=== PATIENT | male | born 1990 | race Two or more races ===

== ENCOUNTER 2020-07-16 21:05 | Emergency (ER) | payer OTHER, SELFPAY ==
[2020-07-16 21:51] VITALS: BP 129/85; PULSE 101; RESP 16; TEMP 37; O2SAT 98; BMI 37.2
--- NOTE | 2020-07-17 00:07 | PC.NURSE ---
serenity mane at bedside for primary eval
--- NOTE | 2020-07-17 00:08 | CT_ITS ---
EXAMINATION: CT HEAD WITHOUT CONTRAST CLINICAL INFORMATION: Headache. Pain. COMPARISON: 10/23/2012. TECHNIQUE: Contiguous helical images of the brain were obtained without IV contrast. Multiplanar reconstructions were performed. DLP: 680 mGy-cm. FINDINGS: There are no pathologic extra-axial fluid collections. The lateral, third, fourth ventricles are nondilated and concordant with the appearance of the sulci. There is no evidence for acute intraparenchymal hemorrhage or infarct. There is neither mass nor mass effect. There is no shift of midline structures. The paranasal sinuses and mastoid air cells are clear. There are no osseous lesions. CT/CT head/brain wo con IMPRESSION: No evidence for acute intracranial injury. Automated exposure control (Care Dose) Adjustment of the mA and/or kv according to patient size (this includes techniques or standardized protocols for targeted exams where dose is matched to indication / reason for exam; i.e. extremities or head).
--- NOTE | 2020-07-17 00:09 | XR_ITS ---
EXAMINATION: CHEST 2 VIEWS CLINICAL INFORMATION: Shortness of breath. Wheezing. COMPARISON: 03/21/2017. TECHNIQUE: PA and lateral views of the chest were obtained. FINDINGS: The cardiac silhouette is not enlarged. The mediastinal and hilar contours are unremarkable. There are neither pleural effusions nor pneumothoraces. There are no consolidations. The osseous structures are stable.. Surgical clips are identified within the right upper quadrant. XR/XR chest 2V IMPRESSION: No evidence for acute disease.
[2020-07-17 00:52] VITALS: BP 118/79; PULSE 81; RESP 17; TEMP 36.4; O2SAT 98
[2020-07-17] MEDS: 0.9 % Sodium Chloride 1,000 ML 999 ML IVCONT (00:54)
[2020-07-17] MEDS: Metoclopramide HCl 10 MG/2 ML VIAL IVPUSH (00:54)
[2020-07-17] MEDS: Albuterol Sulfate 90 MCG 8 GM INHALER 2 PUFF INHALE (00:54)
[2020-07-17] MEDS: Ketorolac Tromethamine 15 MG/ML VIAL IV (00:54)
[2020-07-17] MEDS: diphenhydrAMINE HCL 50 MG/ML VIAL 25 MG IVPUSH (00:54)
[2020-07-17 00:56] LABS: MANUAL DIFF FLAG NO
--- NOTE | 2020-07-17 01:02 | ED_ITS ---
HPI - Headache General Chief Complaint: Headache Stated Complaint: headache Time Seen by Provider: 07/17/20 00:08 Source: patient Mode of arrival: ambulatory Limitations: no limitations History of Present Illness HPI Narrative: 29yoM c a PMHx of asthma presenting to the ED c c/o of a headache that started gradually while at work [employer] c pain behind the eye and behind left ear. Sharp in sensation worse c light. With associated Nausea. Relieved by nothing. Reports he has had headaches in the past although usually never with nausea. Patient also reports a separate complaint of wheezing with shortness of breath for the past few days. Denies cough. Denies any other symptoms complaints or concerns at this time. Related Data Previous Rx's Medication Instructions Recorded sennosides 8.6 mg capsule 17.2 mg PO BEDTIME 30 Days #60 cap 07/08/20 albuterol sulfate 0.63 mg INHALATION QID PRN #90 ml 07/17/20 diphenhydramine HCl [Benadryl 25 mg PO TID PRN #10 tab 07/17/20 Allergy] ibuprofen 800 mg PO Q8H PRN #14 tab 07/17/20 metoclopramide HCl [Reglan] 10 mg PO Q6H PRN #10 tab 07/17/20 nebulizers [AeroEclipse II #1 ea 07/17/20 Nebulizer] prednisone 40 mg PO DAILY 5 Days #10 tab 07/17/20 Allergies Allergy/AdvReac Type Severity Reaction Status Date / Time acetaminophen [From VICODIN] Allergy Severe SWELLING Unverified 05/27/20 16:26 hydrocodone [From VICODIN] Allergy Severe SWELLING Unverified 05/27/20 16:26 codeine [CODEINE] Allergy Unknown ITCHY RASH Unverified 05/27/20 16:26 vancomycin [VANCOMYCIN] Allergy Unknown REDMANS Unverified 05/27/20 16:26 SYNDROME, Swelling/Redness, redness, swelling, itching Vicodin Allergy Unknown redness, Unverified 04/15/20 00:00 swelling, itching SEAFOOD Allergy Severe SWELLING Uncoded 05/27/20 16:26 Codeine Phosphate Allergy Unknown redness, Uncoded 04/15/20 00:00 swelling , itching Codeine Sulfate Allergy Unknown Uncoded 04/14/20 00:00 Review of Systems Review of Systems: Constitutional : denies med noncompliance, no history of PE or DVT, denies recent travel, No Fever, No Chills ENT/Mouth : No Hearing loss, No Ear Pain, No Nasal Congestion, No Sinus Pain, No Hoarseness, No sore throat, No Rhinorrhea, No Swallowing Difficulty Eyes: + Right Eye Pain, No Swelling, No Redness, No Foreign Body, No Discharge, No Vision Changes Cardiovascular : No Chest Pain, No SOB, No Dyspnea on Exertion, No Orthopnea, No Edema, No Palpitations Respiratory : No Cough, No Sputum, + Wheezing, + Dyspnea, No Smoke Exposure, Gastrointestinal : + Nausea, No Vomiting, No Diarrhea, No Constipation, No abdom inal Pain, No Hematochezia, No Melena Genitourinary : no irregular bleeding, No Dysuria, No Urinary Frequency, No Hematuria, No Urinary Incontinence, No Urgency, No Flank Pain, No Urinary Flow Changes, No Hesitancy Musculoskeletal : No joint pain, No Myalgias, No Joint Swelling Skin : No Skin Lesions, No rash Neuro : + Headache, No Weakness, No Numbness, No Paresthesias, No Loss of Consciousness, No Dizziness Heme/Lymph: No Lymphadenopathy Endocrine : No Temperature Intolerance Yes all other systems are reviewed and are negative PMFSH Past Medical History Attestation statement: The following information was validated with the patient. Medical History (Updated 07/17/20 @ 02:19 by NINI Hare) Asthma exacerbation No known health problems Social History Social History Alcohol intake: never Smoked in Last 30 Days: No Use of substances other than those prescribed or required for medical reasons: No Any prior treatment program specific to substance use: No Advance Directives: No Advance Directives Information Provided: No Physical Exam Vital Signs: Vital Signs: Last Vital Signs Temp 97.6 F 07/17/20 00:52 Pulse 81 07/17/20 00:52 Resp 17 07/17/20 00:52 BP 118/79 07/17/20 00:52 Pulse Ox 98 07/17/20 00:52 Body Mass Index 37.2 Vital signs have been reviewed as normal and appeared to be correct. Blood pressure normal. Heart rate normal. Respiration rate normal. Temperature normal. Oxygen saturation normal. Appearance: Alert. Oriented X3. No acute distress. Head: Normal external exam. Normocephalic. Atraumatic. Able to rotate head bilaterally. Eyes: PERRLA. EOMI. Conjunctiva are normal. Cornea are normal. Funduscopic exam within normal limits. Sclera normal. Eyelids normal. No papilledema noted. Anterior chamber normal. No photophobia noted. Pressure to right eye is . Pressure to left eye is . Visual acuity to right eye 20/. Visual acuity to left eye 20/. ENT: EAC normal. TM's Normal. Hearing normal. Pharynx normal. Uvula midline. tongue midline. Moist mucous membranes. No trismus noted. No drooling noted. No muffled voice noted. Neck: Normal inspection. Neck supple. FROM. No adenopathy. Thyroid Normal. No meningeal signs. No neck mass noted. CVS: Normal heart rate and rhythm. Heart sound normal. No murmurs noted. Pulses normal throughout. Respiratory: No respiratory distress. Painless inspiration. Patient with mild expiratory wheezing throughout. Otherwise no rales/rhonchi noted. Chest nontender. No accessory muscle usage noted or decreased air movement noted. Back: No CVA tenderness. Full range of motion noted. Skin: Skin warm and dry. Normal skin color. Normal skin turgor. No rashes/lesions/lacerations noted. Extremities: No lower extremity edema. Extremities exhibit normal range of motion. Extremities nontender. Able to shrug shoulders bilaterally and keep up against resistance. Neuro: Oriented X 3. No motor deficit. No sensory deficit. Reflexes normal. Moving all extremities. No focal motor deficits. Cranial nerves II-XI intact bilaterally. Facial strength normal. Normal cognition. Speech normal. Gait normal. Strength 5/5 throughout. No pronator drift. No tremor noted. No fasciculations noted. Muscle tone normal throughout. No asterixis noted. Lqsbeg-qj-yzeb test normal. Heel to magallanes test normal. Tandem gait normal. Does not sway with eyes open. Romberg test negative. Rapid alternating movement upper extremity normal. Rapid alternating movement lower extremity normal. Hand drop from overhead-Mrs. face. No rigidity noted. NIHSS score 0. Course Course Course Narrative: 00:10AM - 29yoM c a PMHx of asthma presenting c c/o of a headache c associated nausea, and pain behind left ear that started gradual [employer]. Pt has a separate complaint of sob c wheezing for a few days. - Patient afebrile, resting comfortably in no distress. Non-toxic appearing. Patient denies any recent trauma/injury to head. Neurological exam shows no deficits. BP WNL. Denies any changes in vision. Patient ambulates without difficulty. Given the history, and physical - most likely diagnosis: Migraine MONZON. - Although due to not usual to regular headache therefore will obtain labs and CT scan of brain. Provide symptomatic tx c IV fluids, 10 mg of reglan, 23 mg of benadryl, and 15 mg of toradol then re-evaluate. Reevaluation(s) Reevaluation #1: CBC within normal limits. Patient's labs hemolyzed therefore basic metabolic needs to be redrawn. CT scan of brain within normal limits no acute processes noted. Chest x-ray within normal limits no acute processes noted. - patient reports his headache and his wheezing is improved after the symptomatic treatment and albuterol inhaler. Will DC home with symptomatic treatment instructions return if any new or worsening symptoms. If basic metab olic panel within normal limits patient can be discharged home. Patient understands agrees the plan. Time: 02:20 MDM - Headache MDM Narrative Medical decision making narrative: gradual onset MONZON with photophobia, nausea. Although not typically to usual headaches. SAH: unlikely given gradual onset. Intracranial bleed: unlikely given neg trauma, neg anticoagulation Meningitis: unlikely given pt afebrile, neg stiff neck, no immune compromise. Exam without signs of meningismus Temporal arteritis: Unlikely given Neg jaw claudication, no temporal tenderness or nodularity on exam. Cerebral venous thrombosis: unlikely given no h/o hypercoaguable state, no chronic head/neck infection. Medical Records Attestation: I reviewed the patient's medical records. Lab Data Attestation: I reviewed the patient's lab results. Result diagrams: 07/17/20 00:49 07/17/20 00:49 Labs: Lab Results 07/17/20 07/17/20 07/17/20 Range/Units 00:49 00:49 00:49 WBC 9.1 (4.8-10.8) X10*3/uL RBC 5.11 (4.60-5.80) X10*6/uL Hgb 14.7 (14.0-18.0) g/dl Hct 45.3 (42-52) % MCV 88.6 (80-98) fL MCH 28.8 (27.0-33.0) pg MCHC 32.5 (31.0-36.0) g/dl RDW 12.6 (11.0-16.0) % Plt Count 326 (160-400) X10*3/uL MPV 9.5 (9.4-12.4) fL Immature Gran % (Auto) 0.2 (0.0-0.4) % Neut % (Auto) 59.3 (45-73) % Lymph % (Auto) 29.2 (20-40) % [place] % (Auto) 5.5 (2-11) % Eos % (Auto) 5.0 H (0-4) % Baso % (Auto) 0.8 (0-2) % Lymph # (Auto) 2.7 (1.2-4.9) X10*3/uL [place] # (Auto) 0.5 (0.1-1.2) X10*3/uL Eos # (Auto) 0.5 H (0.0-0.4) X10*3/uL Baso # (Auto) 0.1 (0.0-0.2) X10*3/uL Abs Immat Gran (auto) 0.02 (0.00-0.03) X10*3/uL Absolute Neuts (auto) 5.4 (2.0-8.3) X10*3/uL Absolute Nucleated RBC 0.000 (0.0-0.012) X10*3/uL Nucleated RBC % (auto) 0.0 (0.0-0.2) /100WBC Hold Blue Top SEE NOTE Sodium Cancelled Potassium Cancelled Chloride Cancelled Carbon Dioxide Cancelled Anion Gap Cancelled BUN Cancelled Creatinine Cancelled Estim Creat Clear Calc Cancelled Estimated GFR Cancelled Random Glucose Cancelled Calcium Cancelled Magnesium Cancelled Imaging Data CT scan - head: Attestation: I personally reviewed and interpreted this imaging study as sada urias: Radiologist's impression: FINDINGS: There are no pathologic extra-axial fluid collections. The lateral, third, fourth ventricles are nondilated and concordant with the appearance of the sulci. There is no evidence for acute intraparenchymal hemorrhage or infarct. There is neither mass nor mass effect. There is no shift of midline structures. The paranasal sinuses and mastoid air cells are clear. There are no osseous lesions. CT/CT head/brain wo con IMPRESSION: No evidence for acute intracranial injury. Chest x-ray: Attestation: I personally reviewed and interpreted this imaging study as follows: Radiologist's impression: FINDINGS: The cardiac silhouette is not enlarged. The mediastinal and hilar contours are unremarkable. There are neither pleural effusions nor pneumothoraces. There are no consolidations. The osseous structures are stable.. Surgical clips are identified within the right upper quadrant. XR/XR chest 2V IMPRESSION: No evidence for acute disease. Discharge Plan Discharge Clinical Impression: Acute bronchospasm Headache Qualifiers: Headache type: unspecified Headache chronicity pattern: acute headache Intractability: not intractable Qualified Code(s): R51.9 - Headache, unspecified Asthma Qualifiers: Asthma severity: mild Asthma persistence: intermittent Asthma complication type: uncomplicated Qualified Code(s): J45.20 - Mild intermittent asthma, uncomplicated Patient Disposition: Home, Self-Care Instructions: Acute Headache (ED) Prescriptions: New metoclopramide HCl [Reglan] 10 mg tablet 10 mg PO Q6H PRN (Reason: nausea and vomiting) Qty: 10 RF: 0 diphenhydramine HCl [Benadryl Allergy] 25 mg tablet 25 mg PO TID PRN (Reason: nausea and vomiting) Qty: 10 RF: 0 ibuprofen 800 mg tablet 800 mg PO Q8H PRN (Reason: pain) Qty: 14 RF: 0 prednisone 20 mg tablet 40 mg PO DAILY 5 Days Qty: 10 RF: 0 (DME) AeroEclipse II Nebulizer Misc See Rx Instructions .ROUTE .MEDSUPPLY Qty: 1 RF: 0 albuterol sulfate 0.63 mg/3 mL solution for nebulization 0.63 mg inhalation QID PRN (Reason: shortness of breath or wheezing) Qty: 90 RF: 0 No Action senna 8.6 mg capsule 17.2 mg PO BEDTIME 30 Days Qty: 60 RF: 1 Referrals: Kahlil Garcia, APPLIED RESEARCH DIRECTOR-[employer] [Primary Care Provider] - 2 days Stand Alone Forms: Work/School Release Print Language: Macedonian
[2020-07-17 01:07] LABS: Basophils Absolute Auto 0.1 X10*3/uL (0.0-0.2); Basophils Percent Auto 0.8 % (0-2); Eosinophils Absolute Auto 0.5 X10*3/uL (0.0-0.4); Hematocrit 45.3 % (42-52); Hemoglobin 14.7 g/dl (14.0-18.0); Imm Gran Abs Auto 0.02 X10*3/uL (0.00-0.03); Imm Gran Pct Auto 0.2 % (0.0-0.4); Lymphocytes Absolute Auto 2.7 X10*3/uL (1.2-4.9); Lymphocytes Percent Auto 29.2 % (20-40); Mean Corpuscular HGB Conc 32.5 g/dl (31.0-36.0); Mean Corpuscular Hemoglobin 28.8 pg (27.0-33.0); Mean Corpuscular Volume 88.6 fL (80-98); Mean Platelet Volume 9.5 fL (9.4-12.4); Monocytes Absolute Auto 0.5 X10*3/uL (0.1-1.2); Monocytes Percent Auto 5.5 % (2-11); Neutrophils Absolute Auto 5.4 X10*3/uL (2.0-8.3); Neutrophils Percent Auto 59.3 % (45-73); Platelet Count 326 X10*3/uL (160-400); Red Blood Count 5.11 X10*6/uL (4.60-5.80); Red Cell Distribution Width 12.6 % (11.0-16.0); White Blood Count 9.1 X10*3/uL (4.8-10.8)
--- NOTE | 2020-07-17 01:57 | PC.NURSE ---
pt states he is feeling better pain is 2/10 compared to 6/10 pre med administration
[2020-07-17 02:36] LABS: Glucose Urine UA NEG (NEG); Leukocyte Esterase Urine TRACE (NEG); Nitrite Urine NEG (NEG); PH 5.5 (5.0-8.0); Specific Gravity - Urine >= 1.030 (1.005-1.025); Urine Blood NEG (NEG); Urine Ketones NEG (NEG); Urine Protein NEG (NEG-TRACE)
[2020-07-17 03:13] LABS: Appearance Urine CLEAR; Color Urine YELLOW
[2020-07-17 03:16] LABS: Bacteria Urine TRACE /LPF; RBC Urine 0 /HPF (0); Squamous Epithelial Cell Urine 2+ /LPF
[2020-07-17 03:17] LABS: Anion Gap 11 (12-20); Blood Urea Nitrogen 19 mg/dL (9-16); Calcium 7.9 mg/dL (8.4-10.2); Carbon Dioxide 22 mmol/L (22-29); Chloride 113 mmol/L (96-108); Creatinine Clr Calc Pharmacy 147.2; Estimated Glomerular Filt Rate > 60; Glucose Random 90 mg/dL (60-115); Potassium 3.9 mmol/l (3.3-5.1); Sodium 142 mmol/L (135-145)
== END 2020-07-17 03:43 | disposition home or self-care (01) ==
PROVIDERS: Physician Assistant Medical; Emergency Provider Internal Medicine; PCP Nurse Practitioner Family
DX: J98.01 Acute bronchospasm (principal); R51.9 Headache, unspecified; Z79.899 Other long term (current) drug therapy
CPT/HCPCS: 36415; 70450; 71046; 80048; 81001; 83735; 85025; 87086; 94640; 96361; 96374; 96375; 99284; J1200; J1885; J2765

== ENCOUNTER 2020-10-18 09:21 | Emergency (ER) | payer OTHER, SELFPAY ==
[2020-10-18 10:20] VITALS: BP 146/102; PULSE 80; RESP 20; TEMP 36.8; O2SAT 99; BMI 38.2
--- NOTE | 2020-10-18 10:47 | ED_ITS ---
HPI - General Adult General Chief complaint: Dizziness Stated complaint: covid symptoms Time Seen by Provider: 10/18/20 10:26 Source: patient Mode of arrival: ambulatory Limitations: no limitations History of Present Illness HPI narrative: 29-year-old male previously healthy here with complaints of generalized abdominal cramping, headache, dizziness described as lightheadedness since waking this morning. He tells me he had some symptoms when he woke up but then when driving to work he felt worse and so he drove himself here to the emergency department. He denies any nausea, vomiting, diarrhea, fevers, chills, cough, shortness of breath, chest pain, neck pain. Describes the headache as generalized and mild. No vision changes, photophobia, nausea, vomiting. Lightheaded with position changes only. Onset (ago): hour(s) Related Data Home Medications Medication Instructions Recorded Confirmed budesonide-formoterol HFA 80 INHALATION 07/20/20 mcg-4.5 mcg/actuation aerosol inhaler epinephrine 0.3 mg/0.3 mL IM 07/20/20 injection, auto-injector omalizumab 150 mg/mL subcutaneous mg SUBCUT 07/20/20 syringe prednisone 10 mg tablet mg PO 07/20/20 Previous Rx's Medication Instructions Recorded sennosides 8.6 mg capsule 17.2 mg PO BEDTIME 30 Days #60 cap 07/08/20 albuterol sulfate 0.63 mg INHALATION QID PRN #90 ml 07/17/20 diphenhydramine HCl [Benadryl 25 mg PO TID PRN #10 tab 07/17/20 Allergy] ibuprofen 800 mg PO Q8H PRN #14 tab 07/17/20 metoclopramide HCl [Reglan] 10 mg PO Q6H PRN #10 tab 07/17/20 nebulizers [AeroEclipse II #1 ea 07/17/20 Nebulizer] prednisone 40 mg PO DAILY 5 Days #10 tab 07/17/20 cyclobenzaprine 5 mg tablet 10 mg PO BEDTIME PRN #10 tab 07/20/20 naproxen 500 mg tablet 500 mg PO BID PRN #60 tab 07/20/20 Allergies Allergy/AdvReac Type Severity Reaction Status Date / Time acetaminophen [From VICODIN] Allergy Severe SWELLING Unverified 05/27/20 16:26 hydrocodone [From VICODIN] Allergy Severe SWELLING Unverified 05/27/20 16:26 codeine [CODEINE] Allergy Unknown ITCHY RASH Unverified 05/27/20 16:26 vancomycin [VANCOMYCIN] Allergy Unknown REDMANS Unverified 05/27/20 16:26 SYNDROME, Swelling/Redness, redness, swelling, itching Vicodin Allergy Unknown redness, Unverified 04/15/20 00:00 swelling, itching SEAFOOD Allergy Severe SWELLING Uncoded 05/27/20 16:26 Codeine Phosphate Allergy Unknown redness, Uncoded 04/15/20 00:00 swelling , itching Codeine Sulfate Allergy Unknown Uncoded 04/14/20 00:00 Review of Systems Review of Systems: Yes all other systems are reviewed and are negative Constitutional: Constitutional: Reports no additional constitutional complaints, Denies body ache(s), Denies chills, Denies fever(s), Reports headache(s) and Denies weakness Eyes: Eyes: Reports no additional eye complaints and Denies change in vision ENT: Reports system reviewed and no additional complaints, except as documented, Reports dizziness (lightheadeness ), Reports headache(s), Denies nasal congestion, Denies nasal discharge and Denies neck pain Cardiovascular: Cardiovascular: Reports no additional cardiovascular complaints, Denies chest pain, Denies leg edema and Denies dyspnea Respiratory: Respiratory: Reports no additional respiratory complaints, Denies cough and Denies dyspnea Gastrointestinal: Gastrointestinal: Reports no additional gastrointestinal complaints, Reports abdominal pain, Denies diarrhea, Denies nausea and Denies vomiting Genitourinary: Genitourinary: Denies urinary incontinence Musculoskeletal: Musculoskeletal: Reports no additional musculoskeletal complaints, Denies back pain, Denies arthralgias, Denies joint swelling, Denies neck pain, Denies numbness and Denies tingling Integumentary/Breasts: Skin/Breast: Reports system reviewed and no additional complaints, except as docu and Denies rash Neurologic: Reports system reviewed and no additional complaints, except as documented, Denies Abnormal speech present, Reports dizziness (lightheadeness ), Reports headache(s), Denies numbness, Denies tingling and Denies weakness PMFSH Past Medical History Attestation statement: The following information was validated with the patient. Source: old records reviewed and nursing notes reviewed Medical History Asthma exacerbation FHx: cholecystectomy No known health problems Social History Social History Alcohol intake: never Advance Directives: No Advance Directives Information Provided: No Physical Exam Vital Signs: Vital Signs: Last Vital Signs Temp 98.3 F 10/18/20 10:20 Pulse 76 10/18/20 10:51 Resp 20 10/18/20 10:20 BP 134/100 H 10/18/20 10:51 Pulse Ox 99 10/18/20 10:20 Body Mass Index 38.2 Const: General: cooperative, healthy appearing, comfortable and no acute distress Orientation/consciousness: patient oriented x3 Limitations: no limitations HENMT: Head: Yes normal to inspection Ears: hearing grossly normal bilaterally General nose exam: Normal external nose present Face and sinus: Yes normal facial exam Mouth: Normal oral and palatal mucosa present Throat: Yes posterior oropharynx normal Eyes: General: appearance normal, both eyes and all related structures Pupils: Equal, round and reactive pupils present Neck: Neck: Yes normal visual inspection Chest: Chest palpation & inspection: normal inspection of the chest Resp: Effort & Inspection: normal respiratory effort Auscultation: clear to auscultation bilaterally Cardio: Rate: regular rate Rhythm: regular rhythm Peripheral pulses: Per ipheral pulses 2+ throughout GI: Inspection: Yes normal to inspection Palpation (GI): Soft to palpation and nontender Auscultation: normal bowel sounds Back/Spine/Pelvis: Thoracic/Lumbar Spine: thoracic and lumbar spine normal to inspection Skin: General skin exam: no rashes or lesions noted Neuro: General: patient oriented x3, no focal motor deficits and normal sensation to monofilament Cranial nerves: Yes CN's II-XII intact bilaterally, Yes Equal, round and reactive pupils present, Yes Bilaterally intact EOM present and Yes Nystagmus not present Cognition (Neuro): normal cognition Speech: No Abnormal speech present Gait exam (Neuro): Normal gait present Motor exam (neuro): 5/5 motor strength present throughout Sensory Exam: Normal double simultaneous stimulation for sensation Coordination: [id number] test normal, [id number] test normal and tandem gait normal Extrem: General: Yes normal to inspection Course Course Course Narrative: 29 yo male here with complaints of abdominal cramping, feeling lightheaded with generalized headache since waking this morning. No other complaints. Stable vital signs, normal neurological exam. No focal abdominal pain on exam. Will check labs, UA, orthostatics vital signs, reassess. 1420-labs, UA all unremarkable. Orthostatics negative. COVID test is pending.' 1515-Informed of COVID test. Reviewed worrisome signs/symptoms with the patient when to return to the city [facility] department. Comfortable discharge home. Medical Decision Making MDM Narrative Medical decision making narrative: Orthostatic hypotension, dehydration, electrolyte abnormality, anemia, viral syndrome Lab Data Result diagrams: 10/18/20 10:58 10/18/20 10:58 Labs: Lab Results 10/18/20 10/18/20 10/18/20 Range/Units 10:58 10:58 10:59 WBC 7.5 (4.8-10.8) X10*3/uL RBC 5.33 (4.60-5.80) X10*6/uL Hgb 14.9 (14.0-18.0) g/dl Hct 45.9 (42-52) % MCV 86.1 (80-98) fL MCH 28.0 (27.0-33.0) pg MCHC 32.5 (31.0-36.0) g/dl RDW 12.5 (11.0-16.0) % Plt Count 306 (160-400) X10*3/uL MPV 9.4 (9.4-12.4) fL Immature Gran % (Auto) 0.4 (0.0-0.4) % Neut % (Auto) 61.7 (45-73) % Lymph % (Auto) 26.9 (20-40) % Hamilton % (Auto) 5.3 (2-11) % Eos % (Auto) 4.4 H (0-4) % Baso % (Auto) 1.3 (0-2) % Lymph # (Auto) 2.0 (1.2-4.9) X10*3/uL Hamilton # (Auto) 0.4 (0.1-1.2) X10*3/uL Eos # (Auto) 0.3 (0.0-0.4) X10*3/uL Baso # (Auto) 0.1 (0.0-0.2) X10*3/uL Abs Immat Gran (auto) 0.03 (0.00-0.03) X10*3/uL Absolute Neuts (auto) 4.7 (2.0-8.3) X10*3/uL Absolute Nucleated RBC 0.000 (0.0-0.012) X10*3/uL Nucleated RBC % (auto) 0.0 (0.0-0.2) /100WBC Sodium 139 (135-145) mmol/L Potassium 4.5 (3.3-5.1) mmol/L Chloride 107 (96-108) mmol/L Carbon Dioxide 27 (22-29) mmol/L Anion Gap 10 L (12-20) BUN 13 (9-16) mg/dL Creatinine 0.82 (0.5-1.4) mg/dL Estim Creat Clear Calc 140.3 Estimated GFR > 60 Random Glucose 88 (60-115) mg/dL Calcium 8.9 D (8.4-10.2) mg/dL Magnesium 2.3 (1.6-2.6) mg/dL Urine Color Urine Appearance Urine pH (5.0-8.0) Ur Specific Winger (1.005-1.025) Urine Protein (NEG-TRACE) MG/DL Urine Glucose (UA) (NEG) MG/DL Urine Ketones (NEG) MG/DL Urine Blood (NEG) Urine Nitrite (NEG) Ur Leukocyte Esterase (NEG) Coronavirus (PCR) NEGATIVE (Negative) Influenza Type A (PCR) NEGATIVE (Negative) Influenza Type B (PCR) NEGATIVE (Negative) RSV RNA Qual (PCR) NEGATIVE (Negative) 10/18/20 Range/Units 12:50 WBC (4.8-10.8) X10*3/uL RBC (4.60-5.80) X10*6/uL Hgb (14.0-18.0) g/dl Hct (42-52) % MCV (80-98) fL MCH (27.0-33.0) pg MCHC (31.0-36.0) g/dl RDW (11.0-16.0) % Plt Count (160-400) X10*3/uL MPV (9.4-12.4) fL Immature Gran % (Auto) (0.0-0.4) % Neut % (Auto) (45-73) % Lymph % (Auto) (20-40) % Hamilton % (Auto) (2-11) % Eos % (Auto) (0-4) % Baso % (Auto) (0-2) % Lymph # (Auto) (1.2-4.9) X10*3/uL Hamilton # (Auto) (0.1-1.2) X10*3/uL Eos # (Auto) (0.0-0.4) X10*3/uL Baso # (Auto) (0.0-0.2) X10*3/uL Abs Immat Gran (auto) (0.00-0.03) X10*3/uL Absolute Neuts (auto) (2.0-8.3) X10*3/uL Absolute Nucleated RBC (0.0-0.012) X10*3/uL Nucleated RBC % (auto) (0.0-0.2) /100WBC Sodium (135-145) mmol/L Potassium (3.3-5.1) mmol/L Chloride (96-108) mmol/L Carbon Dioxide (22-29) mmol/L Anion Gap (12-20) BUN (9-16) mg/dL Creatinine (0.5-1.4) mg/dL Estim Creat Clear Calc Estimated GFR Random Glucose (60-115) mg/dL Calcium (8.4-10.2) mg/dL Magnesium (1.6-2.6) mg/dL Urine Color YELLOW Urine Appearance CLEAR Urine pH 6.5 (5.0-8.0) Ur Specific Winger 1.025 (1.005-1.025) Urine Protein NEG (NEG-TRACE) MG/DL Urine Glucose (UA) NEG (NEG) MG/DL Urine Ketones NEG (NEG) MG/DL Urine Blood NEG (NEG) Urine Nitrite NEG (NEG) Ur Leukocyte Esterase NEG (NEG) Coronavirus (PCR) (Negative) Influenza Type A (PCR) (Negative) Influenza Type B (PCR) (Negative) RSV RNA Qual (PCR) (Negative) Discharge Plan Discharge Clinical Impression: Acute viral syndrome Patient Disposition: Home, Self-Care Instructions: Viral Syndrome (ED) Additional Instructions: I will call you in several hours with the results of her COVID test. If you are positive you will need to self quarantine for total of 10 days and her symptoms must be resolved for greater than 24 hours prior to return to work. Prescriptions: No Action senna 8.6 mg capsule 17.2 mg PO BEDTIME 30 Days Qty: 60 RF: 1 metoclopramide HCl [Reglan] 10 mg tablet 10 mg PO Q6H PRN (Reason: nausea and vomiting) Qty: 10 RF: 0 diphenhydramine HCl [Benadryl Allergy] 25 mg tablet 25 mg PO TID PRN (Reason: nausea and vomiting) Qty: 10 RF: 0 ibuprofen 800 mg tablet 800 mg PO Q8H PRN (Reason: pain) Qty: 14 RF: 0 prednisone 20 mg tablet 40 mg PO DAILY 5 Days Qty: 10 RF: 0 (DME) AeroEclipse II Nebulizer Misc See Rx Instructions .ROUTE .MEDSUPPLY Qty: 1 RF: 0 albuterol sulfate 0.63 mg/3 mL solution for nebulization 0.63 mg inhalation QID PRN (Reason: shortness of breath or wheezing) Qty: 90 RF: 0 budesonide-formoterol 80-4.5 mcg/actuation HFA aerosol inhaler inhalation RF: 0 Xolair 150 mg/mL syringe subcut RF: 0 prednisone 10 mg tablet PO RF: 0 epinephrine 0.3 mg/0.3 mL auto-injector IM RF: 0 naproxen 500 mg tablet 500 mg PO BID PRN (Reason: pain) Qty: 60 RF: 0 cyclobenzaprine 5 mg tablet 10 mg PO BEDTIME PRN (Reason: muscle spasm) Qty: 10 RF: 0 Referrals: Damian Miles MD [Primary Care Provider] - 2 days Stand Alone Forms: Work/School Release Interventions: ED Discharge Assessment Last Done: 10/18/20 14:05 Discharge Date/Time: 10/18/20 14:06
[2020-10-18 10:49] VITALS: BP 120/73; PULSE 72
[2020-10-18 10:50] VITALS: BP 131/84; PULSE 74
[2020-10-18 10:51] VITALS: BP 134/100; PULSE 76
[2020-10-18 11:05] LABS: MANUAL DIFF FLAG NO
[2020-10-18 11:07] LABS: Basophils Absolute Auto 0.1 X10*3/uL (0.0-0.2); Basophils Percent Auto 1.3 % (0-2); Eosinophils Absolute Auto 0.3 X10*3/uL (0.0-0.4); Eosinophils Percent Auto 4.4 % (0-4); Hematocrit 45.9 % (42-52); Hemoglobin 14.9 g/dl (14.0-18.0); Imm Gran Abs Auto 0.03 X10*3/uL (0.00-0.03); Imm Gran Pct Auto 0.4 % (0.0-0.4); Lymphocytes Percent Auto 26.9 % (20-40); Mean Corpuscular HGB Conc 32.5 g/dl (31.0-36.0); Mean Corpuscular Volume 86.1 fL (80-98); Mean Platelet Volume 9.4 fL (9.4-12.4); Monocytes Absolute Auto 0.4 X10*3/uL (0.1-1.2); Monocytes Percent Auto 5.3 % (2-11); Neutrophils Absolute Auto 4.7 X10*3/uL (2.0-8.3); Neutrophils Percent Auto 61.7 % (45-73); Platelet Count 306 X10*3/uL (160-400); Red Blood Count 5.33 X10*6/uL (4.60-5.80); Red Cell Distribution Width 12.5 % (11.0-16.0); White Blood Count 7.5 X10*3/uL (4.8-10.8)
[2020-10-18 11:38] LABS: Anion Gap 10 (12-20); Blood Urea Nitrogen 13 mg/dL (9-16); Calcium 8.9 mg/dL (8.4-10.2); Carbon Dioxide 27 mmol/L (22-29); Chloride 107 mmol/L (96-108); Creatinine Clr Calc Pharmacy 140.3; Estimated Glomerular Filt Rate > 60; Glucose Random 88 mg/dL (60-115); Magnesium 2.3 mg/dL (1.6-2.6); Potassium 4.5 mmol/L (3.3-5.1); Sodium 139 mmol/L (135-145)
[2020-10-18 12:27] LABS: Influenza A PCR NEGATIVE (Negative); Influenza B PCR NEGATIVE (Negative); Resp Syncy Virus RNA Qual PCR NEGATIVE (Negative); SARS COV2 PCR INHOUSE NEGATIVE (Negative)
[2020-10-18 13:16] LABS: Glucose Urine UA NEG (NEG); Leukocyte Esterase Urine NEG (NEG); Nitrite Urine NEG (NEG); PH 6.5 (5.0-8.0); Specific Gravity - Urine 1.025 (1.005-1.025); Urine Blood NEG (NEG); Urine Ketones NEG (NEG); Urine Protein NEG (NEG-TRACE)
[2020-10-18 13:23] LABS: Appearance Urine CLEAR; Color Urine YELLOW
== END 2020-10-18 14:06 | disposition home or self-care (01) ==
PROVIDERS: Nurse Practitioner Family; Emergency Provider Emergency Medicine; PCP Internal Medicine
DX: B34.9 Viral infection, unspecified (principal); Z20.822 Contact with and (suspected) exposure to COVID-19; J45.909 Unspecified asthma, uncomplicated
CPT/HCPCS: 0241U; 36415; 80048; 81003; 83735; 85025; 99283

== ENCOUNTER 2020-11-28 12:44 | Emergency (ER) | payer OTHER, SELFPAY ==
--- NOTE | ~2020-11-28 | XR_ITS ---
EXAMINATION: XR CHEST CLINICAL INFORMATION: Cough COMPARISON: 07/17/2020 TECHNIQUE: Frontal view of the chest was obtained. FINDINGS: The lungs are well expanded. There is no focal consolidation, edema, or effusion. No pneumothorax. The cardiomediastinal silhouette is within normal limits. No acute osseous abnormality. XR/XR chest 1V IMPRESSION: Clear lungs.
[2020-11-28 13:06] VITALS: BP 132/96; PULSE 99; RESP 18; TEMP 36.9; O2SAT 97; BMI 38.2
--- NOTE | 2020-11-28 13:30 | ED.GENADULT ---
HPI - General Adult General Chief complaint: General Medical Stated complaint: FEVER SORE THROAT Time Seen by Provider: 11/28/20 13:30 History of Present Illness HPI narrative: Complains of 2 days of cough mild sore throat runny nose body aches possible fever No shortness of breath now, but he has been using his asthma inhaler frequently over past several days, no nausea vomiting or diarrhea Related Data Home Medications Medication Instructions Recorded Confirmed budesonide-formoterol HFA 80 INHALATION 07/20/20 mcg-4.5 mcg/actuation aerosol inhaler epinephrine 0.3 mg/0.3 mL IM 07/20/20 injection, auto-injector omalizumab 150 mg/mL subcutaneous mg SUBCUT 07/20/20 syringe prednisone 10 mg tablet mg PO 07/20/20 Previous Rx's Medication Instructions Recorded sennosides 8.6 mg capsule 17.2 mg PO BEDTIME 30 Days #60 cap 07/08/20 albuterol sulfate 0.63 mg INHALATION QID PRN #90 ml 07/17/20 diphenhydramine HCl [Benadryl 25 mg PO TID PRN #10 tab 07/17/20 Allergy] ibuprofen 800 mg PO Q8H PRN #14 tab 07/17/20 metoclopramide HCl [Reglan] 10 mg PO Q6H PRN #10 tab 07/17/20 nebulizers [AeroEclipse II #1 ea 07/17/20 Nebulizer] prednisone 40 mg PO DAILY 5 Days #10 tab 07/17/20 cyclobenzaprine 5 mg tablet 10 mg PO BEDTIME PRN #10 tab 07/20/20 naproxen 500 mg tablet 500 mg PO BID PRN #60 tab 07/20/20 prednisone 60 mg PO DAILY 5 Days #15 tab 11/28/20 Allergies Allergy/AdvReac Type Severity Reaction Status Date / Time acetaminophen [From VICODIN] Allergy Severe SWELLING Unverified 05/27/20 16:26 hydrocodone [From VICODIN] Allergy Severe SWELLING Unverified 05/27/20 16:26 codeine [CODEINE] Allergy Unknown ITCHY RASH Unverified 05/27/20 16:26 vancomycin [VANCOMYCIN] Allergy Unknown REDMANS Unverified 05/27/20 16:26 SYNDROME, Swelling/Redness, redness, swelling, itching Vicodin Allergy Unknown redness, Unverified 04/15/20 00:00 swelling, itching SEAFOOD Allergy Severe SWELLING Uncoded 05/27/20 16:26 Codeine Phosphate Allergy Unknown redness, Uncoded 04/15/20 00:00 swelling , itching Codeine Sulfate Allergy Unknown Uncoded 04/14/20 00:00 Review of Systems Review of Systems: Cough runny nose body aches and sore throat are the positives Negative are no dizziness no weakness no confusion no chills no neck pain no stiff neck no headache no chest pain no palpitations, no abdominal pain no nausea vomiting or diarrhea, no dysuria, no rash, no numbness or weakness [facility], [facility] Past Medical History [facility], [facility] Narrative: Patient has history of asthma and has been using inhaler frequently and past several days Source: nursing notes reviewed Medical History (Updated 11/28/20 @ 15:09 by NINI Madrigal) Asthma exacerbation FHx: cholecystectomy Social History Social History Alcohol intake: never Advance Directives: No Advance Directives Information Provided: No Physical Exam Vital Signs: Vital Signs: Last Vital Signs Temp 98.4 F 11/28/20 13:06 Pulse 99 11/28/20 13:06 Resp 18 11/28/20 13:06 BP 132/96 H 11/28/20 13:06 Pulse Ox 97 11/28/20 13:06 Body Mass Index 38.2 General appearance is no acute distress comfortable relaxed and cooperative The head is normocephalic atraumatic Eyes are clear with no redness or discharge The pharynx is clear and well hydrated with no redness or exudate or tonsillar swelling, voice is normal The chest is clear to auscultation bilaterally with full symmetrical equal breath sounds The neck is supple Heart rate and rhythm regular no murmur Abdomen soft nontender Extremities no edema, no calf tenderness or swelling Skin no rash Neuro no focal deficits Course Course Course Narrative: Well-appearing patient with no respiratory distress has a positive COVID test and a negative x-ray and is discharged home with a work note Medical Decision Making Lab Data Labs: Lab Results 11/28/20 Range/Units 14:43 COVID-19 (DAVID) Positive A (Negative) COVID-19 Clin Com See Note Discharge Plan Discharge Clinical Impression: COVID-19 Patient Disposition: Home, Self-Care Additional Instructions: Your COVID test was positive This is highly contagious and can be very harmful to some people so you are off work until several days after all symptoms are gone and repeat COVID testing is negative I gave you a prescription for prednisone as you have been using inhaler frequently Return to ER any time for any worsening shortness of breath any worse condition any concerns Be sure to wear a mask when around other people, keep a distance from other people especially the elderly as this is very contagious and can be very harmful Prescriptions: New prednisone 20 mg tablet 60 mg PO DAILY 5 Days Qty: 15 RF: 0 No Action senna 8.6 mg capsule 17.2 mg PO BEDTIME 30 Days Qty: 60 RF: 1 metoclopramide HCl [Reglan] 10 mg tablet 10 mg PO Q6H PRN (Reason: nausea and vomiting) Qty: 10 RF: 0 diphenhydramine HCl [Benadryl Allergy] 25 mg tablet 25 mg PO TID PRN (Reason: nausea and vomiting) Qty: 10 RF: 0 ibuprofen 800 mg tablet 800 mg PO Q8H PRN (Reason: pain) Qty: 14 RF: 0 prednisone 20 mg tablet 40 mg PO DAILY 5 Days Qty: 10 RF: 0 (DME) AeroEclipse II Nebulizer Misc See Rx Instructions .ROUTE .MEDSUPPLY Qty: 1 RF: 0 albuterol sulfate 0.63 mg/3 mL solution for nebulization 0.63 mg inhalation QID PRN (Reason: shortness of breath or wheezing) Qty: 90 RF: 0 budesonide-formoterol 80-4.5 mcg/actuation HFA aerosol inhaler inhalation RF: 0 Xolair 150 mg/mL syringe subcut RF: 0 prednisone 10 mg tablet PO RF: 0 epinephrine 0.3 mg/0.3 mL auto-injector IM RF: 0 naproxen 500 mg tablet 500 mg PO BID PRN (Reason: pain) Qty: 60 RF: 0 cyclobenzaprine 5 mg tablet 10 mg PO BEDTIME PRN (Reason: muscle spasm) Qty: 10 RF: 0 Stand Alone Forms: Work/School Release
[2020-11-28 14:58] LABS: COVID-19 Test Positive (Negative); IDNOW Serial# 9DD0AD1C
== END 2020-11-28 15:41 | disposition home or self-care (01) ==
PROVIDERS: Physician Assistant Medical; Emergency Provider Emergency Medicine
DX: U07.1 COVID-19 (principal); R50.9 Fever, unspecified; J02.9 Acute pharyngitis, unspecified; J45.909 Unspecified asthma, uncomplicated
CPT/HCPCS: 36415; 71045; 87635; 99283

== ENCOUNTER 2021-07-22 08:21 | Outpatient (REF) | payer OTHER, SELFPAY ==
[2021-07-22 08:41] LABS: MANUAL DIFF FLAG NO
[2021-07-22 09:07] LABS: Basophils Absolute Auto 0.1 X10*3/uL (0.0-0.2); Eosinophils Absolute Auto 0.2 X10*3/uL (0.0-0.4); Eosinophils Percent Auto 3.5 % (0-4); Hematocrit 47.2 % (42.0-52.0); Hemoglobin 15.5 g/dl (14.0-18.0); Imm Gran Abs Auto 0.02 X10*3/uL (0.00-0.03); Imm Gran Pct Auto 0.3 % (0.0-0.4); Lymphocytes Absolute Auto 1.7 X10*3/uL (1.2-4.9); Lymphocytes Percent Auto 24.6 % (20-40); Mean Corpuscular HGB Conc 32.8 g/dl (31.0-36.0); Mean Corpuscular Hemoglobin 29.1 pg (27.0-33.0); Mean Corpuscular Volume 88.6 fL (80.0-98.0); Monocytes Absolute Auto 0.5 X10*3/uL (0.1-1.2); Monocytes Percent Auto 6.8 % (2-11); Neutrophils Absolute Auto 4.4 x10*3/uL (2.0-8.3); Neutrophils Percent Auto 63.8 % (45-73); Platelet Count 313 X10*3/uL (160-400); Red Blood Count 5.33 X10*6/uL (4.60-5.80); Red Cell Distribution Width 12.7 % (11.0-16.0); White Blood Count 6.9 X10*3/uL (4.8-10.8)
[2021-07-22 09:41] LABS: Alanine Aminotransferase 45 U/L (0-40); Albumin Level 4.6 g/dL (3.5-5.0); Alkaline Phosphatase 137 U/L (39-117); Anion Gap 10 (12-20); Aspartate Amino Transferase 20 U/L (5-37); Bilirubin Total 0.7 mg/dL (0.0-1.0); Blood Urea Nitrogen 12 mg/dL (9-16); Calcium 9.3 mg/dL (8.4-10.2); Carbon Dioxide 26 mmol/L (22-29); Chloride 108 mmol/L (96-108); Cholesterol 164 mg/dL; Estimated Glomerular Filt Rate > 60; Glucose Fasting 97 mg/dL (60-99); Potassium 4.7 mmol/L (3.3-5.1); Sodium 139 mmol/L (135-145); Total Protein 7.6 g/dL (6.5-8.0)
[2021-07-22 09:49] LABS: Thyroid Stimulating Hormone 0.31 uIU/mL (0.32-4.0)
== END 2021-07-22 08:22 | disposition home or self-care (01) ==
LOC: HO.LAB 08:21
PROVIDERS: PCP Internal Medicine; Visit Provider Internal Medicine
DX: D64.9 Anemia, unspecified (principal); J30.1 Allergic rhinitis due to pollen; R63.5 Abnormal weight gain
CPT/HCPCS: 36415; 80053; 82465; 84439; 84443; 85025

== ENCOUNTER 2021-09-08 14:37 | Outpatient (REF) | payer OTHER, SELFPAY ==
[2021-09-08 16:17] LABS: Binax Internal Control QC Valid; Binax Lot number: 9864; Binax Now Covid-19 Ag Negative (Negative)
== END 2021-09-08 14:38 | disposition home or self-care (01) ==
LOC: HO.LAB 14:37
PROVIDERS: Visit Provider Internal Medicine
DX: Z20.822 Contact with and (suspected) exposure to COVID-19 (principal)
CPT/HCPCS: 36415; C9803

== ENCOUNTER 2022-01-29 07:13 | Emergency (ER) | payer OTHER, SELFPAY ==
[2022-01-29 07:24] VITALS: BP 119/87; PULSE 140; RESP 16; TEMP 39.6; O2SAT 99; BMI 43.9
[2022-01-29] MEDS: Acetaminophen 325 MG TABLET 975 MG PO (07:30)
[2022-01-29 07:58] LABS: Influenza A Positive (Negative); Influenza B2 Negative (Negative)
[2022-01-29 07:59] LABS: COVID-19 Test Negative (Negative); IDNOW Serial# 55D5AD1C
--- NOTE | 2022-01-29 08:11 | ED_ITS ---
HPI - URI/Sore Throat General Chief Complaint: Upper Respiratory Symptoms Stated Complaint: Fever/Body aches Time Seen by Provider: 01/29/22 07:16 Source: patient Mode of arrival: ambulatory Limitations: no limitations History of Present Illness HPI Narrative: Patient is a 31 year old male presenting to the emergency department today with a cough and a fever since last Sunday. Patient states that for the last 2 days he has felt generally unwell with a cough and a fever. Patient denies any dizziness, lightheadedness, abdominal pain, nausea, vomiting, chills, blurry vision, double vision, loss of vision, chest pain, difficulty breathing, shortness of breath, back pain, night sweats, pain with urination, increased urinary frequency, increased urinary urgency, blood in his urine or stool, syncope or a near syncopal episode, recent trauma or falls, bowel incontinence, bladder incontinence, bowel retention, bladder retention, or any other complaints at this time. MD elicited complaint: fever and cough Severity: mild Exacerbating factors: nothing Relieving factors: nothing Associated symptoms: fever and cough Treatments prior to arrival: none Related Data Home Medications Medication Instructions Recorded Confirmed budesonide-formoterol HFA 80 INHALATION 07/20/20 mcg-4.5 mcg/actuation aerosol inhaler epinephrine 0.3 mg/0.3 mL IM 07/20/20 injection, auto-injector omalizumab 150 mg/mL subcutaneous mg SUBCUT 07/20/20 syringe prednisone 10 mg tablet mg PO 07/20/20 Previous Rx's Medication Instructions Recorded sennosides 8.6 mg capsule (senna) 17.2 mg PO BEDTIME 30 Days #60 cap 07/08/20 albuterol sulfate 0.63 mg/3 mL 0.63 mg (3 mL) INHALATION QID PRN 07/17/20 solution for nebulization #90 ml diphenhydramine HCl 25 mg tablet 25 mg PO TID PRN #10 tab 07/17/20 (Benadryl Allergy) ibuprofen 800 mg tablet 800 mg PO Q8H PRN #14 tab 07/17/20 metoclopramide HCl 10 mg tablet 10 mg PO Q6H PRN #10 tab 07/17/20 (Reglan) nebulizers (AeroEclipse II #1 ea 07/17/20 Nebulizer) prednisone 20 mg tablet 40 mg PO DAILY 5 Days #10 tab 07/17/20 cyclobenzaprine 5 mg tablet 10 mg PO BEDTIME PRN #10 tab 07/20/20 naproxen 500 mg tablet 500 mg PO BID PRN #60 tab 07/20/20 prednisone 20 mg tablet 60 mg PO DAILY 5 Days #15 tab 11/28/20 Allergies Allergy/AdvReac Type Severity Reaction Status Date / Time acetaminophen [From VICODIN] Allergy Severe SWELLING Verified 01/29/22 07:25 hydrocodone [From VICODIN] Allergy Severe SWELLING Verified 01/29/22 07:25 codeine [CODEINE] Allergy Unknown ITCHY RASH Verified 01/29/22 07:25 vancomycin [VANCOMYCIN] Allergy Unknown REDMANS Verified 01/29/22 07:25 SYNDROME, Swelling/Redness, redness, swelling, itching Vicodin Allergy Unknown redness, Verified 01/29/22 07:25 swelling, itching SEAFOOD Allergy Severe SWELLING Uncoded 05/27/20 16:26 Review of Systems Constitutional: Constitutional: Reports no additional constitutional complaints, Denies chills, Denies fever(s) and Denies night sweats Eyes: Eyes: Reports no additional eye complaints, Denies blurry vision, Denies change in vision, Denies diplopia, Denies eye discharge, Denies loss of vision and Denies eye pain ENT: Denies dizziness Cardiovascular: Cardiovascular: Reports no additional cardiovascular complaints, Denies chest pain, Denies lightheadedness, Denies Loss of Consciousness and Denies dyspnea Respiratory: Respiratory: Reports no additional respiratory complaints, Reports cough and Denies dyspnea Gastrointestinal: Gastrointestinal: Reports no additional gastrointestinal complaints, Denies abdominal pain, Denies melena, Denies hematochezia, Denies change in bowel habits and Denies change in stool character Genitourinary: Genitourinary: Reports no additional male genitourinary complaints, Denies hematuria, Denies oliguria, Denies difficulty urinating, Denies dysuria, Denies urinary frequency, Denies urinary hesitancy, Denies urinary incontinence and Denies urinary urgency Musculoskeletal: Musculoskeletal: Reports no additional musculoskeletal complaints, Denies numbness and Denies tingling Neurologic: Denies dizziness, Denies loss of vision, Denies numbness and Denies tingling Psychiatric: Psychiatric: Reports no additional psychiatric complaints Endocrine: Endocrine: Reports no additional endocrine complaints Hematologic/Lymphatic: Hematologic/Lymphatic: Reports no additional hematologic/lymphatic complaints Allergic/Immunologic: Allergic/Immunologic: Reports no additional allergic/immunologic complaints REPLACED BY [facility] Past Medical History Attestation statement: The following information was validated with the patient. Source: old records reviewed Medical History Asthma exacerbation FHx: cholecystectomy Social History Social History Alcohol intake: never Advance Directives: No Advance Directives Information Provided: No Physical Exam Vital Signs: Vital Signs: Last Vital Signs Temp 103.2 F H 01/29/22 07:24 Pulse 140 H 01/29/22 07:24 Resp 16 01/29/22 07:24 BP 119/87 01/29/22 07:24 Pulse Ox 99 01/29/22 07:24 BMI result Body Mass Index 43.9 Const: General: cooperative, no acute distress, alert and awake Nutritional Appearance: well nourished Orientation/consciousness: patient oriented x3 Limitations: no limitations HEENT: Head: Yes normal to inspection and Yes atraumatic Ears: hearing grossly normal bilaterally and external ears normal General nose exam: Normal external nose present, no nasal discharge noted and no epistaxis Face and sinus: Yes normal facial exam, No abrasion and No laceration Mouth: Normal oral and palatal mucosa present, no drooling and no muffled voice Eyes: General: appearance normal, both eyes and all related structures Periorbital: periorbital findings normal Eyelids: Yes eyelids normal Conjunctivae: conjunctivae normal Pupils: Equal, round and reactive pupils present EOM: EOMs intact bilaterally Neck: Neck: Yes normal visual inspection, Yes full ROM and Yes no lymphadenopathy Chest: Chest palpation & inspection: normal inspection of the chest Resp: Effort & Inspection: normal respiratory effort and able to speak in complete sentences Auscultation: clear to auscultation bilaterally Cardio: Rate: regular rate Rhythm: regular rhythm GI: Inspection: Yes normal to inspection Neuro: General: patient oriented x3 and moves all extremities Cranial nerves: Yes Equal, round and reactive pupils present Cognition (Neuro): normal cognition Motor exam (neuro): 5/5 motor strength present throughout Sensory Exam: Normal double simultaneous stimulation for sensation Coordination: [id number] test normal Extrem: General: Yes normal to inspection, Yes full ROM and Yes capillary refill normal Psych: Appearance: grossly normal Mental Status: mental status grossly normal Affect: normal affect Attitude: cooperative Thought process: Normal thought process present Thought content: Normal thought content present Insight: Good insight present (Psych) MDM - URI/Sore Throat MDM Narrative Medical decision making narrative: Patient is a 31 year old male presenting to the emergency department today with a cough and a fever. Patient's physical exam was unremarkable. Patient's rapid influenza test was positive. I explained my physical exam findings as well as all test results to the patient. I answered all questions asked by the patient. I stressed the importance of the patient taking his medication as prescribed. I stressed the importance of the patient following up with his primary care provider. I stressed the importance of the patient returning to the emergency department immediately if his symptoms were to worsen or if he were to develop any dizziness, shortness of breath, difficulty breathing, chest pain, blurry vision, loss of vision, nausea, vomiting, abdominal pain, fever, chills, back pain, or any other complaints. Patient verbalized agreement and understanding with this treatment plan and discharge. Differential Diagnosis Differential diagnosis: Likely influenza Medical Records Attestation: I reviewed the patient's medical records. Lab Data Attestation: I reviewed the patient's lab results. Labs: Lab Results 01/29/22 01/29/22 Range/Units 07:35 07:35 COVID-19 (DAVID) Negative (Negative) COVID-19 Clin Com See Note Influenza Type A (LINDA) Positive A (Negative) Influenza Type B (LINDA) Negative (Negative) Influenza A & B Note See Note Discharge Plan Discharge Clinical Impression: Influenza Patient Disposition: Home, Self-Care Instructions: Influenza (DC) Additional Instructions: Follow up with your primary care provider. Return to the emergency department immediately if your symptoms worsen or if you develop any dizziness, shortness of breath, difficulty breathing, chest pain, blurry vision, loss of vision, nausea, vomiting, abdominal pain, fever, chills, back pain, or any other complaints. Prescriptions: No Action senna 8.6 mg capsule 17.2 mg PO BEDTIME 30 Days Qty: 60 1RF metoclopramide HCl [Reglan] 10 mg tablet 10 mg PO Q6H PRN (Reason: nausea and vomiting) Qty: 10 0RF diphenhydramine HCl [Benadryl Allergy] 25 mg tablet 25 mg PO TID PRN (Reason: nausea and vomiting) Qty: 10 0RF ibuprofen 800 mg tablet 800 mg PO Q8H PRN (Reason: pain) Qty: 14 0RF prednisone 20 mg tablet 40 mg PO DAILY 5 Days Qty: 10 0RF (DME) AeroEclipse II Nebulizer Misc See Rx Instructions .ROUTE .MEDSUPPLY Qty: 1 0RF Rx Instructions: As directed albuterol sulfate 0.63 mg/3 mL solution for nebulization 0.63 mg inhalation QID PRN (Reason: shortness of breath or wheezing) Qty: 90 0RF prednisone 20 mg tablet 60 mg PO DAILY 5 Days Qty: 15 0RF budesonide-formoterol 80-4.5 mcg/actuation HFA aerosol inhaler inhalation 0RF Xolair 150 mg/mL syringe subcut 0RF prednisone 10 mg tablet PO 0RF epinephrine 0.3 mg/0.3 mL auto-injector IM 0RF naproxen 500 mg tablet 500 mg PO BID PRN (Reason: pain) Qty: 60 0RF cyclobenzaprine 5 mg tablet 10 mg PO BEDTIME PRN (Reason: muscle spasm) Qty: 10 0RF Referrals: Damian Miles MD [Primary Care Provider] - Stand Alone Forms: Work/School Release Print Language: Amharic
== END 2022-01-29 10:47 | disposition home or self-care (01) ==
PROVIDERS: Emergency Provider Emergency Medicine; PCP Internal Medicine
DX: J11.1 Influenza due to unidentified influenza virus with other respiratory manifestations (principal); Z20.822 Contact with and (suspected) exposure to COVID-19
CPT/HCPCS: 87502; 87635; 99282; 99283

== ENCOUNTER 2022-01-29 12:37 | Emergency (ER) | payer OTHER, SELFPAY ==
[2022-01-29 12:56] VITALS: BP 121/86; PULSE 120; RESP 18; TEMP 36.9; O2SAT 95; BMI 44.2
[2022-01-29] MEDS: Ondansetron ODT 4 MG TAB.RAPDIS TRANSLINGU (13:01)
--- NOTE | 2022-01-29 13:05 | PC.NURSE ---
pt presents fully ambulatory to dept. sts he was seen here this morning, where he was diagnosed with the flu. sts he failed to tell provider about his vomitting. states it was four consecutive time, last night into this AM. pt given zofran 4mg ODT in triage,. awaiting provider no acute distress
[2022-01-29 13:07] LABS: MANUAL DIFF FLAG NO
[2022-01-29 13:08] LABS: Basophils Percent Auto 0.4 % (0-2); Eosinophils Percent Auto 0.1 % (0-4); Hematocrit 45.9 % (42.0-52.0); Imm Gran Abs Auto 0.06 X10*3/uL (0.00-0.03); Imm Gran Pct Auto 0.6 % (0.0-0.4); Lymphocytes Absolute Auto 0.9 X10*3/uL (1.2-4.9); Mean Corpuscular HGB Conc 32.7 g/dl (31.0-36.0); Mean Corpuscular Hemoglobin 28.1 pg (27.0-33.0); Mean Corpuscular Volume 86.1 fL (80.0-98.0); Mean Platelet Volume 9.2 fL (9.4-12.4); Monocytes Absolute Auto 0.7 X10*3/uL (0.1-1.2); Monocytes Percent Auto 7.7 % (2-11); Neutrophils Absolute Auto 7.8 x10*3/uL (2.0-8.3); Neutrophils Percent Auto 82.2 % (45-73); Platelet Count 278 X10*3/uL (160-400); Red Blood Count 5.33 X10*6/uL (4.60-5.80); Red Cell Distribution Width 12.6 % (11.0-16.0); White Blood Count 9.4 X10*3/uL (4.8-10.8)
[2022-01-29 13:25] LABS: Alanine Aminotransferase 31 U/L (0-40); Albumin Level 4.3 g/dL (3.5-5.0); Alkaline Phosphatase 112 U/L (39-117); Anion Gap 12 (12-20); Aspartate Amino Transferase 33 U/L (5-37); Bilirubin Total 0.6 mg/dL (0.0-1.0); Blood Urea Nitrogen 24 mg/dL (9-16); Calcium 9.1 mg/dL (8.4-10.2); Carbon Dioxide 25 mmol/L (22-29); Chloride 107 mmol/L (96-108); Creatinine Clr Calc Pharmacy 97.2; Estimated Glomerular Filt Rate > 60; Glucose Random 109 mg/dL (60-115); Magnesium 2.2 mg/dL (1.6-2.6); Potassium 4.2 mmol/L (3.3-5.1); Sodium 140 mmol/L (135-145)
[2022-01-29 13:54] LABS: OBS Int Ctl Valid YES; OBS1 NEGATIVE (NEGATIVE)
--- NOTE | 2022-01-29 14:03 | ED_ITS ---
HPI - General Adult General Chief complaint: Nausea/Vomiting/Diarrhea Stated complaint: Black vomit Time Seen by Provider: 01/29/22 12:54 Source: patient Mode of arrival: ambulatory Limitations: no limitations History of Present Illness HPI narrative: 31-year-old male tested positive for flu today in the ED comes back to the ED for having black vomit last night and this morning at 11:00. Patient denies any abdominal pain, weakness, dizziness, blood in stool, vomiting blood, drinking alcohol, any recent trauma to the abdomen. Denies history of ulcers. Patient denies taking lots of motrin every day. Related Data Home Medications Medication Instructions Recorded Confirmed budesonide-formoterol HFA 80 INHALATION 07/20/20 mcg-4.5 mcg/actuation aerosol inhaler epinephrine 0.3 mg/0.3 mL IM 07/20/20 injection, auto-injector omalizumab 150 mg/mL subcutaneous mg SUBCUT 07/20/20 syringe prednisone 10 mg tablet mg PO 07/20/20 Previous Rx's Medication Instructions Recorded sennosides 8.6 mg capsule (senna) 17.2 mg PO BEDTIME 30 Days #60 cap 07/08/20 albuterol sulfate 0.63 mg/3 mL 0.63 mg (3 mL) INHALATION QID PRN 07/17/20 solution for nebulization #90 ml diphenhydramine HCl 25 mg tablet 25 mg PO TID PRN #10 tab 07/17/20 (Benadryl Allergy) ibuprofen 800 mg tablet 800 mg PO Q8H PRN #14 tab 07/17/20 metoclopramide HCl 10 mg tablet 10 mg PO Q6H PRN #10 tab 07/17/20 (Reglan) nebulizers (AeroEclipse II #1 ea 07/17/20 Nebulizer) prednisone 20 mg tablet 40 mg PO DAILY 5 Days #10 tab 07/17/20 cyclobenzaprine 5 mg tablet 10 mg PO BEDTIME PRN #10 tab 07/20/20 naproxen 500 mg tablet 500 mg PO BID PRN #60 tab 07/20/20 prednisone 20 mg tablet 60 mg PO DAILY 5 Days #15 tab 11/28/20 Allergies Allergy/AdvReac Type Severity Reaction Status Date / Time acetaminophen [From VICODIN] Allergy Severe SWELLING Verified 01/29/22 12:56 hydrocodone [From VICODIN] Allergy Severe SWELLING Verified 01/29/22 12:56 codeine [CODEINE] Allergy Unknown ITCHY RASH Verified 01/29/22 12:56 vancomycin [VANCOMYCIN] Allergy Unknown REDMANS Verified 01/29/22 12:56 SYNDROME, Swelling/Redness, redness, swelling, itching Vicodin Allergy Unknown redness, Verified 01/29/22 12:56 swelling, itching SEAFOOD Allergy Severe SWELLING Uncoded 01/29/22 12:56 Review of Systems Review of Systems: positive flu. Vomitting black vomit Yes Unobtainable due to mental condition [facility] Past Medical History Medical History Asthma exacerbation FHx: cholecystectomy Social History Social History Alcohol intake: never Advance Directives: No Advance Directives Information Provided: No Physical Exam ED Vital Signs: Vital Signs - 24 hr 01/29/22 12:56 Temperature 98.5 F Pulse Rate 120 H Respiratory Rate 18 Blood Pressure 121/86 Pulse Oximetry 95 BMI result Body Mass Index 44.2 Const General: cooperative, healthy appearing, comfortable, no acute distress, well developed and alert Orientation/consciousness: patient oriented x3 HENMT Other: Oral exam negative for bright red blood, or coffee-ground emesis Head: Yes normal to inspection, Yes No palpable skull fracture present, Yes normocephalic and Yes atraumatic Ears: hearing grossly normal bilaterally, external ears normal, TM's normal bilaterally, TM normal on the right, TM normal on the left and EAC's normal Teeth and gingiva: dentition normal and gingiva normal Throat: Yes posterior oropharynx normal, Yes tonsils normal and Yes uvula midline Eyes General: appearance normal, both eyes and all related structures Neck Neck: Yes normal visual inspection, Yes full ROM, Yes no lymphadenopathy, Yes no meningeal signs, Yes trachea midline, Yes supple, No anterior neck swelling and No tender Chest Chest palpation & inspection: normal inspection of the chest Resp Effort & Inspection: normal respiratory effort and able to speak in complete sentences Auscultation: clear to auscultation bilaterally Cardio Jugular venous distension: no JVD Heart sounds: S1 normal heart sound present and S2 normal heart sound present GI Other: Rectal exam negative for any bright red blood, black stool, or melena. Stool is brown Inspection: Yes normal to inspection and No abdominal wall ecchymosis Palpation (GI): Soft to palpation, not firm, nontender, no guarding and not rigi d General: No CVA tenderness and Yes no CVA tenderness Back/Spine/Pelvis Back: no CVA tenderness, No CVA tenderness, No sacral edema and No back tenderness Skin General skin exam: no rashes or lesions noted and elasticity normal Neuro General: patient oriented x3, gait normal and no meningeal signs Cranial nerves: Yes CN's II-XII intact bilaterally Extrem General: Yes normal to inspection and Yes full ROM Psych Appearance: grossly normal, well kempt and not disheveled Course Course Course Narrative: Patient well-appearing. Does not have any abdominal tenderness. Suspicion for GI BT. Coastal swab ordered. Will do repeat CBC Reevaluation(s) Reevaluation #1: Patient given oral hydration during the ER visit. Patient did not have any episodes of emesis during ED. negative for any coffee-ground emesis, bright red blood emesis, abdominal pain, rectal bleeding, chest pain, or shortness of breath during ED visit.. Repeat CBC came back normal. Rectal exam negative for occult stools. Not suspecting GI bleed. Diagnosis flu Time: 17:16 Medical Decision Making [facility] Narrative Medical decision making narrative: Influenza Lab Data Result diagrams: 01/29/22 17:00 01/29/22 13:04 Labs: Lab Results 01/29/22 01/29/22 01/29/22 Range/Units 13:04 13:04 13:46 WBC 9.4 (4.8-10.8) X10*3/uL RBC 5.33 (4.60-5.80) X10*6/uL Hgb 15.0 (14.0-18.0) g/dl Hct 45.9 (42.0-52.0) % MCV 86.1 (80.0-98.0) fL MCH 28.1 (27.0-33.0) pg MCHC 32.7 (31.0-36.0) g/dl RDW 12.6 (11.0-16.0) % Plt Count 278 (160-400) X10*3/uL MPV 9.2 L (9.4-12.4) fL Immature Gran % (Auto) 0.6 H (0.0-0.4) % Neut % (Auto) 82.2 H (45-73) % Lymph % (Auto) 9.0 L (20-40) % [place] % (Auto) 7.7 (2-11) % Eos % (Auto) 0.1 (0-4) % Baso % (Auto) 0.4 (0-2) % Lymph # (Auto) 0.9 L (1.2-4.9) X10*3/uL [place] # (Auto) 0.7 (0.1-1.2) X10*3/uL Eos # (Auto) 0.0 (0.0-0.4) X10*3/uL Baso # (Auto) 0.0 (0.0-0.2) X10*3/uL Abs Immat Gran (auto) 0.06 H (0.00-0.03) X10*3/uL Absolute Neuts (auto) 7.8 (2.0-8.3) x10*3/uL Absolute Nucleated RBC 0.000 (0.0-0.012) X10*3/uL Nucleated RBC % (auto) 0.0 (0.0-0.2) /100WBC Sodium 140 (135-145) mmol/L Potassium 4.2 (3.3-5.1) mmol/L Chloride 107 (96-108) mmol/L Carbon Dioxide 25 (22-29) mmol/L Anion Gap 12 (12-20) BUN 24 H (9-16) mg/dL Creatinine 1.26 (0.5-1.4) mg/dL Estim Creat Clear Calc 97.2 Estimated GFR > 60 Random Glucose 109 (60-115) mg/dL Calcium 9.1 (8.4-10.2) mg/dL Magnesium 2.2 (1.6-2.6) mg/dL Total Bilirubin 0.6 (0.0-1.0) mg/dL AST 33 D (5-37) U/L ALT 31 (0-40) U/L Alkaline Phosphatase 112 (39-117) U/L Total Protein 8.0 (6.5-8.0) g/dL Albumin 4.3 (3.5-5.0) g/dL Stool Occult Blood NEGATIVE (NEGATIVE) 01/29/22 Range/Units 17:00 WBC 8.1 (4.8-10.8) X10*3/uL RBC 5.16 (4.60-5.80) X10*6/uL Hgb 14.6 (14.0-18.0) g/dl Hct 44.2 (42.0-52.0) % MCV 85.7 (80.0-98.0) fL MCH 28.3 (27.0-33.0) pg MCHC 33.0 (31.0-36.0) g/dl RDW 12.6 (11.0-16.0) % Plt Count 257 (160-400) X10*3/uL MPV 9.4 (9.4-12.4) fL Immature Gran % (Auto) 0.5 H (0.0-0.4) % Neut % (Auto) 83.0 H (45-73) % Lymph % (Auto) 8.9 L (20-40) % [place] % (Auto) 6.9 (2-11) % Eos % (Auto) 0.0 (0-4) % Baso % (Auto) 0.7 (0-2) % Lymph # (Auto) 0.7 L (1.2-4.9) X10*3/uL [place] # (Auto) 0.6 (0.1-1.2) X10*3/uL Eos # (Auto) 0.0 (0.0-0.4) X10*3/uL Baso # (Auto) 0.1 (0.0-0.2) X10*3/uL Abs Immat Gran (auto) 0.04 H (0.00-0.03) X10*3/uL Absolute Neuts (auto) 6.8 (2.0-8.3) x10*3/uL Absolute Nucleated RBC 0.000 (0.0-0.012) X10*3/uL Nucleated RBC % (auto) 0.0 (0.0-0.2) /100WBC Sodium (135-145) mmol/L Potassium (3.3-5.1) mmol/L Chloride (96-108) mmol/L Carbon Dioxide (22-29) mmol/L Anion Gap (12-20) BUN (9-16) mg/dL Creatinine (0.5-1.4) mg/dL Estim Creat Clear Calc Estimated GFR Random Glucose (60-115) mg/dL Calcium (8.4-10.2) mg/dL Magnesium (1.6-2.6) mg/dL Total Bilirubin (0.0-1.0) mg/dL AST (5-37) U/L ALT (0-40) U/L Alkaline Phosphatase (39-117) U/L Total Protein (6.5-8.0) g/dL Albumin (3.5-5.0) g/dL Stool Occult Blood (NEGATIVE) Discharge Plan Discharge Clinical Impression: Influenza, Nausea & vomiting Patient Disposition: Home, Self-Care Instructions: Influenza (ED), Acute Nausea and Vomiting (ED) Additional Instructions: You are safe for discharge. Your blood count came back normal. Not suspecting GI bleed. Please follow-up with primary care provider. Recommend oral hydration, rest, and Tylenol/Motrin for relief from body aches/fever from flu. Return to the ED for chest pain, shortness of breath, rectal bleeding, vomiting blood, black stool, weakness, dizziness, chest pain, shortness of breath, or any other concerning symptoms. Prescriptions: No Action senna 8.6 mg capsule 17.2 mg PO BEDTIME 30 Days Qty: 60 1RF metoclopramide HCl [Reglan] 10 mg tablet 10 mg PO Q6H PRN (Reason: nausea and vomiting) Qty: 10 0RF diphenhydramine HCl [Benadryl Allergy] 25 mg tablet 25 mg PO TID PRN (Reason: nausea and vomiting) Qty: 10 0RF ibuprofen 800 mg tablet 800 mg PO Q8H PRN (Reason: pain) Qty: 14 0RF prednisone 20 mg tablet 40 mg PO DAILY 5 Days Qty: 10 0RF (DME) AeroEclipse II Nebulizer Misc See Rx Instructions .ROUTE .MEDSUPPLY Qty: 1 0RF Rx Instructions: As directed albuterol sulfate 0.63 mg/3 mL solution for nebulization 0.63 mg inhalation QID PRN (Reason: shortness of breath or wheezing) Qty: 90 0RF prednisone 20 mg tablet 60 mg PO DAILY 5 Days Qty: 15 0RF budesonide-formoterol 80-4.5 mcg/actuation HFA aerosol inhaler inhalation 0RF Xolair 150 mg/mL syringe subcut 0RF prednisone 10 mg tablet PO 0RF epinephrine 0.3 mg/0.3 mL auto-injector IM 0RF naproxen 500 mg tablet 500 mg PO BID PRN (Reason: pain) Qty: 60 0RF cyclobenzaprine 5 mg tablet 10 mg PO BEDTIME PRN (Reason: muscle spasm) Qty: 10 0RF Stand Alone Forms: Work/School Release Interventions: ED Discharge Assessment Last Done: 01/29/22 17:27 Discharge Date/Time: 01/29/22 17:28 Print Language: Kittitian
[2022-01-29] MEDS: Ibuprofen 800 MG TABLET PO (16:05)
[2022-01-29 17:06] LABS: Basophils Absolute Auto 0.1 X10*3/uL (0.0-0.2); Basophils Percent Auto 0.7 % (0-2); Hematocrit 44.2 % (42.0-52.0); Hemoglobin 14.6 g/dl (14.0-18.0); Imm Gran Abs Auto 0.04 X10*3/uL (0.00-0.03); Imm Gran Pct Auto 0.5 % (0.0-0.4); Lymphocytes Absolute Auto 0.7 X10*3/uL (1.2-4.9); Lymphocytes Percent Auto 8.9 % (20-40); MANUAL DIFF FLAG NO; Mean Corpuscular Hemoglobin 28.3 pg (27.0-33.0); Mean Corpuscular Volume 85.7 fL (80.0-98.0); Mean Platelet Volume 9.4 fL (9.4-12.4); Monocytes Absolute Auto 0.6 X10*3/uL (0.1-1.2); Monocytes Percent Auto 6.9 % (2-11); Neutrophils Absolute Auto 6.8 x10*3/uL (2.0-8.3); Platelet Count 257 X10*3/uL (160-400); Red Blood Count 5.16 X10*6/uL (4.60-5.80); Red Cell Distribution Width 12.6 % (11.0-16.0); White Blood Count 8.1 X10*3/uL (4.8-10.8)
== END 2022-01-29 17:28 | disposition home or self-care (01) ==
PROVIDERS: Physician Assistant; Physician Assistant Medical; Emergency Provider Emergency Medicine; PCP Internal Medicine
DX: J11.1 Influenza due to unidentified influenza virus with other respiratory manifestations (principal); R11.2 Nausea with vomiting, unspecified
CPT/HCPCS: 36415; 80053; 82272; 83735; 85025; 99283

== ENCOUNTER → 2022-02-01 10:21 | Outpatient (REF) | payer OTHER, SELFPAY | LOC: HO.SL 10:21 | PROVIDERS: PCP Internal Medicine; Visit Provider Internal Medicine | DX: G47.33 Obstructive sleep apnea (adult) (pediatric) (principal) | CPT/HCPCS: 95806 ==

== ENCOUNTER 2022-06-07 10:28 | Outpatient (REF) | payer OTHER, SELFPAY ==
[2022-06-09 13:41] LABS: H Pylori Breath Test Negative (Negative)
== END 2022-06-07 10:29 | disposition home or self-care (01) ==
LOC: CF 10:28
PROVIDERS: Visit Provider Physician Assistant Surgical
DX: E66.01 Morbid (severe) obesity due to excess calories (principal); G47.33 Obstructive sleep apnea (adult) (pediatric); Z68.41 Body mass index [BMI] 40.0-44.9, adult; Z79.899 Other long term (current) drug therapy; Z71.3 Dietary counseling and surveillance; Z11.0 Encounter for screening for intestinal infectious diseases
CPT/HCPCS: 36415; 83013; 99202; 99211; 99212

== ENCOUNTER 2022-06-08 06:49 | Outpatient (REF) | payer OTHER, SELFPAY ==
--- NOTE | ~2022-06-08 | XR_ITS ---
EXAMINATION: XR CHEST CLINICAL INFORMATION: Obesity COMPARISON: Previous chest x-ray November 2020 TECHNIQUE: 2 views of the chest were obtained. FINDINGS: No significant abnormality is noted involving the heart, lungs, mediastinum, bony thorax or soft tissues. XR/XR chest 2V IMPRESSION: Unremarkable examination.
--- NOTE | 2022-06-08 07:00 | ECG_ITS ---
Test Reason : e66.01 Blood Pressure : / mmHG Vent. Rate : 081 BPM Atrial Rate : 081 BPM P-R Int : 132 ms QRS Dur : 090 ms QT Int : 360 ms P-R-T Axes : 006 046 029 degrees QTc Int : 418 ms Normal sinus rhythm with sinus arrhythmia Normal ECG When compared with ECG of 12-JAN-2013 11:11, Heart rate has decreased Referred By: Mohinder Barkley Electronically Signed By:SANIA GARCIA
[2022-06-08 07:15] LABS: MANUAL DIFF FLAG NO
[2022-06-08 07:56] LABS: Basophils Absolute Auto 0.1 X10*3/uL (0.0-0.2); Basophils Percent Auto 0.8 % (0-2); Eosinophils Absolute Auto 0.3 X10*3/uL (0.0-0.4); Eosinophils Percent Auto 3.7 % (0-4); Hematocrit 47.2 % (42.0-52.0); Hemoglobin 15.4 g/dl (14.0-18.0); Imm Gran Abs Auto 0.04 X10*3/uL (0.00-0.03); Imm Gran Pct Auto 0.5 % (0.0-0.4); Lymphocytes Absolute Auto 1.9 X10*3/uL (1.2-4.9); Lymphocytes Percent Auto 25.6 % (20-40); Mean Corpuscular HGB Conc 32.6 g/dl (31.0-36.0); Mean Corpuscular Hemoglobin 28.1 pg (27.0-33.0); Mean Platelet Volume 9.7 fL (9.4-12.4); Monocytes Absolute Auto 0.4 X10*3/uL (0.1-1.2); Monocytes Percent Auto 5.7 % (2-11); Neutrophils Absolute Auto 4.7 x10*3/uL (2.0-8.3); Neutrophils Percent Auto 63.7 % (45-73); Platelet Count 355 X10*3/uL (160-400); Red Blood Count 5.49 X10*6/uL (4.60-5.80); Red Cell Distribution Width 12.7 % (11.0-16.0); White Blood Count 7.3 X10*3/uL (4.8-10.8)
[2022-06-08 08:14] LABS: Estimated Average Glucose 105 mg/dL; Hemoglobin A1c % 5.3 %
[2022-06-08 08:30] LABS: Alanine Aminotransferase 92 U/L (0-40); Albumin Level 4.4 g/dL (3.5-5.0); Alkaline Phosphatase 116 U/L (39-117); Anion Gap 18 (12-20); Aspartate Amino Transferase 36 U/L (5-37); Bilirubin Total 0.5 mg/dL (0.0-1.0); Blood Urea Nitrogen 14 mg/dL (9-16); C Reactive Protein 0.34 mg/dL (< or = 0.50); Calcium 9.2 mg/dL (8.4-10.2); Carbon Dioxide 22 mmol/L (22-29); Chloride 106 mmol/L (96-108); Cholesterol 185 mg/dL; Estimated Glomerular Filt Rate > 60; Glucose Random 99 mg/dL (60-115); HDL Cholesterol 35 mg/dL; Iron 92 mcg/dL (45-160); LDL Cholesterol Calculated 125 mg/dl; Percent Iron Saturation 28 % (15-50); Potassium 4.5 mmol/L (3.3-5.1); Sodium 141 mmol/L (135-145); Total Iron Binding Capacity 329 mcg/dL (228-428); Total Protein 7.6 g/dL (6.5-8.0); Triglycerides 125 mg/dL; Unsaturated Iron Binding 237 ug/dL
[2022-06-08 08:42] LABS: Ferritin 101 ng/mL (20-250); TSH reflex Free T4 0.48 uIU/mL (0.32-4.0); Vitamin D 25-OH Total 15.4 ng/mL (>30)
[2022-06-08 08:50] LABS: Folate 13.1 ng/mL (> or = 4.0); Vitamin B12 525 pg/mL (200-900)
[2022-06-08 09:12] LABS: Insulin 14 uU/mL (2-29)
[2022-06-09 12:47] LABS: Calcium (PTHI) 9.5 mg/dL (8.6-10.3); PTHI 73 pg/mL (16-77)
[2022-06-11 18:56] LABS: Zinc 97 mcg/dL (60-130)
[2022-06-13 10:11] LABS: Vitamin A 45 mcg/dL (38-98)
[2022-06-13 16:07] LABS: Vitamin B1 15 nmol/L (8-30)
== END 2022-06-08 06:50 | disposition home or self-care (01) ==
LOC: HO.XRAY 06:49
PROVIDERS: PCP Internal Medicine; Visit Provider Physician Assistant Surgical
DX: E66.01 Morbid (severe) obesity due to excess calories (principal)
CPT/HCPCS: 36415; 71046; 80053; 80061; 82306; 82607; 82728; 82746; 83036; 83525; 83540; 83970; 84425; 84443; 84590; 84630; 85025; 86140; 93005

== ENCOUNTER → 2022-06-28 10:16 | Outpatient (BNVA) | payer OTHER, SELFPAY | PROVIDERS: PCP Internal Medicine; Referring Provider Internal Medicine; Visit Provider Physician Assistant Surgical | DX: E66.01 Morbid (severe) obesity due to excess calories (principal); Z68.41 Body mass index [BMI] 40.0-44.9, adult; Z90.49 Acquired absence of other specified parts of digestive tract | CPT/HCPCS: 99212 ==

== ENCOUNTER 2022-07-18 12:01 | Outpatient (REF) | payer OTHER, SELFPAY ==
--- NOTE | ~2022-07-18 | XR_ITS ---
EXAMINATION: XR SHOULDER, RIGHT CLINICAL INFORMATION: Right shoulder pain. COMPARISON: None TECHNIQUE: AP external rotation, Grashey, scapular Y, and axillary views of the right shoulder. FINDINGS: The bones and soft tissues are normal. No fracture. Glenohumeral and acromioclavicular alignment is anatomic with normal joint space. No abnormal soft tissue calcifications. XR/XR shoulder RT min 2V IMPRESSION: Unremarkable right shoulder.
== END 2022-07-18 12:02 | disposition home or self-care (01) ==
LOC: HO.XRAY 12:01
PROVIDERS: PCP Internal Medicine; Visit Provider Internal Medicine
DX: M25.511 Pain in right shoulder (principal); E66.01 Morbid (severe) obesity due to excess calories
CPT/HCPCS: 73030; 99212

== ENCOUNTER 2022-07-19 09:21 | Outpatient (REF) | payer OTHER, SELFPAY | END 2022-07-19 09:22 | disposition home or self-care (01) | LOC: HO.US 09:21 | PROVIDERS: Visit Provider Physician Assistant Surgical | DX: Z13.89 Encounter for screening for other disorder (principal) ==

== ENCOUNTER → 2022-07-21 11:35 | Outpatient (BNVA) | payer OTHER, SELFPAY | PROVIDERS: PCP Internal Medicine; Referring Provider Physician Assistant Surgical; Visit Provider Dietitian, Registered | DX: E66.01 Morbid (severe) obesity due to excess calories (principal) | CPT/HCPCS: 97802 ==

== ENCOUNTER 2022-07-26 10:29 | Outpatient (REF) | payer OTHER, SELFPAY ==
[2022-07-26 11:15] LABS: Influenza A PCR NEGATIVE (Negative); Influenza B PCR NEGATIVE (Negative); Resp Syncy Virus RNA Qual PCR POSITIVE (Negative); SARS COV2 PCR INHOUSE NEGATIVE (Negative)
== END 2022-07-26 10:30 | disposition home or self-care (01) ==
LOC: HO.LNP 10:29
PROVIDERS: Visit Provider Internal Medicine
DX: Z20.822 Contact with and (suspected) exposure to COVID-19 (principal); J02.9 Acute pharyngitis, unspecified
CPT/HCPCS: 0241U

== ENCOUNTER → 2022-07-31 11:00 | Outpatient (BNVA) | payer OTHER, SELFPAY | PROVIDERS: PCP Internal Medicine; Referring Provider Physician Assistant Surgical; Visit Provider Counselor Mental Health | DX: F50.81 Binge eating disorder (principal); E66.01 Morbid (severe) obesity due to excess calories | CPT/HCPCS: 90791 ==

== ENCOUNTER 2022-09-01 07:04 | Outpatient (REF) | payer OTHER, SELFPAY ==
--- NOTE | ~2022-09-01 | US_ITS ---
EXAMINATION: US COMPLETE ABDOMEN WITH LIVER ELASTOGRAPHY CLINICAL INFORMATION: Morbid to severe obesity due to excess calories COMPARISON: None. TECHNIQUE: Real-time imaging of the abdominal viscera. Noninvasive ultrasound liver fibrosis assessment is performed using Alexa ElastPQ point quantification shear wave elastography (2D-SWE) with a C5-2 MHz transducer. Multiple elastography samples are obtained. FINDINGS: PANCREAS: The pancreas obscured by overlying gas. ABDOMINAL AORTA: The middle and distal aortic segments are normal in caliber. The proximal abdominal aorta is obscured by gas. INFERIOR VENA CAVA: Visualized portions are normal. LIVER: The liver demonstrates normal size, contour and echogenicity. No focal lesion or intrahepatic biliary duct dilatation. The right lobe measures 13.9 cm in length. The left lobe measures 7.1 cm in length. Portal flow is hepatopedal Shear wave liver elastography median stiffness is 1.34 m/s (reference: normal median stiffness is 1.3 m/s or less). IQR/median stiffness to assess sampling precision is 0.06 (reference: good quality data set is IQR/median stiffness of 0.15 or less). GALLBLADDER: Normal. The gallbladder is physiologically distended without evidence of stones, sludge, polyps, wall thickening or pericholecystic fluid. COMMON BILE DUCT: Common bile duct is not visualized. RIGHT KIDNEY: Normal. No hydronephrosis. No renal calculi or focal parenchymal lesions. The kidney measures 9.9 cm in maximum dimension. LEFT KIDNEY: Normal. No hydronephrosis. No renal calculi or focal parenchymal lesions. The kidney measures 10.4 cm in maximum dimension. SPLEEN: Normal. The spleen measures 9.9 cm in maximum dimension. FREE FLUID: None US/US abdomen comp w elastography IMPRESSION: 1. Normal abdominal ultrasound. 2. Liver elastography: Median liver stiffness measures 1.34 m/s which corresponds to high probability normal. REFERENCE: Society of [employer]iologists in Ultrasound Liver Stiffness Thresholds (2020): LIVER STIFFNESS THRESHOLDS: *Liver Stiffness equal or less than 1.3 m/s: High probability of being normal. *Liver Stiffness less than 1.7 m/s: In the absence of other known clinical signs, rules out compensated advanced chronic liver disease. *Liver Stiffness 1.7-2.1 m/s: Suggestive of compensated advanced chronic liver disease but need further test for confirmation. *Liver Stiffness over 2.1 m/s: Rules in compensated advanced chronic liver disease. *Liver Stiffness over 2.4 m/s: Suggestive of clinically significant portal hypertension. QUALITY OF DATA SET: *IQR/Median value equal or less than 0.15 implies a quality data set. *IQR/Median value over 0.15 implies a poor quality data set. SIGNIFICANT CHANGE FROM PRIOR EXAM: Significant change if liver stiffness measurement is 10% or greater from prior exam. OTHER CONSIDERATIONS: The stage of liver fibrosis may be overestimated in the setting of acute hepatitis, liver inflammation, elevated liver function tests, hepatic vascular congestion, obstructive cholestasis, non-fasting state, and infiltrative diseases such as amyloidosis and lymphoma. In some patients with NAFLD, the liver stiffness thresholds for compensated advanced chronic liver disease may be lower. In causes other than viral hepatitis and NAFLD, liver stiffness thresholds are not well established.
== END 2022-09-01 07:05 | disposition home or self-care (01) ==
LOC: HO.US 07:04
PROVIDERS: Visit Provider Physician Assistant Surgical
DX: Z01.818 Encounter for other preprocedural examination (principal); E66.01 Morbid (severe) obesity due to excess calories
CPT/HCPCS: 74246; 76705; 76981

== ENCOUNTER → 2022-09-27 08:28 | Outpatient (BNVA) | payer OTHER, SELFPAY | PROVIDERS: PCP Internal Medicine; Visit Provider Surgery | DX: Z13.89 Encounter for screening for other disorder (principal) ==

== ENCOUNTER → 2022-09-29 08:08 | Outpatient (BNVA) | payer OTHER, SELFPAY | PROVIDERS: PCP Internal Medicine; Visit Provider Surgery | DX: Z13.89 Encounter for screening for other disorder (principal) ==

== ENCOUNTER → 2022-10-05 09:48 | Outpatient (BNVA) | payer OTHER, SELFPAY | PROVIDERS: PCP Internal Medicine; Visit Provider Physician Assistant | DX: Z13.89 Encounter for screening for other disorder (principal) ==

== ENCOUNTER → 2022-10-16 09:03 | Outpatient (BNVA) | payer OTHER, SELFPAY | PROVIDERS: PCP Internal Medicine; Visit Provider Surgery | DX: Z13.89 Encounter for screening for other disorder (principal) ==

== ENCOUNTER → 2022-10-26 09:28 | Outpatient (BNVA) | payer OTHER, SELFPAY | PROVIDERS: PCP Internal Medicine; Referring Provider Internal Medicine; Visit Provider Surgery | DX: Z13.89 Encounter for screening for other disorder (principal) ==

== ENCOUNTER 2022-10-31 | Outpatient (REF) | payer OTHER, SELFPAY ==
[2022-10-16 10:49] VITALS: BMI 40.7
[2022-10-27 12:17] LABS: MANUAL DIFF FLAG NO
[2022-10-27 12:29] LABS: Basophils Absolute Auto 0.1 X10*3/uL (0.0-0.2); Basophils Percent Auto 1.1 % (0-2); Eosinophils Absolute Auto 0.3 X10*3/uL (0.0-0.4); Eosinophils Percent Auto 3.1 % (0-4); Hematocrit 50.2 % (42.0-52.0); Hemoglobin 16.5 g/dl (14.0-18.0); Imm Gran Abs Auto 0.02 X10*3/uL (0.00-0.03); Imm Gran Pct Auto 0.2 % (0.0-0.4); Lymphocytes Absolute Auto 1.9 X10*3/uL (1.2-4.9); Lymphocytes Percent Auto 22.5 % (20-40); Mean Corpuscular HGB Conc 32.9 g/dl (31.0-36.0); Mean Corpuscular Hemoglobin 27.8 pg (27.0-33.0); Mean Corpuscular Volume 84.7 fL (80.0-98.0); Mean Platelet Volume 9.8 fL (9.4-12.4); Monocytes Absolute Auto 0.4 X10*3/uL (0.1-1.2); Monocytes Percent Auto 4.6 % (2-11); Neutrophils Absolute Auto 5.7 x10*3/uL (2.0-8.3); Neutrophils Percent Auto 68.5 % (45-73); Platelet Count 357 X10*3/uL (160-400); Red Blood Count 5.93 X10*6/uL (4.60-5.80); Red Cell Distribution Width 12.5 % (11.0-16.0); White Blood Count 8.3 X10*3/uL (4.8-10.8)
[2022-10-27 12:38] LABS: Estimated Average Glucose 100 mg/dL; Hemoglobin A1c % 5.1 %
[2022-10-27 12:43] LABS: INTERNATIONAL NORM RATIO 1.2 (0.9-1.1); Prothrombin Time 13.6 SEC (10.0-13.1)
[2022-10-27 12:45] LABS: Partial Thromboplastin Time 33.2 SEC (26.0-36.4)
[2022-10-27 13:18] LABS: Alanine Aminotransferase 40 U/L (0-40); Albumin Level 4.8 g/dL (3.5-5.0); Alkaline Phosphatase 172 U/L (39-117); Anion Gap 21 (12-20); Aspartate Amino Transferase 28 U/L (5-37); Bilirubin Total 0.9 mg/dL (0.0-1.0); Blood Urea Nitrogen 13 mg/dL (9-16); C Reactive Protein 1.36 mg/dL (< or = 0.50); Calcium 9.7 mg/dL (8.4-10.2); Carbon Dioxide 20 mmol/L (22-29); Chloride 105 mmol/L (96-108); Cholesterol 208 mg/dL; Creatinine Clr Calc Pharmacy 113.5; Estimated Glomerular Filt Rate > 60; Glucose Random 61 mg/dL (60-115); HDL Cholesterol 31 mg/dL; Iron 52 mcg/dL (45-160); LDL Cholesterol Calculated 155 mg/dl; Percent Iron Saturation 19 % (15-50); Potassium 4.8 mmol/L (3.3-5.1); Sodium 141 mmol/L (135-145); Total Iron Binding Capacity 275 mcg/dL (228-428); Total Protein 8.4 g/dL (6.5-8.0); Triglycerides 113 mg/dL; Unsaturated Iron Binding 223 ug/dL
[2022-10-27 13:46] LABS: Ferritin 192 ng/mL (20-250); TSH reflex Free T4 0.32 uIU/mL (0.32-4.0); Vitamin B12 747 pg/mL (200-900); Vitamin D 25-OH Total 32.1 ng/mL (>30)
--- NOTE | 2022-10-28 15:35 | MHC.SHP ---
Pre-Procedural Eval Section A Date of Service: 10/28/22 The patient is an INPATIENT: Yes The History & Physical has been completed within 30 days and I have reviewed it.: Yes Section B Chief Complaint: obesity Relevant Family History (Specify if Yes): No Relevant Social History: None Present Medications: None Medical History: No relevant PMH History of Previous Operations: No relevant previous surgery Allergies: Allergies Allergy/AdvReac Type Severity Reaction Status Date / Time hydrocodone [From VICODIN] Allergy Severe Swelling, Verified 10/16/22 11:53 Redness, Itching seafood Allergy Severe Swelling Verified 10/16/22 11:53 codeine [CODEINE] Allergy Intermediate ITCHY RASH Verified 10/16/22 11:53 vancomycin [VANCOMYCIN] Allergy Intermediate red man's Verified 10/16/22 11:53 syndrome (redness/swelling/itching) Review of Systems Sugical H&P ROS: Negative: Constitution, Cardiovascular, Respiratory, Neurological, Psychiatric, Hem-Onc, Allergic/Immunologic, Gastrointestinal, Genitourinary, Musculoskeletal, Integumentary, Endocrine and Eyes/Ears/Nose/Throat Exam Surgical H&P Exam: Normal: HEENT, Normal: Heart, Normal: Lungs, Normal: Extremities, Normal: Abdomen, Normal: Skin and Normal: Neurological Plan Diagnosis/Plan: Unchanged I have reviewed the history and physical and performed a pertinent physical examination on my patient. No changes have occurred unless specified. Time Spent With Patient Time: Total time managing care of this patient today ____ minutes.
[2022-10-30 14:14] LABS: Calcium (PTHI) 9.9 mg/dL (8.6-10.3); PTHI 19 pg/mL (16-77)
[2022-10-31 23:59] LABS: Zinc 95 mcg/dL (60-130)
[2022-11-01 17:34] LABS: Vitamin A 22 mcg/dL (38-98)
[2022-11-02 14:53] LABS: Vitamin B1 <6 nmol/L (8-30)
== END 2022-10-31 00:01 | disposition home or self-care (01) ==
LOC: HO.PAT
PROVIDERS: Physician Assistant; Visit Provider Surgery
DX: Z01.818 Encounter for other preprocedural examination (principal); E66.01 Morbid (severe) obesity due to excess calories
CPT/HCPCS: 36415; 80053; 80061; 82306; 82607; 82728; 83036; 83540; 83970; 84425; 84443; 84590; 84630; 85025; 85610; 85730; 86140; 86850; 86900; 86901

== ENCOUNTER 2022-11-15 12:29 | Emergency (ER) | payer OTHER, SELFPAY ==
--- NOTE | ~2022-11-15 | CT_ITS ---
EXAMINATION: CT ABDOMEN AND PELVIS WITHOUT CONTRAST CLINICAL INFORMATION: Periumbilical pain. Diarrhea. COMPARISON: CT scan abdomen pelvis 11/18/2018 TECHNIQUE: Multidetector volumetric imaging was performed from the superior aspect of the liver through the pubic symphysis. Sagittal and coronal reformatted images were obtained on the technologist's workstation. This CT examination was performed using dose optimization techniques as appropriate, variously including the following: *Automated exposure control *Adjustment of mA and/or kV according to patient size (this includes techniques or standardized protocols for targeted exams where dose is matched to indication/reason for exam; i.e. extremities or head) *Use of iterative reconstruction technique DLP: 787 mGy-cm FINDINGS: LUNG BASES: The visualized lung bases are unremarkable. LIVER, GALLBLADDER, AND BILIARY TREE: The liver is normal in size, shape, and attenuation. No focal hepatic lesion or biliary ductal dilatation is present. Status post cholecystectomy PANCREAS: Unremarkable. SPLEEN: Unremarkable. ADRENAL GLANDS: Unremarkable. KIDNEYS AND URETERS: The kidneys are normal in size, shape, and attenuation. No hydronephrosis, hydroureter, or calculi seen. No perinephric stranding. BLADDER: Unremarkable. GASTROINTESTINAL TRACT: The small and large bowel are unremarkable. The appendix is unremarkable. ABDOMINAL WALL: No significant hernia is appreciated. LYMPH NODES: Normal. VASCULAR: Unremarkable. PELVIC VISCERA: Unremarkable. OSSEOUS STRUCTURES: Unremarkable. CT/CT abdomen pelvis wo IV con IMPRESSION: No significant abnormality. Fleischner guidelines were followed.
[2022-11-15 12:30] VITALS: BP 156/102; PULSE 112; RESP 19; TEMP 36.6; O2SAT 96; BMI 40.7
--- NOTE | 2022-11-15 12:32 | ED.ABDPAIN ---
HPI - Abdominal Pain General Chief Complaint: Abdominal Pain <NINI Parry - Last Filed: 11/15/22 12:36> Stated Complaint: Abd pain/Nausea <NINI Parry Last Filed: 11/15/22 12:36> Time Seen by Provider: 11/15/22 14:39 <NINI Parry Last Filed: 11/15/22 12:36> Source: patient <NINI Art Last Filed: 11/15/22 18:48> Mode of arrival: ambulatory <NINI Art Last Filed: 11/15/22 18:48> Limitations: no limitations <NINI Art Last Filed: 11/15/22 18:48> History of Present Illness HPI narrative: Patient is a 31 year old assigned male at with a history of anxiety and GERD presenting to the emergency department today with nausea, vomiting, and intermittent abdominal cramping. Patient states that since last night he has had intermittent abdominal cramping with nausea and vomiting. Patient denies any dizziness, lightheadedness, fever, chills, blurry vision, double vision, loss of vision, chest pain, difficulty breathing, shortness of breath, back pain, night sweats, pain with urination, increased urinary frequency, increased urinary urgency, blood in his urine or stool, syncope or a near syncopal episode, recent trauma or falls, bowel incontinence, bladder incontinence, bowel retention, bladder retention, or any other complaints at this time. <NINI Art Last Filed: 11/15/22 18:48> MD elicited complaint: abdominal pain <NINI Art Last Filed: 11/15/22 18:48> Onset (ago): hour(s) <NINI Art Last Filed: 11/15/22 18:48> Severity: mild <NINI Art Last Filed: 11/15/22 18:48> Pain scale (0-10): 3 <NINI Art Last Filed: 11/15/22 18:48> Radiation: none <NINI Art Last Filed: 11/15/22 18:48> Exacerbating factors: nothing <NINI Art Last Filed: 11/15/22 18:48> Relieving factors: nothing <NINI Art - Last Filed: 11/15/22 18:48> Associated symptoms: nausea and vomiting <NINI Art - Last Filed: 11/15/22 18:48> Related Data Home Medications: Home Medications Medication Instructions Recorded Confirmed budesonide-formoterol HFA 80 1 inh inhalation BID 07/20/20 10/16/22 mcg-4.5 mcg/actuation aerosol inhaler epinephrine 0.3 mg/0.3 mL 0.3 mg IM ONCE PRN Anaphylaxis 07/20/20 10/16/22 injection, auto-injector omalizumab 150 mg/mL subcutaneous 150 mg subcut QMONTH 07/20/20 10/16/22 syringe omeprazole 20 mg capsule,delayed 20 mg PO DAILY 04/25/22 10/16/22 release hydroxyzine HCl 10 mg tablet 10 mg PO TID PRN insomnia 06/28/22 10/16/22 paroxetine HCl 30 mg tablet 30 mg PO QAM 06/28/22 10/16/22 Previous Rx's Medication Instructions Recorded sennosides 8.6 mg capsule (senna) 17.2 mg PO BEDTIME constipation 30 07/08/20 days #60 caps albuterol sulfate 0.63 mg/3 mL 0.63 mg (3 mL) inhalation QID PRN 07/17/20 solution for nebulization shortness of breath or wheezing #90 mL diphenhydramine HCl 25 mg tablet 25 mg PO TID PRN nausea and 07/17/20 (Benadryl Allergy) vomiting #10 tabs ibuprofen 800 mg tablet 800 mg PO Q8H PRN pain #14 tabs 07/17/20 nebulizers (AeroEclipse II #1 ea 07/17/20 Nebulizer) cholecalciferol (vitamin D3) 125 125 mcg PO DAILY #30 caps 06/08/22 mcg (5,000 unit) capsule docusate sodium 100 mg capsule 100 mg PO DAILY #30 caps 09/23/22 (Colace) ondansetron HCl 4 mg tablet 4 mg PO Q12H nausea and vomiting 10/16/22 #20 tabs pantoprazole 40 mg tablet,delayed 40 mg PO DAILY #30 tabs 02/06/23 release polyethylene glycol 3350 17 gram 17 g PO DAILY #14 ea 10/16/22 oral powder packet (Miralax) sucralfate 100 mg/mL oral 10 ml PO BID #400 mL 10/16/22 suspension ondansetron 4 mg disintegrating 4 mg PO Q8H 3 days #9 tabs 11/15/22 tablet <NINI Parry Last Filed: 11/15/22 12:36> Allergies/Adverse Reactions: Allergies Allergy/AdvReac Type Severity Reaction Status Date / Time hydrocodone [From VICODIN] Allergy Severe Swelling, Verified 10/16/22 11:53 Redness, Itching seafood Allergy Severe Swelling Verified 10/16/22 11:53 codeine [CODEINE] Allergy Intermediate ITCHY RASH Verified 10/16/22 11:53 vancomycin [VANCOMYCIN] Allergy Intermediate red man's Verified 10/16/22 11:53 syndrome (redness/swelling/itching) <NINI Parry Last Filed: 11/15/22 12:36> Review of Systems Constitutional: Reports no additional constitutional complaints, Denies chills, Denies fever(s) and Denies night sweats <NINI Art Last Filed: 11/15/22 18:48> Eyes: Reports no additional eye complaints, Denies blurry vision, Denies change in vision, Denies diplopia, Denies eye discharge, Denies loss of vision and Denies eye pain <NINI Art Last Filed: 11/15/22 18:48> Denies dizziness <NINI Art Last Filed: 11/15/22 18:48> Cardiovascular: Reports no additional cardiovascular complaints, Denies chest pain, Denies lightheadedness, Denies Loss of Consciousness and Denies dyspnea <NINI Art Last Filed: 11/15/22 18:48> Respiratory: Reports no additional respiratory complaints and Denies dyspnea <NINI Art Last Filed: 11/15/22 18:48> Gastrointestinal: Reports no additional gastrointestinal complaints, Reports abdominal pain, Denies melena, Denies hematochezia, Denies change in bowel habits, Denies change in stool character, Reports nausea and Reports vomiting <NINI Art Last Filed: 11/15/22 18:48> Genitourinary: Reports no additional male genitourinary complaints, Denies hematuria, Denies oliguria, Denies difficulty urinating, Denies dysuria, Denies urinary frequency, Denies urinary hesitancy, Denies urinary incontinence and Denies urinary urgency <NINI Art - Last Filed: 11/15/22 18:48> Musculoskeletal: Reports no additional musculoskeletal complaints, Denies numbness and Denies tingling <NINI Art - Last Filed: 11/15/22 18:48> Denies dizziness, Denies loss of vision, Denies numbness and Denies tingling <NINI Art - Last Filed: 11/15/22 18:48> Psychiatric: Reports no additional psychiatric complaints <NINI Art - Last Filed: 11/15/22 18:48> Endocrine: Reports no additional endocrine complaints <NINI Art - Last Filed: 11/15/22 18:48> Hematologic/Lymphatic: Reports no additional hematologic/lymphatic complaints <NINI Art - Last Filed: 11/15/22 18:48> Allergic/Immunologic: Reports no additional allergic/immunologic complaints <NINI Art - Last Filed: 11/15/22 18:48> PMFSH Past Medical History Attestation statement: The following information was validated with the patient. <NINI Art - Last Filed: 11/15/22 18:48> Source: old records reviewed and nursing notes reviewed <NINI Art - Last Filed: 11/15/22 18:48> Medical History: Medical History Anxiety Asthma Asthma exacerbation Depression FHx: cholecystectomy GERD (gastroesophageal reflux disease) History of COVID-19 Hx MRSA infection Insomnia Sleep apnea with use of continuous positive airway pressure (CPAP) <NINI Parry - Last Filed: 11/15/22 12:36> Surgical History: Surgical History Hx of cholecystectomy <NINI Parry - Last Filed: 11/15/22 12:36> Family History Family History: Family History Mother Asthma Thyroid condition Father Asthma Brother Asthma Sister No problems noted. Sister No problems noted. Sister No problems noted. Sister No problems noted. <NINI Parry - Last Filed: 11/15/22 12:36> Social History Social History: Social History Are you a primary continuum of care manager to a significant other at home: No Do you presently have visiting nurse or other home services: No Alcohol intake: current Alcohol intake frequency: does not drink Patient Tobacco Use Status: Never used Tobacco Advance Directives: No Advance Directives Information Provided: No <NNII Parry Last Filed: 11/15/22 12:36> Physical Exam ED Vital Signs: Vital Signs - 24 hr 11/15/22 12:30 11/15/22 14:44 Temperature 97.9 F Pulse Rate 112 H 104 H Respiratory Rate 19 16 Blood Pressure 156/102 H 144/91 H Pulse Oximetry 96 98 Oxygen Delivery Method Room Air Room Air BMI result Body Mass Index 40.7 <NINI Parry - Last Filed: 11/15/22 12:36> Vital Signs - 24 hr 11/15/22 12:30 11/15/22 14:44 Temperature 97.9 F Pulse Rate 112 H 104 H Respiratory Rate 19 16 Blood Pressure 156/102 H 144/91 H Pulse Oximetry 96 98 Oxygen Delivery Method Room Air Room Air BMI result Body Mass Index 40.7 <NINI Art - Last Filed: 11/15/22 18:48> Const General: cooperative, no acute distress, alert and awake <NINI Art - Last Filed: 11/15/22 18:48> Nutritional Appearance: well nourished <NINI Art Last Filed: 11/15/22 18:48> Orientation/consciousness: patient oriented x3 <NINI Art Last Filed: 11/15/22 18:48> Limitations: no limitations <NINI Art Last Filed: 11/15/22 18:48> HENMT Head: Yes normal to inspection and Yes atraumatic <NINI Art Last Filed: 11/15/22 18:48> Ears: hearing grossly normal bilaterally and external ears normal <NINI Art Last Filed: 11/15/22 18:48> General nose exam: Normal external nose present, no nasal discharge noted and no epistaxis <NINI Art Last Filed: 11/15/22 18:48> Face and sinus: Yes normal facial exam, No abrasion and No laceration <Sadie Perera [facility] Last Filed: 11/15/22 18:48> Mouth: Normal oral and palatal mucosa present, no drooling and no muffled voice <Sadie Perera [facility] Last Filed: 11/15/22 18:48> Eyes General: appearance normal, both eyes and all related structures <NINI Art Last Filed: 11/15/22 18:48> Periorbital: periorbital findings normal <Sadie Perera [facility] Last Filed: 11/15/22 18:48> Eyelids: Yes eyelids normal <Sadie Perera [facility] Last Filed: 11/15/22 18:48> Conjunctivae: conjunctivae normal <Sadie Perera [facility] Last Filed: 11/15/22 18:48> Pupils: Equal, round and reactive pupils present <Sadie Perera [facility] Last Filed: 11/15/22 18:48> EOM: EOMs intact bilaterally <Sadie Perera [facility] Last Filed: 11/15/22 18:48> Neck Neck: Yes normal visual inspection, Yes full ROM and Yes no lymphadenopathy <NINI Art Last Filed: 11/15/22 18:48> Chest Chest palpation & inspection: normal inspection of the chest <Sadie Perera [facility] Last Filed: 11/15/22 18:48> Resp Effort & Inspection: normal respiratory effort and able to speak in complete sentences <NINI Art Last Filed: 11/15/22 18:48> Auscultation: clear to auscultation bilaterally <NINI Art Last Filed: 11/15/22 18:48> Cardio Rate: regular rate <NINI Art Last Filed: 11/15/22 18:48> Rhythm: regular rhythm <NINI Art - Last Filed: 11/15/22 18:48> GI Inspection: Yes normal to inspection <Sadierobert HammerNINI hill - Last Filed: 11/15/22 18:48> Palpation (GI): Soft to palpation, not firm, nontender, no guarding and not rigid <Sadie Hammerliz PA - Last Filed: 11/15/22 18:48> Neuro General: patient oriented x3 and moves all extremities <NINI Art - Last Filed: 11/15/22 18:48> Cranial nerves: Yes Equal, round and reactive pupils present <Sadierobert Hammerliz PA - Last Filed: 11/15/22 18:48> Cognition (Neuro): normal cognition <Sadie Perera PA - Last Filed: 11/15/22 18:48> Motor exam (neuro): 5/5 motor strength present throughout <Sadierobert Hammerliz PA - Last Filed: 11/15/22 18:48> Sensory Exam: Normal double simultaneous stimulation for sensation <NINI Art - Last Filed: 11/15/22 18:48> Coordination: [id number] test normal <Sadie Perera [place] - Last Filed: 11/15/22 18:48> Extrem General: Yes normal to inspection, Yes full ROM and Yes capillary refill normal <NINI Art - Last Filed: 11/15/22 18:48> Psych Appearance: grossly normal <NINI Art - Last Filed: 11/15/22 18:48> Mental Status: mental status grossly normal <NINI Art - Last Filed: 11/15/22 18:48> Affect: normal affect <NINI Art - Last Filed: 11/15/22 18:48> Attitude: cooperative <NINI Art - Last Filed: 11/15/22 18:48> Thought process: Normal thought process present <NINI Art - Last Filed: 11/15/22 18:48> Thought content: Normal thought content present <NINI Art - Last Filed: 11/15/22 18:48> Insight: Good insight present (Psych) <NINI Art - Last Filed: 11/15/22 18:48> Course Course Course Narrative: RME - 31 yo male with history of GERD, morbid obesity, DIMITRIS, asthma, depression who presents to the ER for evaluation of intermittent cramping central abd pains along with non-bloody diarrhea since last night about 10-11pm. Pain is in the epigastric area radiating down to the periumbilical area. +nausea and chills. HR 110-120 in triage. Abd soft with periumbilical tenderness, no rebound or guarding. Plan: check basic labs and CT scan abd/pelvis <NINI Parry - Last Filed: 11/15/22 12:36> Medical Decision Making Medical Decision Making MDM Narrative: Patient is a 31 year old assigned male at with a history of anxiety and GERD presenting to the emergency department today with intermittent abdominal pain, nausea, and vomiting. Patient's physical exam was unremarkable. Patient's blood work was unremarkable. Patient's urine showed no acute process. Patient's abdomen/pelvis CT showed no acute process. I explained my physical exam findings as well as all test results to the patient. I answered all questions asked by the patient. Patient received IV fluids and zofran which he stated helped his symptoms significantly. I stressed the importance of the patient taking his medication as prescribed. I stressed the importance of the patient following up with his primary care provider. I stressed the importance of the patient returning to the emergency department immediately if his symptoms were to worsen or if he were to develop any dizziness, shortness of breath, difficulty breathing, chest pain, blurry vision, loss of vision, nausea, vomiting, abdominal pain, fever, chills, back pain, or any other complaints. Patient verbalized agreement and understanding with this treatment plan and discharge. <NINI Art - Last Filed: 11/15/22 18:48> Differential Diagnosis Differential Diagnoses: The differential diagnosis associated with the presentation includes <NINI Art Last Filed: 11/15/22 18:48> abdominal pain, vomiting, nausea, gastroenteritis, enteritis <NINI Art Last Filed: 11/15/22 18:48> Lab Data MDM Lab Attestation statement: I reviewed the patient's lab results. <NINI Art Last Filed: 11/15/22 18:48> Result Diagrams: 11/15/22 13:09 03/08/23 13:15 <NINI Parry - Last Filed: 11/15/22 12:36> Labs: Lab Results 11/15/22 11/15/22 11/15/22 Range/Units 12:50 13:09 13:09 WBC 8.1 (4.8-10.8) X10*3/uL RBC 5.28 (4.60-5.80) X10*6/uL Hgb 14.9 (14.0-18.0) g/dl Hct 45.7 (42.0-52.0) % MCV 86.6 (80.0-98.0) fL MCH 28.2 (27.0-33.0) pg MCHC 32.6 (31.0-36.0) g/dl RDW 13.2 (11.0-16.0) % Plt Count 299 (160-400) X10*3/uL MPV Not Reportable Immature Gran % (Auto) 0.4 (0.0-0.4) % Neut % (Auto) 78.4 H (45-73) % Lymph % (Auto) 11.5 L (20-40) % [place] % (Auto) 7.3 (2-11) % Eos % (Auto) 1.5 (0-4) % Baso % (Auto) 0.9 (0-2) % Lymph # (Auto) 0.9 L (1.2-4.9) X10*3/uL [place] # (Auto) 0.6 (0.1-1.2) X10*3/uL Eos # (Auto) 0.1 (0.0-0.4) X10*3/uL Baso # (Auto) 0.1 (0.0-0.2) X10*3/uL Abs Immat Gran (auto) 0.03 (0.00-0.03) X10*3/uL Absolute Neuts (auto) 6.4 (2.0-8.3) x10*3/uL Absolute Nucleated RBC 0.000 (0.0-0.012) X10*3/uL Nucleated RBC % (auto) 0.0 (0.0-0.2) /100WBC Smear Tech's Comments VERIFIED Sodium (135-145) mmol/L Potassium (3.3-5.1) mmol/L Chloride (96-108) mmol/L Carbon Dioxide (22-29) mmol/L Anion Gap (12-20) BUN (9-16) mg/dL Creatinine (0.5-1.4) mg/dL Estim Creat Clear Calc Estimated GFR Random Glucose (60-115) mg/dL Calcium (8.4-10.2) mg/dL Magnesium (1.6-2.6) mg/dL Total Bilirubin (0.0-1.0) mg/dL Direct Bilirubin (0.0-0.5) mg/dL AST (5-37) U/L ALT (0-40) U/L Alkaline Phosphatase (39-117) U/L Total Protein (6.5-8.0) g/dL Albumin (3.5-5.0) g/dL Lipase (8-78) U/L Urine Color Yellow Urine Appearance Clear Urine pH 5.5 (5.0-9.0) Ur Specific [place] >= 1.030 H (1.005-1.025) Urine Protein Trace (Neg-Trace) mg/dL Urine Glucose (UA) Negative (Negative) mg/dL Urine Ketones Negative (Negative) mg/dL Urine Blood Negative (Negative) Urine Nitrite Negative (Negative) Ur Leukocyte Esterase Negative (Negative) Influenza Type A (PCR) NEGATIVE (Negative) Influenza Type B (PCR) NEGATIVE (Negative) RSV RNA Qual (PCR) NEGATIVE (Negative) SARS-CoV-2 RNA (RT-PCR) NEGATIVE (Negative) 11/15/22 Range/Units 13:15 WBC (4.8-10.8) X10*3/uL RBC (4.60-5.80) X10*6/uL Hgb (14.0-18.0) g/dl Hct (42.0-52.0) % MCV (80.0-98.0) fL MCH (27.0-33.0) pg MCHC (31.0-36.0) g/dl RDW (11.0-16.0) % Plt Count (160-400) X10*3/uL MPV Immature Gran % (Auto) (0.0-0.4) % Neut % (Auto) (45-73) % Lymph % (Auto) (20-40) % [place] % (Auto) (2-11) % Eos % (Auto) (0-4) % Baso % (Auto) (0-2) % Lymph # (Auto) (1.2-4.9) X10*3/uL [place] # (Auto) (0.1-1.2) X10*3/uL Eos # (Auto) (0.0-0.4) X10*3/uL Baso # (Auto) (0.0-0.2) X10*3/uL Abs Immat Gran (auto) (0.00-0.03) X10*3/uL Absolute Neuts (auto) (2.0-8.3) x10*3/uL Absolute Nucleated RBC (0.0-0.012) X10*3/uL Nucleated RBC % (auto) (0.0-0.2) /100WBC Smear Tech's Comments Sodium 142 (135-145) mmol/L Potassium 4.1 (3.3-5.1) mmol/L Chloride 110 H (96-108) mmol/L Carbon Dioxide 23 (22-29) mmol/L Anion Gap 13 (12-20) BUN 17 H (9-16) mg/dL Creatinine 0.91 (0.5-1.4) mg/dL Estim Creat Clear Calc 128.5 Estimated GFR > 60 Random Glucose 99 (60-115) mg/dL Calcium 9.0 D (8.4-10.2) mg/dL Magnesium 2.0 (1.6-2.6) mg/dL Total Bilirubin 0.7 (0.0-1.0) mg/dL Direct Bilirubin 0.2 (0.0-0.5) mg/dL AST 23 (5-37) U/L ALT 33 (0-40) U/L Alkaline Phosphatase 125 H (39-117) U/L Total Protein 7.3 (6.5-8.0) g/dL Albumin 4.3 (3.5-5.0) g/dL Lipase 10 (8-78) U/L Urine Color Urine Appearance Urine pH (5.0-9.0) Ur Specific [place] (1.005-1.025) Urine Protein (Neg-Trace) mg/dL Urine Glucose (UA) (Negative) mg/dL Urine Ketones (Negative) mg/dL Urine Blood (Negative) Urine Nitrite (Negative) Ur Leukocyte Esterase (Negative) Influenza Type A (PCR) (Negative) Influenza Type B (PCR) (Negative) RSV RNA Qual (PCR) (Negative) SARS-CoV-2 RNA (RT-PCR) (Negative) <NINI Parry - Last Filed: 11/15/22 12:36> Lab Results 11/15/22 11/15/22 11/15/22 Range/Units 12:50 13:09 13:09 WBC 8.1 (4.8-10.8) X10*3/uL RBC 5.28 (4.60-5.80) X10*6/uL Hgb 14.9 (14.0-18.0) g/dl Hct 45.7 (42.0-52.0) % MCV 86.6 (80.0-98.0) fL MCH 28.2 (27.0-33.0) pg MCHC 32.6 (31.0-36.0) g/dl RDW 13.2 (11.0-16.0) % Plt Count 299 (160-400) X10*3/uL MPV Not Reportable Immature Gran % (Auto) 0.4 (0.0-0.4) % Neut % (Auto) 78.4 H (45-73) % Lymph % (Auto) 11.5 L (20-40) % [place] % (Auto) 7.3 (2-11) % Eos % (Auto) 1.5 (0-4) % Baso % (Auto) 0.9 (0-2) % Lymph # (Auto) 0.9 L (1.2-4.9) X10*3/uL [place] # (Auto) 0.6 (0.1-1.2) X10*3/uL Eos # (Auto) 0.1 (0.0-0.4) X10*3/uL Baso # (Auto) 0.1 (0.0-0.2) X10*3/uL Abs Immat Gran (auto) 0.03 (0.00-0.03) X10*3/uL Absolute Neuts (auto) 6.4 (2.0-8.3) x10*3/uL Absolute Nucleated RBC 0.000 (0.0-0.012) X10*3/uL Nucleated RBC % (auto) 0.0 (0.0-0.2) /100WBC Smear Tech's Comments VERIFIED Sodium (135-145) mmol/L Potassium (3.3-5.1) mmol/L Chloride (96-108) mmol/L Carbon Dioxide (22-29) mmol/L Anion Gap (12-20) BUN (9-16) mg/dL Creatinine (0.5-1.4) mg/dL Estim Creat Clear Calc Estimated GFR Random Glucose (60-115) mg/dL Calcium (8.4-10.2) mg/dL Magnesium (1.6-2.6) mg/dL Total Bilirubin (0.0-1.0) mg/dL Direct Bilirubin (0.0-0.5) mg/dL AST (5-37) U/L ALT (0-40) U/L Alkaline Phosphatase (39-117) U/L Total Protein (6.5-8.0) g/dL Albumin (3.5-5.0) g/dL Lipase (8-78) U/L Urine Color Yellow Urine Appearance Clear Urine pH 5.5 (5.0-9.0) Ur Specific [place] >= 1.030 H (1.005-1.025) Urine Protein Trace (Neg-Trace) mg/dL Urine Glucose (UA) Negative (Negative) mg/dL Urine Ketones Negative (Negative) mg/dL Urine Blood Negative (Negative) Urine Nitrite Negative (Negative) Ur Leukocyte Esterase Negative (Negative) Influenza Type A (PCR) NEGATIVE (Negative) Influenza Type B (PCR) NEGATIVE (Negative) RSV RNA Qual (PCR) NEGATIVE (Negative) SARS-CoV-2 RNA (RT-PCR) NEGATIVE (Negative) 11/15/22 Range/Units 13:15 WBC (4.8-10.8) X10*3/uL RBC (4.60-5.80) X10*6/uL Hgb (14.0-18.0) g/dl Hct (42.0-52.0) % MCV (80.0-98.0) fL MCH (27.0-33.0) pg MCHC (31.0-36.0) g/dl RDW (11.0-16.0) % Plt Count (160-400) X10*3/uL MPV Immature Gran % (Auto) (0.0-0.4) % Neut % (Auto) (45-73) % Lymph % (Auto) (20-40) % [place] % (Auto) (2-11) % Eos % (Auto) (0-4) % Baso % (Auto) (0-2) % Lymph # (Auto) (1.2-4.9) X10*3/uL [place] # (Auto) (0.1-1.2) X10*3/uL Eos # (Auto) (0.0-0.4) X10*3/uL Baso # (Auto) (0.0-0.2) X10*3/uL Abs Immat Gran (auto) (0.00-0.03) X10*3/uL Absolute Neuts (auto) (2.0-8.3) x10*3/uL Absolute Nucleated RBC (0.0-0.012) X10*3/uL Nucleated RBC % (auto) (0.0-0.2) /100WBC Smear Tech's Comments Sodium 142 (135-145) mmol/L Potassium 4.1 (3.3-5.1) mmol/L Chloride 110 H (96-108) mmol/L Carbon Dioxide 23 (22-29) mmol/L Anion Gap 13 (12-20) BUN 17 H (9-16) mg/dL Creatinine 0.91 (0.5-1.4) mg/dL Estim Creat Clear Calc 128.5 Estimated GFR > 60 Random Glucose 99 (60-115) mg/dL Calcium 9.0 D (8.4-10.2) mg/dL Magnesium 2.0 (1.6-2.6) mg/dL Total Bilirubin 0.7 (0.0-1.0) mg/dL Direct Bilirubin 0.2 (0.0-0.5) mg/dL AST 23 (5-37) U/L ALT 33 (0-40) U/L Alkaline Phosphatase 125 H (39-117) U/L Total Protein 7.3 (6.5-8.0) g/dL Albumin 4.3 (3.5-5.0) g/dL Lipase 10 (8-78) U/L Urine Color Urine Appearance Urine pH (5.0-9.0) Ur Specific [place] (1.005-1.025) Urine Protein (Neg-Trace) mg/dL Urine Glucose (UA) (Negative) mg/dL Urine Ketones (Negative) mg/dL Urine Blood (Negative) Urine Nitrite (Negative) Ur Leukocyte Esterase (Negative) Influenza Type A (PCR) (Negative) Influenza Type B (PCR) (Negative) RSV RNA Qual (PCR) (Negative) SARS-CoV-2 RNA (RT-PCR) (Negative) <NINI Art - Last Filed: 11/15/22 18:48> Independent Interpretation I performed an independent interpretation of an: CT Scan <NINI Art - Last Filed: 11/15/22 18:48> Interpretation: My interpretation is in agreement with the radiologist's impression of this imaging study. EXAMINATION: CT ABDOMEN AND PELVIS WITHOUT CONTRAST? CLINICAL INFORMATION: Periumbilical pain. Diarrhea.? COMPARISON: CT scan abdomen pelvis 11/18/2018? TECHNIQUE: Multidetector volumetric imaging was performed from the superior aspect of the liver through the pubic symphysis. Sagittal and coronal reformatted images were obtained on the technologist's workstation.? This CT examination was performed using dose optimization techniques as appropriate, variously including the following: *Automated exposure control *Adjustment of mA and/or kV according to patient size (this includes techniques or standardized protocols for targeted exams where dose is matched to indication/reason for exam; i.e. extremities or head) *Use of iterative reconstruction technique DLP: 787 mGy-cm FINDINGS: LUNG BASES: The visualized lung bases are unremarkable.? LIVER, GALLBLADDER, AND BILIARY TREE: The liver is normal in size, shape, and attenuation. No focal hepatic lesion or biliary ductal dilatation is present. Status post cholecystectomy? PANCREAS: Unremarkable.? SPLEEN: Unremarkable.? ADRENAL GLANDS: Unremarkable.? KIDNEYS AND URETERS: The kidneys are normal in size, shape, and attenuation. No hydronephrosis, hydroureter, or calculi seen. No perinephric stranding. ? BLADDER: Unremarkable.? GASTROINTESTINAL TRACT: The small and large bowel are unremarkable. The appendix is unremarkable.? ABDOMINAL WALL: No significant hernia is appreciated.? LYMPH NODES: Normal. VASCULAR: Unremarkable. PELVIC VISCERA: Unremarkable.? OSSEOUS STRUCTURES: Unremarkable.? CT/CT abdomen pelvis wo IV con IMPRESSION: No significant abnormality.? ? Fleischner guidelines were followed. Dictated By: Long Mensah MD Signed By: Electronically signed by Long Mensah MD 11/15/22 1628 <NINI Art - Last Filed: 11/15/22 18:48> Medications Administered Discontinued Medications Generic Name Dose Route Start Last Admin Trade Name Freq PRN Reason Stop Dose Admin Sodium Chloride 1,000 mls @ 999 mls/hr 11/15/22 15:00 11/15/22 16:43 Ns IV 11/15/22 16:00 Infused .Q1H1M MARC Infusion Ondansetron HCl 4 mg 11/15/22 15:00 11/15/22 15:35 Ondansetron Hcl 4 Mg/2 Ml Vial IVPUSH 11/15/22 15:01 4 mg ONCE ONE Administration <NINI Parry - Last Filed: 11/15/22 12:36> Medications Administered Discontinued Medications Generic Name Dose Route Start Last Admin Trade Name Freq PRN Reason Stop Dose Admin Sodium Chloride 1,000 mls @ 999 mls/hr 11/15/22 15:00 11/15/22 16:43 Ns IV 11/15/22 16:00 Infused .Q1H1M [facility] Infusion Ondansetron HCl 4 mg 11/15/22 15:00 11/15/22 15:35 Ondansetron Hcl 4 Mg/2 Ml Vial IVPUSH 11/15/22 15:01 4 mg ONCE ONE Administration <NINI Art - Last Filed: 11/15/22 18:48> Discharge Plan Discharge Clinical Impression: Gastroenteritis <NINI Parry - Last Filed: 11/15/22 12:36> Patient Disposition: Home, Self-Care <NINI Parry - Last Filed: 11/15/22 12:36> Instructions: Gastroenteritis (ED) <NINI Parry Last Filed: 11/15/22 12:36> Additional Instructions: Follow up with your primary care provider. Return to the emergency department immediately if your symptoms worsen or if you develop any dizziness, shortness of breath, difficulty breathing, chest pain, blurry vision, loss of vision, nausea, vomiting, abdominal pain, fever, chills, back pain, or any other complaints. <NINI Parry - Last Filed: 11/15/22 12:36> Prescriptions: New ondansetron 4 mg tablet,disintegrating 4 mg PO Q8H 3 Days Qty: 9 0RF No Action senna 8.6 mg capsule 17.2 mg PO BEDTIME 30 Days Qty: 60 1RF docusate sodium [Colace] 100 mg capsule 100 mg PO DAILY Qty: 30 2RF diphenhydramine HCl [Benadryl Allergy] 25 mg tablet 25 mg PO TID PRN (Reason: nausea and vomiting) Qty: 10 0RF ibuprofen 800 mg tablet 800 mg PO Q8H PRN (Reason: pain) Qty: 14 0RF (DME) AeroEclipse II Nebulizer Misc See Rx Instructions .ROUTE .MEDSUPPLY Qty: 1 0RF Rx Instructions: As directed albuterol sulfate 0.63 mg/3 mL solution for nebulization 0.63 mg inhalation QID PRN (Reason: shortness of breath or wheezing) Qty: 90 0RF budesonide-formoterol 80-4.5 mcg/actuation HFA aerosol inhaler 1 inh inhalation BID Xolair 150 mg/mL syringe 150 mg subcut QMONTH epinephrine 0.3 mg/0.3 mL auto-injector 0.3 mg IM ONCE PRN (Reason: Anaphylaxis) cholecalciferol (vitamin D3) 125 mcg (5,000 unit) capsule 125 mcg PO DAILY Qty: 30 3RF omeprazole 20 mg capsule,delayed release(DR/EC) 20 mg PO DAILY hydroxyzine HCl 10 mg tablet 10 mg PO TID PRN (Reason: insomnia) paroxetine HCl 30 mg tablet 30 mg PO QAM pantoprazole 40 mg tablet,delayed release (DR/EC) 40 mg PO DAILY Qty: 30 2RF sucralfate 100 mg/mL suspension 10 ml PO BID Qty: 400 2RF polyethylene glycol 3350 [Miralax] 17 gram powder in packet 17 g PO DAILY Qty: 14 0RF Rx Instructions: Mix each packet with 8oz of water and do 7 packets on 11/05/22 and another 7 packets on 11/06/22 ondansetron HCl 4 mg tablet 4 mg PO Q12H Qty: 20 0RF Rx Instructions: use ONLY if you have nausea as needed <NINI Parry - Last Filed: 11/15/22 12:36> Referrals: Damian Miles MD [Primary Care Provider] - <NINI Parry - Last Filed: 11/15/22 12:36> Stand Alone Forms: Work/School Release <NINI Parry - Last Filed: 11/15/22 12:36> Interventions: ED Discharge Assessment Last Done: 11/15/22 17:12 <NINI Parry - Last Filed: 11/15/22 12:36> Discharge Date/Time: 11/15/22 17:13 <NINI Parry - Last Filed: 11/15/22 12:36> Print Language: Romansh <NINI Parry - Last Filed: 11/15/22 12:36>
[2022-11-15 13:08] LABS: Appearance Urine Clear; Color Urine Yellow; Glucose Urine UA Negative (Negative); Leukocyte Esterase Urine Negative (Negative); Nitrite Urine Negative (Negative); PH 5.5 (5.0-9.0); Specific Gravity - Urine >= 1.030 (1.005-1.025); Urine Blood Negative (Negative); Urine Ketones Negative (Negative); Urine Protein Trace mg/dL (Neg-Trace)
[2022-11-15 13:38] LABS: Basophils Absolute Auto 0.1 X10*3/uL (0.0-0.2); Basophils Percent Auto 0.9 % (0-2); Eosinophils Absolute Auto 0.1 X10*3/uL (0.0-0.4); Eosinophils Percent Auto 1.5 % (0-4); Hematocrit 45.7 % (42.0-52.0); Hemoglobin 14.9 g/dl (14.0-18.0); Imm Gran Abs Auto 0.03 X10*3/uL (0.00-0.03); Imm Gran Pct Auto 0.4 % (0.0-0.4); Lymphocytes Absolute Auto 0.9 X10*3/uL (1.2-4.9); Lymphocytes Percent Auto 11.5 % (20-40); MANUAL DIFF FLAG SCAN; Mean Corpuscular HGB Conc 32.6 g/dl (31.0-36.0); Mean Corpuscular Hemoglobin 28.2 pg (27.0-33.0); Mean Corpuscular Volume 86.6 fL (80.0-98.0); Monocytes Absolute Auto 0.6 X10*3/uL (0.1-1.2); Monocytes Percent Auto 7.3 % (2-11); Neutrophils Absolute Auto 6.4 x10*3/uL (2.0-8.3); Neutrophils Percent Auto 78.4 % (45-73); PLT CLUMP 1; Red Blood Count 5.28 X10*6/uL (4.60-5.80); Red Cell Distribution Width 13.2 % (11.0-16.0); SCAN SMEAR FLAG 1; White Blood Count 8.1 X10*3/uL (4.8-10.8)
[2022-11-15 13:52] LABS: Platelet Count 299 X10*3/uL (160-400); SLIDE REVIEW VERIFIED
[2022-11-15 14:05] LABS: Alanine Aminotransferase 33 U/L (0-40); Albumin Level 4.3 g/dL (3.5-5.0); Alkaline Phosphatase 125 U/L (39-117); Anion Gap 13 (12-20); Aspartate Amino Transferase 23 U/L (5-37); Bilirubin Direct 0.2 mg/dL (0.0-0.5); Bilirubin Total 0.7 mg/dL (0.0-1.0); Blood Urea Nitrogen 17 mg/dL (9-16); Carbon Dioxide 23 mmol/L (22-29); Chloride 110 mmol/L (96-108); Creatinine Clr Calc Pharmacy 128.5; Estimated Glomerular Filt Rate > 60; Glucose Random 99 mg/dL (60-115); Lipase 10 U/L (8-78); Potassium 4.1 mmol/L (3.3-5.1); Sodium 142 mmol/L (135-145); Total Protein 7.3 g/dL (6.5-8.0)
[2022-11-15 14:14] LABS: Influenza A PCR NEGATIVE (Negative); Influenza B PCR NEGATIVE (Negative); Resp Syncy Virus RNA Qual PCR NEGATIVE (Negative); SARS COV2 PCR INHOUSE NEGATIVE (Negative)
[2022-11-15 14:44] VITALS: BP 144/91; PULSE 104; RESP 16; O2SAT 98
--- NOTE | 2022-11-15 15:02 | ED.ABDPAIN ---
HPI - Abdominal Pain General Chief Complaint: Abdominal Pain Stated Complaint: Abd pain/Nausea Time Seen by Provider: 11/15/22 14:39 Source: patient Mode of arrival: ambulatory Limitations: no limitations History of Present Illness HPI narrative: Pt is 31 y/o male with pMHX of cholecystectomy and GERD, cc abd pain that started last night. He said the only time he has experienced similar pain was prior to having the gallbladder removed. He describes intermittent epigastric cramping, 3/10 that lasts about a minute or so. He is able to drink fluids but does not want to eat due to the pain. He is also experiencing nausea, diarrhea, body aches, diffuse lower back pain and occasional headaches. He works as a middle school band teacher and suspects there are probably sick kids he has been in contact with. He denies fevers, chest pain, cough, vomiting, pain with urination, blood in urine or stools. MD elicited complaint: abdominal pain Pain Consistency: intermittent Location: epigastric Severity: mild Pain scale (0-10): 3 Quality: cramping Radiation: none Exacerbating factors: nothing Relieving factors: nothing Context: sick contacts Associated symptoms: nausea and diarrhea Related Data Home Medications Medication Instructions Recorded Confirmed budesonide-formoterol HFA 80 1 inh inhalation BID 07/20/20 10/16/22 mcg-4.5 mcg/actuation aerosol inhaler epinephrine 0.3 mg/0.3 mL 0.3 mg IM ONCE PRN Anaphylaxis 07/20/20 10/16/22 injection, auto-injector omalizumab 150 mg/mL subcutaneous 150 mg subcut QMONTH 07/20/20 10/16/22 syringe omeprazole 20 mg capsule,delayed 20 mg PO DAILY 04/25/22 10/16/22 release hydroxyzine HCl 10 mg tablet 10 mg PO TID PRN insomnia 06/28/22 10/16/22 paroxetine HCl 30 mg tablet 30 mg PO QAM 06/28/22 10/16/22 Previous Rx's Medication Instructions Recorded sennosides 8.6 mg capsule (senna) 17.2 mg PO BEDTIME constipation 30 07/08/20 days #60 caps albuterol sulfate 0.63 mg/3 mL 0.63 mg (3 mL) inhalation QID PRN 07/17/20 solution for nebulization shortness of breath or wheezing #90 mL diphenhydramine HCl 25 mg tablet 25 mg PO TID PRN nausea and 07/17/20 (Benadryl Allergy) vomiting #10 tabs ibuprofen 800 mg tablet 800 mg PO Q8H PRN pain #14 tabs 07/17/20 nebulizers (AeroEclipse II #1 ea 07/17/20 Nebulizer) cholecalciferol (vitamin D3) 125 125 mcg PO DAILY #30 caps 06/08/22 mcg (5,000 unit) capsule docusate sodium 100 mg capsule 100 mg PO DAILY #30 caps 09/23/22 (Colace) ondansetron HCl 4 mg tablet 4 mg PO Q12H nausea and vomiting 10/16/22 #20 tabs pantoprazole 40 mg tablet,delayed 40 mg PO DAILY #30 tabs 10/16/22 release polyethylene glycol 3350 17 gram 17 g PO DAILY #14 ea 10/16/22 oral powder packet (Miralax) sucralfate 100 mg/mL oral 10 ml PO BID #400 mL 10/16/22 suspension Allergies Allergy/AdvReac Type Severity Reaction Status Date / Time hydrocodone [From VICODIN] Allergy Severe Swelling, Verified 10/16/22 11:53 Redness, Itching seafood Allergy Severe Swelling Verified 10/16/22 11:53 codeine [CODEINE] Allergy Intermediate ITCHY RASH Verified 10/16/22 11:53 vancomycin [VANCOMYCIN] Allergy Intermediate red man's Verified 10/16/22 11:53 syndrome (redness/swelling/itching) Review of Systems Constitutional: Reports no additional constitutional complaints, Denies chills, Denies fever(s) and Denies night sweats Eyes: Reports no additional eye complaints, Denies blurry vision, Denies change in vision, Denies diplopia, Denies eye discharge, Denies loss of vision and Denies eye pain Denies dizziness Cardiovascular: Reports no additional cardiovascular complaints, Denies chest pain, Denies lightheadedness, Denies Loss of Consciousness and Denies dyspnea Respiratory: Reports no additional respiratory complaints and Denies dyspnea Gastrointestinal: Reports no additional gastrointestinal complaints, Denies abdominal pain, Denies melena, Denies hematochezia, Denies change in bowel habits and Denies change in stool character Genitourinary: Reports no additional male genitourinary complaints, Denies hematuria, Denies oliguria, Denies difficulty urinating, Denies dysuria, Denies urinary frequency, Denies urinary hesitancy, Denies urinary incontinence and Denies urinary urgency Musculoskeletal: Reports back pain, Reports myalgias, Denies numbness and Denies tingling Denies dizziness, Denies loss of vision, Denies numbness and Denies tingling Psychiatric: Reports no additional psychiatric complaints Endocrine: Reports no additional endocrine complaints Hematologic/Lymphatic: Reports no additional hematologic/lymphatic complaints Allergic/Immunologic: Reports no additional allergic/immunologic complaints PMFSH Past Medical History Attestation statement: The following information was validated with the patient. Source: old records reviewed Medical History (Updated 10/27/22 @ 11:27 by Marissa Rivera PA-C) Anxiety Asthma Asthma exacerbation Depression FHx: cholecystectomy GERD (gastroesophageal reflux disease) History of COVID-19 Hx MRSA infection Insomnia Sleep apnea with use of continuous positive airway pressure (CPAP) Surgical History (Updated 10/16/22 @ 09:57 by Shiela Hernandez RN) Hx of cholecystectomy Family History Family History Mother Asthma Thyroid condition Father Asthma Brother Asthma Sister No problems noted. Sister No problems noted. Sister No problems noted. Sister No problems noted. Social History Social History Are you a primary care connector to a significant other at home: No Do you presently have visiting nurse or other home services: No Alcohol intake: current Alcohol intake frequency: does not drink Patient Tobacco Use Status: Never used Tobacco Advance Directives: No Advance Directives Information Provided: No Physical Exam ED Vital Signs: Vital Signs - 24 hr 11/15/22 12:30 11/15/22 14:44 Temperature 97.9 F Pulse Rate 112 H 104 H Respiratory Rate 19 16 Blood Pressure 156/102 H 144/91 H Pulse Oximetry 96 98 Oxygen Delivery Method Room Air Room Air BMI result Body Mass Index 40.7 Const General: cooperative, no acute distress, alert and awake Nutritional Appearance: well nourished Orientation/consciousness: patient oriented x3 Limitations: no limitations HENMT Head: Yes normal to inspection and Yes atraumatic Ears: hearing grossly normal bilaterally and external ears normal General nose exam: Normal external nose present, no nasal discharge noted and no epistaxis Face and sinus: Yes normal facial exam, No abrasion and No laceration Mouth: Normal oral and palatal mucosa present, no drooling and no muffled voice Eyes General: appearance normal, both eyes and all related structures Periorbital: periorbital findings normal Eyelids: Yes eyelids normal Conjunctivae: conjunctivae normal Pupils: Equal, round and reactive pupils present EOM: EOMs intact bilaterally Neck Neck: Yes normal visual inspection, Yes full ROM and Yes no lymphadenopathy Chest Chest palpation & inspection: normal inspection of the chest Resp Effort & Inspection: normal respiratory effort and able to speak in complete sentences Cardio Rate: regular rate Rhythm: regular rhythm GI Inspection: Yes normal to inspection Palpation (GI): Soft to palpation, not firm, nontender, no guarding, not rigid, No hepatosplenomegaly present, no pulsatile masses, No Ascites present and No Rebound tenderness present Auscultation: normal bowel sounds General: Yes no CVA tenderness Back/Spine/Pelvis Back: no CVA tenderness Neuro General: patient oriented x3 and moves all extremities Cranial nerves: Yes Equal, round and reactive pupils present Cognition (Neuro): normal cognition Motor exam (neuro): 5/5 motor strength present throughout Sensory Exam: Normal double simultaneous stimulation for sensation Coordination: [id number] test normal Extrem General: Yes normal to inspection, Yes full ROM and Yes capillary refill normal Psych Appearance: grossly normal Mental Status: mental status grossly normal Affect: normal affect Attitude: cooperative Thought process: Normal thought process present Thought content: Normal thought content present Insight: Good insight present (Psych) Medical Decision Making Lab Data 11/15/22 13:09 11/15/22 13:15 Labs: Lab Results 11/15/22 11/15/22 11/15/22 Range/Units 12:50 13:09 13:09 WBC 8.1 (4.8-10.8) X10*3/uL RBC 5.28 (4.60-5.80) X10*6/uL Hgb 14.9 (14.0-18.0) g/dl Hct 45.7 (42.0-52.0) % MCV 86.6 (80.0-98.0) fL MCH 28.2 (27.0-33.0) pg MCHC 32.6 (31.0-36.0) g/dl RDW 13.2 (11.0-16.0) % Plt Count 299 (160-400) X10*3/uL MPV Not Reportable Immature Gran % (Auto) 0.4 (0.0-0.4) % Neut % (Auto) 78.4 H (45-73) % Lymph % (Auto) 11.5 L (20-40) % Mcdonough % (Auto) 7.3 (2-11) % Eos % (Auto) 1.5 (0-4) % Baso % (Auto) 0.9 (0-2) % Lymph # (Auto) 0.9 L (1.2-4.9) X10*3/uL Mcdonough # (Auto) 0.6 (0.1-1.2) X10*3/uL Eos # (Auto) 0.1 (0.0-0.4) X10*3/uL Baso # (Auto) 0.1 (0.0-0.2) X10*3/uL Abs Immat Gran (auto) 0.03 (0.00-0.03) X10*3/uL Absolute Neuts (auto) 6.4 (2.0-8.3) x10*3/uL Absolute Nucleated RBC 0.000 (0.0-0.012) X10*3/uL Nucleated RBC % (auto) 0.0 (0.0-0.2) /100WBC Smear Tech's Comments VERIFIED Sodium (135-145) mmol/L Potassium (3.3-5.1) mmol/L Chloride (96-108) mmol/L Carbon Dioxide (22-29) mmol/L Anion Gap (12-20) BUN (9-16) mg/dL Creatinine (0.5-1.4) mg/dL Estim Creat Clear Calc Estimated GFR Random Glucose (60-115) mg/dL Calcium (8.4-10.2) mg/dL Magnesium (1.6-2.6) mg/dL Total Bilirubin (0.0-1.0) mg/dL Direct Bilirubin (0.0-0.5) mg/dL AST (5-37) U/L ALT (0-40) U/L Alkaline Phosphatase (39-117) U/L Total Protein (6.5-8.0) g/dL Albumin (3.5-5.0) g/dL Lipase (8-78) U/L Urine Color Yellow Urine Appearance Clear Urine pH 5.5 (5.0-9.0) Ur Specific [place] >= 1.030 H (1.005-1.025) Urine Protein Trace (Neg-Trace) mg/dL Urine Glucose (UA) Negative (Negative) mg/dL Urine Ketones Negative (Negative) mg/dL Urine Blood Negative (Negative) Urine Nitrite Negative (Negative) Ur Leukocyte Esterase Negative (Negative) Influenza Type A (PCR) NEGATIVE (Negative) Influenza Type B (PCR) NEGATIVE (Negative) RSV RNA Qual (PCR) NEGATIVE (Negative) SARS-CoV-2 RNA (RT-PCR) NEGATIVE (Negative) 11/15/22 Range/Units 13:15 WBC (4.8-10.8) X10*3/uL RBC (4.60-5.80) X10*6/uL Hgb (14.0-18.0) g/dl Hct (42.0-52.0) % MCV (80.0-98.0) fL MCH (27.0-33.0) pg MCHC (31.0-36.0) g/dl RDW (11.0-16.0) % Plt Count (160-400) X10*3/uL MPV Immature Gran % (Auto) (0.0-0.4) % Neut % (Auto) (45-73) % Lymph % (Auto) (20-40) % Mcdonough % (Auto) (2-11) % Eos % (Auto) (0-4) % Baso % (Auto) (0-2) % Lymph # (Auto) (1.2-4.9) X10*3/uL Mcdonough # (Auto) (0.1-1.2) X10*3/uL Eos # (Auto) (0.0-0.4) X10*3/uL Baso # (Auto) (0.0-0.2) X10*3/uL Abs Immat Gran (auto) (0.00-0.03) X10*3/uL Absolute Neuts (auto) (2.0-8.3) x10*3/uL Absolute Nucleated RBC (0.0-0.012) X10*3/uL Nucleated RBC % (auto) (0.0-0.2) /100WBC Smear Tech's Comments Sodium 142 (135-145) mmol/L Potassium 4.1 (3.3-5.1) mmol/L Chloride 110 H (96-108) mmol/L Carbon Dioxide 23 (22-29) mmol/L Anion Gap 13 (12-20) BUN 17 H (9-16) mg/dL Creatinine 0.91 (0.5-1.4) mg/dL Estim Creat Clear Calc 128.5 Estimated GFR > 60 Random Glucose 99 (60-115) mg/dL Calcium 9.0 D (8.4-10.2) mg/dL Magnesium 2.0 (1.6-2.6) mg/dL Total Bilirubin 0.7 (0.0-1.0) mg/dL Direct Bilirubin 0.2 (0.0-0.5) mg/dL AST 23 (5-37) U/L ALT 33 (0-40) U/L Alkaline Phosphatase 125 H (39-117) U/L Total Protein 7.3 (6.5-8.0) g/dL Albumin 4.3 (3.5-5.0) g/dL Lipase 10 (8-78) U/L Urine Color Urine Appearance Urine pH (5.0-9.0) Ur Specific [place] (1.005-1.025) Urine Protein (Neg-Trace) mg/dL Urine Glucose (UA) (Negative) mg/dL Urine Ketones (Negative) mg/dL Urine Blood (Negative) Urine Nitrite (Negative) Ur Leukocyte Esterase (Negative) Influenza Type A (PCR) (Negative) Influenza Type B (PCR) (Negative) RSV RNA Qual (PCR) (Negative) SARS-CoV-2 RNA (RT-PCR) (Negative) Medications Administered Generic Name Dose Route Start Last Admin Trade Name Freq PRN Reason Stop Dose Admin Sodium Chloride 1,000 mls @ 999 mls/hr 11/15/22 15:00 11/15/22 15:36 Ns IV 11/15/22 16:00 999 mls/hr .Q1H1M MARC Administration Discontinued Medications Generic Name Dose Route Start Last Admin Trade Name Freq PRN Reason Stop Dose Admin Ondansetron HCl 4 mg 11/15/22 15:00 11/15/22 15:35 Ondansetron Hcl 4 Mg/2 Ml Vial IVPUSH 11/15/22 15:01 4 mg ONCE ONE Administration Discharge Plan Discharge Prescriptions: No Action senna 8.6 mg capsule 17.2 mg PO BEDTIME 30 Days Qty: 60 1RF docusate sodium [Colace] 100 mg capsule 100 mg PO DAILY Qty: 30 2RF diphenhydramine HCl [Benadryl Allergy] 25 mg tablet 25 mg PO TID PRN (Reason: nausea and vomiting) Qty: 10 0RF ibuprofen 800 mg tablet 800 mg PO Q8H PRN (Reason: pain) Qty: 14 0RF (DME) AeroEclipse II Nebulizer Misc See Rx Instructions .ROUTE .MEDSUPPLY Qty: 1 0RF Rx Instructions: As directed albuterol sulfate 0.63 mg/3 mL solution for nebulization 0.63 mg inhalation QID PRN (Reason: shortness of breath or wheezing) Qty: 90 0RF budesonide-formoterol 80-4.5 mcg/actuation HFA aerosol inhaler 1 inh inhalation BID Xolair 150 mg/mL syringe 150 mg subcut QMONTH epinephrine 0.3 mg/0.3 mL auto-injector 0.3 mg IM ONCE PRN (Reason: Anaphylaxis) cholecalciferol (vitamin D3) 125 mcg (5,000 unit) capsule 125 mcg PO DAILY Qty: 30 3RF omeprazole 20 mg capsule,delayed release(DR/EC) 20 mg PO DAILY hydroxyzine HCl 10 mg tablet 10 mg PO TID PRN (Reason: insomnia) paroxetine HCl 30 mg tablet 30 mg PO QAM pantoprazole 40 mg tablet,delayed release (DR/EC) 40 mg PO DAILY Qty: 30 2RF sucralfate 100 mg/mL suspension 10 ml PO BID Qty: 400 2RF polyethylene glycol 3350 [Miralax] 17 gram powder in packet 17 g PO DAILY Qty: 14 0RF Rx Instructions: Mix each packet with 8oz of water and do 7 packets on 11/05/22 and another 7 packets on 11/06/22 ondansetron HCl 4 mg tablet 4 mg PO Q12H Qty: 20 0RF Rx Instructions: use ONLY if you have nausea as needed
[2022-11-15] MEDS: ondansetron HCL 4 MG/2 ML VIAL IVPUSH (15:35)
[2022-11-15] MEDS: 0.9 % Sodium Chloride 1,000 ML 999 ML IV (15:36)
== END 2022-11-15 17:13 | disposition home or self-care (01) ==
PROVIDERS: Physician Assistant; Emergency Provider Emergency Medicine Emergency Medical Services; PCP Internal Medicine
DX: K52.9 Noninfective gastroenteritis and colitis, unspecified (principal); Z20.822 Contact with and (suspected) exposure to COVID-19; Z20.828 Contact with and (suspected) exposure to other viral communicable diseases; R10.9 Unspecified abdominal pain; E66.01 Morbid (severe) obesity due to excess calories; Z68.41 Body mass index [BMI] 40.0-44.9, adult
CPT/HCPCS: 0241U; 74176; 80048; 80076; 81003; 83690; 83735; 85025; 96361; 96374; 99284; J2405

== ENCOUNTER 2023-01-18 14:53 | Outpatient (REF) | payer OTHER, SELFPAY ==
[2023-01-18 15:09] LABS: MANUAL DIFF FLAG NO
[2023-01-18 15:31] LABS: Basophils Absolute Auto 0.1 X10*3/uL (0.0-0.2); Basophils Percent Auto 1.2 % (0-2); Eosinophils Absolute Auto 0.5 X10*3/uL (0.0-0.4); Eosinophils Percent Auto 5.4 % (0-4); Hematocrit 45.4 % (42.0-52.0); Hemoglobin 14.7 g/dl (14.0-18.0); Imm Gran Abs Auto 0.02 X10*3/uL (0.00-0.03); Imm Gran Pct Auto 0.2 % (0.0-0.4); Lymphocytes Absolute Auto 2.6 X10*3/uL (1.2-4.9); Lymphocytes Percent Auto 30.4 % (20-40); Mean Corpuscular HGB Conc 32.4 g/dl (31.0-36.0); Mean Corpuscular Hemoglobin 28.5 pg (27.0-33.0); Mean Platelet Volume 9.3 fL (9.4-12.4); Monocytes Absolute Auto 0.5 X10*3/uL (0.1-1.2); Monocytes Percent Auto 5.6 % (2-11); Neutrophils Absolute Auto 4.9 x10*3/uL (2.0-8.3); Neutrophils Percent Auto 57.2 % (45-73); Platelet Count 341 X10*3/uL (160-400); Red Blood Count 5.16 X10*6/uL (4.60-5.80); Red Cell Distribution Width 13.2 % (11.0-16.0); White Blood Count 8.5 X10*3/uL (4.8-10.8)
[2023-01-18 16:08] LABS: Anion Gap 10 (12-20); Blood Urea Nitrogen 16 mg/dL (9-16); C Reactive Protein 0.55 mg/dL (< or = 0.50); Calcium 9.5 mg/dL (8.4-10.2); Carbon Dioxide 28 mmol/L (22-29); Chloride 109 mmol/L (96-108); Estimated Glomerular Filt Rate > 60; Glucose Random 80 mg/dL (60-115); Potassium 4.7 mmol/L (3.3-5.1); Sodium 142 mmol/L (135-145)
[2023-01-18 16:34] LABS: Erythrocyte Sedimentation Rate 9 MM/HR (0-15)
== END 2023-01-18 14:54 | disposition home or self-care (01) ==
LOC: HO.LAB 14:53
PROVIDERS: PCP Internal Medicine; Visit Provider Internal Medicine
DX: G47.33 Obstructive sleep apnea (adult) (pediatric) (principal); R42 Dizziness and giddiness
CPT/HCPCS: 36415; 80048; 85025; 85652; 86140

== ENCOUNTER 2023-04-09 10:39 | Outpatient (REF) | payer OTHER, SELFPAY ==
--- NOTE | ~2023-04-09 | XR_ITS ---
EXAMINATION: XR CHEST CLINICAL INFORMATION: Wheezing, cough COMPARISON: 06/08/2022 and 07/17/2020 TECHNIQUE: 2 views of the chest were obtained. FINDINGS: The heart and mediastinum are normal in appearance. On the lateral view, mild linear atelectasis is seen in the retrosternal region. The lungs and pleural spaces are otherwise clear. No pneumothorax. No acute osseous abnormalities. Surgical clips are visible in the right upper quadrant of the abdomen. XR/XR chest 2V IMPRESSION: Mild linear atelectasis retrosternal region. The lungs and pleural spaces are otherwise clear.
[2023-04-09 18:07] LABS: Influenza A PCR NEGATIVE (Negative); Influenza B PCR NEGATIVE (Negative); Resp Syncy Virus RNA Qual PCR NEGATIVE (Negative); SARS COV2 PCR INHOUSE NEGATIVE (Negative)
== END 2023-04-09 10:40 | disposition home or self-care (01) ==
LOC: HO.XRAY 10:39
PROVIDERS: PCP Internal Medicine; Visit Provider Internal Medicine
DX: J45.909 Unspecified asthma, uncomplicated (principal); Z20.822 Contact with and (suspected) exposure to COVID-19
CPT/HCPCS: 0241U; 71046

== ENCOUNTER 2024-01-08 16:22 | Outpatient (REF) | payer OTHER, SELFPAY ==
[2024-01-08 17:20] LABS: IDNOW Serial# 08D9AD1C; Strep A Nucleic Acid Positive (Negative)
[2024-01-08 17:23] LABS: Influenza A PCR NEGATIVE (Negative); Influenza B PCR NEGATIVE (Negative); Resp Syncy Virus RNA Qual PCR NEGATIVE (Negative); SARS COV2 PCR INHOUSE NEGATIVE (Negative)
== END 2024-01-08 16:23 | disposition home or self-care (01) ==
LOC: HO.LNP 16:22
PROVIDERS: Visit Provider Internal Medicine
DX: Z11.52 Encounter for screening for COVID-19 (principal); J02.9 Acute pharyngitis, unspecified; J45.909 Unspecified asthma, uncomplicated
CPT/HCPCS: 0241U; 87070; 87147; 87651

== ENCOUNTER 2024-01-21 11:31 | Outpatient (REF) | payer OTHER, SELFPAY ==
[2024-01-21 12:04] LABS: MANUAL DIFF FLAG NO
[2024-01-21 12:17] LABS: Basophils Absolute Auto 0.1 X10*3/uL (0.0-0.2); Eosinophils Absolute Auto 0.3 X10*3/uL (0.0-0.4); Eosinophils Percent Auto 2.4 % (0-4); Hematocrit 45.3 % (42.0-52.0); Hemoglobin 14.9 g/dl (14.0-18.0); Imm Gran Abs Auto 0.05 X10*3/uL (0.00-0.03); Imm Gran Pct Auto 0.4 % (0.0-0.4); Lymphocytes Absolute Auto 2.6 X10*3/uL (1.2-4.9); Lymphocytes Percent Auto 23.3 % (20-40); Mean Corpuscular HGB Conc 32.9 g/dl (31.0-36.0); Mean Corpuscular Hemoglobin 28.3 pg (27.0-33.0); Mean Corpuscular Volume 86.1 fL (80.0-98.0); Mean Platelet Volume 9.2 fL (9.4-12.4); Monocytes Absolute Auto 0.5 X10*3/uL (0.1-1.2); Monocytes Percent Auto 4.2 % (2-11); Neutrophils Absolute Auto 7.8 x10*3/uL (2.0-8.3); Neutrophils Percent Auto 68.7 % (45-73); Platelet Count 376 X10*3/uL (160-400); Red Blood Count 5.26 X10*6/uL (4.60-5.80); Red Cell Distribution Width 13.1 % (11.0-16.0); White Blood Count 11.3 X10*3/uL (4.8-10.8)
[2024-01-21 12:47] LABS: Alanine Aminotransferase 25 U/L (0-40); Albumin Level 4.2 g/dL (3.5-5.0); Alkaline Phosphatase 105 U/L (39-117); Anion Gap 14 (12-20); Aspartate Amino Transferase 16 U/L (5-37); Bilirubin Total 0.4 mg/dL (0.0-1.0); Blood Urea Nitrogen 14 mg/dL (9-16); Calcium 9.5 mg/dL (8.4-10.2); Carbon Dioxide 23 mmol/L (22-29); Chloride 111 mmol/L (96-108); Estimated Glomerular Filt Rate > 60; Glucose Random 84 mg/dL (60-115); Potassium 4.2 mmol/L (3.3-5.1); Sodium 144 mmol/L (135-145); Total Protein 8.2 g/dL (6.5-8.0)
== END 2024-01-21 11:32 | disposition home or self-care (01) ==
LOC: HO.LAB 11:31
PROVIDERS: PCP Internal Medicine; Visit Provider Internal Medicine
DX: G47.33 Obstructive sleep apnea (adult) (pediatric) (principal); J45.909 Unspecified asthma, uncomplicated; R31.9 Hematuria, unspecified
CPT/HCPCS: 36415; 80053; 85025

== ENCOUNTER 2024-01-22 11:42 | Outpatient (REF) | payer OTHER, SELFPAY ==
[2024-01-22 11:51] LABS: Urine Cytology See Pathology rpt
[2024-01-22 12:11] LABS: Appearance Urine Clear; Color Urine Yellow; Glucose Urine UA Negative (Negative); Leukocyte Esterase Urine Negative (Negative); Nitrite Urine Negative (Negative); Specific Gravity - Urine >= 1.030 (1.005-1.025); Urine Blood Negative (Negative); Urine Ketones Negative (Negative); Urine Protein Negative (Neg-Trace)
== END 2024-01-22 11:43 | disposition home or self-care (01) ==
LOC: HO.LNP 11:42
PROVIDERS: Visit Provider Internal Medicine
DX: R31.9 Hematuria, unspecified (principal); G47.33 Obstructive sleep apnea (adult) (pediatric); J45.909 Unspecified asthma, uncomplicated
CPT/HCPCS: 81003; 87086; 88112

== ENCOUNTER 2024-01-29 09:27 | Outpatient (REF) | payer OTHER, SELFPAY ==
--- NOTE | ~2024-01-29 | US_ITS ---
EXAMINATION: US RETROPERITONEAL COMPLETE (RENAL) CLINICAL INFORMATION: Hematuria. COMPARISON: CT abdomen and pelvis 11/15/2022. Ultrasound abdomen complete 09/01/2022. Ultrasound abdomen limited 09/28/2015. TECHNIQUE: Real-time imaging of the kidneys and bladder. Limited visualization due to bowel gas. FINDINGS: RIGHT KIDNEY: 10.3 x 5.6 x 5.7 cm (SAG x AP x TRV). No hydronephrosis. No renal calculi. Renal cortical thickness is normal. Limited visualization. LEFT KIDNEY: 12.0 x 5.8 x 5.0 cm (SAG x AP x TRV). No hydronephrosis. No renal calculi. Renal cortical thickness is normal. Limited visualization. BLADDER: Well-distended and unremarkable. Bilateral ureteral jets are demonstrated. Prevoid bladder volume is 418.0 mL. Postvoid bladder volume is 17.7 mL. ADDITIONAL FINDINGS: Prostate volume 23.0 mL. US/US retroperitoneal comp IMPRESSION: No hydronephrosis. No renal calculi. Limited visualization. CT scan should be considered for further evaluation given stated clinical history of hematuria. Prostate volume 23.0 mL.
== END 2024-01-29 09:28 | disposition home or self-care (01) ==
LOC: HO.US 09:27
PROVIDERS: PCP Internal Medicine; Visit Provider Internal Medicine
DX: R31.9 Hematuria, unspecified (principal)
CPT/HCPCS: 76770

== ENCOUNTER 2024-07-11 11:24 | Outpatient (REF) | payer OTHER, SELFPAY ==
--- NOTE | ~2024-07-11 | XR_ITS ---
EXAMINATION: XR WRIST, LEFT CLINICAL INFORMATION: Left wrist pain COMPARISON: None available. TECHNIQUE: PA, lateral, oblique, and scaphoid views of the left wrist. FINDINGS: The bones and soft tissues are normal. No fracture. Alignment is anatomic with normal joint spaces. No erosions or abnormal soft tissue calcifications. XR/XR wrist LT min 3V IMPRESSION: Normal left wrist. Electronically signed by: Tyler James MD 07/11/2024 04:44 PM EDT
[2024-07-11 12:01] LABS: MANUAL DIFF FLAG NO
[2024-07-11 12:31] LABS: Basophils Absolute Auto 0.1 X10*3/uL (0.0-0.2); Basophils Percent Auto 0.7 % (0-2); Eosinophils Absolute Auto 0.2 X10*3/uL (0.0-0.4); Eosinophils Percent Auto 2.4 % (0-4); Hematocrit 44.9 % (42.0-52.0); Imm Gran Abs Auto 0.05 X10*3/uL (0.00-0.03); Imm Gran Pct Auto 0.5 % (0.0-0.4); Lymphocytes Absolute Auto 1.9 X10*3/uL (1.2-4.9); Lymphocytes Percent Auto 18.7 % (20-40); Mean Corpuscular HGB Conc 33.4 g/dl (31.0-36.0); Mean Corpuscular Hemoglobin 28.6 pg (27.0-33.0); Mean Corpuscular Volume 85.7 fL (80.0-98.0); Mean Platelet Volume 9.2 fL (9.4-12.4); Monocytes Absolute Auto 0.5 X10*3/uL (0.1-1.2); Monocytes Percent Auto 5.2 % (2-11); Neutrophils Absolute Auto 7.4 x10*3/uL (2.0-8.3); Neutrophils Percent Auto 72.5 % (45-73); Platelet Count 318 X10*3/uL (160-400); Red Blood Count 5.24 X10*6/uL (4.60-5.80); Red Cell Distribution Width 13.1 % (11.0-16.0); White Blood Count 10.1 X10*3/uL (4.8-10.8)
[2024-07-11 12:40] LABS: Estimated Average Glucose 105 mg/dL; Hemoglobin A1C 130.2754 umol/L; Hemoglobin A1c % 5.3 % (<6.0); Total Hemoglobin (HGBA1C) 3746.0837 umol/L
[2024-07-11 13:09] LABS: Alanine Aminotransferase 35 U/L (0-40); Albumin Level 4.1 g/dL (3.5-5.0); Alkaline Phosphatase 107 U/L (39-117); Anion Gap 11 (12-20); Aspartate Amino Transferase 21 U/L (5-37); Bilirubin Total 0.6 mg/dL (0.0-1.0); Blood Urea Nitrogen 14 mg/dL (9-16); Calcium 9.4 mg/dL (8.4-10.2); Carbon Dioxide 26 mmol/L (22-29); Chloride 108 mmol/L (96-108); Estimated Glomerular Filt Rate > 60; Glucose Random 116 mg/dL (60-115); Potassium 4.2 mmol/L (3.3-5.1); Sodium 141 mmol/L (135-145); Total Protein 7.4 g/dL (6.5-8.0)
== END 2024-07-11 11:25 | disposition home or self-care (01) ==
LOC: HO.XRAY 11:24
PROVIDERS: PCP Internal Medicine; Visit Provider Internal Medicine
DX: M25.532 Pain in left wrist (principal); R44.9 Unspecified symptoms and signs involving general sensations and perceptions
CPT/HCPCS: 36415; 73110; 80053; 83036; 85025

== ENCOUNTER 2024-09-04 10:43 | Emergency (ER) | payer OTHER, SELFPAY ==
[2024-09-04 10:55] VITALS: BP 117/87; PULSE 84; RESP 16; TEMP 36.9; O2SAT 97; BMI 42.9
--- NOTE | 2024-09-04 14:35 | ED_ITS ---
HPI - General Adult General Chief complaint: Skin/Abscess/Foreign Body Stated complaint: blisters on lips Time Seen by Provider: 09/04/24 13:44 Source: patient and RN notes reviewed Mode of arrival: ambulatory Limitations: no limitations History of Present Illness ED Provider: Erica Sands PA-C HPI narrative: This is a 33-year-old male, with a history of cold sores, who presents emergency department with complaints of sores on upper lip. Patient states that he was sick with the flu several days ago. He states that he has had blistering to his upper lip and tip of his tongue. He states that he has a history of similar symptoms. He denies any high fevers today, chest pain, congestion, shortness of breath, abdominal pain, nausea, vomiting or diarrhea. He states that he is feeling much better than he did several days ago however these blisters on his lip persist. Denies any pain. No other complaints or concerns at this time. MD complaint: Lip lesions Onset (ago): day(s) Exacerbating factors: none Associated symptoms: denies other symptoms Related Data Home Medications ?Medication ?Instructions ?Recorded ?Confirmed budesonide-formoterol HFA 80 1 inh inhalation BID 07/20/20 10/16/22 mcg-4.5 mcg/actuation aerosol inhaler epinephrine 0.3 mg/0.3 mL 0.3 mg IM ONCE PRN Anaphylaxis 07/20/20 10/16/22 injection, auto-injector omalizumab 150 mg/mL subcutaneous 150 mg subcut QMONTH 07/20/20 10/16/22 syringe omeprazole 20 mg capsule,delayed 20 mg PO DAILY 04/25/22 10/16/22 release hydroxyzine HCl 10 mg tablet 10 mg PO TID PRN insomnia 06/28/22 10/16/22 paroxetine HCl 30 mg tablet 30 mg PO QAM 06/28/22 10/16/22 Previous Rx's ?Medication ?Instructions ?Recorded sennosides 8.6 mg capsule (senna) 17.2 mg (2 x 8.6 mg) PO BEDTIME 07/08/20 constipation 30 days #60 caps albuterol sulfate 0.63 mg/3 mL 0.63 mg (3 mL) inhalation QID PRN 07/17/20 solution for nebulization shortness of breath or wheezing #90 mL diphenhydramine HCl 25 mg tablet 25 mg PO TID PRN nausea and 07/17/20 (Benadryl Allergy) vomiting #10 tabs ibuprofen 800 mg tablet 800 mg PO Q8H PRN pain #14 tabs 07/17/20 nebulizers (AeroEclipse II #1 ea 07/17/20 Nebulizer) docusate sodium 100 mg capsule 100 mg PO DAILY #30 caps 09/23/22 (Colace) ondansetron HCl 4 mg tablet 4 mg PO Q12H nausea and vomiting 10/16/22 #20 tabs pantoprazole 40 mg tablet,delayed 40 mg PO DAILY #30 tabs 10/16/22 release polyethylene glycol 3350 17 gram 17 g PO DAILY #14 ea 10/16/22 oral powder packet (Miralax) sucralfate 100 mg/mL oral 10 ml PO BID #400 mL 10/16/22 suspension ondansetron 4 mg disintegrating 4 mg PO Q8H 3 days #9 tabs 11/15/22 tablet cholecalciferol (vitamin D3) 125 125 mcg PO DAILY #30 caps 11/27/22 mcg (5,000 unit) capsule acyclovir 400 mg tablet 400 mg PO TID 7 days #21 tabs 09/04/24 Allergies Allergy/AdvReac Type Severity Reaction Status Date / Time hydrocodone [From VICODIN] Allergy Severe Swelling, Verified 09/04/24 10:57 Redness, Itching seafood Allergy Severe Swelling Verified 09/04/24 10:57 codeine [CODEINE] Allergy Intermediate ITCHY RASH Verified 09/04/24 10:57 vancomycin [VANCOMYCIN] Allergy Intermediate red man's Verified 09/04/24 10:57 syndrome (redness/swelling/itching) Review of Systems Review of Systems: Yes all other systems are reviewed and are negative PMFSH Past Medical History Medical History Anxiety Asthma Asthma exacerbation Depression FHx: cholecystectomy GERD (gastroesophageal reflux disease) History of COVID-19 Hx MRSA infection Insomnia Sleep apnea with use of continuous positive airway pressure (CPAP) Surgical History Hx of cholecystectomy Family History Family History Mother Asthma Thyroid condition Father Asthma Brother Asthma Sister No problems noted. Sister No problems noted. Sister No problems noted. Sister No problems noted. Social History Social History Are you a primary palliative care nurse practitioner to a significant other at home: No Do you presently have visiting nurse or other home services: No Alcohol intake: current Alcohol intake frequency: does not drink Patient Tobacco Use Status: Never used Tobacco Advance Directives: No Advance Directives Information Provided: No Physical Exam ED Vital Signs: Vital Signs - 24 hr 09/04/24 10:55 09/04/24 14:48 Temperature 98.4 F 98.4 F Pulse Rate 84 84 Respiratory Rate 16 16 Blood Pressure 117/87 117/87 Pulse Oximetry 97 97 Oxygen Delivery Method Room Air Room Air BMI result Body Mass Index 42.9 Const Other: General: Awake, alert, and oriented X3. No acute distress. HEENT: Normal inspection, upper lip, with multiple pustules noted to the lip, with ulceration noted, corner of mouth also with erythema, and crusting noted. Tip of tongue, with ulceration noted, no ulcers, or lesions within the oral cavity. CVS: Normal heart rate and rhythm. Pulses normal. Respiratory: No respiratory distress Skin: Warm, dry, no rashes noted to exposed skin. Normal skin color. Normal skin turgor. Extremities: Normal to inspection Neuro: Oriented X 3. No motor deficit. No sensory deficit. Medical Decision Making Medical Decision Making MDM Narrative: This is a 33-year-old male who presents emergency department with complaints of upper lip blistering. On arrival, vital signs within normal limits. He has multiple pustules, and ulcerations noted to the upper lip, consistent with HSV infection. He has a history of these. Will treat with acyclovir. Given strict return precautions. He understands and agrees with plan. Patient stable for discharge Differential Diagnosis Differential Diagnoses: The differential diagnosis associated with the presentation includes Cellulitis, contact dermatitis, herpes simplex virus Discharge Plan Discharge Clinical Impression: Fever blister Patient Disposition: Home, Self-Care Instructions: Oral Herpes Simplex Virus Infections (ED) Additional Instructions: You were seen in the emergency department due to lesions on your upper lip. This is likely a type of cold sore. Please take prescribed medication as directed. Finish the entire course even if your symptoms improve. Follow-up with your PCP regarding this visit. Drink plenty of fluids get plenty of rest. If your symptoms do not improve, you need to follow-up with your primary care physician. If any new or worsening symptoms occur including but not limited to worsening pain, fevers, chest pain, shortness for breath, please seek emergent care. Prescriptions: New acyclovir 400 mg tablet 400 mg PO TID 7 Days Qty: 21 0RF No Action senna 8.6 mg capsule 17.2 mg PO BEDTIME 30 Days Qty: 60 1RF docusate sodium [Colace] 100 mg capsule 100 mg PO DAILY Qty: 30 2RF cholecalciferol (vitamin D3) 125 mcg (5,000 unit) capsule 125 mcg PO DAILY Qty: 30 3RF diphenhydramine HCl [Benadryl Allergy] 25 mg tablet 25 mg PO TID PRN (Reason: nausea and vomiting) Qty: 10 0RF ibuprofen 800 mg tablet 800 mg PO Q8H PRN (Reason: pain) Qty: 14 0RF (DME) AeroEclipse II Nebulizer Misc See Rx Instructions .ROUTE .MEDSUPPLY Qty: 1 0RF Rx Instructions: As directed albuterol sulfate 0.63 mg/3 mL solution for nebulization 0.63 mg inhalation QID PRN (Reason: shortness of breath or wheezing) Qty: 90 0RF ondansetron 4 mg tablet,disintegrating 4 mg PO Q8H 3 Days Qty: 9 0RF budesonide-formoterol 80-4.5 mcg/actuation HFA aerosol inhaler 1 inh inhalation BID Xolair 150 mg/mL syringe 150 mg subcut QMONTH epinephrine 0.3 mg/0.3 mL auto-injector 0.3 mg IM ONCE PRN (Reason: Anaphylaxis) omeprazole 20 mg capsule,delayed release(DR/EC) 20 mg PO DAILY hydroxyzine HCl 10 mg tablet 10 mg PO TID PRN (Reason: insomnia) paroxetine HCl 30 mg tablet 30 mg PO QAM pantoprazole 40 mg tablet,delayed release (DR/EC) 40 mg PO DAILY Qty: 30 2RF sucralfate 100 mg/mL suspension 10 ml PO BID Qty: 400 2RF polyethylene glycol 3350 [Miralax] 17 gram powder in packet 17 g PO DAILY Qty: 14 0RF Rx Instructions: Mix each packet with 8oz of water and do 7 packets on 11/05/22 and another 7 packets on 11/06/22 ondansetron HCl 4 mg tablet 4 mg PO Q12H Qty: 20 0RF Rx Instructions: use ONLY if you have nausea as needed Interventions: ED Discharge Assessment Last Done: 09/04/24 14:48 Discharge Date/Time: 09/04/24 14:48 Print Language: Czech
[2024-09-04 14:48] VITALS: BP 117/87; PULSE 84; RESP 16; TEMP 36.9; O2SAT 97
== END 2024-09-04 14:48 | disposition home or self-care (01) ==
PROVIDERS: Emergency Provider Emergency Medicine; PCP Internal Medicine
DX: B00.1 Herpesviral vesicular dermatitis (principal); K13.79 Other lesions of oral mucosa
CPT/HCPCS: 99282; 99283

== ENCOUNTER 2025-01-19 15:09 | Outpatient (AMB) | payer OTHER, SELFPAY ==
--- OUTSIDE RECORDS SUMMARY | 2025-01-19 15:12 | XMS_ITS | Encounter Summary ---
Author Organization [facility] Address [address] [place] [address] Phone Care Team Providers Care Janitorial Manager Name Role Phone Alhaji [place] MD Primary Care Provider [phone] Encounter Details Date Type Department Care Team (Late st Contact Info) Description 12/04/2011 Documentation EM Family Medicine [address] [place], [place] [id number] Family Medicine, Physician [address] [place] [address] Social History Tobacco Use Types Packs/Day Years Used Date Smoking Tobacco: Never Assessed Sex and Gender Information Value Date Recorded Sex Assigned at Not on file Legal Sex Male 4:52 PM EDT Gender Identity Not on file Sexual Orientation Not on file documented as of this encounter Plan of Treatment Not on file documented as of this encounter Visit Diagnoses Not on filedocumented in this encounter Care Teams Janitorial Manager Relationship Specialty Start Date End Date Alhaji [place] MD [address] [place] [address] PCP - General 04/20/17 02/14/23 documented as of this encounter
--- OUTSIDE RECORDS SUMMARY | 2025-01-19 15:12 | XMS_ITS | Encounter Summary ---
Author Organization [facility] Address [address] [place] [address] Phone Care Team Providers Care English Adjunct Faculty Name Role Phone Alhaji [place] MD Primary Care Provider [phone] Encounter Details Date Type Department Care Team (Late st Contact Info) Description 12/11/2012 Documentation EM Family Medicine [address] [place], [place] [phone] Family Medicine, Physician [address] [place] [address] Social History Tobacco Use Types Packs/Day Years [...] on filedocumented in this encounter Care Teams English Adjunct Faculty Relationship Specialty Start Date End Date Alhaji [place] MD [address] [place] [address] PCP - General 04/20/17 02/14/23 documented as of this encounter
--- OUTSIDE RECORDS SUMMARY | 2025-01-19 15:12 | XMS_ITS | Encounter Summary ---
Author Organization [facility] Address [address] [place] [address] Phone Care Team Providers Care Fourth Grade Teacher Name Role Phone Alhaji [place] MD Primary Care Provider [phone] Encounter Details Date Type Department Care Team (Late st Contact Info) Description 12/13/2011 Documentation EM Family Medicine [address] [place], [place] [id number] Family Medicine, Physician [address] [place] [address] Social History Tobacco Use Types Packs/Day Years [...] on filedocumented in this encounter Care Teams Fourth Grade Teacher Relationship Specialty Start Date End Date Alhaji [place] MD [address] [place] [address] PCP - General 04/20/17 02/14/23 documented as of this encounter
--- OUTSIDE RECORDS SUMMARY | 2025-01-19 15:12 | XMS_ITS | Encounter Summary ---
Author Organization [facility] Address [address] [place] [address] Phone Care Team Providers Care Public Affairs Officer Name Role Phone Alhaji [place] MD Primary Care Provider [phone] Encounter Details Date Type Department Care Team (Late st Contact Info) Description 01/14/2013 Documentation EM Family Medicine [address] [place], [place] [phone] Family Medicine, Physician [address] [place] [address] Social History Tobacco Use Types Packs/Day Years [...] on filedocumented in this encounter Care Teams Public Affairs Officer Relationship Specialty Start Date End Date Alhaji [place] MD [address] [place] [address] PCP - General 04/20/17 02/14/23 documented as of this encounter
--- OUTSIDE RECORDS SUMMARY | 2025-01-19 15:12 | XMS_ITS | Encounter Summary ---
Author Organization [facility] Address [address] [place] [address] Phone Care Team Providers Care Supervisor Ordnance Truck Installation Name Role Phone Alhaji [place] MD Primary Care Provider [phone] Encounter Details Date Type Department Care Team (Late st Contact Info) Description 10/01/2013 Documentation EM Family Medicine [address] [place], [place] [phone] Family Medicine, Physician [address] [place] [address] Social History Tobacco Use Types Packs/Day Years [...] on filedocumented in this encounter Care Teams Supervisor Ordnance Truck Installation Relationship Specialty Start Date End Date Alhaji [place] MD [address] [place] [address] PCP - General 04/20/17 02/14/23 documented as of this encounter
--- OUTSIDE RECORDS SUMMARY | 2025-01-19 15:12 | XMS_ITS | Encounter Summary ---
Author Organization [facility] Address [address] [place] [address] Phone Care Team Providers Care Director Learning And Development Name Role Phone Alhaji [place] MD Primary Care Provider [phone] Encounter Details Date Type Department Care Team (Late st Contact Info) Description 01/14/2013 Documentation EM Family Medicine [address] [place], [place] [phone] Family Medicine, Physician [address] [place] [address] Social History Tobacco Use Types Packs/Day Years [...] on filedocumented in this encounter Care Teams Director Learning And Development Relationship Specialty Start Date End Date Alhaji [place] MD [address] [place] [address] PCP - General 04/20/17 02/14/23 documented as of this encounter
--- OUTSIDE RECORDS SUMMARY | 2025-01-19 15:12 | XMS_ITS | Encounter Summary ---
Author Organization [facility] Address [address] [place] [address] Phone Care Team Providers Care Threader Name Role Phone Alhaji [place] MD Primary Care Provider [phone] Encounter Details Date Type Department Care Team (Late st Contact Info) Description 2011 Documentation EM Family Medicine [address] [place], [place] [phone] Family Medicine, Physician [address] [place] [address] Social History Tobacco Use Types Packs/Day Years [...] on filedocumented in this encounter Care Teams Threader Relationship Specialty Start Date End Date Alhaji [place] MD [address] [place] [address] PCP - General 04/20/17 02/14/23 documented as of this encounter
--- OUTSIDE RECORDS SUMMARY | 2025-01-19 15:12 | XMS_ITS | Encounter Summary ---
Author Organization [facility] Address [address] [place] [address] Phone Care Team Providers Care Pastoral Worker Name Role Phone Alhaji [place] MD Primary Care Provider [phone] Encounter Details Date Type Department Care Team (Late st Contact Info) Description 06/17/2013 Documentation EM Family Medicine [address] [place], [place] [phone] Family Medicine, Physician [address] [place] [address] Social History Tobacco Use Types Packs/Day Years [...] on filedocumented in this encounter Care Teams Pastoral Worker Relationship Specialty Start Date End Date Alhaji [place] MD [address] [place] [address] PCP - General 04/20/17 02/14/23 documented as of this encounter
--- OUTSIDE RECORDS SUMMARY | 2025-01-19 15:12 | XMS_ITS | Encounter Summary ---
Author Organization [facility] Address [address] [place] [address] Phone Care Team Providers Care Corn Press Operator Name Role Phone Alhaji [place] MD Primary Care Provider [phone] Encounter Details Date Type Department Care Team (Late st Contact Info) Description 04/11/2011 Documentation EM Family Medicine [address] [place], [place] [phone] Family Medicine, Physician [address] [place] [address] Social History Tobacco Use Types Packs/Day Years [...] on filedocumented in this encounter Care Teams Corn Press Operator Relationship Specialty Start Date End Date Alhaji [place] MD [address] [place] [address] PCP - General 04/20/17 02/14/23 documented as of this encounter
--- OUTSIDE RECORDS SUMMARY | 2025-01-19 15:12 | XMS_ITS | Encounter Summary ---
Author Organization [facility] Address [address] [place] [address] Phone Care Team Providers Care Kettle Operator Head Name Role Phone Alhaji [place] MD Primary Care Provider [phone] Encounter Details Date Type Department Care Team (Late st Contact Info) Description 01/14/2013 Documentation EM Family Medicine [address] [place], [place] [phone] Family Medicine, Physician [address] [place] [address] Social History Tobacco Use Types Packs/Day Years [...] on filedocumented in this encounter Care Teams Kettle Operator Head Relationship Specialty Start Date End Date Alhaji [place] MD [address] [place] [address] PCP - General 04/20/17 02/14/23 documented as of this encounter
--- OUTSIDE RECORDS SUMMARY | 2025-01-19 15:12 | XMS_ITS | Encounter Summary ---
Author Organization [facility] Address [address] [place] [address] Phone Care Team Providers Care Access Nurse Name Role Phone Alhaji [place] MD Primary Care Provider [phone] Encounter Details Date Type Department Care Team (Late st Contact Info) Description 02/14/2013 Documentation EM Family Medicine [address] [place], [place] [phone] Family Medicine, Physician [address] [place] [address] Social History Tobacco Use Types Packs/Day Years [...] on filedocumented in this encounter Care Teams Access Nurse Relationship Specialty Start Date End Date Alhaji [place] MD [address] [place] [address] PCP - General 04/20/17 02/14/23 documented as of this encounter
--- OUTSIDE RECORDS SUMMARY | 2025-01-19 15:12 | XMS_ITS | Encounter Summary ---
Author Organization [facility] Address [address] [place] [address] Phone Care Team Providers Care Corporate Law Assistant Name Role Phone Alhaji [place] MD Primary Care Provider [phone] Encounter Details Date Type Department Care Team (Late st Contact Info) Description 02/14/2013 Documentation EM Family Medicine [address] [place], [place] [phone] Family Medicine, Physician [address] [place] [address] Social History Tobacco Use Types Packs/Day Years [...] on filedocumented in this encounter Care Teams Corporate Law Assistant Relationship Specialty Start Date End Date Alhaji [place] MD [address] [place] [address] PCP - General 04/20/17 02/14/23 documented as of this encounter
--- OUTSIDE RECORDS SUMMARY | 2025-01-19 15:12 | XMS_ITS | Encounter Summary ---
Author Organization [facility] Address [address] [place] [address] Phone Care Team Providers Care Mortgage Processing Manager Name Role Phone Alhaji [place] MD Primary Care Provider [phone] Encounter Details Date Type Department Care Team (Late st Contact Info) Description 03/12/2013 Documentation EM Family Medicine [address] [place], [place] 1900693 Family Medicine, Physician [address] [place] [address] Social History Tobacco Use Types Packs/Day Years [...] on filedocumented in this encounter Care Teams Mortgage Processing Manager Relationship Specialty Start Date End Date Alhaji [place] MD [address] [place] [address] PCP - General 04/20/17 02/14/23 documented as of this encounter
--- OUTSIDE RECORDS SUMMARY | 2025-01-19 15:13 | XMS_ITS | Encounter Summary ---
Author Organization [facility] Address [address] [place] [address] Phone Care Team Providers Care Washroom Operator Name Role Phone Alhaji [place] MD Primary Care Provider [phone] Encounter Details Date Type Department Care Team (Late st Contact Info) Description 03/09/2014 Documentation EM Family Medicine [address] [place], [place] [phone] Family Medicine, Physician [address] [place] [address] Social History Tobacco Use Types Packs/Day Years [...] on filedocumented in this encounter Care Teams Washroom Operator Relationship Specialty Start Date End Date Alhaji [place] MD [address] [place] [address] PCP - General 04/20/17 02/14/23 documented as of this encounter
--- OUTSIDE RECORDS SUMMARY | 2025-01-19 15:13 | XMS_ITS | Encounter Summary ---
Author Organization [facility] Address [address] [place] [address] Phone Care Team Providers Care Envelope Maker Name Role Phone Alhaji [place] MD Primary Care Provider [phone] Encounter Details Date Type Department Care Team (Late st Contact Info) Description 04/26/2017 Conversion Encounter [facility] [place] [address] [place] [address] Social History Tobacco Use Types Packs/Day Years Used Date Smoking Tobacco: Never Comments:Never smoker Sex and Gender Information Value Date Recorded Sex Assigned at Not on file Legal Sex Male 4:52 PM EDT Gender Identity Not on file Sexual Orientation Not on file documented as of this encounter Plan of Treatment Not on file documented as of this encounter Visit Diagnoses Not on filedocumented in this encounter Care Teams Envelope Maker Relationship Specialty Start Date End Date Alhaji [place] MD [address] [place] [address] PCP - General 04/20/17 02/14/23 documented as of this encounter
--- OUTSIDE RECORDS SUMMARY | 2025-01-19 15:13 | XMS_ITS | Clinical Summary ---
Author Organization [facility] Address [address] [place] [address] Phone Care Team Providers Care Epitaxial Reactor Operator Name Role Phone Unavailable Primary Care Provider Unavailabl e Immunizations Immunization Administration Dates Next Due DTP 12/18/1997, 5,08/31/1993,05/19,03/01/1993 HPV, Quadrivalent 10/02/2013,02/17/2013,04/11/20 12 Hep A, ped/adol 10/02/2013,04/03/2011 Hep B, ped/adol 08/31/1993,03/01/1993 Hib (PRP-T) 03/31/1994, 3,05/19/1993,03/01 Influenza Split 07/22/2012,06/01/2011,12/19/2010 Influenza, injectable, quadr ivalent, preservative free 10/02/2013 Influenza, injectable, trivalent 05/27/2009,07/12,07/26/2004 MMR 12/18/1997,03/31/1994 Meningococcal Conj (Menactra) MCV4P 02/02/2009 OPV 12/18/1997, 5,05/19/1993,03/01 Tdap 06/12/2006 Varicella 02/02/2009,12/18/1997 Family History Relation Name Status Comments Brother Alive Brother: Asthma Father Alive Father: Hyperli pidemia Mother Mother: thyroid (new dx) Other Family history of Cancer, lung, Family history of *Dental caries, Family history of Obesity, Family history of Migraines, No family history of *Sudden /[place] under 55, No family history of Deafness, No family history of Strabismus, No family history of Seizure disorder, Family history of *CVA/Stroke, No family history of *Thrombophilia, No family history of ADD/ADHD, No family history of Developmental dislocation of hip, No family history of *Heart Disease Sister Alive Sister: Thyroid disease, Alive and well Social History Tobacco Use Types Packs/Day Years Used Date Smoking Tobacco: Never Comments:Never smoker Sex and Gender Information Value Date Recorded Sex Assigned at Not on file Legal Sex Male 4:52 PM EDT Gender Identity Not on file Sexual Orientation Not on file Last Filed Vital Signs Vital Sign Reading Time Taken Comments Blood Pressure 122/86 02/16/2014 12:00 AM EDT Pulse 90 02/16/2014 12:00 AM EDT Temperature 36.1 ??C (96.9 ??F) 10/02/2013 12:[address] Respiratory Rate - - Oxygen Saturation 95% 09/19/2012 12:00 AM EST Inhaled Oxygen Concentration - - Weight 103 kg (227 lb) 02/16/2014 12:00 AM EDT Height 160.3 cm (5' 3.1 ) 02/16/2014 12:00 AM ED T Body Mass Index 40.08 02/16/2014 12:00 AM EDT Plan of Treatment Health Maintenance Due Date Last Done Comments Hepatitis B Vaccines (3 of 3 - 3-dose series) 10/26/1993 08/31/1993, 03/01/1993 Hepatitis A Vaccines (2 of 2 - 2-dose series) 04/01/2014 10/02/2013, 04/03/2011 DTaP,Tdap,and Td Vaccines (7 - Td or Tdap) 06/12/2016 06/12/2006, 12/18/1997, 01/12/1995, Additional history exists Influenza Vaccines (#1) 2024 10/02/19 14, 07/22/2012, 06/01/2011, Additional history exists COVID-19 Vaccine ( season) 2024 HIB Vaccines Completed 03/31/1994, 08/11, 05/19/1993, Additional history exists IPV Vaccines Completed 12/18/1997, 01/1995, 05/19/1993, Additional history exists MMR Vaccines Completed 12/18/1997, 03/31/1994 Meningococcal Vaccine Completed 02/02/2009 Varicella Vaccines Completed 02/02/2009, 12/18/1997 HPV Vaccines Completed 10/02/2013, 02/08, 04/11/2012 Men B Vaccine Aged Out No longer elig ible based on patient's age to complete this topic Pneumococcal Vaccine Aged Out No long er eligible based on patient's age to complete this topic
--- OUTSIDE RECORDS SUMMARY | 2025-01-19 15:13 | XMS_ITS | Encounter Summary ---
Author Organization [facility] Address [address] [place] [address] Phone Care Team Providers Care Consumer Loan Manager Name Role Phone Alhaji Elizabeth MD Primary Care Provider [phone] Encounter Details Date Type Department Care Team (Late st Contact Info) Description 11/17/2010 Documentation EM Family Medicine [address] [place], [place] [phone] Family Medicine, Physician [address] [place] [address] Social History Tobacco Use Types Packs/Day Years [...] on filedocumented in this encounter Care Teams Consumer Loan Manager Relationship Specialty Start Date End Date Alhaji Elizabeth MD [address] [place] [address] PCP - General 04/20/17 02/14/23 documented as of this encounter
--- OUTSIDE RECORDS SUMMARY | 2025-01-19 15:13 | XMS_ITS | Encounter Summary ---
Author Organization [facility] Address [address] [place] [address] 95862 Phone Care Team Providers Care Accountant Systems Name Role Phone Alhaji Elizabeth MD Primary Care Provider [phone] Encounter Details Date Type Department Care Team (Late st Contact Info) Description 01/28/2010 Documentation EM Family Medicine [address] [place], [place] [phone] Family Medicine, Physician [address] [place] [address] Social History Tobacco Use Types Packs/Day Years [...] on filedocumented in this encounter Care Teams Accountant Systems Relationship Specialty Start Date End Date Alhaji Elizabeth MD [address] [place] [address] PCP - General 04/20/17 02/14/23 documented as of this encounter
--- OUTSIDE RECORDS SUMMARY | 2025-01-19 15:13 | XMS_ITS | Encounter Summary ---
Author Organization [facility] Address [address] [place] [address]33 Phone Care Team Providers Care Western Philosophy Professor Name Role Phone Alhaji Elizabeth MD Primary Care Provider [phone] Encounter Details Date Type Department Care Team (Late st Contact Info) Description 08/19/2014 Documentation EM Family Medicine [address] [place] [address] Family Medicine, Physician [address] [place], [place] 064221 Social History Tobacco Use Types Packs/Day Years [...] on filedocumented in this encounter Care Teams Western Philosophy Professor Relationship Specialty Start Date End Date Alhaji Elizabeth MD [address] [place] [address] [place] [address] PCP - General 04/20/17 02/14/23 documented as of this encounter
--- OUTSIDE RECORDS SUMMARY | 2025-01-19 15:13 | XMS_ITS | Encounter Summary ---
Author Organization [facility] Address [address] [place] [address] Phone Care Team Providers Care Utility Helicopter Repairer Name Role Phone Alhaji Elizabeth MD Primary Care Provider [phone] Encounter Details Date Type Department Care Team (Late st Contact Info) Description 02/26/2014 Documentation EM Family Medicine [address] [place], [place] [phone] Family Medicine, Physician [address] [place] [address] Social History Tobacco Use Types Packs/Day Years [...] on filedocumented in this encounter Care Teams Utility Helicopter Repairer Relationship Specialty Start Date End Date Alhaji Elizabeth MD [address] [place] [address] PCP - General 04/20/17 02/14/23 documented as of this encounter
--- NOTE | 2025-01-19 15:16 | A.OFFPC_ITS ---
Vital Signs 01/19/25 15:26 Height 5 ft 3 in Weight 113.398 kg BMI 44.3 BP 140/88 H Pulse 84 Pulse Source Pulse Oximeter Temp 98.3 F Temp Source Temporal Artery Scan Pulse Oximetry (%) 97 Oxygen Delivery Method Room Air Intake Visit Reasons: Routine Information Technology Architect Required: No Accompanied by: Self / Same As Patient Allergies hydrocodone [From VICODIN] Allergy (Severe, Verified 01/19/25 15:16) Swelling, Redness, Itching seafood Allergy (Severe, Verified 01/19/25 15:16) Swelling codeine [CODEINE] Allergy (Intermediate, Verified 01/19/25 15:16) ITCHY RASH vancomycin [VANCOMYCIN] Allergy (Intermediate, Verified 01/19/25 15:16) red man's syndrome (redness/swelling/itching) Medication List - Last Reconciled 01/20/25 by NINI Carranza albuterol sulfate 0.63 mg (3 mL) inhalation QID PRN albuterol sulfate 90 mcg/actuation (Ventolin HFA) inhalation budesonide-formoterol 160-4.5 mcg/actuation inhalation doxycycline hyclate 100 mg PO BID epinephrine 0.3 mg IM ONCE PRN fluticasone propionate 50 mcg/actuation sprays intranasal ibuprofen 800 mg PO Q8H PRN nebulizers (AeroEclipse II Nebulizer) As directed nystatin 1 appl topical TID omalizumab 150 mg subcut QMONTH omeprazole 20 mg PO DAILY triamcinolone acetonide 0.1% 1 appl topical BID PRN Tobacco use date assessed: 01/19/25 Dental Screening Dental Screen Date: 01/19/25 Did you have a dental visit in the last 12 months?: No Did you have a dental problem in the last 6 months where you did not have access to dental care?: No Was dental information given to patient?: Patient has dentist HPI HPI Comments History of Present Illness Details 34-year-old male with history of unspeci fied asthma previously followed by [facility] pulmonology, GERD, and morbid obesity with BMI 44 presents to the office today for routine follow-up as well as to establish care. He is using Xolair to control his asthma in addition to Symbicort and rarely requires use of his albuterol inhaler. He denies any recent exacerbation or prednisone use. He states that his pulmonology provider at [facility] and he is in need of a new referral. He also has concerns regarding skin conditions. He is reporting a rash across the upper chest, under the breasts, and in the groin as well as an abscess of the left groin which has been present for several months. Denies any purulent drainage. No fevers or chills. 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 No history of IV drug abuse. He is actively working on weight loss and had previously been following with weight loss clinic. [facility] Medical History (Updated 01/20/25 @ 17:39 by NINI Carranza) Hx MRSA infection History of COVID-19 Asthma Insomnia Anxiety Depression GERD (gastroesophageal reflux disease) Sleep apnea with use of continuous positive airway pressure (CPAP) FHx: cholecystectomy Asthma exacerbation Surgical History Hx of cholecystectomy Family History Mother Asthma Thyroid condition Father Asthma Brother Asthma Sister No problems noted. Sister No problems noted. Sister No problems noted. Sister No problems noted. Social History Housing: House Are you a primary nurse care manager to a significant other at home: No Do you presently have visiting nurse or other home services: No Alcohol intake: current Alcohol intake frequency: does not drink Patient Tobacco Use Status: Never used Tobacco service: No Current occupational status: employed Cognitive needs: No Hearing needs: No Vision needs: No Questionnaire PHQ-9 Over the last 2 weeks, how often have you been bothered by any of the following problems? 1. Little interest or pleasure in doing things: not at all 2. Feeling down, depressed, or hopeless: not at all 3. Trouble falling or staying asleep, or sleeping too much: not at all 4. Feeling tired or having little energy: not at all 5. Poor appetite or overeating: not at all 6. Feeling bad about yourself - or that you are a failure or have let yourself or your family down: not at all 7. Trouble concentrating on things, such as reading the newspaper or watching television: not at all 8. Moving or speaking so slowly that other people could have noticed. Or the opposite - being so fidgety or restless that you have been moving around a lot more than usual: not at all 9. Thoughts that you would be better off or of hurting yourself in some way: not at all Total score: 0 Source: Developed by Drs. Simon Antonio, Rachel Barton, Baron Dumont and colleagues, with an educational rosy from [employer]. Thrive Questionnaire Date Thrive assessed: 01/19/25 I am a: Patient What is your living situation today?: I have a steady place to live Within the past 12 months, did the food you bought not last and you didn't have the money to get more?: Never true Within the past 12 months, did you worry whether your food would run out before you got money to buy more?: Never true Do you have trouble paying for medicines?: No Do you have trouble getting transportation to medical appointments?: No Do you have trouble paying your heating and electricity bill?: No Do you have trouble taking care of your child, family member or friend?: No Do you have trouble with day-to-day activities such as bathing, preparing meals, shopping, managing finances, etc.?: No Are you currently unemployed and looking for a job?: No Are you interested in more education?: No Please select the resources that you would like help with: None THRIVE Score: 0 AUDIT C Alcohol Use Questionnaire (AUDIT-C) 1. How often do you have a drink containing alcohol?: Never Total Score: 0 JAYLA-7 AMB Questionnaire JAYLA-7 Date JAYLA - 7 assessed: 01/19/25 Feeling nervous, anxious, or on edge: 0 = Not at all Not being able to stop or control worryin = Not at all Worrying too much about different things: 0 = Not at all Trouble relaxin = Not at all Being so restless that it is hard to sit still: 0 = Not at all Becoming easily annoyed or irritable: 0 = Not at all Feeling afraid as if something awful might happen: 0 = Not at all Total JAYLA-7 score (0-4 normal; 5-9 mild; 10-14 moderate; 15-21 severe): 0 Source: Developed by Drs. Simon Antonio, Rachel Barton, Baron Dumont and colleagues, with an educational rosy from [employer]. Review of Systems Const All systems reviewed & are unremarkable except as noted in HPI and below Physical exam (Primary Care) Vital Signs: Last Vital Signs Temp 98.3 F 01/19/25 15:26 Pulse 84 01/19/25 15:26 BP 140/88 H 01/19/25 15:26 Pulse Ox 97 01/19/25 15:26 Oxygen Delivery Method Room Air 01/19/25 15:26 BMI result Body Mass Index 44.3 Tobacco/Smoking Status: Tobacco use Status Tobacco use date assessed 01/19/25 01/19/25 15:19 Patient Tobacco Use Status Never used Tobacco 01/19/25 15:19 PHQ-9: PHQ-9 Score PHQ-9: Total score 0 01/19/25 15:39 Thrive Assessment: Date of Thrive Assessment Date Thrive assessed 01/19/25 01/19/25 15:19 Const Other: Constitutional - Awake and Alert, No apparent distress Eyes - PERRLA, EOMI Cardiovascular - S1S2, RRR, No edema Respiratory - Normal lung expansion, Normal respiratory effort, No respiratory distress, CTA bilaterally Extremities - no calf tenderness bilaterally, no swelling Skin - Warm/Dry. [place] patches up to 4 cm on upper chest with satellite lesions and excoriation. Moist erythematous rash of the intertriginous areas under the R breast and bilateral groin. subcentimeter area of fluctuance with with minimal surrounding ertyema. No active drainage Neurological - Alert & oriented x3 Psychological - Appropriate affect Coding Level of Care Code New Pt Level 4 (29856) Complex EM visit Add On G2211 Diagnoses Class III morbid obesity with body mass index (BMI) of 40.0 to 49.9 E66.813 Asthma J45.909 DIMITRIS (obstructive sleep apnea) G47.33 Abdominal wall abscess L02.211 Intertriginous candidiasis B37.2 Tinea versicolor B36.0 Assessment & Plan Assessment & Plan (1) Class III morbid obesity with body mass index (BMI) of 40.0 to 49.9: Code(s): E66.813 - Obesity, class 3 Category: Medical Plan: Interested in follow up witih the weight management clinic and advised to call to make an appointment. Weight loss efforts with healthy diet and exercise encouraged. Will evaluate TSH and A1c as well. (2) Asthma: Comment: controlled w/Symbicort inhaler Code(s): J45.909 - Unspecified asthma, uncomplicated Category: Medical Plan: Controlled but requires new mine motor engineer. Referral placed. Will continue with xolair as well as symbicort for maintenance and albuterol prn. (3) DIMITRIS (obstructive sleep apnea): Code(s): G47.33 - Obstructive sleep apnea (adult) (pediatric) Category: Medical Plan: Encouraged use of cpap which he has been compliant with (4) Abdominal wall abscess: Code(s): L02.211 - Cutaneous abscess of abdominal wall Category: Medical Plan: Patient with subcentimeter abscess and known history of MRSA. I and D not indicated at this time. Doxycycline 100 mg twice daily times 10 days is prescribed. Counseled on dosing and side effects of medication. Advised to contact the office and no improvement or for any worsening symptoms including fevers. (5) Intertriginous candidiasis: Code(s): B37.2 - Candidiasis of skin and nail Category: Medical Plan: Weight loss efforts recommended. Prescribed nystatin powder to use 3 times daily and then as needed (6) Tinea versicolor: Code(s): B36.0 - Pityriasis versicolor Category: Medical Plan: Recommend ketoconazole 2% shampoo. Advised to use this daily for 3 days. Repeat as needed. Plan Follow-up in 6 months. Labs to be completed today. Follow-up with pulmonology as referred. Returned to weight loss clinic and continue weight loss efforts. Orders: Orders Basic Metabolic Panel 01/19/25 E66.813 - Obesity, class 3, G47.33 - Obstructive sleep apnea (adult) (pediatric), J45.909 - Unspecified asthma, uncomplicated, K21.9 - Gastro-esophageal reflux disease without esophagitis Complete Blood Count Auto Diff 01/19/25 E66.813 - Obesity, class 3, G47.33 - Obstructive sleep apnea (adult) (pediatric), J45.909 - Unspecified asthma, uncomplicated, K21.9 - Gastro-esophageal reflux disease without esophagitis TSH reflex Free T4 01/19/25 E66.813 - Obesity, class 3, G47.33 - Obstructive sleep apnea (adult) (pediatric), J45.909 - Unspecified asthma, uncomplicated, K21.9 - Gastro-esophageal reflux disease without esophagitis Hemoglobin A1c 01/19/25 E66.813 - Obesity, class 3, G47.33 - Obstructive sleep apnea (adult) (pediatric), J45.909 - Unspecified asthma, uncomplicated, K21.9 - Gastro-esophageal reflux disease without esophagitis Lipid Panel 01/19/25 E66.813 - Obesity, class 3, G47.33 - Obstructive sleep apnea (adult) (pediatric), J45.909 - Unspecified asthma, uncomplicated, K21.9 - Gastro-esophageal reflux disease without esophagitis Liver Panel 01/19/25 E66.813 - Obesity, class 3, G47.33 - Obstructive sleep apnea (adult) (pediatric), J45.909 - Unspecified asthma, uncomplicated, K21.9 - Gastro-esophageal reflux disease without esophagitis Referrals Pulmonology Referral J45.909 - Unspecified asthma, uncomplicated Medications: New nystatin 1 appl topical TID 30 grams 5RF triamcinolone acetonide 0.1% 1 appl topical BID PRN 30 grams 2RF rash on chest doxycycline hyclate 100 mg PO BID 20 caps 0RF ketoconazole 2% 1 appl topical DAILY 3 days 120 mL 0RF Discontinued pantoprazole Discontinued Reason: Doctor's Order 40 mg PO DAILY 30 tabs 2RF K21.9 - Gastro-esophageal reflux disease without esophagitis
[2025-01-19 15:26] VITALS: BP 140/88; PULSE 84; TEMP 36.8; O2SAT 97; BMI 44.3
== END 2025-01-19 15:51 | disposition home or self-care (01) ==
LOC: HO.HMCHD 15:10
PROVIDERS: PCP Physician Assistant; Visit Provider Physician Assistant
DX: E66.813 Obesity, class 3 (principal); J45.909 Unspecified asthma, uncomplicated; G47.33 Obstructive sleep apnea (adult) (pediatric); L02.211 Cutaneous abscess of abdominal wall; B37.2 Candidiasis of skin and nail; B36.0 Pityriasis versicolor

== ENCOUNTER → 2025-01-19 15:09 | Outpatient (BNVA) | payer OTHER, SELFPAY | PROVIDERS: PCP Physician Assistant; Visit Provider Physician Assistant | DX: K21.9 Gastro-esophageal reflux disease without esophagitis (principal); E66.813 Obesity, class 3; J45.909 Unspecified asthma, uncomplicated; G47.33 Obstructive sleep apnea (adult) (pediatric); L02.211 Cutaneous abscess of abdominal wall; B37.2 Candidiasis of skin and nail; B36.0 Pityriasis versicolor; Z68.41 Body mass index [BMI] 40.0-44.9, adult | CPT/HCPCS: 99202 ==

== ENCOUNTER 2025-01-24 07:08 | Outpatient (REF) | payer OTHER, SELFPAY ==
--- OUTSIDE RECORDS SUMMARY | 2025-01-24 07:11 | XMS_ITS | Encounter Summary ---
Author Organization [facility] Address [address] [place] [address] Phone Care Team Providers Care Counseling Aide Name Role Phone Alhaji Elizabeth MD Primary Care Provider [phone] Encounter Details Date Type Department Care Team (Late st Contact Info) Description 03/09/2014 Documentation EM Family Medicine [address] [place], [place] [phone] Family Medicine, Physician [address] [place] [address] Social History Tobacco Use Types Packs/Day Years [...] on filedocumented in this encounter Care Teams Counseling Aide Relationship Specialty Start Date End Date Alhaji Elizabeth MD [address] [place] [address] PCP - General 04/20/17 02/14/23 documented as of this encounter
--- OUTSIDE RECORDS SUMMARY | 2025-01-24 07:11 | XMS_ITS | Encounter Summary ---
Author Organization [facility] Address [address] [place] [address] Phone Care Team Providers Care Facilities Engineering Manager Name Role Phone Alhaji Elizabeth MD Primary Care Provider [phone] Encounter Details Date Type Department Care Team (Late st Contact Info) Description 06/17/2013 Documentation EM Family Medicine [address] [place], [place] [phone] Family Medicine, Physician [address] [place] [address] Social History Tobacco Use Types Packs/Day Years [...] on filedocumented in this encounter Care Teams Facilities Engineering Manager Relationship Specialty Start Date End Date Alhaji Elizabeth MD [address] [place] [address] PCP - General 04/20/17 02/14/23 documented as of this encounter
--- OUTSIDE RECORDS SUMMARY | 2025-01-24 07:11 | XMS_ITS | Encounter Summary ---
Author Organization [facility] Address [address] [place] [address] Phone Care Team Providers Care Truck Repair Service Estimator Name Role Phone Alhaji Elizabeth MD Primary Care Provider [phone] Encounter Details Date Type Department Care Team (Late st Contact Info) Description 04/26/2017 Conversion Encounter [facility] [address] [place] [address] Social History Tobacco Use Types Packs/Day Years [...] on filedocumented in this encounter Care Teams Truck Repair Service Estimator Relationship Specialty Start Date End Date Alhaji Elizabeth MD [address] [place] [address] PCP - General 04/20/17 02/14/23 documented as of this encounter
--- OUTSIDE RECORDS SUMMARY | 2025-01-24 07:11 | XMS_ITS | Encounter Summary ---
Author Organization [facility] Address [address] [place] [address] Phone Care Team Providers Care Research Contracts Supervisor Name Role Phone Alhaji Elizabeth MD Primary Care Provider [phone] Encounter Details Date Type Department Care Team (Late st Contact Info) Description 12/13/2011 Documentation EM Family Medicine [address] [place], [place] [phone] Family Medicine, Physician [address] [place] [address] Social History Tobacco Use Types Packs/Day Years [...] on filedocumented in this encounter Care Teams Research Contracts Supervisor Relationship Specialty Start Date End Date Alhaji Elizabeth MD [address] [place] [address] [place] [address] PCP - General 04/20/17 02/14/23 documented as of this encounter
--- OUTSIDE RECORDS SUMMARY | 2025-01-24 07:11 | XMS_ITS | Encounter Summary ---
Author Organization [facility] Address [address] [place] [address] Phone Care Team Providers Care Building Performance Consultant Name Role Phone Alhaji Elizabeth MD Primary Care Provider [phone] Encounter Details Date Type Department Care Team (Late st Contact Info) Description 02/14/2013 Documentation EM Family Medicine [address] [place], [place] [phone] Family Medicine, Physician [address] [place] [address] Social History Tobacco Use Types Packs/Day Years [...] on filedocumented in this encounter Care Teams Building Performance Consultant Relationship Specialty Start Date End Date Alhaji Elizabeth MD [address] [place] [address] [place] [address] PCP - General 04/20/17 02/14/23 documented as of this encounter
--- OUTSIDE RECORDS SUMMARY | 2025-01-24 07:11 | XMS_ITS | Encounter Summary ---
Author Organization [facility] Address [address] [place] [address] Phone Care Team Providers Care Armor Reconnaissance Specialist Name Role Phone Alhaji Elizabeth MD Primary Care Provider [phone] Encounter Details Date Type Department Care Team (Late st Contact Info) Description 12/11/2012 Documentation EM Family Medicine [address] [place], [place] [phone] Family Medicine, Physician [address] [place] [address] Social History Tobacco Use Types Packs/Day Years [...] on filedocumented in this encounter Care Teams Armor Reconnaissance Specialist Relationship Specialty Start Date End Date Alhaji Elizabeth MD [address] [place] [address] [place] [address] PCP - General 04/20/17 02/14/23 documented as of this encounter
--- OUTSIDE RECORDS SUMMARY | 2025-01-24 07:11 | XMS_ITS | Encounter Summary ---
Author Organization [facility] Address [address] [place] [address] Phone Care Team Providers Care Collar Fuser Name Role Phone Alhaji Elizabeth MD Primary Care Provider [phone] Encounter Details Date Type Department Care Team (Late st Contact Info) Description 02/14/2013 Documentation EM Family Medicine [address] [place], [place] [phone] Family Medicine, Physician [address] [place] [address] Social History Tobacco Use Types Packs/Day Years [...] on filedocumented in this encounter Care Teams Collar Fuser Relationship Specialty Start Date End Date Alhaji Elizabeth MD [address] [place] [address] [place] [address] PCP - General 04/20/17 02/14/23 documented as of this encounter
--- OUTSIDE RECORDS SUMMARY | 2025-01-24 07:11 | XMS_ITS | Encounter Summary ---
Author Organization [facility] Address [address] [place] [address] Phone Care Team Providers Care Watershed Engineer Name Role Phone Alhaji Elizabeth MD Primary Care Provider [phone] Encounter Details Date Type Department Care Team (Late st Contact Info) Description 10/01/2013 Documentation EM Family Medicine [address] [place], [place] [phone] Family Medicine, Physician [address] [place] [address] Social History Tobacco Use Types Packs/Day Years [...] on filedocumented in this encounter Care Teams Watershed Engineer Relationship Specialty Start Date End Date Alhaji Elizabeth MD [address] [place] [address] PCP - General 04/20/17 02/14/23 documented as of this encounter
--- OUTSIDE RECORDS SUMMARY | 2025-01-24 07:11 | XMS_ITS | Encounter Summary ---
Author Organization [facility] Address [address] [place] [address] Phone Care Team Providers Care Working Manager Name Role Phone Alhaji Elizabeth MD Primary Care Provider [phone] Encounter Details Date Type Department Care Team (Late st Contact Info) Description 03/12/2013 Documentation EM Family Medicine [address] [place], [place] 1997893 Family Medicine, Physician [address] [place] [address] Social History Tobacco Use Types Packs/Day Years [...] on filedocumented in this encounter Care Teams Working Manager Relationship Specialty Start Date End Date Alhaji Elizabeth MD [address] [place] [address] [place] [address] PCP - General 04/20/17 02/14/23 documented as of this encounter
--- OUTSIDE RECORDS SUMMARY | 2025-01-24 07:11 | XMS_ITS | Encounter Summary ---
Author Organization [facility] Address [address] [place] [address] Phone Care Team Providers Care Infusion Pharmacist Name Role Phone Alhaji Elizabeth MD Primary Care Provider [phone] Encounter Details Date Type Department Care Team (Late st Contact Info) Description 2011 Documentation EM Family Medicine [address] [place], [place] 7110293 Family Medicine, Physician [address] [place] [address] Social History Tobacco Use Types Packs/Day Years [...] on filedocumented in this encounter Care Teams Infusion Pharmacist Relationship Specialty Start Date End Date Alhaji Elizabeth MD [address] [place] [address] PCP - General 04/20/17 02/14/23 documented as of this encounter
--- OUTSIDE RECORDS SUMMARY | 2025-01-24 07:11 | XMS_ITS | Encounter Summary ---
Author Organization [facility] Address [address] [place] [address] Phone Care Team Providers Care Volunteer Services Manager Name Role Phone Alhaji Elizabeth MD Primary Care Provider [phone] Encounter Details Date Type Department Care Team (Late st Contact Info) Description 11/17/2010 Documentation EM Family Medicine [address] [place], [place] 2368693 Family Medicine, Physician [address] [place] [address] Social History Tobacco Use Types Packs/Day Years [...] on filedocumented in this encounter Care Teams Volunteer Services Manager Relationship Specialty Start Date End Date Alhaji Elizabeth MD [address] [place] [address] PCP - General 04/20/17 02/14/23 documented as of this encounter
--- OUTSIDE RECORDS SUMMARY | 2025-01-24 07:11 | XMS_ITS | Clinical Summary ---
Author Organization [facility] Address [address] [place] [address] Phone Care Team Providers Care Capsule Filling Machine Operator Name Role Phone Unavailable Primary Care [...] of Migraines, No family history of *Sudden /AL under 55, No family history of Deafness, [...]
--- OUTSIDE RECORDS SUMMARY | 2025-01-24 07:11 | XMS_ITS | Encounter Summary ---
Author Organization [facility] Address [address] [place] [address] Phone Care Team Providers Care Accounts Receivable Bookkeeper Name Role Phone Alhaji Elizabeth MD Primary Care Provider [phone] Encounter Details Date Type Department Care Team (Late st Contact Info) Description 02/26/2014 Documentation EM Family Medicine [address] [place], [place] [phone] Family Medicine, Physician [address] [place] [address] Social History Tobacco Use Types Packs/Day Years [...] on filedocumented in this encounter Care Teams Accounts Receivable Bookkeeper Relationship Specialty Start Date End Date Alhaji Elizabeth MD [address] [place] [address] PCP - General 04/20/17 02/14/23 documented as of this encounter
--- OUTSIDE RECORDS SUMMARY | 2025-01-24 07:11 | XMS_ITS | Encounter Summary ---
Author Organization [facility] Address [address] [place] [address] Phone Care Team Providers Care City Driver Name Role Phone Alhaji Elizabeth MD Primary Care Provider [phone] Encounter Details Date Type Department Care Team (Late st Contact Info) Description 01/14/2013 Documentation EM Family Medicine [address] [place], [place] [phone] Family Medicine, Physician [address] [place] [address] Social History Tobacco Use Types Packs/Day Years [...] on filedocumented in this encounter Care Teams City Driver Relationship Specialty Start Date End Date Alhaji Elizabeth MD [address] [place] [address] PCP - General 04/20/17 02/14/23 documented as of this encounter
--- OUTSIDE RECORDS SUMMARY | 2025-01-24 07:11 | XMS_ITS | Encounter Summary ---
Author Organization [facility] Address [address] [place] [address] Phone Care Team Providers Care Oil Operator Name Role Phone Alhaji Elizabeth MD Primary Care Provider [phone] Encounter Details Date Type Department Care Team (Late st Contact Info) Description 04/11/2011 Documentation EM Family Medicine [address] [place], [place] [phone] Family Medicine, Physician [address] [place] [address] Social History Tobacco Use Types Packs/Day Years [...] on filedocumented in this encounter Care Teams Oil Operator Relationship Specialty Start Date End Date Alhaji Elizabeth MD [address] [place] [address] [place] [address] PCP - General 04/20/17 02/14/23 documented as of this encounter
--- OUTSIDE RECORDS SUMMARY | 2025-01-24 07:11 | XMS_ITS | Encounter Summary ---
Author Organization [facility] Address [address] [place] [address] Phone Care Team Providers Care Bumper And Painter Name Role Phone Alhaji Elizabeth MD Primary Care Provider [phone] Encounter Details Date Type Department Care Team (Late st Contact Info) Description 12/04/2011 Documentation EM Family Medicine [address] [place], [place] 2147393 Family Medicine, Physician [address] [place] [address] Social History Tobacco Use Types Packs/Day Years [...] on filedocumented in this encounter Care Teams Bumper And Painter Relationship Specialty Start Date End Date Alhaji Elizabeth MD [address] [place] [address] PCP - General 04/20/17 02/14/23 documented as of this encounter
--- OUTSIDE RECORDS SUMMARY | 2025-01-24 07:11 | XMS_ITS | Encounter Summary ---
Author Organization [facility] Address [address] [place] [address] Phone Care Team Providers Care Radiologist Diagnostic Name Role Phone Alhaji Elizabeth MD Primary Care Provider [phone] Encounter Details Date Type Department Care Team (Late st Contact Info) Description 01/28/2010 Documentation EM Family Medicine [address] [place], [place] [phone] Family Medicine, Physician [address] [place] [address] Social History Tobacco Use Types Packs/Day Years [...] on filedocumented in this encounter Care Teams Radiologist Diagnostic Relationship Specialty Start Date End Date Alhaji Elizabeth MD [address] [place] [address] PCP - General 04/20/17 02/14/23 documented as of this encounter
--- OUTSIDE RECORDS SUMMARY | 2025-01-24 07:11 | XMS_ITS | Encounter Summary ---
Author Organization [facility] Address [address] [place] [address] Phone Care Team Providers Care Loan Review Manager Name Role Phone Alhaji Elizabeth MD Primary Care Provider [phone] Encounter Details Date Type Department Care Team (Late st Contact Info) Description 08/19/2014 Documentation EM Family Medicine [address] [place] [address] Family Medicine, Physician [address] [place], [place] 464211 Social History Tobacco Use Types Packs/Day Years [...] on filedocumented in this encounter Care Teams Loan Review Manager Relationship Specialty Start Date End Date Alhaji Elizabeth MD [address] [place] [address] [place] [address] PCP - General 04/20/17 02/14/23 documented as of this encounter
--- OUTSIDE RECORDS SUMMARY | 2025-01-24 07:11 | XMS_ITS | Encounter Summary ---
Author Organization [facility] Address [address] [place] [address] Phone Care Team Providers Care Inspector And Sorter Name Role Phone Alhaji Elizabeth MD Primary Care Provider [phone] Encounter Details Date Type Department Care Team (Late st Contact Info) Description 01/14/2013 Documentation EM Family Medicine [address] [place], [place] [phone] Family Medicine, Physician [address] [place] [address] Social History Tobacco Use Types Packs/Day Years [...] on filedocumented in this encounter Care Teams Inspector And Sorter Relationship Specialty Start Date End Date Alhaji Elizabeth MD [address] [place] [address] PCP - General 04/20/17 02/14/23 documented as of this encounter
--- OUTSIDE RECORDS SUMMARY | 2025-01-24 07:11 | XMS_ITS | Encounter Summary ---
Author Organization [facility] Address [address] [place] [address] Phone Care Team Providers Care Corporate Safety Manager Name Role Phone Alhaji Elizabeth MD Primary Care Provider [phone] Encounter Details Date Type Department Care Team (Late st Contact Info) Description 01/14/2013 Documentation EM Family Medicine [address] [place], [place] [phone] Family Medicine, Physician [address] [place] [address] Social History Tobacco Use Types Packs/Day Years [...] filedocumented in this encounter Care Teams Corporate Safety Manager Relationship Specialty Start Date End Date Alhaji Elizabeth MD [address] [place] [address] PCP - General 04/20/17 02/14/23 documented as of this encounter
[2025-01-24 07:28] LABS: MANUAL DIFF FLAG NO
[2025-01-24 07:33] LABS: Basophils Absolute Auto 0.1 X10*3/uL (0.0-0.2); Basophils Percent Auto 1.2 % (0-2); Eosinophils Absolute Auto 0.4 X10*3/uL (0.0-0.4); Eosinophils Percent Auto 5.8 % (0-4); Hematocrit 44.9 % (42.0-52.0); Imm Gran Abs Auto 0.01 X10*3/uL (0.00-0.03); Imm Gran Pct Auto 0.1 % (0.0-0.4); Lymphocytes Percent Auto 29.2 % (20-40); Mean Corpuscular HGB Conc 33.4 g/dl (31.0-36.0); Mean Corpuscular Hemoglobin 28.3 pg (27.0-33.0); Mean Corpuscular Volume 84.7 fL (80.0-98.0); Monocytes Absolute Auto 0.4 X10*3/uL (0.1-1.2); Neutrophils Absolute Auto 3.9 x10*3/uL (2.0-8.3); Neutrophils Percent Auto 57.7 % (45-73); Platelet Count 313 X10*3/uL (160-400); Red Cell Distribution Width 12.8 % (11.0-16.0); White Blood Count 6.8 X10*3/uL (4.8-10.8)
[2025-01-24 07:48] LABS: Estimated Average Glucose 108 mg/dL; Hemoglobin A1C 136.2418 umol/L; Hemoglobin A1c % 5.4 % (<6.0); Total Hemoglobin (HGBA1C) 3803.1396 umol/L
[2025-01-24 08:05] LABS: Alanine Aminotransferase 18 U/L (0-40); Albumin Level 4.2 g/dL (3.5-5.0); Alkaline Phosphatase 129 U/L (39-117); Anion Gap 10 (12-20); Aspartate Amino Transferase 20 U/L (5-37); Bilirubin Direct 0.2 mg/dL (0.0-0.5); Bilirubin Total 0.6 mg/dL (0.0-1.0); Blood Urea Nitrogen 16 mg/dL (9-16); Carbon Dioxide 26 mmol/L (22-29); Chloride 109 mmol/L (96-108); Cholesterol 171 mg/dL (<200); Estimated Glomerular Filt Rate > 60; Glucose Random 99 mg/dL (60-115); HDL Cholesterol 35 mg/dL (>40); LDL Cholesterol Calculated 114 mg/dL (<100); Potassium 4.2 mmol/L (3.3-5.1); Sodium 141 mmol/L (135-145); Total Protein 7.6 g/dL (6.5-8.0); Triglycerides 113 mg/dL (<150)
[2025-01-24 08:20] LABS: TSH reflex Free T4 0.55 uIU/mL (0.32-4.0)
== END 2025-01-24 07:09 | disposition home or self-care (01) ==
LOC: HO.LAB 07:08
PROVIDERS: PCP Physician Assistant; Visit Provider Physician Assistant
DX: J45.909 Unspecified asthma, uncomplicated (principal); E66.813 Obesity, class 3; G47.33 Obstructive sleep apnea (adult) (pediatric); K21.9 Gastro-esophageal reflux disease without esophagitis
CPT/HCPCS: 36415; 80048; 80061; 80076; 83036; 84443; 85025

== ENCOUNTER 2025-03-30 13:12 | Outpatient (AMB) | payer OTHER, SELFPAY ==
--- NOTE | 2025-03-30 13:14 | MHC.OFFVIS ---
Vital Signs 03/30/25 13:15 Height 5 ft 3 in Weight 248 lb 0.321 oz BMI 43.9 BP 130/90 H Blood Pressure Location Lt brachial Position Sitting Pulse 90 Pulse Source Pulse Oximeter Pulse Oximetry (%) 96 Oxygen Delivery Method Room Air Intake Visit Reasons: Asthma Accompanied by: Self / Same As Patient Allergies hydrocodone (From VICODIN) Allergy (Severe, Verified 03/30/25 13:17) Swelling, Redness, Itching seafood Allergy (Severe, Verified 03/30/25 13:17) Swelling codeine (CODEINE) Allergy (Intermediate, Verified 03/30/25 13:17) ITCHY RASH vancomycin (VANCOMYCIN) Allergy (Intermediate, Verified 03/30/25 13:17) red man's syndrome (redness/swelling/itching) HPI Comments Details: The patient is here for pulmonary evaluation. The patient is a 34-year-old gentleman with known history of severe persistent asthma. He has been treated by pediatric Pulmonary for many years. Now, he is having to establish his care elsewhere. The patient does have had increased asthma symptoms. He has been on Symbicort. He has also been on Xolair that he has take from for many years with good response. He does have a history allergy testing in the past he states that he was allergic to ?everything?. In addition to that the patient does have exacerbations. The last time though that he had to use prednisone was about a year ago. He has had multiple hospitalizations here at [facility]. We did look at imaging. He did have a chest x-ray without any acute disease then this year 2024. He also had a CT scan of the abdomen from 2022 with lung cuts with some atelectasis at the bases. In addition to this the patient has a history of sleep apnea. He does get supplies from [employer]. He does use a fullface mask. Will go ahead and request her supplies and will bring the machine in the next visit. Will also try to get air view access if he has it available. His sleep study was from 2021 demonstrating moderate degree of sleep apnea with significant hypoxia. At this point the patient is going to undergo blood work in order to see which biologic he should continue she should continue Xolair or if he should be switched over to Dupixent. He does have significant atopic dermatitis and eczema behind the ears. And also has severe persistent asthma with evidence of eosinophilia on previous CBC with differential. Therefore Dupixent may be a better option. [facility] Medical History (Updated 03/30/25 @ 23:03 by Leif Romero MD) Chronic allergic rhinitis Eczema Allergies Hx MRSA infection History of COVID-19 Asthma Insomnia Anxiety (~03/30/25) Depression GERD (gastroesophageal reflux disease) Sleep apnea with use of continuous positive airway pressure (CPAP) FHx: cholecystectomy Asthma exacerbation Surgical History Hx of cholecystectomy Family History Mother Asthma Thyroid condition Father Asthma Brother Asthma Sister No problems noted. Sister No problems noted. Sister No problems noted. Sister No problems noted. Social History Housing: House Are you a primary district manager primary care sales to a significant other at home: No Do you presently have visiting nurse or other home services: No Alcohol intake: current Alcohol intake frequency: does not drink Patient Tobacco Use Status: Never used Tobacco service: No Current occupational status: employed Cognitive needs: No Hearing needs: No Vision needs: No Review of Systems Const Denies fever(s) Eyes Reports no additional complaints ENT Reports nasal congestion and Reports nasal discharge Card Denies chest pain Resp Reports cough and Reports wheezing GI Reports no additional complaints Musc Reports no additional complaints Skin/Breast Reports rash Endo Reports no additional complaints Kevin/Lymph Reports no additional complaints Aller/Immun Reports wheezing Physical Exam Vital Signs: Last Vital Signs Pulse 90 03/30/25 13:15 BP 130/90 H 03/30/25 13:15 Pulse Ox 96 03/30/25 13:15 Oxygen Delivery Method Room Air 03/30/25 13:15 BMI result Body Mass Index 43.9 Const General: comfortable HEENT Head: Yes normocephalic Neck Neck: Yes supple Chest Chest palpation & inspection: normal inspection of the chest Resp Effort & Inspection: normal respiratory effort and prolonged expiratory phase Auscultation: diminished lung sounds Cardio Heart sounds: S1 normal heart sound present and S2 normal heart sound present GI Palpation (GI): Soft to palpation Skin Rashes: rashes noted bilateral ear borders, distribution and surface dry and erythematous Assessment & Plan Assessment & Plan (1) Asthma: Comment: controlled w/Symbicort inhaler Code(s): J45.909 - Unspecified asthma, uncomplicated Category: Medical Qualifiers: Asthma severity: severe Asthma persistence: persistent Asthma complication type: uncomplicated Qualified Code(s): J45.50 - Severe persistent asthma, uncomplicated (2) Allergies: Code(s): T78.40XA - Allergy, unspecified, initial encounter Category: Medical Qualifiers: Encounter type: initial encounter Qualified Code(s): T78.40XA - Allergy, unspecified, initial encounter (3) Eczema: Code(s): L30.9 - Dermatitis, unspecified Category: Medical Qualifiers: Eczema type: unspecified Qualified Code(s): L30.9 - Dermatitis, unspecified (4) Chronic allergic rhinitis: Code(s): J30.9 - Allergic rhinitis, unspecified Category: Medical (5) DIMITRIS (obstructive sleep apnea): Code(s): G47.33 - Obstructive sleep apnea (adult) (pediatric) Category: Medical Plan continue Symbicort TYLER as needed Singulair Bloodwork and allergy testing Will assess restarting Xolair versus Dupixent based on bloodwork epipen PFTs continue APAP, will bring it in for the next visit F/U 3months Orders: Orders Resp Allergy Profile Region I Today J45.909 - Unspecified asthma, uncomplicated, R91.1 - Solitary pulmonary nodule, T78.40XA - Allergy, unspecified, initial encounter Hypersensitive Pneumonitis Prf Today J45.909 - Unspecified asthma, uncomplicated, R91.8 - Other nonspecific abnormal finding of lung field, T78.40XA - Allergy, unspecified, initial encounter Immunoglobulins,IgG IgA IgM Today J45.909 - Unspecified asthma, uncomplicated, T78.40XA - Allergy, unspecified, initial encounter PFT pulmonary function test Today J45.50 - Severe persistent asthma, uncomplicated Cell Count w Diff Pleural Fld Today J45.909 - Unspecified asthma, uncomplicated, T78.40XA - Allergy, unspecified, initial encounter Immunoglobulin E Today J45.909 - Unspecified asthma, uncomplicated, T78.40XA - Allergy, unspecified, initial encounter Erythrocyte Sedimentation Rate Today J45.909 - Unspecified asthma, uncomplicated, T78.40XA - Allergy, unspecified, initial encounter Medications: New epinephrine (EpiPen 2-Juan) for 2 doses 0.3 mg (0.3 mL) IM Q10M PRN 2 ea 6RF anaphylaxis 30 days J45.40 - Moderate persistent asthma, uncomplicated Coding Level of Care Code New Pt Level 4 (97880) Diagnoses Severe persistent asthma without complication J45.50 Asthma severity: severe Asthma persistence: persistent Asthma complication type: uncomplicated Allergy, initial encounter T78.40XA Encounter type: initial encounter Eczema, unspecified type L30.9 Eczema type: unspecified Chronic allergic rhinitis J30.9 DIMITRIS (obstructive sleep apnea) G47.33 Time Spent (min) 40
[2025-03-30 13:15] VITALS: BP 130/90; PULSE 90; O2SAT 96; BMI 43.9
--- OUTSIDE RECORDS SUMMARY | 2025-03-30 13:55 | XMS_ITS | Encounter Summary ---
Author Organization [facility] Address [address] [place] [address] Phone Care Team Providers Care Workers' Compensation Mediator Name Role Phone Alhaji Elizabeth MD Primary Care Provider [phone] Encounter Details Date Type Department Care Team (Late st Contact Info) Description 04/11/2011 Documentation EM Family Medicine [address] [place], [place] [id number] Family Medicine, Physician [address] [place] [address] Social History Tobacco Use Types Packs/Day Years [...] on filedocumented in this encounter Care Teams Workers' Compensation Mediator Relationship Specialty Start Date End Date Alhaji Elizabeth MD [address] [place] [address] PCP - General 04/20/17 02/14/23 documented as of this encounter
== END 2025-03-30 13:46 | disposition home or self-care (01) ==
LOC: HO.HPS 13:12
PROVIDERS: PCP Physician Assistant; Referring Provider Physician Assistant; Visit Provider Hospitalist
DX: J45.50 Severe persistent asthma, uncomplicated (principal); T78.40XA Allergy, unspecified, initial encounter; L30.9 Dermatitis, unspecified; J30.9 Allergic rhinitis, unspecified; G47.33 Obstructive sleep apnea (adult) (pediatric)
CPT/HCPCS: 99204

== ENCOUNTER 2025-03-30 13:12 | Outpatient (REF) | payer OTHER, SELFPAY ==
[2025-03-30 16:03] LABS: MANUAL DIFF FLAG NO
[2025-03-30 16:06] LABS: Hematocrit 45.6 % (42.0-52.0); Hemoglobin 15.2 g/dl (14.0-18.0); Imm Gran Abs Auto 0.01 X10*3/uL (0.00-0.03); Imm Gran Pct Auto 0.1 % (0.0-0.4); Lymphocytes Absolute Auto 2.5 X10*3/uL (1.2-4.9); Mean Corpuscular HGB Conc 33.3 g/dl (31.0-36.0); Mean Corpuscular Hemoglobin 28.5 pg (27.0-33.0); Mean Corpuscular Volume 85.6 fL (80.0-98.0); NRBC Abs Auto 0.000 X10*3/uL (0.0-0.012); NRBC Pct Auto 0.0 /100WBC (0.0-0.2); Platelet Count 357 X10*3/uL (160-400); Red Blood Count 5.33 X10*6/uL (4.60-5.80); White Blood Count 8.1 X10*3/uL (4.8-10.8)
[2025-03-31 23:29] LABS: Class Alternaria alternata 0; Class Aspergillus fumigatus 1; Class Bermuda Grass 2; Class Birch 6; Class Cat Dander 3; Class Cladosporium herbarum 0; Class Cockroach 4; Class Common Ragweed 4; Class Cottonwood 2; Class Derm. pterony 4; Class Dermatophagoides farinae 4; Class Dog Dander 3; Class Elm 2; Class Maple Box Elder 3; Class Mountain Cedar 2; Class Mouse Urine Protein 2; Class Mugwort 1; Class Oak 4; Class Penicillium crysogenum 1; Class Rough Pigweed 0/1; Class Sheep Sorrel 2; Class Sycamore 2; Class Timothy Grass 2; Class Walnut Tree 3; Class White Ash 2; Class White Mulberry 0; D002 - IgE D farinae 30.40 kU/L; E001 - IgE Cat Dander 4.22 kU/L; E005 - IgE Dog Dander 7.62 kU/L; G006 - IgE Timothy Grass 2.37 kU/L; I006-IgE Cockroach, German 34.30 kU/L; M002 - IgE Cladosporium herbar <0.10 kU/L; M003 - IgE Aspergillus fumigat 0.57 kU/L; M006 - IgE Alternaria alternat <0.10 kU/L; T001 IgE Maple/Box Elder 6.95 kU/L; T006 - IgE Cedar, Mountain 1.52 kU/L; T007 - IgE Oak, White 46.60 kU/L; T008 IgE Elm, American 3.30 kU/L; T010 - IgE Walnut 5.30 kU/L; T011 - IgE Maple Leaf Sycamore 0.76 kU/L; T014 - IgE Cottonwood 0.74 kU/L; T015 - IgE Ash, White 3.39 kU/L; T070 - IgE White Mulberry <0.10 kU/L; W001 - IgE Ragweed, Short 19.40 kU/L; W006 - IgE Mugwort 0.51 kU/L; W014 IgE Pigweed, Common 0.30 kU/L; W018 IgE Sheep Sorrel 1.39 kU/L
[2025-04-07 09:16] LABS: Asperg fumigatus Precip Abs NEGATIVE; Micropoly faeni Abs NEGATIVE
[2025-04-07 09:18] LABS: Thermo candidus Abs NEGATIVE
[2025-04-07 09:19] LABS: Saccharo pora viridis Abs NEGATIVE
== END 2025-03-30 13:13 | disposition home or self-care (01) ==
LOC: HO.LAB 13:12
PROVIDERS: PCP Physician Assistant; Referring Provider Physician Assistant; Visit Provider Hospitalist
DX: R91.1 Solitary pulmonary nodule (principal); T78.40XA Allergy, unspecified, initial encounter; R91.8 Other nonspecific abnormal finding of lung field; J45.50 Severe persistent asthma, uncomplicated
CPT/HCPCS: 36415; 82784; 82785; 85025; 85652; 86003; 86331; 86606; 86609; 99202

== ENCOUNTER 2025-05-14 09:35 | Emergency (ER) | payer OTHER, SELFPAY ==
[2025-05-14 09:37] VITALS: BP 145/90; PULSE 96; RESP 18; TEMP 37.2; O2SAT 96; BMI 40.0
[2025-05-14 12:13] VITALS: BP 116/78; PULSE 94; RESP 16; TEMP 36.7; O2SAT 95
--- OUTSIDE RECORDS SUMMARY | 2025-05-14 12:51 | XMS_ITS | Encounter Summary ---
Author Organization [facility] Address [address] [place] [address] Phone Care Team Providers Care Front End Loader Operator Name Role Phone Alhaji Elizabeth MD Primary Care Provider [phone] Encounter Details Date Type Department Care Team (Late st Contact Info) Description 11/17/2010 Documentation EM Family Medicine [address] [place], [place] [phone] Family Medicine, Physician [address] [place] [address] Social History Tobacco Use Types Packs/Day Years [...] on filedocumented in this encounter Care Teams Front End Loader Operator Relationship Specialty Start Date End Date Alhaji Elizabeth MD [address] [place] [address] PCP - General 04/20/17 02/14/23 documented as of this encounter
--- OUTSIDE RECORDS SUMMARY | 2025-05-14 12:51 | XMS_ITS | Encounter Summary ---
Author Organization [facility] Address [address] [place] [address] Phone Care Team Providers Care Cell Coverer Name Role Phone Alhaji Elizabeth MD Primary Care Provider [phone] Encounter Details Date Type Department Care Team (Late st Contact Info) Description 10/01/2013 Documentation EM Family Medicine [address] [place], [place] [phone] Family Medicine, Physician [address] [place] [address] Social History Tobacco Use Types Packs/Day Years [...] on filedocumented in this encounter Care Teams Cell Coverer Relationship Specialty Start Date End Date Alhaji Elizabeth MD [address] [place] [address] 8[address] PCP - General 04/20/17 02/14/23 documented as of this encounter
--- OUTSIDE RECORDS SUMMARY | 2025-05-14 12:51 | XMS_ITS | Encounter Summary ---
Author Organization [facility] Address [address] [place] [address] Phone Care Team Providers Care Pony Cylinder Press Operator Name Role Phone Alhaji Elizabeth MD Primary Care Provider [phone] Encounter Details Date Type Department Care Team (Late st Contact Info) Description 08/19/2014 Documentation EM Family Medicine [address] [place] [address] Family Medicine, Physician [address] [place], [place] 434051 Social History Tobacco Use Types Packs/Day Years [...] on filedocumented in this encounter Care Teams Pony Cylinder Press Operator Relationship Specialty Start Date End Date Alhaji Elizabeth MD [address] [place] [address] [place] [address] PCP - General 04/20/17 02/14/23 documented as of this encounter
--- OUTSIDE RECORDS SUMMARY | 2025-05-14 12:51 | XMS_ITS | Encounter Summary ---
Author Organization [facility] Address [address] [place] [address] Phone Care Team Providers Care Section Housekeeper Name Role Phone Alhaji Elizabeth MD Primary Care Provider [phone] Encounter Details Date Type Department Care Team (Late st Contact Info) Description 12/13/2011 Documentation EM Family Medicine [address] [place], [place] 6011593 Family Medicine, Physician [address] [place] [address] Social History Tobacco Use Types Packs/Day Years [...] on filedocumented in this encounter Care Teams Section Housekeeper Relationship Specialty Start Date End Date Alhaji Elizabeth MD [address] [place] [address] PCP - General 04/20/17 02/14/23 documented as of this encounter
--- OUTSIDE RECORDS SUMMARY | 2025-05-14 12:51 | XMS_ITS | Encounter Summary ---
Author Organization [facility] Address [address] [place] [address] Phone Care Team Providers Care Turf Manager Name Role Phone Alhaji Elizabeth MD Primary Care Provider [phone] Encounter Details Date Type Department Care Team (Late st Contact Info) Description 12/04/2011 Documentation EM Family Medicine [address] [place], [place] 5589293 Family Medicine, Physician [address] [place] [address] Social History Tobacco Use Types Packs/Day Years [...] on filedocumented in this encounter Care Teams Turf Manager Relationship Specialty Start Date End Date Alhaji Elizabeth MD [address] [place] [address] 98268 PCP - General 04/20/17 02/14/23 documented as of this encounter
--- OUTSIDE RECORDS SUMMARY | 2025-05-14 12:51 | XMS_ITS | Encounter Summary ---
Author Organization [facility] Address [address] [place] [address] Phone Care Team Providers Care Distribution Field Technician Name Role Phone Alhaji Elizabeth MD Primary Care Provider [phone] Encounter Details Date Type Department Care Team (Late st Contact Info) Description 02/14/2013 Documentation EM Family Medicine [address] [place], [place] [phone] Family Medicine, Physician [address] [place] [address] Social History Tobacco Use Types Packs/Day Years [...] on filedocumented in this encounter Care Teams Distribution Field Technician Relationship Specialty Start Date End Date Alhaji Elizabeth MD [address] [place] [address] 12646 PCP - General 04/20/17 02/14/23 documented as of this encounter
--- OUTSIDE RECORDS SUMMARY | 2025-05-14 12:51 | XMS_ITS | Encounter Summary ---
Author Organization [facility] Address [address] [place] [address] Phone Care Team Providers Care Spectroscopist Name Role Phone Alhaji Elizabeth MD Primary Care Provider [phone] Encounter Details Date Type Department Care Team (Late st Contact Info) Description 03/09/2014 Documentation EM Family Medicine [address] [place], [place] [id number] Family Medicine, Physician [address] [place] [address] Social History Tobacco Use Types Packs/Day Years [...] on filedocumented in this encounter Care Teams Spectroscopist Relationship Specialty Start Date End Date Alhaji Elizabeth MD [address] [place] [address] PCP - General 04/20/17 02/14/23 documented as of this encounter
--- OUTSIDE RECORDS SUMMARY | 2025-05-14 12:51 | XMS_ITS | Encounter Summary ---
Author Organization [facility] Address [address] [place] [address] Phone Care Team Providers Care Watch Case Polisher Name Role Phone Alhaji Elizabeth MD Primary Care Provider [phone] Encounter Details Date Type Department Care Team (Late st Contact Info) Description 01/14/2013 Documentation EM Family Medicine [address] [place], [place] [id number] Family Medicine, Physician [address] [place] [address] Social History Tobacco Use Types Packs/Day Years [...] on filedocumented in this encounter Care Teams Watch Case Polisher Relationship Specialty Start Date End Date Alhaji Elizabeth MD [address] [place] [address] PCP - General 04/20/17 02/14/23 documented as of this encounter
--- OUTSIDE RECORDS SUMMARY | 2025-05-14 12:51 | XMS_ITS | Encounter Summary ---
Author Organization [facility] Address [address] [place] [address] Phone Care Team Providers Care Spiral Runner Name Role Phone Alhaji Elizabeth MD Primary Care Provider [phone] Encounter Details Date Type Department Care Team (Late st Contact Info) Description 01/14/2013 Documentation EM Family Medicine [address] [place], [place] [id number] Family Medicine, Physician [address] [place] [address] Social History Tobacco Use Types Packs/Day Years [...] on filedocumented in this encounter Care Teams Spiral Runner Relationship Specialty Start Date End Date Alhaji Elizabeth MD [address] [place] [address] PCP - General 04/20/17 02/14/23 documented as of this encounter
--- OUTSIDE RECORDS SUMMARY | 2025-05-14 12:51 | XMS_ITS | Encounter Summary ---
Author Organization [facility] Address [address] [place] [address] Phone Care Team Providers Care Lifter/Driver Name Role Phone Alhaji Elizabeth MD Primary Care Provider [phone] Encounter Details Date Type Department Care Team (Late st Contact Info) Description 2011 Documentation EM Family Medicine [address] [place], [place] [id number] Family Medicine, Physician [address] [place] [address] Social History Tobacco Use Types Packs/Day Years [...] on filedocumented in this encounter Care Teams Lifter/Driver Relationship Specialty Start Date End Date Alhaji Elizabeth MD [address] [place] [address] PCP - General 04/20/17 02/14/23 documented as of this encounter
--- OUTSIDE RECORDS SUMMARY | 2025-05-14 12:51 | XMS_ITS | Encounter Summary ---
Author Organization [facility] Address [address] [place] [address] Phone Care Team Providers Care Quality Engineering Manager Name Role Phone Alhaji Elizabeth MD Primary Care Provider [phone] Encounter Details Date Type Department Care Team (Late st Contact Info) Description 04/26/2017 Conversion Encounter [facility] [place] [address] [place] [address] Social History Tobacco Use Types Packs/Day Years [...] on filedocumented in this encounter Care Teams Quality Engineering Manager Relationship Specialty Start Date End Date Alhaji Elizabeth MD [address] [place] [address] PCP - General 04/20/17 02/14/23 documented as of this encounter
--- OUTSIDE RECORDS SUMMARY | 2025-05-14 12:51 | XMS_ITS | Encounter Summary ---
Author Organization [facility] Address [address] [place] [address] Phone Care Team Providers Care Prop Drawer Name Role Phone Alhaji Elizabeth MD Primary Care Provider [phone] Encounter Details Date Type Department Care Team (Late st Contact Info) Description 06/17/2013 Documentation EM Family Medicine [address] [place], [place] [id number] Family Medicine, Physician [address] [place] [address] Social History Tobacco Use Types Packs/Day Years [...] on filedocumented in this encounter Care Teams Prop Drawer Relationship Specialty Start Date End Date Alhaji Elizabeth MD [address] [place] [address] PCP - General 04/20/17 02/14/23 documented as of this encounter
--- OUTSIDE RECORDS SUMMARY | 2025-05-14 12:51 | XMS_ITS | Encounter Summary ---
Author Organization [facility] Address [address] [place] [address] Phone Care Team Providers Care Iron Plastic Bullet Maker Name Role Phone Alhaji Elizabeth MD Primary Care Provider [phone] Encounter Details Date Type Department Care Team (Late st Contact Info) Description 01/28/2010 Documentation EM Family Medicine [address] [place], [place] [phone] Family Medicine, Physician [address] [place] [address] Social History Tobacco Use Types Packs/Day Years [...] on filedocumented in this encounter Care Teams Iron Plastic Bullet Maker Relationship Specialty Start Date End Date Alhaji Elizabeth MD [address] [place] [address] PCP - General 04/20/17 02/14/23 documented as of this encounter
--- OUTSIDE RECORDS SUMMARY | 2025-05-14 12:51 | XMS_ITS | Encounter Summary ---
Author Organization [facility] Address [address] [place] [address] Phone Care Team Providers Care Press Bucker Name Role Phone Alhaji Elizabeth MD Primary Care Provider Encounter Details Date Type Department Care Team (Late st Contact Info) Description 03/12/2013 Documentation EM Family Medicine [address] [place], [place] [phone] Family Medicine, Physician [address] [place] [address] Social History Tobacco Use Types Packs/Day Years [...] on filedocumented in this encounter Care Teams Press Bucker Relationship Specialty Start Date End Date Alhaji Elizabeth MD [address] [place] [address] PCP - General 04/20/17 02/14/23 documented as of this encounter
--- OUTSIDE RECORDS SUMMARY | 2025-05-14 12:51 | XMS_ITS | Clinical Summary ---
Author Organization [facility] Address [address] [place] [address] Phone Care Team Providers Care Chief Arson Division Name Role Phone Unavailable Primary Care Provider [...] of Migraines, No family history of *Sudden /SC under 55, No family history of Deafness, [...] 90 02/16/2014 12:00 AM EDT Temperature 36.1 C (96.9 F) 10/02/2013 12:00 AM EST Respiratory Rate - - Oxygen Saturation 95% [...] 01/12/1995, Additional history exists Influenza Vaccines (#1) 2025 10/02/19 14, 07/22/2012, 06/01/2011, Additional history exists COVID-19 Vaccine ( season) 2025 HIB Vaccines Completed 03/31/1994, 08/11, 05/19/1993, Additional [...]
--- OUTSIDE RECORDS SUMMARY | 2025-05-14 12:51 | XMS_ITS | Encounter Summary ---
Author Organization [facility] Address [address] [place] [address] Phone Care Team Providers Care Garment Cutter Name Role Phone Alhaji Elizabeth MD Primary Care Provider [phone] Encounter Details Date Type Department Care Team (Late st Contact Info) Description 02/26/2014 Documentation EM Family Medicine [address] [place], [place] [id number] Family Medicine, Physician [address] [place] [address] Social History Tobacco Use Types Packs/Day Years [...] on filedocumented in this encounter Care Teams Garment Cutter Relationship Specialty Start Date End Date Alhaji Elizabeth MD [address] [place] [address] PCP - General 04/20/17 02/14/23 documented as of this encounter
--- OUTSIDE RECORDS SUMMARY | 2025-05-14 12:51 | XMS_ITS | Encounter Summary ---
Author Organization [facility] Address [address] [place] [address] Phone Care Team Providers Care Motor Transport Inspector Name Role Phone Alhaji Elizabeth MD Primary Care Provider [phone] Encounter Details Date Type Department Care Team (Late st Contact Info) Description 12/11/2012 Documentation EM Family Medicine [address] [place], [place] [phone] Family Medicine, Physician [address] [place] [address] Social History Tobacco Use Types Packs/Day Years [...] on filedocumented in this encounter Care Teams Motor Transport Inspector Relationship Specialty Start Date End Date Alhaji Elizabeth MD [address] [place] [address] PCP - General 04/20/17 02/14/23 documented as of this encounter
--- OUTSIDE RECORDS SUMMARY | 2025-05-14 12:51 | XMS_ITS | Encounter Summary ---
Author Organization [facility] Address [address] [place] [address] Phone Care Team Providers Care Screw Cutter Name Role Phone Alhaji Elizabeth MD Primary Care Provider [phone] Encounter Details Date Type Department Care Team (Late st Contact Info) Description 04/11/2011 Documentation EM Family Medicine [address] [place], [place] [phone] Family Medicine, Physician [address] [place] [address] Social History Tobacco Use Types Packs/Day Years [...] on filedocumented in this encounter Care Teams Screw Cutter Relationship Specialty Start Date End Date Alhaji Elizabeth MD [address] [place] [address] PCP - General 04/20/17 02/14/23 documented as of this encounter
--- OUTSIDE RECORDS SUMMARY | 2025-05-14 12:51 | XMS_ITS | Encounter Summary ---
Author Organization [facility] Address [address] [place] [address] Phone Care Team Providers Care Shop Manager Name Role Phone Alhaji Elizabeth MD Primary Care Provider [phone] Encounter Details Date Type Department Care Team (Late st Contact Info) Description 02/14/2013 Documentation EM Family Medicine [address] [place], [place] [phone] Family Medicine, Physician [address] [place] [address] Social History Tobacco Use Types Packs/Day Years [...] on filedocumented in this encounter Care Teams Shop Manager Relationship Specialty Start Date End Date Alhaji Elizabeth MD [address] [place] [address] PCP - General 04/20/17 02/14/23 documented as of this encounter
--- OUTSIDE RECORDS SUMMARY | 2025-05-14 12:51 | XMS_ITS | Encounter Summary ---
Author Organization [facility] Address [address] [place] [address] Phone Care Team Providers Care Mapping Analyst Name Role Phone Alhaji Elizabeth MD Primary Care Provider [phone] Encounter Details Date Type Department Care Team (Late st Contact Info) Description 01/14/2013 Documentation EM Family Medicine [address] [place], [place] [phone] Family Medicine, Physician [address] [place] [address] Social History Tobacco Use Types Packs/Day Years [...] on filedocumented in this encounter Care Teams Mapping Analyst Relationship Specialty Start Date End Date Alhaji Elizabeth MD [address] [place] [address] PCP - General 04/20/17 02/14/23 documented as of this encounter
--- NOTE | 2025-05-14 13:31 | ED_ITS ---
HPI - General Adult General Chief complaint: Neck Pain/Injury Stated complaint: stiff neck Time Seen by Provider: 05/14/25 13:31 Source: patient Mode of arrival: ambulatory Limitations: no limitations History of Present Illness ED Provider: Sadie Perera PA-C HPI narrative: Patient is a 34 year old assigned male at with a history of asthma, eczema, DIMITRIS, insomnia, anxiety, depression, and GERD presenting to the emergency department today with neck stiffness and pain. 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 Patient reports the neck stiffness has been progressively worsening since yesterday with worsening pain with range of motion. Patient reports limited range of motion in all directions. Patient reports he was unable to lie down due to the pain and stiffness. Patient reports a similar episode of neck stiffness months ago that resolved spontaneously without treatment. Patient has not tried to take any medications for the pain, but reports improvement with heat. Patient reports no trauma, fall, or recent physical exertion. Patient denies any dizziness, lightheadedness, headache, fevers, chills, night sweats, numbness, tingling, weakness, changes to vision, photophobia, changes to urination or changes to bowel movements. Patient denies recent travel or sick contacts but does work with students. Onset (ago): day(s) (1 day) Location: neck Related Data Home Medications ?Medication ?Instructions ?Recorded ?Confirmed epinephrine 0.3 mg/0.3 mL 0.3 mg IM ONCE PRN Anaphylax is 07/20/20 01/20/25 injection, auto-injector omalizumab 150 mg/mL subcutaneous 150 mg subcut QMONTH 07/20/20 01/20/25 syringe albuterol sulfate 90 mcg/actuation inhalation 01/19/25 01/20/25 aerosol inhaler (Ventolin HFA) budesonide-formoterol HFA 160 inhalation 01/19/25 05/ 3/25 mcg-4.5 mcg/actuation aerosol inhaler fluticasone propionate 50 spray intranasal 01/19/25 mcg/actuation nasal spray,suspension Previous Rx's ?Medication ?Instructions ?Recorded albuterol sulfate 0.63 mg/3 mL 0.63 mg (3 mL) inhalati on QID PRN 07/17/20 solution for nebulization shortness of breath or wheez ing #90 mL ibuprofen 800 mg tablet 800 mg PO Q8H PRN pain #14 t abs 07/17/20 nebulizers (AeroEclipse II #1 ea 07/17/20 Nebulizer) nystatin 100,000 unit/gram topical 1 appl topical TID #30 grams 01/19/25 powder triamcinolone acetonide 0.1 % 1 appl topical BID PRN r latonia on 01/19/25 topical cream chest #30 grams ketoconazole 2 % shampoo 1 appl topical DAILY 3 days #120 mL 01/20/25 epinephrine 0.3 mg/0.3 mL 0.3 mg (0.3 mL) IM Q10M PRN 03/30/25 injection, auto-injector (EpiPen anaphylaxis 30 days # 2 ea 2-Juan) omeprazole 20 mg capsule,delayed 20 mg PO DAILY #90 ca ps 04/16/25 release cyclobenzaprine 5 mg tablet 5 mg PO TID PRN muscle spa sm 7 05/14/25 days #21 tabs prednisone 20 mg tablet 20 mg PO DAILY 7 days #7 tab s 05/14/25 Allergies Allergy/AdvReac Type Severity Reaction Status Date / Time hydrocodone (From VICODIN) Allergy Severe Swelling, Verified 05/14/25 09:38 Redness, Itching seafood Allergy Severe Swelling Verified 05/14/25 09:38 codeine (CODEINE) Allergy Intermediate ITCHY RASH Verified 05/14/25 09:38 vancomycin (VANCOMYCIN) Allergy Intermediate red man's Verified 05/14/25 09:38 syndrome (redness/swelling/itching) Review of Systems Constitutional: Constitutional: Reports as per HPI Eyes: Eyes: Reports as per HPI ENT: Reports as per HPI Cardiovascular: Cardiovascular: Reports as per HPI Respiratory: Respiratory: Reports as per HPI Gastrointestinal: Gastrointestinal: Reports as per HPI Genitourinary: Genitourinary: Reports as per HPI Musculoskeletal: Musculoskeletal: Reports as per HPI Integumentary/Breasts: Skin/Breast: Reports as per HPI Neurologic: Reports as per HPI Psychiatric: Psychiatric: Reports as per HPI Endocrine: Endocrine: Reports as per HPI Hematologic/Lymphatic: Hematologic/Lymphatic: Reports as per HPI Allergic/Immunologic: Allergic/Immunologic: Reports as per HPI [facility] Past Medical History Attestation statement: The following information was validated with the patient. Source: old records reviewed and nursing notes reviewed Medical History Chronic allergic rhinitis Eczema Allergies Hx MRSA infection History of COVID-19 Asthma Insomnia Anxiety (~03/30/25) Depression GERD (gastroesophageal reflux disease) Sleep apnea with use of continuous positive airway pressure (CPAP) FHx: cholecystectomy Asthma exacerbation Surgical History Hx of cholecystectomy Family History Family History Mother Asthma Thyroid condition Father Asthma Brother Asthma Sister No problems noted. Sister No problems noted. Sister No problems noted. Sister No problems noted. Social History Social History Housing: House Are you a primary emergency care tech to a significant other at home: No Do you presently have visiting nurse or other home services: No Alcohol intake: current Alcohol intake frequency: does not drink Patient Tobacco Use Status: Never used Tobacco Smoked in Last 30 Days: No Use of substances other than those prescribed or required for medical reasons: No Advance Directives: No Advance Directives Information Provided: Yes service: No Current occupational status: employed Cognitive needs: No Hearing needs: No Vision needs: No Physical Exam ED Vital Signs: Vital Signs - 24 hr 05/14/25 09:37 05/14/25 12:13 05/14/25 14:13 Temperature 98.9 F 98.1 F Pulse Rate 96 94 90 Respiratory Rate 18 16 16 Blood Pressure 145/90 H 116/78 124/85 Pulse Oximetry 96 95 95 Oxygen Delivery Method Room Air Room Air Room Air 05/14/25 15:10 Temperature 0 F L Pulse Rate 90 Respiratory Rate 16 Blood Pressure 124/85 Pulse Oximetry 95 Oxygen Delivery Method Room Air BMI result Body Mass Index 40.0 Const General: cooperative, no acute distress, alert and awake Nutritional Appearance: well nourished Orientation/consciousness: patient oriented x3 HENMT Head: Yes normal to inspection and Yes atraumatic Ears: hearing grossly normal bilaterally and external ears normal General nose exam: Normal external nose present, no nasal discharge noted and no epistaxis Face and sinus: Yes normal facial exam, No abrasion and No laceration Mouth: Normal oral and palatal mucosa present, no drooling and no muffled voice Eyes General: appearance normal, both eyes and all related structures Periorbital: periorbital findings normal Eyelids: Yes eyelids normal Conjunctivae: conjunctivae normal Pupils: Equal, round and reactive pupils present EOM: EOMs intact bilaterally Neck Other: limited neck extension, flexion, and rotation left worse than right secondary to pain Neck: Yes normal visual inspection Resp Effort & Inspection: normal respiratory effort and able to speak in complete sentences Neuro General: patient oriented x3, moves all extremities and CN's II-XI intact bilaterally Cranial nerves: Yes Equal, round and reactive pupils present Cognition (Neuro): normal cognition Extrem General: Yes normal to inspection, Yes full ROM and Yes capillary refill normal Psych Appearance: grossly normal Mental Status: mental status grossly normal Affect: normal affect Attitude: cooperative Thought process: Normal thought process present Thought content: Normal thought content present Insight: Good insight present (Psych) Medications Administered Discontinued Medications Generic Name Dose Route Start Last Admin Trade Name Freq PRN Reason Stop Dose Admin Cyclobenzaprine HCl 5 mg 05/14/25 14:00 05/14/25 14:10 Cyclobenzaprine Hcl 5 Mg Tablet PO 05/14/25 14:01 5 mg ONCE ONE Administration Methylprednisolone Sodium Succinate 60 mg 05/14/25 14:00 05/14/25 14:10 Methylprednisolone Sod Succ 125 Mg/2 Ml Vial IM 05/14/25 14:01 60 mg ONCE ONE Administration Medical Decision Making Medical Decision Making [facility] Narrative: Patient is a 34 year old assigned male at with a history of asthma, eczema, DIMITRIS, insomnia, anxiety, depression, and GERD presenting to the emergency department today with neck stiffness and pain. Patient's physical exam was as noted in the physical exam portion of this note and most consistent with torticollis and not at all consistent with meningitis. I explained my physical exam findings to the patient. I answered all questions asked by the patient. Patient received flexeril and solu-medrol which, upon re-evaluation, he stated it helped his symptoms some. I stressed the importance of the patient taking his medication as directed (either prescribed or as the over the counter packaging recommends). I stressed the importance of the patient following up with his primary care provider and a therapeutic sales specialist. I stressed the importance of the patient returning to the emergency department immediately if his symptoms were to worsen or if he were to develop any dizziness, shortness of breath, difficulty breathing, chest pain, blurry vision, loss of vision, nausea, vomiting, abdominal pain, fever, chills, back pain, or any other complaints. Patient verbalized agreement and understanding with this treatment plan and discharge. Differential Diagnosis Differential Diagnoses: The differential diagnosis associated with the p resentation includes Torticollis Neck pain Neck spasm Cervical strain Cervical sprain Admission/Observation Consideration of admission/observation: Escalation of care including admission/observation considered Patient would have been admitted to the hospital had his clinical presentation warranted hospital admission. Tests considered The following testing was considered but not selected: I considered obtaining a CT scan of the c-spine however, the patient's current clinical presentation does not warrant this. Prescription Management I considered prescription management with: Pain Medication (patient prescribed pain medication) Discharge Plan Discharge Clinical Impression: Acute torticollis Patient Disposition: Home, Self-Care Instructions: Neck Pain (ED) Additional Instructions: Apply heat to the affected area with a layer between the heat source and your skin. IF you are prescribed home medications and/or you are taking over the counter medications at home - it is very important you continue to do so as prescribed / directed unless told otherwise. Follow up with your primary care provider. Return to the emergency department immediately if your symptoms worsen or if you develop any numbness, tingling, dizziness, shortness of breath, difficulty breathing, chest pain, blurry vision, loss of vision, nausea, vomiting, abdominal pain, fever, chills, back pain, or any other complaints. Please see the information below about our Patient Portal. If you are not yet enrolled in the [facility] Patient Portal, you will receive an enrollment email invitation following your visit to any [facility] setting. You may also self-enroll in the Patient Portal by visiting our website: [email or web address] The following information is required to access the Patient Portal: - Your [facility] Medical Record Number - Your personal home email address (must match what is in your electronic medical record, Registration staff can assist with this) - Name - Date of Capabilities of the Patient Portal: - Message some providers - View upcoming appointments - Access your health summary, medical history, and visit history - View current conditions and allergies - View procedure and lab results - View your medications, including guidelines, side effects, and precautions - Complete pre-appointment questionnaires requested by your provider - Ready summary reports of your office visits and procedures To access the Patient Portal Mobile Caity, follow these directions: - Search XYverify in the Caity Store or Google WealthTouch Store - Download the Caity - Search for [facility] - Enter your login/password Prescriptions: New cyclobenzaprine 5 mg tablet 5 mg PO TID PRN (Reason: muscle spasm) 7 Days Qty: 21 0RF prednisone 20 mg tablet 20 mg PO DAILY 7 Days Qty: 7 0RF No Action omeprazole 20 mg capsule,delayed release(DR/EC) 20 mg PO DAILY Qty: 90 1RF ibuprofen 800 mg tablet 800 mg PO Q8H PRN (Reason: pain) Qty: 14 0RF (DME) AeroEclipse II Nebulizer [facility] See Rx Instructions .ROUTE .MEDSUPPLY Qty: 1 0RF Rx Instructions: As directed albuterol sulfate 0.63 mg/3 mL solution for nebulization 0.63 mg inhalation QID PRN (Reason: shortness of breath or wheezing) Qty: 90 0RF Xolair 150 mg/mL syringe 150 mg subcut QMONTH epinephrine 0.3 mg/0.3 mL auto-injector 0.3 mg IM ONCE PRN (Reason: Anaphylaxis) albuterol sulfate [Ventolin HFA] 90 mcg/actuation HFA aerosol inhaler inhalation fluticasone propionate 50 mcg/actuation spray,suspension intranasal budesonide-formoterol 160-4.5 mcg/actuation HFA aerosol inhaler inhalation nystatin 100,000 unit/gram powder 1 appl topical TID Qty: 30 5RF triamcinolone acetonide 0.1 % cream 1 appl topical BID PRN (Reason: rash on chest) Qty: 30 2RF ketoconazole 2 % shampoo 1 appl topical DAILY 3 Days Qty: 120 0RF epinephrine [EpiPen 2-Juan] 0.3 mg/0.3 mL auto-injector 0.3 mg IM Q10M PRN (Reason: anaphylaxis) 30 Days Qty: 2 6RF Rx Instructions: for 2 doses Referrals: [facility] [Provider Group, Neurosurgery] Referral Note: Call to establish and follow up with a therapeutic sales specialist. Erika Villareal PA [Primary Care Provider, Hospitalist] Stand Alone Forms: Work/School Release Interventions: ED Discharge Assessment Last Done: 05/14/25 15:10 Discharge Date/Time: 05/14/25 15:11 Print Language: Burmese
[2025-05-14 14:13] VITALS: BP 124/85; PULSE 90; RESP 16; O2SAT 95
[2025-05-14 15:10] VITALS: BP 124/85; PULSE 90; RESP 16; TEMP -17.7; TEMP 0; O2SAT 95
== END 2025-05-14 15:11 | disposition home or self-care (01) ==
PROVIDERS: Emergency Provider Emergency Medicine; PCP Physician Assistant
DX: M43.6 Torticollis (principal)
CPT/HCPCS: 96372; 99284; J2919

== ENCOUNTER → 2025-06-08 09:47 | Outpatient (AMB) | payer OTHER, SELFPAY ==
--- NOTE | 2025-06-08 10:15 | A.OFFVIS_ITS ---
Vital Signs 06/08/25 10:16 BP 130/80 Intake Visit Reasons: Dupixent Teaching Intake Note: Patient arrives today for dupixent teach with his . Educated on handwashing, injection preparation, administration and disposal. They were able to correctly demonstrate the process back to me. They have no questions at this time. Medication Dupixent 300mg/2mL prefilled syringes (patient's own meds) Loading dose of 600mg given by patient and his spouse in 2 SQ injections. #1 given by patient in the left abdomen #2 given by patient's spouse in the left posterior arm. Both prefilled syringes Lot # [id number] Exp 05/10/[address] [facility] [id number] 00. Gave patient written schedule for next injection in 15 days and then every 14 days. Nurse visit only. Emergency Management Specialist Required: No Accompanied by: Spouse Allergies hydrocodone (From VICODIN) Allergy (Severe, Verified 05/14/25 09:38) Swelling, Redness, Itching seafood Allergy (Severe, Verified 05/14/25 09:38) Swelling codeine (CODEINE) Allergy (Intermediate, Verified 05/14/25 09:38) ITCHY RASH vancomycin (VANCOMYCIN) Allergy (Intermediate, Verified 05/14/25 09:38) red man's syndrome (redness/swelling/itching) PFSH Medical History Chronic allergic rhinitis Eczema Allergies Hx MRSA infection History of COVID-19 Asthma Insomnia Anxiety (~03/30/25) Depression GERD (gastroesophageal reflux disease) Sleep apnea with use of continuous positive airway pressure (CPAP) FHx: cholecystectomy Asthma exacerbation Surgical History Hx of cholecystectomy Family History Mother Asthma Thyroid condition Father Asthma Brother Asthma Sister No problems noted. Sister No problems noted. Sister No problems noted. Sister No problems noted. Social History Housing: House Are you a primary health care recruiter to a significant other at home: No Do you presently have visiting nurse or other home services: No Alcohol intake: current Alcohol intake frequency: does not drink Patient Tobacco Use Status: Never used Tobacco service: No Current occupational status: employed Cognitive needs: No Hearing needs: No Vision needs: No Physical Exam Vital Signs: Last Vital Signs BP 130/80 06/08/25 10:16 Assessment & Plan Assessment & Plan (1) Asthma: Comment: controlled w/Symbicort inhaler Code(s): J45.909 - Unspecified asthma, uncomplicated Category: Medical Qualifiers: Asthma severity: severe Asthma persistence: persistent Asthma complication type: uncomplicated Qualified Code(s): J45.50 - Severe persistent asthma, uncomplicated Plan Dupixent Coding Level of Care Code Established Pt Est Pt Level 1 (22109) Patient Type Established Diagnoses Severe persistent asthma without complication J45.50 Asthma severity: severe Asthma persistence: persistent Asthma complication type: uncomplicated
[2025-06-08 10:16] VITALS: BP 130/80
--- OUTSIDE RECORDS SUMMARY | 2025-06-08 10:42 | XMS_ITS | Encounter Summary ---
Author Organization [facility] Address [address] [place] [phone] Phone Care Team Providers Care Script Writer Name Role Phone Alhaji Elizabeth MD Primary Care Provider [phone] Encounter Details Date Type Department Care Team (Late st Contact Info) Description 2011 Documentation EM Family Medicine [address] [place], [place] [phone] Family Medicine, Physician [address] [place] [address] Social History Tobacco Use Types Packs/Day Years [...] on filedocumented in this encounter Care Teams Script Writer Relationship Specialty Start Date End Date Alhaji Elizabeth MD [address] [place] [address] PCP - General 04/20/17 02/14/23 documented as of this encounter
--- OUTSIDE RECORDS SUMMARY | 2025-06-08 10:42 | XMS_ITS | Encounter Summary ---
Author Organization [facility] Address [address] [place] [address] Phone Care Team Providers Care Physician Office Assistant Name Role Phone Alhaji Elizabeth MD Primary Care Provider [phone] Encounter Details Date Type Department Care Team (Late st Contact Info) Description 02/14/2013 Documentation EM Family Medicine [address] [place], [place] [phone] Family Medicine, Physician [address] [place] [address] Social History Tobacco Use Types Packs/Day Years [...] on filedocumented in this encounter Care Teams Physician Office Assistant Relationship Specialty Start Date End Date Alhaji Elizabeth MD [address] [place] [address] PCP - General 04/20/17 02/14/23 documented as of this encounter
--- OUTSIDE RECORDS SUMMARY | 2025-06-08 10:42 | XMS_ITS | Encounter Summary ---
Author Organization [facility] Address [address] [place] [phone] Phone Care Team Providers Care Director Of Event Marketing Name Role Phone Alhaji Elizabeth MD Primary Care Provider [phone] Encounter Details Date Type Department Care Team (Late st Contact Info) Description 02/14/2013 Documentation EM Family Medicine [address] [place], [place] [phone] Family Medicine, Physician [address] [place] [address] Social History Tobacco Use Types Packs/Day Years [...] filedocumented in this encounter Care Teams Director Of Event Marketing Relationship Specialty Start Date End Date Alhaji Elizabeth MD [address] [place] [address] PCP - General 04/20/17 02/14/23 documented as of this encounter
--- OUTSIDE RECORDS SUMMARY | 2025-06-08 10:42 | XMS_ITS | Encounter Summary ---
Author Organization [facility] Address [address] [place] [address] Phone Care Team Providers Care Assembler Leather Goods Name Role Phone Alhaji Elizabeth MD Primary Care Provider [phone] Encounter Details Date Type Department Care Team (Late st Contact Info) Description 01/14/2013 Documentation EM Family Medicine [address] [place], [place] [phone] Family Medicine, Physician [address] [place] [address] Social History Tobacco Use Types Packs/Day Years [...] on filedocumented in this encounter Care Teams Assembler Leather Goods Relationship Specialty Start Date End Date Alhaji Elizabeth MD [address] [place] [address] PCP - General 04/20/17 02/14/23 documented as of this encounter
--- OUTSIDE RECORDS SUMMARY | 2025-06-08 10:42 | XMS_ITS | Encounter Summary ---
Author Organization [facility] Address [address] [place] [address] Phone Care Team Providers Care Mechanical Adjuster Name Role Phone Alhaji Elizabeth MD Primary Care Provider [phone] Encounter Details Date Type Department Care Team (Late st Contact Info) Description 01/14/2013 Documentation EM Family Medicine [address] [place], [place] [phone] Family Medicine, Physician [address] [place] [address] Social History Tobacco Use Types Packs/Day Years [...] on filedocumented in this encounter Care Teams Mechanical Adjuster Relationship Specialty Start Date End Date Alhaji Elizabeth MD [address] [place] [address] PCP - General 04/20/17 02/14/23 documented as of this encounter
--- OUTSIDE RECORDS SUMMARY | 2025-06-08 10:42 | XMS_ITS | Encounter Summary ---
Author Organization [facility] Address [address] [place] [address] Phone Care Team Providers Care Sole Blacker Name Role Phone Alhaji Elizabeth MD Primary Care Provider [phone] Encounter Details Date Type Department Care Team (Late st Contact Info) Description 04/11/2011 Documentation EM Family Medicine [address] [place], [place] [phone] Family Medicine, Physician [address] [place] [address] Social History Tobacco Use Types Packs/Day Years [...] on filedocumented in this encounter Care Teams Sole Blacker Relationship Specialty Start Date End Date Alhaji Elizabeth MD [address] [place] [address] PCP - General 04/20/17 02/14/23 documented as of this encounter
--- OUTSIDE RECORDS SUMMARY | 2025-06-08 10:42 | XMS_ITS | Encounter Summary ---
Author Organization [facility] Address [address] [place] [address] Phone Care Team Providers Care Surgery Scheduler Name Role Phone Alhaji Elizabeth MD Primary Care Provider [phone] Encounter Details Date Type Department Care Team (Late st Contact Info) Description 12/04/2011 Documentation EM Family Medicine [address] [place], [place] [phone] Family Medicine, Physician [address] [place] [address] Social History Tobacco Use Types Packs/Day Years [...] on filedocumented in this encounter Care Teams Surgery Scheduler Relationship Specialty Start Date End Date Alhaji Elizabeth MD [address] [place] [address] PCP - General 04/20/17 02/14/23 documented as of this encounter
--- OUTSIDE RECORDS SUMMARY | 2025-06-08 10:42 | XMS_ITS | Encounter Summary ---
Author Organization [facility] Address [address] [place] [address] Phone Care Team Providers Care Calciner Feeder Name Role Phone Alhaji Elizabeth MD Primary Care Provider [phone] Encounter Details Date Type Department Care Team (Late st Contact Info) Description 12/11/2012 Documentation EM Family Medicine [address] [place], [place] [phone] Family Medicine, Physician [address] [place] [address] Social History Tobacco Use Types Packs/Day Years [...] on filedocumented in this encounter Care Teams Calciner Feeder Relationship Specialty Start Date End Date Alhaji Elizabeth MD [address] [place] [address] PCP - General 04/20/17 02/14/23 documented as of this encounter
--- OUTSIDE RECORDS SUMMARY | 2025-06-08 10:42 | XMS_ITS | Encounter Summary ---
Author Organization [facility] Address [address] [place] [address] Phone Care Team Providers Care Fastener Sewing Machine Operator Name Role Phone Alhaji Elizabeth MD Primary Care Provider [phone] Encounter Details Date Type Department Care Team (Late st Contact Info) Description 01/14/2013 Documentation EM Family Medicine [address] [place], [place] [phone] Family Medicine, Physician [address] [place] [address] Social History Tobacco Use Types Packs/Day Years [...] on filedocumented in this encounter Care Teams Fastener Sewing Machine Operator Relationship Specialty Start Date End Date Alhaji Elizabeth MD [address] [place] [address] PCP - General 04/20/17 02/14/23 documented as of this encounter
--- OUTSIDE RECORDS SUMMARY | 2025-06-08 10:42 | XMS_ITS | Encounter Summary ---
Author Organization [facility] Address [address] [place] [address] Phone Care Team Providers Care Manager Cafe Name Role Phone Alhaji Elizabeth MD Primary Care Provider Encounter Details Date Type Department Care Team (Late st Contact Info) Description 12/13/2011 Documentation EM Family Medicine [address] [place], [place] [id number] Family Medicine, Physician [address] [place] [address] Social History Tobacco Use Types Packs/Day Years [...] on filedocumented in this encounter Care Teams Manager Cafe Relationship Specialty Start Date End Date Alhaji Elizabeth MD [address] [place] [address] PCP - General 04/20/17 02/14/23 documented as of this encounter
--- OUTSIDE RECORDS SUMMARY | 2025-06-08 10:43 | XMS_ITS | Clinical Summary ---
Author Organization [facility] Address [address] [place] [address] Phone Care Team Providers Care Finishing Technician Name Role Phone Unavailable Primary Care Provider [...] of Migraines, No family history of *Sudden /MS under 55, No family history of Deafness, [...]
--- OUTSIDE RECORDS SUMMARY | 2025-06-08 10:43 | XMS_ITS | Encounter Summary ---
Author Organization [facility] Address [address] [place] [address] Phone Care Team Providers Care Business Performance Advisor Name Role Phone Alhaji Elizabeth MD Primary Care Provider [phone] Encounter Details Date Type Department Care Team (Late st Contact Info) Description 10/01/2013 Documentation EM Family Medicine [address] [place], [place] [phone] Family Medicine, Physician [address] [place] [address] Social History Tobacco Use Types Packs/Day Years [...] on filedocumented in this encounter Care Teams Business Performance Advisor Relationship Specialty Start Date End Date Alhaji Elizabeth MD [address] [place] [address] PCP - General 04/20/17 02/14/23 documented as of this encounter
--- OUTSIDE RECORDS SUMMARY | 2025-06-08 10:43 | XMS_ITS | Encounter Summary ---
Author Organization [facility] Address [address] [place] [address] Phone Care Team Providers Care Sales Agent Financial Report Service Name Role Phone Alhaji Elizabeth MD Primary Care Provider [phone] Encounter Details Date Type Department Care Team (Late st Contact Info) Description 03/09/2014 Documentation EM Family Medicine [address] [place], [place] 1900993 Family Medicine, Physician [address] [place] [address] Social History Tobacco Use Types Packs/Day Years [...] on filedocumented in this encounter Care Teams Sales Agent Financial Report Service Relationship Specialty Start Date End Date Alhaji Elizabeth MD [address] [place] [address] PCP - General 04/20/17 02/14/23 documented as of this encounter
--- OUTSIDE RECORDS SUMMARY | 2025-06-08 10:43 | XMS_ITS | Encounter Summary ---
Author Organization [facility] Address [address] [place] [address] Phone Care Team Providers Care Concrete Mixer Operator Name Role Phone Alhaji Elizabeth MD Primary Care Provider [phone] Encounter Details Date Type Department Care Team (Late st Contact Info) Description 06/17/2013 Documentation EM Family Medicine [address] [place], [place] [phone] Family Medicine, Physician [address] [place] [address] Social History Tobacco Use Types Packs/Day Years [...] on filedocumented in this encounter Care Teams Concrete Mixer Operator Relationship Specialty Start Date End Date Alhaji Elizabeth MD [address] [place] [address] 365[address] PCP - General 04/20/17 02/14/23 documented as of this encounter
--- OUTSIDE RECORDS SUMMARY | 2025-06-08 10:43 | XMS_ITS | Encounter Summary ---
Author Organization [facility] Address [address] [place] [address] Phone Care Team Providers Care Dredge Pipe Operator Name Role Phone Alhaji Elizabeth MD Primary Care Provider [phone] Encounter Details Date Type Department Care Team (Late st Contact Info) Description 03/12/2013 Documentation EM Family Medicine [address] [place], [place] [phone] Family Medicine, Physician [address] [place] [address] Social History Tobacco Use Types Packs/Day Years [...] on filedocumented in this encounter Care Teams Dredge Pipe Operator Relationship Specialty Start Date End Date Alhaji Elizabeth MD [address] [place] [address] PCP - General 04/20/17 02/14/23 documented as of this encounter
--- OUTSIDE RECORDS SUMMARY | 2025-06-08 10:43 | XMS_ITS | Encounter Summary ---
Author Organization [facility] Address [address] [place] [address]702 Phone Care Team Providers Care Isolation Washer Name Role Phone Alhaji Elizabeth MD Primary Care Provider [phone] Encounter Details Date Type Department Care Team (Late st Contact Info) Description 02/26/2014 Documentation EM Family Medicine [address] [place], [place] 4349293 Family Medicine, Physician [address] [place] [address] Social History Tobacco Use Types Packs/Day Years [...] on filedocumented in this encounter Care Teams Isolation Washer Relationship Specialty Start Date End Date Alhaji Elizabeth MD [address] [place] [address] PCP - General 04/20/17 02/14/23 documented as of this encounter
--- OUTSIDE RECORDS SUMMARY | 2025-06-08 10:43 | XMS_ITS | Encounter Summary ---
Author Organization [facility] Address [address] [place] [address] Phone Care Team Providers Care Polarity Tester Name Role Phone Alhaji Elizabeth MD Primary Care Provider Encounter Details Date Type Department Care Team (Late st Contact Info) Description 04/26/2017 Conversion Encounter [facility] [address] [place] [address] Social History Tobacco Use Types Packs/Day Years [...] on filedocumented in this encounter Care Teams Polarity Tester Relationship Specialty Start Date End Date Alhaji Elizabeth MD [address] [place] [address] PCP - General 04/20/17 02/14/23 documented as of this encounter
--- OUTSIDE RECORDS SUMMARY | 2025-06-08 10:43 | XMS_ITS | Encounter Summary ---
Author Organization [facility] Address [address] [place] [address] Phone Care Team Providers Care French Translator Name Role Phone Alhaji Elizabeth MD Primary Care Provider [phone] Encounter Details Date Type Department Care Team (Late st Contact Info) Description 08/19/2014 Documentation EM Family Medicine [address] [place] [address] Family Medicine, Physician [address] [place], [place] 222911 Social History Tobacco Use Types Packs/Day Years [...] on filedocumented in this encounter Care Teams French Translator Relationship Specialty Start Date End Date Alhaji Elizabeth MD [address] [place] [address] [place] [address] PCP - General 04/20/17 02/14/23 documented as of this encounter
--- OUTSIDE RECORDS SUMMARY | 2025-06-08 10:43 | XMS_ITS | Encounter Summary ---
Author Organization [facility] Address [address] [place] [address] Phone Care Team Providers Care Highway Truck Driver Name Role Phone Alhaji Elizabeth MD Primary Care Provider [phone] Encounter Details Date Type Department Care Team (Late st Contact Info) Description 01/28/2010 Documentation EM Family Medicine [address] [place], [place] [phone] Family Medicine, Physician [address] [place] [address] Social History Tobacco Use Types Packs/Day Years [...] on filedocumented in this encounter Care Teams Highway Truck Driver Relationship Specialty Start Date End Date Alhaji Elizabeth MD [address] [place] [address] PCP - General 04/20/17 02/14/23 documented as of this encounter
--- OUTSIDE RECORDS SUMMARY | 2025-06-08 10:43 | XMS_ITS | Encounter Summary ---
Author Organization [facility] Address [address] [place] [address] Phone Care Team Providers Care Zig Zag Stitcher Name Role Phone Alhaji Elizabeth MD Primary Care Provider [phone] Encounter Details Date Type Department Care Team (Late st Contact Info) Description 11/17/2010 Documentation EM Family Medicine [address] [place], [place] 8774293 Family Medicine, Physician [address] [place] [address] Social History Tobacco Use Types Packs/Day Years [...] on filedocumented in this encounter Care Teams Zig Zag Stitcher Relationship Specialty Start Date End Date Alhaji Elizabeth MD [address] [place] [address] PCP - General 04/20/17 02/14/23 documented as of this encounter
== END ==
LOC: HO.HPS 09:47
PROVIDERS: PCP Physician Assistant; Visit Provider Hospitalist
DX: J45.50 Severe persistent asthma, uncomplicated (principal)

== ENCOUNTER → 2025-06-08 09:47 | Outpatient (BNVA) | payer OTHER, SELFPAY | PROVIDERS: PCP Physician Assistant; Visit Provider Hospitalist | DX: J45.50 Severe persistent asthma, uncomplicated (principal) | CPT/HCPCS: 99211 ==

== ENCOUNTER 2025-06-12 09:25 | Outpatient (REF) | payer OTHER, SELFPAY ==
--- NOTE | 2025-06-12 09:29 | PFT_ITS ---
Indication asthma Spirometry FEV1 to FVC 72%; FEV1 3.07 L; FVC 4.25 L. No significant response to bronchodilators noted. FEF % predicted Lung Volumes Total lung capacity 86% predicted; expiratory reserve volume 12% predicted Diffusion Capacity DLCO 94% predicted Comparisons None Interpretation There is a suspected obstructive ventilatory defect consistent with uncontrolled asthma. The patient does have a concavity to the expiratory limb suggestive of the obstructive physiology in the low FEV1 to FVC ratio. No significant response to bronchodilators noted. The patient also has small airways disease also consistent with a diagnosis of asthma. Lung volumes are low normal and a decrease in the expiratory reserve volume secondary to an elevated BMI. Diffusing capacity is within normal limits. Clinical correlation warranted. MTDD
[2025-06-12 10:07] VITALS: PULSE 83; O2SAT 98
--- OUTSIDE RECORDS SUMMARY | 2025-06-12 10:09 | XMS_ITS | Encounter Summary ---
Author Organization [facility] Address [address] [place] [address] Phone Care Team Providers Care Gas Substation Operator Name Role Phone Alhaji Elizabeth MD Primary Care Provider [phone] Encounter Details Date Type Department Care Team (Late st Contact Info) Description 01/14/2013 Documentation EM Family Medicine [address] [place], [place] [phone] Family Medicine, Physician [address] [place] [address] Social History Tobacco Use Types Packs/Day Years [...] on filedocumented in this encounter Care Teams Gas Substation Operator Relationship Specialty Start Date End Date Alhaji Elizabeth MD [address] [place] [address] PCP - General 04/20/17 02/14/23 documented as of this encounter
--- OUTSIDE RECORDS SUMMARY | 2025-06-12 10:09 | XMS_ITS | Encounter Summary ---
Author Organization [facility] Address [address] [place] [address] Phone Care Team Providers Care Train Attendant Name Role Phone Alhaji Elizabeth MD Primary Care Provider [phone] Encounter Details Date Type Department Care Team (Late st Contact Info) Description 2011 Documentation EM Family Medicine [address] [place], [place] 7921693 Family Medicine, Physician [address] [place] [address] Social History Tobacco Use Types Packs/Day Years [...] on filedocumented in this encounter Care Teams Train Attendant Relationship Specialty Start Date End Date Alhaji Elizabeth MD [address] [place] [address] PCP - General 04/20/17 02/14/23 documented as of this encounter
--- OUTSIDE RECORDS SUMMARY | 2025-06-12 10:09 | XMS_ITS | Encounter Summary ---
Author Organization [facility] Address [address] [place] [address] Phone Care Team Providers Care B2B Appointment Setter Name Role Phone Alhaji Elizabeth MD Primary Care Provider [phone] Encounter Details Date Type Department Care Team (Late st Contact Info) Description 01/14/2013 Documentation EM Family Medicine [address] [place], [place] 6882893 Family Medicine, Physician [address] [place] [address] Social History Tobacco Use Types Packs/Day Years [...] on filedocumented in this encounter Care Teams B2B Appointment Setter Relationship Specialty Start Date End Date Alhaji Elizabeth MD [address] [place] [address] PCP - General 04/20/17 02/14/23 documented as of this encounter
--- OUTSIDE RECORDS SUMMARY | 2025-06-12 10:09 | XMS_ITS | Encounter Summary ---
Author Organization [facility] Address [address] [place] [address] Phone Care Team Providers Care Aws Consultant Name Role Phone Alhaji Elizabeth MD Primary Care Provider [phone] Encounter Details Date Type Department Care Team (Late st Contact Info) Description 03/12/2013 Documentation EM Family Medicine [address] [place], [place] [phone] Family Medicine, Physician [address] [place] [address] Social History Tobacco Use Types Packs/Day Years [...] on filedocumented in this encounter Care Teams Aws Consultant Relationship Specialty Start Date End Date Alhaji Elizabeth MD [address] [place] [address] PCP - General 04/20/17 02/14/23 documented as of this encounter
--- OUTSIDE RECORDS SUMMARY | 2025-06-12 10:09 | XMS_ITS | Encounter Summary ---
Author Organization [facility] Address [address] [place] [address] Phone Care Team Providers Care Chili Powder Mixer Name Role Phone Alhaji Elizabeth MD Primary Care Provider [phone] Encounter Details Date Type Department Care Team (Late st Contact Info) Description 02/14/2013 Documentation EM Family Medicine [address] [place], [place] 3182493 Family Medicine, Physician [address] [place] [address] Social History Tobacco Use Types Packs/Day Years [...] on filedocumented in this encounter Care Teams Chili Powder Mixer Relationship Specialty Start Date End Date Alhaji Elizabeth MD [address] [place] [address] PCP - General 04/20/17 02/14/23 documented as of this encounter
--- OUTSIDE RECORDS SUMMARY | 2025-06-12 10:09 | XMS_ITS | Encounter Summary ---
Author Organization [facility] Address [address] [place] [address] Phone Care Team Providers Care Glass Cylinder Flanger Name Role Phone Alhaji Elizabeth MD Primary Care Provider [phone] Encounter Details Date Type Department Care Team (Late st Contact Info) Description 10/01/2013 Documentation EM Family Medicine [address] [place], [place] [phone] Family Medicine, Physician [address] [place] [address] Social History Tobacco Use Types Packs/Day Years [...] on filedocumented in this encounter Care Teams Glass Cylinder Flanger Relationship Specialty Start Date End Date Alhaji Elizabeth MD [address] [place] [address] PCP - General 04/20/17 02/14/23 documented as of this encounter
--- OUTSIDE RECORDS SUMMARY | 2025-06-12 10:09 | XMS_ITS | Encounter Summary ---
Author Organization [facility] Address [address] [place] [address] Phone Care Team Providers Care Parts Product Analyst Name Role Phone Alhaji Elizabeth MD Primary Care Provider Encounter Details Date Type Department Care Team (Late st Contact Info) Description 01/14/2013 Documentation EM Family Medicine [address] [place], [place] [phone] Family Medicine, Physician [address] [place] [address] Social History Tobacco Use Types Packs/Day Years [...] on filedocumented in this encounter Care Teams Parts Product Analyst Relationship Specialty Start Date End Date Alhaji Elizabeth MD [address] [place] [address] PCP - General 04/20/17 02/14/23 documented as of this encounter
--- OUTSIDE RECORDS SUMMARY | 2025-06-12 10:09 | XMS_ITS | Encounter Summary ---
Author Organization [facility] Address [address] [place] [address] Phone Care Team Providers Care Motor Grader Operator Name Role Phone Alhaji Elizabeth MD Primary Care Provider [phone] Encounter Details Date Type Department Care Team (Late st Contact Info) Description 04/11/2011 Documentation EM Family Medicine [address] [place], [place] 6980593 Family Medicine, Physician [address] [place] [address] Social History Tobacco Use Types Packs/Day Years [...] filedocumented in this encounter Care Teams Motor Grader Operator Relationship Specialty Start Date End Date Alhaji Elizabeth MD [address] [place] [address] PCP - General 04/20/17 02/14/23 documented as of this encounter
--- OUTSIDE RECORDS SUMMARY | 2025-06-12 10:09 | XMS_ITS | Encounter Summary ---
Author Organization [facility] Address [address] [place] [address] Phone Care Team Providers Care Family Physician Name Role Phone Alhaji Elizabeth MD Primary Care Provider [phone] Encounter Details Date Type Department Care Team (Late st Contact Info) Description 03/09/2014 Documentation EM Family Medicine [address] [place], [place] 7199793 Family Medicine, Physician [address] [place] [address] Social History Tobacco Use Types Packs/Day Years [...] on filedocumented in this encounter Care Teams Family Physician Relationship Specialty Start Date End Date Alhaji Elizabeth MD [address] [place] [address] PCP - General 04/20/17 02/14/23 documented as of this encounter
--- OUTSIDE RECORDS SUMMARY | 2025-06-12 10:09 | XMS_ITS | Encounter Summary ---
Author Organization [facility] Address [address] [place] [address] Phone Care Team Providers Care Dredge Pumper Name Role Phone Alhaji Elizabeth MD Primary Care Provider [phone] Encounter Details Date Type Department Care Team (Late st Contact Info) Description 02/26/2014 Documentation EM Family Medicine [address] [place], [place] 2767193 Family Medicine, Physician [address] [place] [address] Social History Tobacco Use Types Packs/Day Years [...] filedocumented in this encounter Care Teams Dredge Pumper Relationship Specialty Start Date End Date Alhaji Elizabeth MD [address] [place] [address] PCP - General 04/20/17 02/14/23 documented as of this encounter
--- OUTSIDE RECORDS SUMMARY | 2025-06-12 10:09 | XMS_ITS | Encounter Summary ---
Author Organization [facility] Address [address] [place] [address]648 Phone Care Team Providers Care Manager Installation Name Role Phone Alhaji Elizabeth MD Primary Care Provider [phone] Encounter Details Date Type Department Care Team (Late st Contact Info) Description 08/19/2014 Documentation EM Family Medicine [address] [place] [address] Family Medicine, Physician [address] [place], [place] 668941 Social History Tobacco Use Types Packs/Day Years [...] filedocumented in this encounter Care Teams Manager Installation Relationship Specialty Start Date End Date Alhaji Elizabeth MD [address] [place] [address] PCP - General 04/20/17 02/14/23 documented as of this encounter
--- OUTSIDE RECORDS SUMMARY | 2025-06-12 10:09 | XMS_ITS | Encounter Summary ---
Author Organization [facility] Address [address] [place] [address] Phone Care Team Providers Care Middleware Systems Architect Name Role Phone Alhaji Elizabeth MD Primary Care Provider [phone] Encounter Details Date Type Department Care Team (Late st Contact Info) Description 12/13/2011 Documentation EM Family Medicine [address] [place], [place] 0402393 Family Medicine, Physician [address] [place] [address] Social History Tobacco Use Types Packs/Day Years [...] on filedocumented in this encounter Care Teams Middleware Systems Architect Relationship Specialty Start Date End Date Alhaji Elizabeth MD [address] [place] [address] PCP - General 04/20/17 02/14/23 documented as of this encounter
--- OUTSIDE RECORDS SUMMARY | 2025-06-12 10:09 | XMS_ITS | Encounter Summary ---
Author Organization [facility] Address [address] [place] [address] Phone Care Team Providers Care Sales Representative Graphic Art Name Role Phone Alhaji Elizabeth MD Primary Care Provider [phone] Encounter Details Date Type Department Care Team (Late st Contact Info) Description 02/14/2013 Documentation EM Family Medicine [address] [place], [place] 5314893 Family Medicine, Physician [address] [place] [address] Social History Tobacco Use Types Packs/Day Years [...] filedocumented in this encounter Care Teams Sales Representative Graphic Art Relationship Specialty Start Date End Date Alhaji Elizabeth MD [address] [place] [address] PCP - General 04/20/17 02/14/23 documented as of this encounter
--- OUTSIDE RECORDS SUMMARY | 2025-06-12 10:09 | XMS_ITS | Encounter Summary ---
Author Organization [facility] Address [address] [place] [address] Phone Care Team Providers Care Overage Shortage And Damage Clerk Name Role Phone Alhaji Elizabeth MD Primary Care Provider [phone] Encounter Details Date Type Department Care Team (Late st Contact Info) Description 06/17/2013 Documentation EM Family Medicine [address] [place], [place] 5097893 Family Medicine, Physician [address] [place] [address] Social History Tobacco Use Types Packs/Day Years [...] on filedocumented in this encounter Care Teams Overage Shortage And Damage Clerk Relationship Specialty Start Date End Date Alhaji Elizabeth MD [address] [place] [address] PCP - General 04/20/17 02/14/23 documented as of this encounter
--- OUTSIDE RECORDS SUMMARY | 2025-06-12 10:09 | XMS_ITS | Encounter Summary ---
Author Organization [facility] Address [address] [place] [address] Phone Care Team Providers Care Home Hospice Aide Name Role Phone Alhaji Elizabeth MD Primary Care Provider [phone] Encounter Details Date Type Department Care Team (Late st Contact Info) Description 12/04/2011 Documentation EM Family Medicine [address] [place], [place] 8309093 Family Medicine, Physician [address] [place] [address] Social History Tobacco Use Types Packs/Day Years [...] on filedocumented in this encounter Care Teams Home Hospice Aide Relationship Specialty Start Date End Date Alhaji Elizabeth MD [address] [place] [address] PCP - General 04/20/17 02/14/23 documented as of this encounter
--- OUTSIDE RECORDS SUMMARY | 2025-06-12 10:09 | XMS_ITS | Encounter Summary ---
Author Organization [facility] Address [address] [place] [address] Phone Care Team Providers Care Chemical Operations And Training Name Role Phone Alhaji Elizabeth MD Primary Care Provider [phone] Encounter Details Date Type Department Care Team (Late st Contact Info) Description 04/26/2017 Conversion Encounter [facility] [address] [place] [address] Social History Tobacco Use Types Packs/Day Years [...] on filedocumented in this encounter Care Teams Chemical Operations And Training Relationship Specialty Start Date End Date Alhaji Elizabeth MD [address] [place] [address] PCP - General 04/20/17 02/14/23 documented as of this encounter
--- OUTSIDE RECORDS SUMMARY | 2025-06-12 10:09 | XMS_ITS | Encounter Summary ---
Author Organization [facility] Address [address] [place] [address] Phone Care Team Providers Care Tank Farm Attendant Name Role Phone Alhaji Elizabeth MD Primary Care Provider [phone] Encounter Details Date Type Department Care Team (Late st Contact Info) Description 12/11/2012 Documentation EM Family Medicine [address] [place], [place] [id number] Family Medicine, Physician [address] [place] [address] Social History Tobacco Use Types Packs/Day Years [...] on filedocumented in this encounter Care Teams Tank Farm Attendant Relationship Specialty Start Date End Date Alhaji Elizabeth MD [address] [place] [address] PCP - General 04/20/17 02/14/23 documented as of this encounter
--- OUTSIDE RECORDS SUMMARY | 2025-06-12 10:10 | XMS_ITS | Encounter Summary ---
Author Organization [facility] Address [address] [place] [address] Phone Care Team Providers Care Certified Veterinary Technician Name Role Phone Alhaji Elizabeth MD Primary Care Provider [phone] Encounter Details Date Type Department Care Team (Late st Contact Info) Description 01/28/2010 Documentation EM Family Medicine [address] [place], [place] [phone] Family Medicine, Physician [address] [place] [address] Social History Tobacco Use Types Packs/Day Years [...] on filedocumented in this encounter Care Teams Certified Veterinary Technician Relationship Specialty Start Date End Date Alhaji Elizabeth MD [address] [place] [address] PCP - General 04/20/17 02/14/23 documented as of this encounter
--- OUTSIDE RECORDS SUMMARY | 2025-06-12 10:10 | XMS_ITS | Clinical Summary ---
Author Organization [facility] Address [address] [place] [address] Phone Care Team Providers Care Trolley Car Operator Name Role Phone Unavailable Primary Care [...] of Migraines, No family history of *Sudden /[place] under 55, No family history of Deafness, [...]
--- OUTSIDE RECORDS SUMMARY | 2025-06-12 10:10 | XMS_ITS | Encounter Summary ---
Author Organization [facility] Address [address] [place] [address] Phone Care Team Providers Care Cherry Picker Operator Name Role Phone Alhaji Elizabeth MD Primary Care Provider [phone] Encounter Details Date Type Department Care Team (Late st Contact Info) Description 11/17/2010 Documentation EM Family Medicine [address] [place], [place] [phone] Family Medicine, Physician [address] [place] [address] Social History Tobacco Use Types Packs/Day Years [...] on filedocumented in this encounter Care Teams Cherry Picker Operator Relationship Specialty Start Date End Date Alhaji Elizabeth MD [address] [place] [address] PCP - General 04/20/17 02/14/23 documented as of this encounter
== END 2025-06-12 09:26 | disposition home or self-care (01) ==
LOC: HO.RESP 09:25
PROVIDERS: PCP Physician Assistant; Visit Provider Hospitalist
DX: J45.50 Severe persistent asthma, uncomplicated (principal)
CPT/HCPCS: 94010; 94640; 94727; 94729

== ENCOUNTER → 2025-06-12 09:29 | Outpatient (BNV) | payer OTHER, SELFPAY | PROVIDERS: PCP Physician Assistant; Visit Provider Hospitalist | DX: J45.50 Severe persistent asthma, uncomplicated (principal) | CPT/HCPCS: 94060; 94727; 94729 ==

== ENCOUNTER 2025-07-03 10:10 | Outpatient (AMB) | payer OTHER, SELFPAY ==
--- NOTE | 2025-07-03 10:15 | A.OFFVIS_ITS ---
Vital Signs 07/03/25 10:17 Height 5 ft 6 in Weight 255 lb 11.779 oz BMI 41.3 BP 128/74 Blood Pressure Location Lt brachial Position Sitting Pulse 85 Pulse Source Pulse Oximeter Pulse Oximetry (%) 97 Oxygen Delivery Method Room Air Intake Visit Reasons: Asthma Concrete Laborer Required: No Accompanied by: Self / Same As Patient Allergies hydrocodone (From VICODIN) Allergy (Severe, Verified 07/03/25 10:18) Swelling, Redness, Itching seafood Allergy (Severe, Verified 07/03/25 10:18) Swelling codeine (CODEINE) Allergy (Intermediate, Verified 07/03/25 10:18) ITCHY RASH vancomycin (VANCOMYCIN) Allergy (Intermediate, Verified 07/03/25 10:18) red man's syndrome (redness/swelling/itching) HPI Comments Details: The patient is a 34-year-old gentleman with known history of severe persistent asthma. He has been treated by pediatric Pulmonary for many years. Now, he is having to establish his care elsewhere. The patient does have had increased asthma symptoms. He has been on Symbicort. He has also been on Xolair that he has take from for many years with good response. He does have a history allergy testing in the past he states that he was allergic to ?everything?. In addition to that the patient does have exacerbations. The last time though that he had to use prednisone was about a year ago. He has had multiple hospitalizations here at [facility]. We did look at imaging. He did have a chest x- ray without any acute disease then this year 2024. He also had a CT scan of the abdomen from 2022 with lung cuts with some atelectasis at the bases. In addition to this the patient has a history of sleep apnea. He does get supplies from [employer]. He does use a fullface mask. Will go ahead and request her supplies and will bring the machine in the next visit. Will also try to get air view access if he has it available. His sleep study was from 2021 demonstrating moderate degree of sleep apnea with significant hypoxia. At this point the patient is going to undergo blood work in order to see which biologic he should continue she should continue Xolair or if he should be switched over to Dupixent. He does have significant atopic dermatitis and eczema behind the ears. And also has severe persistent asthma with evidence of eosinophilia on previous CBC with differential. Therefore Dupixent may be a better option. 07/03/2025 the patient is here for a pulmonary follow-up visit. Overall he is doing okay. He has started the Dupixent. Seems to be tolerating it. Helping the asthma. Although he has noted a rash. He was not sure if his eczema. Although I do believe he has a tinea rash. I will send him antifungal medicine for the rashes if it gets better. The patient also has been using his Symbicort. Seems to be helpful although he still complains of shortness of breath at times. Still having to use his rescue inhaler a couple times a week. Will go ahead and transition him to Breztri for broader bronchodilation effect. In the meantime he continues uses CPAP. CPAP therapy has been affecting beneficial and he does use a fullface mask. A try to get access to his CPAP through [facility] but I do not believe that has a access. Therefore will have to get a download. Will have him bring it into the next visit in 4 months. If he has any issues prior to this she can always call for an earlier assessment. If his rash gets worse he can always call in order to figure out what to do with the Dupixent. [facility] Medical History Chronic allergic rhinitis Eczema Allergies Hx MRSA infection History of COVID-19 Asthma Insomnia Anxiety (~03/30/25) Depression GERD (gastroesophageal reflux disease) Sleep apnea with use of continuous positive airway pressure (CPAP) FHx: cholecystectomy Asthma exacerbation Surgical History Hx of cholecystectomy Family History Mother Asthma Thyroid condition Father Asthma Brother Asthma Sister No problems noted. Sister No problems noted. Sister No problems noted. Sister No problems noted. Social History Housing: House Are you a primary childcare administrator to a significant other at home: No Do you presently have visiting nurse or other home services: No Alcohol intake: current Alcohol intake frequency: does not drink Patient Tobacco Use Status: Never used Tobacco service: No Current occupational status: employed Cognitive needs: No Hearing needs: No Vision needs: No Review of Systems Const Denies fever(s) Eyes Reports no additional complaints ENT Reports nasal congestion and Reports nasal discharge Card Denies chest pain Resp Reports cough and Reports wheezing GI Reports no additional complaints Musc Reports no additional complaints Skin/Breast Reports rash Endo Reports no additional complaints Kevin/Lymph Reports no additional complaints Aller/Immun Reports wheezing Physical Exam Vital Signs: Last Vital Signs Pulse 85 07/03/25 10:17 BP 128/74 07/03/25 10:17 Pulse Ox 97 07/03/25 10:17 Oxygen Delivery Method Room Air 07/03/25 10:17 BMI result Body Mass Index 41.3 Const General: comfortable HEENT Head: Yes normocephalic Neck Neck: Yes supple Chest Chest palpation & inspection: normal inspection of the chest Resp Effort & Inspection: normal respiratory effort and prolonged expiratory phase Auscultation: diminished lung sounds Cardio Heart sounds: S1 normal heart sound present and S2 normal heart sound present GI Palpation (GI): Soft to palpation Skin Rashes: rashes noted bilateral ear borders, distribution and surface dry and erythematous Assessment & Plan Assessment & Plan (1) Asthma: Comment: controlled w/Symbicort inhaler Code(s): J45.909 - Unspecified asthma, uncomplicated Category: Medical Qualifiers: Asthma complication type: uncomplicated Asthma persistence: persistent Asthma severity: severe Qualified Code(s): J45.50 - Severe persistent asthma, uncomplicated (2) Allergies: Code(s): T78.40XA - Allergy, unspecified, initial encounter Category: Medical Qualifiers: Encounter type: initial encounter Qualified Code(s): T78.40XA - Allergy, unspecified, initial encounter (3) Eczema: Code(s): L30.9 - Dermatitis, unspecified Category: Medical Qualifiers: Eczema type: unspecified Qualified Code(s): L30.9 - Dermatitis, unspecified (4) Chronic allergic rhinitis: Code(s): J30.9 - Allergic rhinitis, unspecified Category: Medical (5) DIMITRIS (obstructive sleep apnea): Code(s): G47.33 - Obstructive sleep apnea (adult) (pediatric) Category: Medical Plan continue Symbicort TYLER as needed Singulair Bloodwork and allergy testing Continue Dupixent, monitor rash (likely tinea) epipen continue APAP, will bring it in for the next visit antifungal cream F/U 3-4 months Medications: New naftifine 2% 1 appl topical BEDTIME 45 grams 4RF 30 days kxrcznwgda-hhnotljk-sxhzajmegs 160-9-4.8 mcg/actuation (Breztri Aerosphere) 2 inhalations inhalation BID 10.7 grams 0RF 30 days Coding Level of Care Code Est Pt Level 4 (53180) Diagnoses Severe persistent asthma without complication J45.50 Asthma complication type: uncomplicated Asthma persistence: persistent Asthma severity: severe Allergy, initial encounter T78.40XA Encounter type: initial encounter Eczema, unspecified type L30.9 Eczema type: unspecified Chronic allergic rhinitis J30.9 DIMITRIS (obstructive sleep apnea) G47.33 Time Spent (min) 17
[2025-07-03 10:17] VITALS: BP 128/74; PULSE 85; O2SAT 97; BMI 41.3
--- OUTSIDE RECORDS SUMMARY | 2025-07-03 11:33 | XMS_ITS | Clinical Summary ---
Author Organization [facility] Address [address] [place] [address] Phone Care Team Providers Care Energy Efficiency Finance Manager Name Role Phone Unavailable Primary Care Provider [...] of Migraines, No family history of *Sudden /[place] under 55, No family history of Deafness, [...]
--- OUTSIDE RECORDS SUMMARY | 2025-07-03 11:33 | XMS_ITS | Encounter Summary ---
Author Organization [facility] Address [address] [place] [address] Phone Care Team Providers Care Business Development Manager Name Role Phone Alhaji Elizabeth MD Primary Care Provider [phone] Encounter Details Date Type Department Care Team (Late st Contact Info) Description 10/01/2013 Documentation EM Family Medicine [address] [place], [place] [phone] Family Medicine, Physician [address] [place] [address] Social History Tobacco Use Types Packs/Day Years [...] filedocumented in this encounter Care Teams Business Development Manager Relationship Specialty Start Date End Date Alhaji Elizabeth MD [address] [place] [address] PCP - General 04/20/17 02/14/23 documented as of this encounter
--- OUTSIDE RECORDS SUMMARY | 2025-07-03 11:33 | XMS_ITS | Encounter Summary ---
Author Organization [facility] Address [address] [place] [address] Phone Care Team Providers Care Practice Advisor Name Role Phone Alhaji Elizabeth MD Primary Care Provider [phone] Encounter Details Date Type Department Care Team (Late st Contact Info) Description 01/14/2013 Documentation EM Family Medicine [address] [place], [place] [phone] Family Medicine, Physician [address] [place] [address] Social History Tobacco Use Types Packs/Day Years [...] on filedocumented in this encounter Care Teams Practice Advisor Relationship Specialty Start Date End Date Alhaji Elizabeth MD [address] [place] [address] 269[address] PCP - General 04/20/17 02/14/23 documented as of this encounter
--- OUTSIDE RECORDS SUMMARY | 2025-07-03 11:33 | XMS_ITS | Encounter Summary ---
Author Organization [facility] Address [address] [place] [address] Phone Care Team Providers Care Arts Administrator Or Manager Name Role Phone Alhaji Elizabeth MD Primary Care Provider [phone] Encounter Details Date Type Department Care Team (Late st Contact Info) Description 03/09/2014 Documentation EM Family Medicine [address] [place], [place] [phone] Family Medicine, Physician [address] [place] [address] Social History Tobacco Use Types Packs/Day Years [...] on filedocumented in this encounter Care Teams Arts Administrator Or Manager Relationship Specialty Start Date End Date Alhaji Elizabeth MD [address] [place] [address] PCP - General 04/20/17 02/14/23 documented as of this encounter
--- OUTSIDE RECORDS SUMMARY | 2025-07-03 11:33 | XMS_ITS | Encounter Summary ---
Author Organization [facility] Address [address] [place] [address] 95995 Phone Care Team Providers Care Behaviour Support Teacher Name Role Phone Alhaji Elizabeth MD Primary Care Provider [phone] Encounter Details Date Type Department Care Team (Late st Contact Info) Description 08/19/2014 Documentation EM Family Medicine [address] [place] [address] Family Medicine, Physician [address] [place], [place] 316751 Social History Tobacco Use Types Packs/Day Years [...] on filedocumented in this encounter Care Teams Behaviour Support Teacher Relationship Specialty Start Date End Date Alhaji Elizabeth MD [address] [place] [address] PCP - General 04/20/17 02/14/23 documented as of this encounter
--- OUTSIDE RECORDS SUMMARY | 2025-07-03 11:33 | XMS_ITS | Encounter Summary ---
Author Organization [facility] Address [address] [place] [address] Phone Care Team Providers Care Lawyer Criminal Name Role Phone Alhaji Elizabeth MD Primary Care Provider Encounter Details Date Type Department Care Team (Late st Contact Info) Description 12/13/2011 Documentation EM Family Medicine [address] [place], [place] [phone] Family Medicine, Physician [address] [place] [address] Social History Tobacco Use Types Packs/Day Years [...] on filedocumented in this encounter Care Teams Lawyer Criminal Relationship Specialty Start Date End Date Alhaji Elizabeth MD [address] [place] [address] 9[address] PCP - General 04/20/17 02/14/23 documented as of this encounter
--- OUTSIDE RECORDS SUMMARY | 2025-07-03 11:33 | XMS_ITS | Encounter Summary ---
Author Organization [facility] Address [address] [place] [address] Phone Care Team Providers Care Chiropractor Assistant Name Role Phone Alhaji Elizabeth MD Primary Care Provider [phone] Encounter Details Date Type Department Care Team (Late st Contact Info) Description 01/14/2013 Documentation EM Family Medicine [address] [place], [place] 0535693 Family Medicine, Physician [address] [place] [address] Social History Tobacco Use Types Packs/Day Years [...] on filedocumented in this encounter Care Teams Chiropractor Assistant Relationship Specialty Start Date End Date Alhaji Elizabeth MD [address] [place] [address] PCP - General 04/20/17 02/14/23 documented as of this encounter
--- OUTSIDE RECORDS SUMMARY | 2025-07-03 11:33 | XMS_ITS | Encounter Summary ---
Author Organization [facility] Address [address] [place] [address] Phone Care Team Providers Care Plant Breeder Name Role Phone Alhaji Elizabeth MD Primary Care Provider [phone] Encounter Details Date Type Department Care Team (Late st Contact Info) Description 12/11/2012 Documentation EM Family Medicine [address] [place], [place] 1448193 Family Medicine, Physician [address] [place] [address] Social History Tobacco Use Types Packs/Day Years [...] on filedocumented in this encounter Care Teams Plant Breeder Relationship Specialty Start Date End Date Alhaji Elizabeth MD [address] [place] [address] PCP - General 04/20/17 02/14/23 documented as of this encounter
--- OUTSIDE RECORDS SUMMARY | 2025-07-03 11:33 | XMS_ITS | Encounter Summary ---
Author Organization [facility] Address [address] [place] [address] Phone Care Team Providers Care In Store Banker Name Role Phone Alhaji Elizabeth MD Primary Care Provider Encounter Details Date Type Department Care Team (Late st Contact Info) Description 02/14/2013 Documentation EM Family Medicine [address] [place], [place] [phone] Family Medicine, Physician [address] [place] [address] Social History Tobacco Use Types Packs/Day Years [...] on filedocumented in this encounter Care Teams In Store Banker Relationship Specialty Start Date End Date Alhaji Elizabeth MD [address] [place] [address] PCP - General 04/20/17 02/14/23 documented as of this encounter
--- OUTSIDE RECORDS SUMMARY | 2025-07-03 11:33 | XMS_ITS | Encounter Summary ---
Author Organization [facility] Address [address] [place] [address] Phone Care Team Providers Care Agricultural Agent Name Role Phone Alhaji Elizabeth MD Primary Care Provider [phone] Encounter Details Date Type Department Care Team (Late st Contact Info) Description 03/12/2013 Documentation EM Family Medicine [address] [place], [place] [phone] Family Medicine, Physician [address] [place] [address] Social History Tobacco Use Types Packs/Day Years [...] on filedocumented in this encounter Care Teams Agricultural Agent Relationship Specialty Start Date End Date Alhaji Elizabeth MD [address] [place] [address] PCP - General 04/20/17 02/14/23 documented as of this encounter
--- OUTSIDE RECORDS SUMMARY | 2025-07-03 11:33 | XMS_ITS | Encounter Summary ---
Author Organization [facility] Address [address] [place] [address] Phone Care Team Providers Care Student Services Vice President Name Role Phone Alhaji Elizabeth MD Primary Care Provider [phone] Encounter Details Date Type Department Care Team (Late st Contact Info) Description 02/26/2014 Documentation EM Family Medicine [address] [place], [place] [phone] Family Medicine, Physician [address] [place] [address] Social History Tobacco Use Types Packs/Day Years [...] on filedocumented in this encounter Care Teams Student Services Vice President Relationship Specialty Start Date End Date Alhaji Elizabeth MD [address] [place] [address] PCP - General 04/20/17 02/14/23 documented as of this encounter
--- OUTSIDE RECORDS SUMMARY | 2025-07-03 11:33 | XMS_ITS | Encounter Summary ---
Author Organization [facility] Address [address] [place] [address] Phone Care Team Providers Care Refrigeration Installer Name Role Phone Alhaji Elizabeth MD Primary Care Provider [phone] Encounter Details Date Type Department Care Team (Late st Contact Info) Description 01/14/2013 Documentation EM Family Medicine [address] [place], [place] [phone] Family Medicine, Physician [address] [place] [address] Social History Tobacco Use Types Packs/Day Years [...] on filedocumented in this encounter Care Teams Refrigeration Installer Relationship Specialty Start Date End Date Alhaji Elizabeth MD [address] [place] [address] PCP - General 04/20/17 02/14/23 documented as of this encounter
--- OUTSIDE RECORDS SUMMARY | 2025-07-03 11:33 | XMS_ITS | Encounter Summary ---
Author Organization [facility] Address [address] [place] [address] Phone Care Team Providers Care Configuration Management Manager Name Role Phone Alhaji Elizabeth MD Primary Care Provider [phone] Encounter Details Date Type Department Care Team (Late st Contact Info) Description 04/11/2011 Documentation EM Family Medicine [address] [place], [place] 1503693 Family Medicine, Physician [address] [place] [address] Social History Tobacco Use Types Packs/Day Years [...] on filedocumented in this encounter Care Teams Configuration Management Manager Relationship Specialty Start Date End Date Alhaji Elizabeth MD [address] [place] [address] PCP - General 04/20/17 02/14/23 documented as of this encounter
--- OUTSIDE RECORDS SUMMARY | 2025-07-03 11:33 | XMS_ITS | Encounter Summary ---
Author Organization [facility] Address [address] [place] [address]894 Phone Care Team Providers Care Barker Peeler Name Role Phone Alhaji Elizabeth MD Primary Care Provider [phone] Encounter Details Date Type Department Care Team (Late st Contact Info) Description 2011 Documentation EM Family Medicine [address] [place], [place] [phone] Family Medicine, Physician [address] [place] [address] Social History Tobacco Use Types Packs/Day Years [...] on filedocumented in this encounter Care Teams Barker Peeler Relationship Specialty Start Date End Date Alhaji Elizabeth MD [address] [place] [address] PCP - General 04/20/17 02/14/23 documented as of this encounter
--- OUTSIDE RECORDS SUMMARY | 2025-07-03 11:33 | XMS_ITS | Encounter Summary ---
Author Organization [facility] Address [address] [place] [address] Phone Care Team Providers Care Put In Beat Adjuster Name Role Phone Alhaji Elizabeth MD Primary Care Provider [phone] Encounter Details Date Type Department Care Team (Late st Contact Info) Description 12/04/2011 Documentation EM Family Medicine [address] [place], [place] [phone] Family Medicine, Physician [address] [place] [address] Social History Tobacco Use Types Packs/Day Years [...] on filedocumented in this encounter Care Teams Put In Beat Adjuster Relationship Specialty Start Date End Date Alhaji Elizabeth MD [address] [place] [address] 15451 PCP - General 04/20/17 02/14/23 documented as of this encounter
--- OUTSIDE RECORDS SUMMARY | 2025-07-03 11:33 | XMS_ITS | Encounter Summary ---
Author Organization [facility] Address [address] [place] [address] Phone Care Team Providers Care Nurse Orthopedic Name Role Phone Alhaji Elizabeth MD Primary Care Provider [phone] Encounter Details Date Type Department Care Team (Late st Contact Info) Description 04/26/2017 Conversion Encounter [facility] [address] [place] [address] Social History Tobacco Use Types Packs/Day Years [...] on filedocumented in this encounter Care Teams Nurse Orthopedic Relationship Specialty Start Date End Date Alhaji Elizabeth MD [address] [place] [address] PCP - General 04/20/17 02/14/23 documented as of this encounter
--- OUTSIDE RECORDS SUMMARY | 2025-07-03 11:33 | XMS_ITS | Encounter Summary ---
Author Organization [facility] Address [address] [place] [address] Phone Care Team Providers Care Upper Trimmer Name Role Phone Alhaji Elizabeth MD Primary Care Provider [phone] Encounter Details Date Type Department Care Team (Late st Contact Info) Description 06/17/2013 Documentation EM Family Medicine [address] [place], [place] [phone] Family Medicine, Physician [address] [place] [address] Social History Tobacco Use Types Packs/Day Years [...] on filedocumented in this encounter Care Teams Upper Trimmer Relationship Specialty Start Date End Date Alhaji Elizabeth MD [address] [place] [address] PCP - General 04/20/17 02/14/23 documented as of this encounter
--- OUTSIDE RECORDS SUMMARY | 2025-07-03 11:33 | XMS_ITS | Encounter Summary ---
Author Organization [facility] Address [address] [place] [address] Phone Care Team Providers Care Director Compensation Name Role Phone Alhaji Elizabeth MD Primary Care Provider [phone] Encounter Details Date Type Department Care Team (Late st Contact Info) Description 02/14/2013 Documentation EM Family Medicine [address] [place], [place] [phone] Family Medicine, Physician [address] [place] [address] Social History Tobacco Use Types Packs/Day Years [...] filedocumented in this encounter Care Teams Director Compensation Relationship Specialty Start Date End Date Alhaji Elizabeth MD [address] [place] [address] PCP - General 04/20/17 02/14/23 documented as of this encounter
--- OUTSIDE RECORDS SUMMARY | 2025-07-03 11:34 | XMS_ITS | Encounter Summary ---
Author Organization [facility] Address [address] [place] [address] Phone Care Team Providers Care Car Body Inspector Name Role Phone Alhaji Elizabeth MD Primary Care Provider [phone] Encounter Details Date Type Department Care Team (Late st Contact Info) Description 11/17/2010 Documentation EM Family Medicine [address] [place], [place] [phone] Family Medicine, Physician [address] [place] [address] Social History Tobacco Use Types Packs/Day Years [...] on filedocumented in this encounter Care Teams Car Body Inspector Relationship Specialty Start Date End Date Alhaji Elizabeth MD [address] [place] [address] 15472 PCP - General 04/20/17 02/14/23 documented as of this encounter
--- OUTSIDE RECORDS SUMMARY | 2025-07-03 11:34 | XMS_ITS | Encounter Summary ---
Author Organization [facility] Address [address] [place] [address] Phone Care Team Providers Care Roll Winder Name Role Phone Alhaji Elizabeth MD Primary Care Provider [phone] Encounter Details Date Type Department Care Team (Late st Contact Info) Description 01/28/2010 Documentation EM Family Medicine [address] [place], [place] [phone] Family Medicine, Physician [address] [place] [address] Social History Tobacco Use Types Packs/Day Years [...] on filedocumented in this encounter Care Teams Roll Winder Relationship Specialty Start Date End Date Alhaji Elizabeth MD [address] [place] [address] PCP - General 04/20/17 02/14/23 documented as of this encounter
== END 2025-07-03 10:38 | disposition home or self-care (01) ==
LOC: HO.HPS 10:11
PROVIDERS: PCP Physician Assistant; Visit Provider Hospitalist
DX: J45.50 Severe persistent asthma, uncomplicated (principal); T78.40XA Allergy, unspecified, initial encounter; L30.9 Dermatitis, unspecified; J30.9 Allergic rhinitis, unspecified; G47.33 Obstructive sleep apnea (adult) (pediatric)
CPT/HCPCS: 99214

== ENCOUNTER → 2025-07-03 10:10 | Outpatient (BNVA) | payer OTHER, SELFPAY | PROVIDERS: PCP Physician Assistant; Visit Provider Hospitalist | DX: J45.50 Severe persistent asthma, uncomplicated (principal); T78.40XA Allergy, unspecified, initial encounter; J30.9 Allergic rhinitis, unspecified; L30.9 Dermatitis, unspecified; G47.33 Obstructive sleep apnea (adult) (pediatric) | CPT/HCPCS: 99212 ==

== ENCOUNTER 2025-07-25 06:01 | Emergency (ER) | payer OTHER, SELFPAY ==
--- NOTE | ~2025-07-25 | CT_ITS ---
CLINICAL HISTORY: upper abdominal pain CT abdomen and pelvis with contrast Comparison: CT/SR - CT ABDOMEN PELVIS WITHOUT IV CONTRAST - 11/15/2022 01:26 PM EST Findings: No consolidation or effusion. Solid organs are within normal limits. There are no abnormal findings in the gallbladder fossa. No renal stones. No bowel obstruction, pneumoperitoneum, or pneumatosis. Pelvic contents unremarkable. Normal appendix. The bones are intact. IMPRESSION: No acute findings. This document has been electronically signed by: Alhaji Mckeon MD on 07/25/2025 09:49:12
[2025-07-25 06:07] VITALS: BP 133/97; PULSE 94; RESP 20; TEMP 36.7; O2SAT 95; BMI 44.3
--- NOTE | 2025-07-25 06:22 | ED_ITS ---
HPI - Abdominal Pain General Chief Complaint: Abdominal Pain Stated Complaint: Stomach Pain/acid reflux Time Seen by Provider: 07/25/25 06:17 Source: patient Mode of arrival: ambulatory Limitations: no limitations History of Present Illness HPI narrative: This is a 34 years old male presented to the emergency department complaining of epigastric abdominal pain, he woke up this morning complaining of epigastric abdominal pain no nausea no vomiting or diarrhea. He stated that he changed for the last night. He had prior symptoms in the past like this. MD elicited complaint: abdominal pain Pertinent past history: gastritis Onset (ago): hour(s) (3) Pain Consistency: constant Location: epigastric Severity: moderate Radiation: none Migration to: no migration Exacerbating factors: nothing Relieving factors: nothing Related Data Home Medications ?Medication ?Instructions ?Recorded ?Confirmed budesonide-formoterol HFA 160 inhalation 01/19/25/ 3/ mcg-4.5 mcg/actuation aerosol inhaler fluticasone propionate 50 spray intranasal 01/19/25 mcg/actuation nasal spray,suspension Previous Rx's ?Medication ?Instructions ?Recorded albuterol sulfate 0.63 mg/3 mL 0.63 mg (3 mL) inhalati on QID PRN 07/17/20 solution for nebulization shortness of breath or wheez ing #90 mL ibuprofen 800 mg tablet 800 mg PO Q8H PRN pain #14 t abs 07/17/20 nebulizers (AeroEclipse II #1 ea 07/17/20 Nebulizer) nystatin 100,000 unit/gram topical 1 appl topical TID #30 grams 01/19/25 powder triamcinolone acetonide 0.1 % 1 appl topical BID PRN r latonia on 01/19/25 topical cream chest #30 grams ketoconazole 2 % shampoo 1 appl topical DAILY 3 days #120 mL 01/20/25 epinephrine 0.3 mg/0.3 mL 0.3 mg (0.3 mL) IM Q10M PRN 03/30/25 injection, auto-injector (EpiPen anaphylaxis 30 days # 2 ea 2-Juan) omeprazole 20 mg capsule,delayed 20 mg PO DAILY #90 ca ps 04/16/25 release cyclobenzaprine 5 mg tablet 5 mg PO TID PRN muscle spa sm 7 09/04/25 days #21 tabs prednisone 20 mg tablet 20 mg PO DAILY 7 days #7 tab s 05/14/25 dupilumab 300 mg/2 mL subcutaneous See Rx Instructions subcut Q2W 4 05/22/25 pen injector (Dupixent) weeks #4 mL albuterol sulfate 90 mcg/actuation 2 puff inhalation Q 6H 30 days #8.5 06/23/25 aerosol inhaler (Ventolin HFA) grams budesonide 160 mcg-glycopyr 9 2 inh inhalation BID 30 days #10.7 07/03/25 mcg-formot 4.8 mcg/actuation HFA grams inhaler (Breztri Aerosphere) naftifine 2 % topical cream 1 appl topical BEDTIME 30 days #45 07/05/25 grams Allergies Allergy/AdvReac Type Severity Reaction Status Date / Time hydrocodone (From VICODIN) Allergy Severe Swelling, Verified 07/25/25 06:11 Redness, Itching seafood Allergy Severe Swelling Verified 07/25/25 06:11 codeine (CODEINE) Allergy Intermediate ITCHY RASH Verified 07/25/25 06:11 vancomycin (VANCOMYCIN) Allergy Intermediate red man's Verified 07/25/25 06:11 syndrome (redness/swelling/itching) Review of Systems Constitutional: Reports no additional constitutional complaints Reports system reviewed and no additional complaints, except as documented Gastrointestinal: Reports no additional gastrointestinal complaints PMFSH Past Medical History Attestation statement: The following information was validated with the patient. Medical History Chronic allergic rhinitis Eczema Allergies Hx MRSA infection History of COVID-19 Asthma Insomnia Anxiety (~03/30/25) Depression GERD (gastroesophageal reflux disease) Sleep apnea with use of continuous positive airway pressure (CPAP) FHx: cholecystectomy Asthma exacerbation Surgical History Hx of cholecystectomy Family History Family History Mother Asthma Thyroid condition Father Asthma Brother Asthma Sister No problems noted. Sister No problems noted. Sister No problems noted. Sister No problems noted. Social History Social History Housing: House Are you a primary health care specialist to a significant other at home: No Do you presently have visiting nurse or other home services: No Alcohol intake: current Alcohol intake frequency: does not drink Patient Tobacco Use Status: Never used Tobacco Smoked in Last 30 Days: No Use of substances other than those prescribed or required for medical reasons: No Advance Directives: No Advance Directives Information Provided: No service: No Current occupational status: employed Cognitive needs: No Hearing needs: No Vision needs: No Physical Exam ED Exam Exam: No acute distress comfortable in the stretcher Vital Signs: Vital Signs - 24 hr 07/25/25 06:07 07/25/25 09:21 Temperature 98.0 F 98.3 F Pulse Rate 94 90 Respiratory Rate 20 18 Blood Pressure 133/97 H 115/84 Pulse Oximetry 95 95 Oxygen Delivery Method Room Air Room Air BMI result Body Mass Index 44.3 Const General: cooperative, comfortable and no acute distress Nutritional Appearance: well nourished Orientation/consciousness: patient oriented x3 HENMT Head: Yes normal to inspection General nose exam: Normal external nose present Face and sinus: Yes normal facial exam Mouth: Normal oral and palatal mucosa present Throat: Yes posterior oropharynx normal Neck Neck: Yes normal visual inspection Chest Chest palpation & inspection: normal inspection of the chest Resp Effort & Inspection: normal respiratory effort Auscultation: clear to auscultation bilaterally Cardio Jugular venous distension: no JVD Rate: regular rate Rhythm: regular rhythm GI Other: Epigastric tenderness noted Palpation (GI): Soft to palpation Skin General skin exam: no rashes or lesions noted and elasticity normal Lesions: no lesions Rashes: no rashes Neuro General: patient oriented x3 Cranial nerves: Yes CN's II-XII intact bilaterally Course Reevaluation(s) Reevaluation #1: Doing much better asymptomatic CT scan abdomen and pelvis normal we will discharge home Time: 11:25 Medical Decision Making Medical Decision Making [facility] Narrative: Patient is here with epigastric abdominal pain we will obtain labs and reassess cell treat empirically with PPI Differential Diagnosis Differential Diagnoses: The differential diagnosis associated with the presentation includes Gastritis/cholecystitis/peptic ulcer disease/pancreatitis Admission/Observation Consideration of admission/observation: Escalation of care including admission/observation considered Lab Data [facility] Lab Attestation statement: I reviewed the patient's lab results. 07/25/25 07:15 07/25/25 07:15 Labs: Lab Results 07/25/25 Range/Units 07:15 WBC 9.5 (4.8-10.8) X10*3/uL RBC 5.39 (4.60-5.80) X10*6/uL Hgb 15.3 (14.0-18.0) g/dl Hct 46.9 (42.0-52.0) % MCV 87.0 (80.0-98.0) fL MCH 28.4 (27.0-33.0) pg MCHC 32.6 (31.0-36.0) g/dl RDW 12.9 (11.0-16.0) % Plt Count 330 (160-400) X10*3/uL MPV 9.1 L (9.4-12.4) fL Immature Gran % (Auto) 0.4 (0.0-0.4) % Neut % (Auto) 70.6 (45-73) % Lymph % (Auto) 19.2 L (20-40) % Pershing % (Auto) 5.4 (2-11) % Eos % (Auto) 3.7 (0-4) % Baso % (Auto) 0.7 (0-2) % Lymph # (Auto) 1.8 (1.2-4.9) X10*3/uL Pershing # (Auto) 0.5 (0.1-1.2) X10*3/uL Eos # (Auto) 0.4 (0.0-0.4) X10*3/uL Baso # (Auto) 0.1 (0.0-0.2) X10*3/uL Abs Immat Gran (auto) 0.04 H (0.00-0.03) X10*3/uL Absolute Neuts (auto) 6.7 (2.0-8.3) x10*3/uL Absolute Nucleated RBC 0.000 (0.0-0.012) X10*3/uL Nucleated RBC % (auto) 0.0 (0.0-0.2) /100WBC Sodium 142 (135-145) mmol/L Potassium 4.6 (3.3-5.1) mmol/L Chloride 111 H (96-108) mmol/L Carbon Dioxide 24 (22-29) mmol/L Anion Gap 12 (12-20) BUN 17 H (9-16) mg/dL Creatinine 0.95 (0.5-1.4) mg/dL Estim Creat Clear Calc 125.5 Estimated GFR > 60 Random Glucose 105 (60-115) mg/dL Calcium 9.1 (8.4-10.2) mg/dL Total Bilirubin 0.4 (0.0-1.0) mg/dL AST 19 (5-37) U/L ALT 29 (0-40) U/L Alkaline Phosphatase 140 H (39-117) U/L Total Protein 8.0 (6.5-8.0) g/dL Albumin 4.6 (3.5-5.0) g/dL Lipase 14 (8-78) U/L Independent Interpretation I performed an independent interpretation of an: CT Scan Interpretation: No acute disease Radiology Impression Discussion of test interpretation with radiology: I have reviewed the radiologist's reading. Medications Administered Discontinued Medications Generic Name Dose Route Start Last Admin Trade Name Freq PRN Reason Stop Dose Admin Al Hydroxide/Mg Hydroxide 30 ml 07/25/25 06:21 07/25/25 07:02 Magnesium Hydrox/Alum Hydrox 30 Ml Oral.Susp PO 07/25/25 06:22 30 ml ONCE ONE Administration Iohexol 100 ml 07/25/25 09:01 07/25/25 09:01 Iohexol 350 Mg/Ml 100 Ml Infus..Btl IV 07/25/25 09:02 100 ml ONCE ONE Administration Omeprazole 20 mg 07/25/25 06:21 07/25/25 07:02 Omeprazole 20 Mg Capsule.Dr PO 07/25/25 06:22 20 mg ONCE ONE Administration Discharge Plan Discharge Clinical Impression: Abdominal pain Qualifiers: Abdominal location: generalized Qualified Code(s): R10.84 - Generalized abdominal pain Patient Disposition: Home, Self-Care Instructions: Abdominal Pain (ED) Additional Instructions: Stay on liquid diet for 24 hour return to the emergency room if worse Prescriptions: No Action omeprazole 20 mg capsule,delayed release(DR/EC) 20 mg PO DAILY Qty: 90 1RF Dupixent Pen 300 mg/2 mL pen injector See Rx Instructions subcut Q2W 28 Days Qty: 4 11RF Rx Instructions: loading dose: 600mg SC x 1, then 300mg SC every 2 weeks albuterol sulfate [Ventolin HFA] 90 mcg/actuation HFA aerosol inhaler 2 puff inhalation Q6H 30 Days Qty: 8.5 3RF ibuprofen 800 mg tablet 800 mg PO Q8H PRN (Reason: pain) Qty: 14 0RF (DME) AeroEclipse II Nebulizer Misc See Rx Instructions .ROUTE .MEDSUPPLY Qty: 1 0RF Rx Instructions: As directed albuterol sulfate 0.63 mg/3 mL solution for nebulization 0.63 mg inhalation QID PRN (Reason: shortness of breath or wheezing) Qty: 90 0RF cyclobenzaprine 5 mg tablet 5 mg PO TID PRN (Reason: muscle spasm) 7 Days Qty: 21 0RF prednisone 20 mg tablet 20 mg PO DAILY 7 Days Qty: 7 0RF Breztri Aerosphere 160-9-4.8 mcg/actuation HFA aerosol inhaler 2 inh inhalation BID 30 Days Qty: 10.7 0RF naftifine 2 % cream 1 appl topical BEDTIME 30 Days Qty: 45 4RF fluticasone propionate 50 mcg/actuation spray,suspension intranasal budesonide-formoterol 160-4.5 mcg/actuation HFA aerosol inhaler inhalation nystatin 100,000 unit/gram powder 1 appl topical TID Qty: 30 5RF triamcinolone acetonide 0.1 % cream 1 appl topical BID PRN (Reason: rash on chest) Qty: 30 2RF ketoconazole 2 % shampoo 1 appl topical DAILY 3 Days Qty: 120 0RF epinephrine [EpiPen 2-Juan] 0.3 mg/0.3 mL auto-injector 0.3 mg IM Q10M PRN (Reason: anaphylaxis) 30 Days Qty: 2 6RF Rx Instructions: for 2 doses Print Language: Kyrgyz
--- OUTSIDE RECORDS SUMMARY | 2025-07-25 06:27 | XMS_ITS | Encounter Summary ---
Author Organization [facility] Address [address] [place] [address] Phone Care Team Providers Care Middle School Combination Teacher Name Role Phone Alhaji Elizabeth MD Primary Care Provider [phone] Encounter Details Date Type Department Care Team (Late st Contact Info) Description 04/11/2011 Documentation EM Family Medicine [address] [place], [place] [phone] Family Medicine, Physician [address] [place] [address] Social History Tobacco Use Types Packs/Day Years [...] on filedocumented in this encounter Care Teams Middle School Combination Teacher Relationship Specialty Start Date End Date Alhaji Elizabeth MD [address] [place] [address] PCP - General 04/20/17 02/14/23 documented as of this encounter
--- OUTSIDE RECORDS SUMMARY | 2025-07-25 06:28 | XMS_ITS | Encounter Summary ---
Author Organization [facility] Address [address] [place] [address] Phone Care Team Providers Care Trademark Attorney Name Role Phone Alhaji Elizabeth MD Primary Care Provider [phone] Encounter Details Date Type Department Care Team (Late st Contact Info) Description 12/11/2012 Documentation EM Family Medicine [address] [place], [place] [phone] Family Medicine, Physician [address] [place] [address] Social History Tobacco Use Types Packs/Day Years [...] on filedocumented in this encounter Care Teams Trademark Attorney Relationship Specialty Start Date End Date Alhaji Elizabeth MD [address] [place] [address] PCP - General 04/20/17 02/14/23 documented as of this encounter
--- OUTSIDE RECORDS SUMMARY | 2025-07-25 06:28 | XMS_ITS | Encounter Summary ---
Author Organization [facility] Address [address] [place] [address] Phone Care Team Providers Care Death Claim Examiner Name Role Phone Alhaji Elizabeth MD Primary Care Provider [phone] Encounter Details Date Type Department Care Team (Late st Contact Info) Description 12/13/2011 Documentation EM Family Medicine [address] [place], [place] [phone] Family Medicine, Physician [address] [place] [address] Social History Tobacco Use Types Packs/Day Years [...] on filedocumented in this encounter Care Teams Death Claim Examiner Relationship Specialty Start Date End Date Alhaji Elizabeth MD [address] [place] [address] PCP - General 04/20/17 02/14/23 documented as of this encounter
--- OUTSIDE RECORDS SUMMARY | 2025-07-25 06:29 | XMS_ITS | Encounter Summary ---
Author Organization [facility] Address [address] [place] [address] Phone Care Team Providers Care Golf Shoe Spike Assembler Name Role Phone Alhaji Elizabeth MD Primary Care Provider [phone] Encounter Details Date Type Department Care Team (Late st Contact Info) Description 12/04/2011 Documentation EM Family Medicine [address] [place], [place] [phone] Family Medicine, Physician [address] [place] [address] Social History Tobacco Use Types Packs/Day Years [...] on filedocumented in this encounter Care Teams Golf Shoe Spike Assembler Relationship Specialty Start Date End Date Alhaji Elizabeth MD [address] [place] [address] 79[address] PCP - General 04/20/17 02/14/23 documented as of this encounter
--- OUTSIDE RECORDS SUMMARY | 2025-07-25 06:29 | XMS_ITS | Encounter Summary ---
Author Organization [facility] Address [address] [place] [address] Phone Care Team Providers Care Supervisor Corduroy Cutting Name Role Phone Alhaji Elizabeth MD Primary Care Provider [phone] Encounter Details Date Type Department Care Team (Late st Contact Info) Description 01/14/2013 Documentation EM Family Medicine [address] [place], [place] [phone] Family Medicine, Physician [address] [place] [address] Social History Tobacco Use Types Packs/Day Years [...] filedocumented in this encounter Care Teams Supervisor Corduroy Cutting Relationship Specialty Start Date End Date Alhaji Elizabeth MD [address] [place] [address] PCP - General 04/20/17 02/14/23 documented as of this encounter
--- OUTSIDE RECORDS SUMMARY | 2025-07-25 06:30 | XMS_ITS | Encounter Summary ---
Author Organization [facility] Address [address] [place] [address] Phone Care Team Providers Care Welding Machine Operator/Tender Name Role Phone Alhaji Elizabeth MD Primary Care Provider Encounter Details Date Type Department Care Team (Late st Contact Info) Description 2011 Documentation EM Family Medicine [address] [place], [place] [phone] Family Medicine, Physician [address] [place] [address] Social History Tobacco Use Types Packs/Day Years [...] on filedocumented in this encounter Care Teams Welding Machine Operator/Tender Relationship Specialty Start Date End Date Alhaji Elizabeth MD [address] [place] [address] PCP - General 04/20/17 02/14/23 documented as of this encounter
--- OUTSIDE RECORDS SUMMARY | 2025-07-25 06:30 | XMS_ITS | Encounter Summary ---
Author Organization [facility] Address [address] [place] [address] Phone Care Team Providers Care Coin Teller Name Role Phone Alhaji Elizabeth MD Primary Care Provider [phone] Encounter Details Date Type Department Care Team (Late st Contact Info) Description 01/14/2013 Documentation EM Family Medicine [address] [place], [place] [phone] Family Medicine, Physician [address] [place] [address] Social History Tobacco Use Types Packs/Day Years [...] on filedocumented in this encounter Care Teams Coin Teller Relationship Specialty Start Date End Date Alhaji Elizabeth MD [address] [place] [address] PCP - General 04/20/17 02/14/23 documented as of this encounter
--- OUTSIDE RECORDS SUMMARY | 2025-07-25 06:30 | XMS_ITS | Encounter Summary ---
Author Organization [facility] Address [address] [place] [address] Phone Care Team Providers Care Senior Contracts Administrator Name Role Phone Alhaji Elizabeth MD Primary Care Provider [phone] Encounter Details Date Type Department Care Team (Late st Contact Info) Description 02/14/2013 Documentation EM Family Medicine [address] [place], [place] [phone] Family Medicine, Physician [address] [place] [address] Social History Tobacco Use Types Packs/Day Years [...] on filedocumented in this encounter Care Teams Senior Contracts Administrator Relationship Specialty Start Date End Date Alhaji Elizabeth MD [address] [place] [address] PCP - General 04/20/17 02/14/23 documented as of this encounter
--- OUTSIDE RECORDS SUMMARY | 2025-07-25 06:30 | XMS_ITS | Encounter Summary ---
Author Organization [facility] Address [address] [place] [address] Phone Care Team Providers Care Skull Chopper Name Role Phone Alhaji Elizabeth MD Primary Care Provider [phone] Encounter Details Date Type Department Care Team (Late st Contact Info) Description 01/14/2013 Documentation EM Family Medicine [address] [place], [place] [phone] Family Medicine, Physician [address] [place] [address] Social History Tobacco Use Types Packs/Day Years [...] on filedocumented in this encounter Care Teams Skull Chopper Relationship Specialty Start Date End Date Alhaji Elizabeth MD [address] [place] [address] PCP - General 04/20/17 02/14/23 documented as of this encounter
--- OUTSIDE RECORDS SUMMARY | 2025-07-25 06:31 | XMS_ITS | Encounter Summary ---
Author Organization [facility] Address [address] [place] [address] Phone Care Team Providers Care Nonprofit Director Name Role Phone Alhaji Elizabeth MD Primary Care Provider [phone] Encounter Details Date Type Department Care Team (Late st Contact Info) Description 02/14/2013 Documentation EM Family Medicine [address] [place], [place] [phone] Family Medicine, Physician [address] [place] [address] Social History Tobacco Use Types Packs/Day Years [...] on filedocumented in this encounter Care Teams Nonprofit Director Relationship Specialty Start Date End Date Alhaji Elizabeth MD [address] [place] [address] 260[address] PCP - General 04/20/17 02/14/23 documented as of this encounter
--- OUTSIDE RECORDS SUMMARY | 2025-07-25 06:31 | XMS_ITS | Encounter Summary ---
Author Organization [facility] Address [address] [place] [address] Phone Care Team Providers Care Field Ironworker Name Role Phone Alhaji Elizabeth MD Primary Care Provider Encounter Details Date Type Department Care Team (Late st Contact Info) Description 03/12/2013 Documentation EM Family Medicine [address] [place], [place] [phone] Family Medicine, Physician [address] [place] [address] Social History Tobacco Use Types Packs/Day Years [...] on filedocumented in this encounter Care Teams Field Ironworker Relationship Specialty Start Date End Date Alhaji Elizabeth MD [address] [place] [address] PCP - General 04/20/17 02/14/23 documented as of this encounter
--- OUTSIDE RECORDS SUMMARY | 2025-07-25 06:32 | XMS_ITS | Encounter Summary ---
Author Organization [facility] Address [address] [place] [address] Phone Care Team Providers Care Dot Etcher Name Role Phone Alhaji Elizabeth MD Primary Care Provider [phone] Encounter Details Date Type Department Care Team (Late st Contact Info) Description 06/17/2013 Documentation EM Family Medicine [address] [place], [place] [phone] Family Medicine, Physician [address] [place] [address] Social History Tobacco Use Types Packs/Day Years [...] on filedocumented in this encounter Care Teams Dot Etcher Relationship Specialty Start Date End Date Alhaji Elizabeth MD [address] [place] [address] PCP - General 04/20/17 02/14/23 documented as of this encounter
--- OUTSIDE RECORDS SUMMARY | 2025-07-25 06:32 | XMS_ITS | Encounter Summary ---
Author Organization [facility] Address [address] [place] [address] Phone Care Team Providers Care Broadcast Meteorologist Name Role Phone Alhaji Elizabeth MD Primary Care Provider [phone] Encounter Details Date Type Department Care Team (Late st Contact Info) Description 02/26/2014 Documentation EM Family Medicine [address] [place], [place] [phone] Family Medicine, Physician [address] [place] [address] Social History Tobacco Use Types Packs/Day Years [...] on filedocumented in this encounter Care Teams Broadcast Meteorologist Relationship Specialty Start Date End Date Alhaji Elizabeth MD [address] [place] [address] PCP - General 04/20/17 02/14/23 documented as of this encounter
--- OUTSIDE RECORDS SUMMARY | 2025-07-25 06:32 | XMS_ITS | Encounter Summary ---
Author Organization [facility] Address [address] [place] [address] Phone Care Team Providers Care E Learning Coordinator Name Role Phone Alhaji Elizabeth MD Primary Care Provider [phone] Encounter Details Date Type Department Care Team (Late st Contact Info) Description 10/01/2013 Documentation EM Family Medicine [address] [place], [place] [phone] Family Medicine, Physician [address] [place] [address] Social History Tobacco Use Types Packs/Day Years [...] on filedocumented in this encounter Care Teams E Learning Coordinator Relationship Specialty Start Date End Date Alhaji Elizabeth MD [address] [place] [address] PCP - General 04/20/17 02/14/23 documented as of this encounter
--- OUTSIDE RECORDS SUMMARY | 2025-07-25 06:33 | XMS_ITS | Encounter Summary ---
Author Organization [facility] Address [address] [place] [address] Phone Care Team Providers Care Web Production Designer Name Role Phone Alhaji Elizabeth MD Primary Care Provider [phone] Encounter Details Date Type Department Care Team (Late st Contact Info) Description 04/26/2017 Conversion Encounter [facility] [place] [address] [place] [address] Social History Tobacco Use Types Packs/Day Years [...] on filedocumented in this encounter Care Teams Web Production Designer Relationship Specialty Start Date End Date Alhaji Elizabeth MD [address] [place] [address] PCP - General 04/20/17 02/14/23 documented as of this encounter
--- OUTSIDE RECORDS SUMMARY | 2025-07-25 06:33 | XMS_ITS | Encounter Summary ---
Author Organization [facility] Address [address] [place] [address] Phone Care Team Providers Care Sales Representatives Name Role Phone Alhaji Elizabeth MD Primary Care Provider Encounter Details Date Type Department Care Team (Late st Contact Info) Description 03/09/2014 Documentation EM Family Medicine [address] [place], [place] [phone] Family Medicine, Physician [address] [place] [address] Social History Tobacco Use Types Packs/Day Years [...] filedocumented in this encounter Care Teams Sales Representatives Relationship Specialty Start Date End Date Alhaji Elizabeth MD [address] [place] [address] PCP - General 04/20/17 02/14/23 documented as of this encounter
--- OUTSIDE RECORDS SUMMARY | 2025-07-25 06:33 | XMS_ITS | Encounter Summary ---
Author Organization [facility] Address [address] [place] [address] Phone Care Team Providers Care Carry Out Clerk And Shelf Stocker Name Role Phone Alhaji Elizabeth MD Primary Care Provider [phone] Encounter Details Date Type Department Care Team (Late st Contact Info) Description 08/19/2014 Documentation EM Family Medicine [address] [place] [address] Family Medicine, Physician [address] [place], [place] 089561 Social History Tobacco Use Types Packs/Day Years [...] on filedocumented in this encounter Care Teams Carry Out Clerk And Shelf Stocker Relationship Specialty Start Date End Date Alhaji Elizabeth MD [address] [place] [address] PCP - General 04/20/17 02/14/23 documented as of this encounter
--- OUTSIDE RECORDS SUMMARY | 2025-07-25 06:34 | XMS_ITS | Encounter Summary ---
Author Organization [facility] Address [address] [place] [address] Phone Care Team Providers Care Nipple Machine Operator Name Role Phone Alhaji Elizabeth MD Primary Care Provider [phone] Encounter Details Date Type Department Care Team (Late st Contact Info) Description 11/17/2010 Documentation EM Family Medicine [address] [place], [place] [phone] Family Medicine, Physician [address] [place] [address] Social History Tobacco Use Types Packs/Day Years [...] on filedocumented in this encounter Care Teams Nipple Machine Operator Relationship Specialty Start Date End Date Alhaji Elizabeth MD [address] [place] [address] PCP - General 04/20/17 02/14/23 documented as of this encounter
--- OUTSIDE RECORDS SUMMARY | 2025-07-25 06:34 | XMS_ITS | Encounter Summary ---
Author Organization [facility] Address [address] [place] [address] Phone Care Team Providers Care Master Steam Yacht Name Role Phone Alhaji Elizabeth MD Primary Care Provider [phone] Encounter Details Date Type Department Care Team (Late st Contact Info) Description 01/28/2010 Documentation EM Family Medicine [address] [place], [place] [phone] Family Medicine, Physician [address] [place] [address] Social History Tobacco Use Types Packs/Day Years [...] on filedocumented in this encounter Care Teams Master Steam Yacht Relationship Specialty Start Date End Date Alhaji Elizabeth MD [address] [place] [address] PCP - General 04/20/17 02/14/23 documented as of this encounter
--- OUTSIDE RECORDS SUMMARY | 2025-07-25 06:34 | XMS_ITS | Clinical Summary ---
Author Organization [facility] Address [address] [place] [address] Phone Care Team Providers Care Channel Cementer Outsole Machine Name Role Phone Unavailable Primary Care Provider [...] of Migraines, No family history of *Sudden /NE under 55, No family history of Deafness, [...]
[2025-07-25] MEDS: Magnesium Hydrox/Alum Hydrox 30 ML ORAL.SUSP PO (07:02)
[2025-07-25 07:27] LABS: MANUAL DIFF FLAG NO
[2025-07-25 07:30] LABS: Hematocrit 46.9 % (42.0-52.0); Hemoglobin 15.3 g/dl (14.0-18.0); Imm Gran Abs Auto 0.04 X10*3/uL (0.00-0.03); Imm Gran Pct Auto 0.4 % (0.0-0.4); Lymphocytes Absolute Auto 1.8 X10*3/uL (1.2-4.9); Mean Corpuscular HGB Conc 32.6 g/dl (31.0-36.0); Mean Corpuscular Hemoglobin 28.4 pg (27.0-33.0); Mean Corpuscular Volume 87.0 fL (80.0-98.0); NRBC Abs Auto 0.000 X10*3/uL (0.0-0.012); NRBC Pct Auto 0.0 /100WBC (0.0-0.2); Platelet Count 330 X10*3/uL (160-400); Red Blood Count 5.39 X10*6/uL (4.60-5.80); White Blood Count 9.5 X10*3/uL (4.8-10.8)
[2025-07-25 07:46] LABS: Alanine Aminotransferase 29 U/L (0-40); Albumin Level 4.6 g/dL (3.5-5.0); Alkaline Phosphatase 140 U/L (39-117); Anion Gap 12 (12-20); Aspartate Amino Transferase 19 U/L (5-37); Blood Urea Nitrogen 17 mg/dL (9-16); Calcium 9.1 mg/dL (8.4-10.2); Carbon Dioxide 24 mmol/L (22-29); Chloride 111 mmol/L (96-108); Creatinine Clr Calc Pharmacy 125.5; Estimated Glomerular Filt Rate > 60; Lipase 14 U/L (8-78); Potassium 4.6 mmol/L (3.3-5.1); Sodium 142 mmol/L (135-145); Total Protein 8.0 g/dL (6.5-8.0)
[2025-07-25] MEDS: iohexoL 350 MG/ML 100 ML INFUS..BTL IV (09:01)
[2025-07-25 09:21] VITALS: BP 115/84; PULSE 90; RESP 18; TEMP 36.8; O2SAT 95
[2025-07-25 11:35] VITALS: BP 115/84; PULSE 90; RESP 18; TEMP 36.8; O2SAT 95
== END 2025-07-25 11:41 | disposition home or self-care (01) ==
PROVIDERS: Emergency Provider Emergency Medicine; PCP Physician Assistant
DX: R10.84 Generalized abdominal pain (principal); Z88.1 Allergy status to other antibiotic agents; Z88.5 Allergy status to narcotic agent
CPT/HCPCS: 36415; 74177; 80053; 83690; 85025; 99284; 99285; Q9967

== ENCOUNTER → 2025-07-25 08:01 | Outpatient (BNV) | payer OTHER, SELFPAY | PROVIDERS: Emergency Provider Emergency Medicine; PCP Physician Assistant; Visit Provider Specialist | DX: R10.10 Upper abdominal pain, unspecified (principal) | CPT/HCPCS: 74177 ==

== ENCOUNTER 2025-07-27 09:40 | Outpatient (AMB) | payer OTHER, SELFPAY ==
--- NOTE | 2025-07-27 09:41 | A.OFFPC_ITS ---
Vital Signs 07/27/25 09:46 Height 5 ft 3.23 in Weight 112.945 kg BMI 43.8 BP 120/70 Blood Pressure Location Lt brachial Position Sitting Respiration 18 Pulse 92 Pulse Source Pulse Oximeter Temp 97.7 F Temp Source Temporal Artery Scan Pulse Oximetry (%) 97 Oxygen Delivery Method Room Air Intake Visit Reasons: 6 Month F/U Genetic Counselor Required: No Accompanied by: Self / Same As Patient Allergies hydrocodone (From VICODIN) Allergy (Severe, Verified 07/27/25 09:42) Swelling, Redness, Itching seafood Allergy (Severe, Verified 07/27/25 09:42) Swelling codeine (CODEINE) Allergy (Intermediate, Verified 07/27/25 09:42) ITCHY RASH vancomycin (VANCOMYCIN) Allergy (Intermediate, Verified 07/27/25 09:42) red man's syndrome (redness/swelling/itching) Tobacco use date assessed: 01/19/25 Dental Screening Dental Screen Date: 01/19/25 HPI HPI Comments History of Present Illness Details 34-year-old male with history of unspeci fied asthma previously followed by [facility] pulmonology, GERD, and morbid obesity with BMI 44 presents to the office today for routine follow-up as well as to establish care. He is using Xolair to control his asthma in addition to Symbicort and rarely requires use of his albuterol inhaler. He denies any recent exacerbation or prednisone use. He states that his pulmonology provider at [facility] and he is in need of a new referral. He also has concerns regarding skin conditions. He is reporting a rash across the upper chest, under the breasts, and in the groin as well as an abscess of the left groin which has been present for several months. Denies any purulent drainage. No fevers or chills. 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 No history of IV drug abuse. He is actively working on weight loss and had previously been following with weight loss clinic. Asthma- stable. Following with Dr. Romero. Has resumed medications and is doing much better. Albuterol once weekly. On dupixent GERD- on omeprazole 20mg daily. Has n/v/d ER visit this past weekend. Resolved. No dysphagia or globus sensation Environmental allergies- on dupixant. Does these at home Morbid obesity- BMI 43.8. Has lost about 8 pounds in the past month. Concerns: None ROS: General: No fevers, malaise, unintentional weight loss HEENT: No blurred vision, diplopia. No sore throat, nasal congestion, rhinorrhea, sinus pain, ear pain Cardiovascular: No chest pain, palpitations, or leg edema Respiratory: No shortness of breath, wheezing, cough GI: No abdominal pain, nausea, vomiting, diarrhea, constipation, melena, hematochezia : No dysuria, hematuria, increased urinary frequency, decreased urinary output MSK: No myalgia, back pain Neuro: No headaches, weakness, paresthesias Skin: No rashes or lesions EXAM: Constitutional - Awake and Alert, No apparent distress Eyes - PERRL Cardiovascular - S1S2, RRR, No edema Respiratory - Normal lung expansion, Normal respiratory effort, No respiratory distress, CTA bilaterally Extremities - no calf tenderness bilaterally, no swelling Skin - Warm/Dry Neurological - Alert & oriented x3 Psychological - Appropriate affect PFSH Medical History Chronic allergic rhinitis Eczema Allergies Hx MRSA infection History of COVID-19 Asthma Insomnia Anxiety (~03/30/25) Depression GERD (gastroesophageal reflux disease) Sleep apnea with use of continuous positive airway pressure (CPAP) FHx: cholecystectomy Asthma exacerbation Surgical History Hx of cholecystectomy Family History Mother Asthma Thyroid condition Father Asthma Brother Asthma Sister No problems noted. Sister No problems noted. Sister No problems noted. Sister No problems noted. Social History Housing: House Are you a primary social worker palliative care to a significant other at home: No Do you presently have visiting nurse or other home services: No Alcohol intake: current Alcohol intake frequency: does not drink Patient Tobacco Use Status: Never used Tobacco service: No Current occupational status: employed Cognitive needs: No Hearing needs: No Vision needs: No Questionnaire Thrive Questionnaire Date Thrive assessed: 01/19/25 AUDIT C Alcohol Use Questionnaire (AUDIT-C) 3. How often do you have six or more drinks on one occasion?: Never Total Score: 0 JAYLA-7 AMB Questionnaire JAYLA-7 Date JAYLA - 7 assessed: 01/19/25 Source: Developed by DrsTammy Antonio, Rachel Barton, Baron Dumont and colleagues, with an educational rosy from [employer]. Physical exam (Primary Care) Vital Signs: Last Vital Signs Temp 97.7 F 07/27/25 09:46 Pulse 92 07/27/25 09:46 Resp 18 07/27/25 09:46 BP 120/70 07/27/25 09:46 Pulse Ox 97 07/27/25 09:46 Oxygen Delivery Method Room Air 07/27/25 09:46 BMI result Body Mass Index 43.8 Tobacco/Smoking Status: Tobacco use Status Tobacco use date assessed 01/19/25 07/27/25 09:44 Patient Tobacco Use Status Never used Tobacco 07/27/25 09:44 Thrive Assessment: Date of Thrive Assessment Date Thrive assessed 01/19/25 07/27/25 09:44 Coding Level of Care Code Est Pt Level 4 (43024) Complex EM visit Add On G2211 Diagnoses Class III morbid obesity with body mass index (BMI) of 40.0 to 49.9 E66.813 Severe persistent asthma without complication J45.50 Asthma severity: severe Asthma persistence: persistent Asthma complication type: uncomplicated DIMITRIS (obstructive sleep apnea) G47.33 Depression F32.A Assessment & Plan Assessment & Plan (1) Class III morbid obesity with body mass index (BMI) of 40.0 to 49.9: Code(s): E66.813 - Obesity, class 3 Category: Medical Plan: Commended on weight loss efforts thus far. Continue diet lower in calories with emphasis on increased protein fruits and vegetables, limit sugar and highly processed foods. Initiated exercise. Interested in follow up witih the weight management clinic as referral placed. (2) Asthma: Comment: controlled w/Symbicort inhaler Code(s): J45.909 - Unspecified asthma, uncomplicated Category: Medical Qualifiers: Asthma severity: severe Asthma persistence: persistent Asthma complication type: uncomplicated Qualified Code(s): J45.50 - Severe persistent asthma, uncomplicated Plan: Continue following with pulm. Continue maintenance meds and albuterol prn. Stable (3) DIMITRIS (obstructive sleep apnea): Code(s): G47.33 - Obstructive sleep apnea (adult) (pediatric) Category: Medical Plan: Encouraged use of cpap which he has been compliant with (4) Depression: Code(s): F32.A - Depression, unspecified Category: Medical Plan: Stable Plan Follow-up in 6 months. Labs prior to visit. Orders: Orders Hemoglobin A1c 6 Months E66.01 - Morbid (severe) obesity due to excess calories, F32.A - Depression, unspecified, J45.50 - Severe persistent asthma, uncomplicated, K21.9 - Gastro-esophageal reflux disease without esophagitis, Z13.1 - Encounter for screening for diabetes mellitus Basic Metabolic Panel 6 Months E66.01 - Morbid (severe) obesity due to excess calories, F32.A - Depression, unspecified, J45.50 - Severe persistent asthma, uncomplicated, K21.9 - Gastro-esophageal reflux disease without esophagitis, Z13.1 - Encounter for screening for diabetes mellitus Lipid Panel 6 Months E66.01 - Morbid (severe) obesity due to excess calories, F32.A - Depression, unspecified, J45.50 - Severe persistent asthma, uncomplicated, K21.9 - Gastro-esophageal reflux disease without esophagitis, Z13.1 - Encounter for screening for diabetes mellitus Liver Panel 6 Months E66.01 - Morbid (severe) obesity due to excess calories, F32.A - Depression, unspecified, J45.50 - Severe persistent asthma, uncomplicated, K21.9 - Gastro-esophageal reflux disease without esophagitis, Z13.1 - Encounter for screening for diabetes mellitus TSH reflex Free T4 6 Months E66.813 - Obesity, class 3 Referrals Medical Weight Management Referral E66.813 - Obesity, class 3
[2025-07-27 09:46] VITALS: BP 120/70; PULSE 92; RESP 18; TEMP 36.5; O2SAT 97; BMI 43.8
--- OUTSIDE RECORDS SUMMARY | 2025-07-27 19:58 | XMS_ITS | Encounter Summary ---
Author Organization [facility] Address [address] [place] [address] Phone Care Team Providers Care Line Supervisor Name Role Phone Alhaji Eilzabeth MD Primary Care Provider [phone] Encounter Details Date Type Department Care Team (Late st Contact Info) Description 04/11/2011 Documentation EM Family Medicine [address] [place], [place] [phone] Family Medicine, Physician [address] [place] [address] Social History Tobacco Use Types Packs/Day Years [...] on filedocumented in this encounter Care Teams Line Supervisor Relationship Specialty Start Date End Date Alhaji Elizabeth MD [address] [place] [address] PCP - General 04/20/17 02/14/23 documented as of this encounter
--- OUTSIDE RECORDS SUMMARY | 2025-07-27 19:59 | XMS_ITS | Encounter Summary ---
Author Organization [facility] Address [address] [place] [address] Phone Care Team Providers Care Family Welfare Social Work Professor Name Role Phone Alhaji Elizabeth MD Primary Care Provider [phone] Encounter Details Date Type Department Care Team (Late st Contact Info) Description 12/11/2012 Documentation EM Family Medicine [address] [place], [place] [phone] Family Medicine, Physician [address] [place] [address] Social History Tobacco Use Types Packs/Day Years [...] filedocumented in this encounter Care Teams Family Welfare Social Work Professor Relationship Specialty Start Date End Date Alhaji Elizabeth MD [address] [place] [address] PCP - General 04/20/17 02/14/23 documented as of this encounter
--- OUTSIDE RECORDS SUMMARY | 2025-07-27 19:59 | XMS_ITS | Encounter Summary ---
Author Organization [facility] Address [address] [place] [address] Phone Care Team Providers Care Wastewater Process Engineer Name Role Phone Alhaji Elizabeth MD Primary Care Provider [phone] Encounter Details Date Type Department Care Team (Late st Contact Info) Description 01/14/2013 Documentation EM Family Medicine [address] [place], [place] [phone] Family Medicine, Physician [address] [place] [address] Social History Tobacco Use Types Packs/Day Years [...] on filedocumented in this encounter Care Teams Wastewater Process Engineer Relationship Specialty Start Date End Date Alhaji Elizabeth MD [address] [place] [address] PCP - General 04/20/17 02/14/23 documented as of this encounter
--- OUTSIDE RECORDS SUMMARY | 2025-07-27 19:59 | XMS_ITS | Encounter Summary ---
Author Organization [facility] Address [address] [place] [address] Phone Care Team Providers Care Wood Sawyer Name Role Phone Alhaji Elizabeth MD Primary Care Provider [phone] Encounter Details Date Type Department Care Team (Late st Contact Info) Description 12/04/2011 Documentation EM Family Medicine [address] [place], [place] [phone] Family Medicine, Physician [address] [place] [address] Social History Tobacco Use Types Packs/Day Years [...] on filedocumented in this encounter Care Teams Wood Sawyer Relationship Specialty Start Date End Date Alhaji Elizabeth MD [address] [place] [address] PCP - General 04/20/17 02/14/23 documented as of this encounter
--- OUTSIDE RECORDS SUMMARY | 2025-07-27 19:59 | XMS_ITS | Encounter Summary ---
Author Organization [facility] Address [address] [place] [address] Phone Care Team Providers Care Metrology Technician Name Role Phone Alhaji Elizabeth MD Primary Care Provider [phone] Encounter Details Date Type Department Care Team (Late st Contact Info) Description 2011 Documentation EM Family Medicine [address] [place], [place] 3379693 Family Medicine, Physician [address] [place] [address] Social History Tobacco Use Types Packs/Day Years [...] on filedocumented in this encounter Care Teams Metrology Technician Relationship Specialty Start Date End Date Alhaji Elizabeth MD [address] [place] [address] PCP - General 04/20/17 02/14/23 documented as of this encounter
--- OUTSIDE RECORDS SUMMARY | 2025-07-27 19:59 | XMS_ITS | Encounter Summary ---
Author Organization [facility] Address [address] [place] [address] Phone Care Team Providers Care Rn Registry Name Role Phone Alhaji Elizabeth MD Primary Care Provider [phone] Encounter Details Date Type Department Care Team (Late st Contact Info) Description 12/13/2011 Documentation EM Family Medicine [address] [place], [place] 0667893 Family Medicine, Physician [address] [place] [address] Social History Tobacco Use Types Packs/Day Years [...] on filedocumented in this encounter Care Teams Rn Registry Relationship Specialty Start Date End Date Alhaji Elizabeth MD [address] [place] [address] 25[address] PCP - General 04/20/17 02/14/23 documented as of this encounter
--- OUTSIDE RECORDS SUMMARY | 2025-07-27 20:00 | XMS_ITS | Encounter Summary ---
Author Organization [facility] Address [address] [place] [address] Phone Care Team Providers Care Chalk Machine Operator Name Role Phone Alhaji Elizabeth MD Primary Care Provider [phone] Encounter Details Date Type Department Care Team (Late st Contact Info) Description 01/14/2013 Documentation EM Family Medicine [address] [place], [place] [phone] Family Medicine, Physician [address] [place] [address] Social History Tobacco Use Types Packs/Day Years [...] on filedocumented in this encounter Care Teams Chalk Machine Operator Relationship Specialty Start Date End Date Alhaji Elizabeth MD [address] [place] [address] PCP - General 04/20/17 02/14/23 documented as of this encounter
--- OUTSIDE RECORDS SUMMARY | 2025-07-27 20:00 | XMS_ITS | Encounter Summary ---
Author Organization [facility] Address [address] [place] [address] Phone Care Team Providers Care Health Diagnostics Teacher Name Role Phone Alhaji Elizabeth MD Primary Care Provider [phone] Encounter Details Date Type Department Care Team (Late st Contact Info) Description 01/14/2013 Documentation EM Family Medicine [address] [place], [place] [phone] Family Medicine, Physician [address] [place] [address] Social History Tobacco Use Types Packs/Day Years [...] on filedocumented in this encounter Care Teams Health Diagnostics Teacher Relationship Specialty Start Date End Date Alhaji Elizabeth MD [address] [place] [address] PCP - General 04/20/17 02/14/23 documented as of this encounter
--- OUTSIDE RECORDS SUMMARY | 2025-07-27 20:01 | XMS_ITS | Encounter Summary ---
Author Organization [facility] Address [address] [place] [address] Phone Care Team Providers Care Credit And Collections Representative Name Role Phone Alhaji Elizabeth MD Primary Care Provider [phone] Encounter Details Date Type Department Care Team (Late st Contact Info) Description 03/12/2013 Documentation EM Family Medicine [address] [place], [place] [phone] Family Medicine, Physician [address] [place] [address] Social History Tobacco Use Types Packs/Day Years [...] on filedocumented in this encounter Care Teams Credit And Collections Representative Relationship Specialty Start Date End Date Alhaji Elizabeth MD [address] [place] [address] PCP - General 04/20/17 02/14/23 documented as of this encounter
--- OUTSIDE RECORDS SUMMARY | 2025-07-27 20:01 | XMS_ITS | Encounter Summary ---
Author Organization [facility] Address [address] [place] [address] Phone Care Team Providers Care Textile Chemist Name Role Phone Alhaji Elizabeth MD Primary Care Provider Encounter Details Date Type Department Care Team (Late st Contact Info) Description 02/14/2013 Documentation EM Family Medicine [address] [place], [place] [phone] Family Medicine, Physician [address] [place] [address] Social History Tobacco Use Types Packs/Day Years [...] on filedocumented in this encounter Care Teams Textile Chemist Relationship Specialty Start Date End Date Alhaji Elizabeth MD [address] [place] [address] PCP - General 04/20/17 02/14/23 documented as of this encounter
--- OUTSIDE RECORDS SUMMARY | 2025-07-27 20:01 | XMS_ITS | Encounter Summary ---
Author Organization [facility] Address [address] [place] [address] Phone Care Team Providers Care Temporary Administrative Assistant Name Role Phone Alhaji Elizabeth MD Primary Care Provider Encounter Details Date Type Department Care Team (Late st Contact Info) Description 10/01/2013 Documentation EM Family Medicine [address] [place], [place] [phone] Family Medicine, Physician [address] [place] [address] Social History Tobacco Use Types Packs/Day Years [...] on filedocumented in this encounter Care Teams Temporary Administrative Assistant Relationship Specialty Start Date End Date Alhaji Elizabeth MD [address] [place] [address] PCP - General 04/20/17 02/14/23 documented as of this encounter
--- OUTSIDE RECORDS SUMMARY | 2025-07-27 20:01 | XMS_ITS | Encounter Summary ---
Author Organization [facility] Address [address] [place] [address] Phone Care Team Providers Care Oracle Architect Name Role Phone Alhaji Elizabeth MD Primary Care Provider Encounter Details Date Type Department Care Team (Late st Contact Info) Description 02/14/2013 Documentation EM Family Medicine [address] [place], [place] [phone] Family Medicine, Physician [address] [place] [address] Social History Tobacco Use Types Packs/Day Years [...] on filedocumented in this encounter Care Teams Oracle Architect Relationship Specialty Start Date End Date Alhaji Elizabeth MD [address] [place] [address] PCP - General 04/20/17 02/14/23 documented as of this encounter
--- OUTSIDE RECORDS SUMMARY | 2025-07-27 20:01 | XMS_ITS | Encounter Summary ---
Author Organization [facility] Address [address] [place] [address] Phone Care Team Providers Care Med Dir Name Role Phone Alhaji Elizabeth MD Primary Care Provider [phone] Encounter Details Date Type Department Care Team (Late st Contact Info) Description 06/17/2013 Documentation EM Family Medicine [address] [place], [place] [phone] Family Medicine, Physician [address] [place] [address] Social History Tobacco Use Types Packs/Day Years [...] on filedocumented in this encounter Care Teams Med Dir Relationship Specialty Start Date End Date Alhaji Elizabeth MD [address] [place] [address] PCP - General 04/20/17 02/14/23 documented as of this encounter
--- OUTSIDE RECORDS SUMMARY | 2025-07-27 20:02 | XMS_ITS | Encounter Summary ---
Author Organization [facility] Address [address] [place] [address] Phone Care Team Providers Care Burrer Operator Name Role Phone Alhaji Elizabeth MD Primary Care Provider [phone] Encounter Details Date Type Department Care Team (Late st Contact Info) Description 02/26/2014 Documentation EM Family Medicine [address] [place], [place] [phone] Family Medicine, Physician [address] [place] [address] Social History Tobacco Use Types Packs/Day Years [...] on filedocumented in this encounter Care Teams Burrer Operator Relationship Specialty Start Date End Date Alhaji Elizabeth MD [address] [place] [address] PCP - General 04/20/17 02/14/23 documented as of this encounter
--- OUTSIDE RECORDS SUMMARY | 2025-07-27 20:02 | XMS_ITS | Encounter Summary ---
Author Organization [facility] Address [address] [place] [address] Phone Care Team Providers Care Lawn Sprinkler Installer Name Role Phone Alhaji Elizabeth MD Primary Care Provider [phone] Encounter Details Date Type Department Care Team (Late st Contact Info) Description 08/19/2014 Documentation EM Family Medicine [address] [place] [address] Family Medicine, Physician [address] [place], [place] [phone] Social History Tobacco Use Types Packs/Day Years [...] on filedocumented in this encounter Care Teams Lawn Sprinkler Installer Relationship Specialty Start Date End Date Alhaji Elizabeth MD [address] [place] [address] [place] [address] PCP - General 04/20/17 02/14/23 documented as of this encounter
--- OUTSIDE RECORDS SUMMARY | 2025-07-27 20:02 | XMS_ITS | Encounter Summary ---
Author Organization [facility] Address [address] [place] [address] Phone Care Team Providers Care Watch Manufacturing Supervisor Name Role Phone Alhaji Elizabeth MD Primary Care Provider [phone] Encounter Details Date Type Department Care Team (Late st Contact Info) Description 04/26/2017 Conversion Encounter [facility] [address] [place] [address] Social History Tobacco Use Types Packs/Day Years [...] filedocumented in this encounter Care Teams Watch Manufacturing Supervisor Relationship Specialty Start Date End Date Alhaji Elizabeth MD [address] [place] [address] PCP - General 04/20/17 02/14/23 documented as of this encounter
--- OUTSIDE RECORDS SUMMARY | 2025-07-27 20:02 | XMS_ITS | Clinical Summary ---
Author Organization [facility] Address [address] [place] [address] Phone Care Team Providers Care Racking Technician Name Role Phone Unavailable Primary Care [...] of Migraines, No family history of *Sudden /SD under 55, No family history of Deafness, [...]
--- OUTSIDE RECORDS SUMMARY | 2025-07-27 20:02 | XMS_ITS | Encounter Summary ---
Author Organization [facility] Address [address] [place] [address] Phone Care Team Providers Care Ios Programmer Name Role Phone Alhaji Elizabeth MD Primary Care Provider [phone] Encounter Details Date Type Department Care Team (Late st Contact Info) Description 03/09/2014 Documentation EM Family Medicine [address] [place], [place] [phone] Family Medicine, Physician [address] [place] [address] Social History Tobacco Use Types Packs/Day Years [...] on filedocumented in this encounter Care Teams Ios Programmer Relationship Specialty Start Date End Date Alhaji Elizabeth MD [address] [place] [address] PCP - General 04/20/17 02/14/23 documented as of this encounter
--- OUTSIDE RECORDS SUMMARY | 2025-07-27 20:02 | XMS_ITS | Encounter Summary ---
Author Organization [facility] Address [address] [place] [address] Phone Care Team Providers Care Client Account Manager Name Role Phone Alhaji Elizabeth MD Primary Care Provider [phone] Encounter Details Date Type Department Care Team (Late st Contact Info) Description 01/28/2010 Documentation EM Family Medicine [address] [place], [place] [phone] Family Medicine, Physician [address] [place] [address] Social History Tobacco Use Types Packs/Day Years [...] on filedocumented in this encounter Care Teams Client Account Manager Relationship Specialty Start Date End Date Alhaji Elizabeth MD [address] [place] [address] PCP - General 04/20/17 02/14/23 documented as of this encounter
--- OUTSIDE RECORDS SUMMARY | 2025-07-27 20:03 | XMS_ITS | Encounter Summary ---
Author Organization [facility] Address [address] [place] [address] Phone Care Team Providers Care Hemodialysis Charge Nurse Name Role Phone Alhaji Elizabeth MD Primary Care Provider [phone] Encounter Details Date Type Department Care Team (Late st Contact Info) Description 11/17/2010 Documentation EM Family Medicine [address] [place], [place] [phone] Family Medicine, Physician [address] [place] [address] Social History Tobacco Use Types Packs/Day Years [...] on filedocumented in this encounter Care Teams Hemodialysis Charge Nurse Relationship Specialty Start Date End Date Alhaji Elizabeth MD [address] [place] [address] PCP - General 04/20/17 02/14/23 documented as of this encounter
== END 2025-07-27 10:19 | disposition home or self-care (01) ==
LOC: HO.HMCHD 09:41
PROVIDERS: PCP Physician Assistant; Visit Provider Physician Assistant
DX: E66.813 Obesity, class 3 (principal); J45.50 Severe persistent asthma, uncomplicated; G47.33 Obstructive sleep apnea (adult) (pediatric); F32.A Depression, unspecified

== ENCOUNTER → 2025-07-27 09:40 | Outpatient (BNVA) | payer OTHER, SELFPAY | PROVIDERS: PCP Physician Assistant; Visit Provider Physician Assistant | DX: E66.813 Obesity, class 3 (principal); Z68.41 Body mass index [BMI] 40.0-44.9, adult; J45.50 Severe persistent asthma, uncomplicated; G47.33 Obstructive sleep apnea (adult) (pediatric); F32.A Depression, unspecified; K21.9 Gastro-esophageal reflux disease without esophagitis; Z79.899 Other long term (current) drug therapy | CPT/HCPCS: 99212 ==

== ENCOUNTER 2025-08-31 09:59 | Inpatient (IN) | payer OTHER, SELFPAY ==
[2025-08-31] VITALS (8 sets, daily range): BP systolic 127–140; BP diastolic 74–78; PULSE 87–130; RESP 14–113; TEMP 36–36.8; O2SAT 90–96; BMI 45.4; BMI 45.1
--- NOTE | ~2025-08-31 | XR_ITS ---
EXAMINATION: XR CHEST CLINICAL INFORMATION: cough and SOB COMPARISON: April 09, 2023 TECHNIQUE: Frontal view of the chest was obtained. FINDINGS: Vague opacity partially obscuring the right heart margin. Lungs are clear otherwise. There is no pneumothorax or pleural effusion. Heart size is within normal limits. Bony thorax is unremarkable. XR/XR chest 1V IMPRESSION: Suspected right middle lobe opacity that could represent atelectasis or pneumonia. Electronically signed by: Fly Olson MD 08/31/2025 10:45 AM ESME
--- NOTE | 2025-08-31 10:08 | ED_ITS ---
HPI - General Adult General Chief complaint: Upper Respiratory Symptoms Stated complaint: Trouble Breathing, Coughing, Loss of Sleep Time Seen by Provider: 08/31/25 11:27 Source: patient Mode of arrival: EMS Limitations: no limitations History of Present Illness ED Provider: Dr. Rah Mace HPI narrative: 34-year-old male with a history of asthma, sleep apnea, occurred, depression, chronic allergic rhinitis who presents emergency department for evaluation of feeling sick x5 days. Patient states he has a cough which is persistent and occasionally productive of white thick mucus. He states he did see specks of blood in his cough today. He complains of shortness of breath and significant dyspnea on exertion at 10 ft. Patient states that 4 days ago he did have a fever but he has had persistent chills. The patient is having sharp pleuritic chest pain worse with coughing and breathing. Patient has been using his albuterol nebulizer every 4 hours, he states that he feels better for about an hour and then his shortness of breath and dyspnea on exertion returns. The patient states that he messaged his bar manager, Dr. Romero 4 days prior and was started on doxycycline and tapering course of prednisone starting at 60 mg decreasing by 10 mg every 3 days. Despite taking his medicines he is not feeling better. He believes that the doxycycline in his making him nauseous and causing him to vomit. Patient states that walking from the waiting room to the ED bed made him extremely short of breath. Related Data Home Medications ?Medication ?Instructions ?Recorded ?Confirmed fluticasone propionate 50 1 spray intranasal DAILY PRN 01/19/25 08/31/25 mcg/actuation nasal Allergy Symptoms spray,suspension cetirizine 10 mg tablet 10 mg PO DAILY 07/27/2508/11 albuterol sulfate 90 mcg/actuation 2 puff inhalation Q 6H PRN 08/31/25 08/31/25 aerosol inhaler (Ventolin HFA) Shortness Of Breath Or Wheezing omeprazole 20 mg capsule,delayed 20 mg PO DAILY@0630 1 11/01/24 08/31/25 release prednisone 10 mg tablet See Rx Instructions PO DAILY 08/31/25 08/31/25 Previous Rx's ?Medication ?Instructions ?Recorded ibuprofen 800 mg tablet 800 mg PO Q8H PRN pain #14 t abs 07/17/20 nebulizers (AeroEclipse II #1 ea 07/17/20 Nebulizer) epinephrine 0.3 mg/0.3 mL 0.3 mg (0.3 mL) IM Q10M PRN 03/30/25 injection, auto-injector (EpiPen anaphylaxis 30 days # 2 ea 2-Juan) dupilumab 300 mg/2 mL subcutaneous See Rx Instructions subcut Q2W 4 05/22/25 pen injector (Dupixent) weeks #4 mL budesonide 160 mcg-glycopyr 9 2 inh inhalation BID 30 days #10.7 07/03/25 mcg-formot 4.8 mcg/actuation HFA grams inhaler (Breztri Aerosphere) albuterol sulfate 2.5 mg/3 mL 2.5 mg (3 mL) inhalation Q4H PRN 08/28/25 (0.083 %) solution for nebulization shortness of breat h or wheezing 30 days #180 mL azithromycin 500 mg tablet 500 mg PO Q24H 7 days #7 ta bs 09/01/25 benzonatate 100 mg capsule 100 mg PO TID PRN Cough 7 d ays #21 09/01/25 caps cephalexin 750 mg capsule 750 mg PO BID #14 caps 09/01 dextromethorphan-guaifenesin 30 1 tab PO BID 7 days #1 4 tabs 09/01/25 mg-600 mg tablet extended [id number] hr (Mucus DM) prednisone 20 mg tablet 40 mg (2 x 20 mg) PO DAILY # 20 tabs 09/01/25 Allergies Allergy/AdvReac Type Severity Reaction Status Date / Time hydrocodone (From VICODIN) Allergy Severe Swelling, Verified 08/31/25 10:09 Redness, Itching seafood Allergy Severe Swelling Verified 08/31/25 10:09 codeine (CODEINE) Allergy Intermediate ITCHY RASH Verified 08/31/25 10:09 vancomycin (VANCOMYCIN) Allergy Intermediate red man's Verified 08/31/25 10:09 syndrome (redness/swelling/itching) doxycycline AdvReac Intermediate Nausea and Verified 08/31/25 21:36 Vomiting Review of Systems 2 Review of Systems: Yes all other systems are reviewed and are negative [facility] Past Medical History [facility] Narrative: Social history: He denies tobacco, alcohol and drug use Medical History Chronic allergic rhinitis Eczema Allergies Hx MRSA infection History of COVID-19 Asthma Insomnia Anxiety (~03/30/25) Depression GERD (gastroesophageal reflux disease) Sleep apnea with use of continuous positive airway pressure (CPAP) FHx: cholecystectomy Asthma exacerbation Surgical History Hx of cholecystectomy Family History Family History Mother Asthma Thyroid condition Father Asthma Brother Asthma Sister No problems noted. Sister No problems noted. Sister No problems noted. Sister No problems noted. Social History Social History Household Members: Spouse and Children Housing: House Are you a primary caregiver assisted living to a significant other at home: No Do you presently have visiting nurse or other home services: No Alcohol intake: never Patient Tobacco Use Status: Never used Tobacco service: No Current occupational status: employed Cognitive needs: No Hearing needs: No Vision needs: No Physical Exam ED Vital Signs: Vital Signs - 24 hr 08/31/25 10:07 08/31/25 10:40 08/31/25 11:34 Temperature 96.8 F 98.2 F Pulse Rate 87 108 H 130 H Respiratory Rate 16 26 H 19 Blood Pressure 140/76 H 128/75 Pulse Oximetry 96 91 L Oxygen Delivery Method Room Air Room Air BMI result Body Mass Index 45.4 Vital signs revealed an elevated blood pressure of 140/76 otherwise unremarkable Exam: General: Awake, alert in no distress Head: Normocephalic, atraumatic EENT: PERRL, sclera and conjunctiva are normal, mouth with no erythema or exudates Neck: Supple, no adenopathy Lung: Diminished breath sounds bilaterally, diffuse wheezing and rhonchi, prolonged expiratory flow Chest: symmetric movement, nontender Heart: regular rate and rhythm, normal S1, S2 no murmurs or rubs Abdomen: soft, non-tender, nondistended, normal bowel sounds Back: no vertebral tenderness, no CVAT Extremities: no deformities, moves all extremities symmetrically, no edema Neuro: Awake, alert, oriented, normal speech, cranial nerves 2-12 intact, moves all extremities symmetrically Psych: Pleasant, cooperative Course Course Course Narrative: RME: 34 yold male with pmh of asthma presents to the ED for URI symptoms such as wheezing, sore throat, coughing and fever of 101. Xray swabs ordered. positive for wheezing on exam. ED bronchodilator ordered. Medications Administered Discontinued Medications Generic Name Dose Route Start Last Admin Trade Name Darrionq PRN Reason Stop Dose Admin Azithromycin 500 mg 09/01/25 12:00 09/01/25 11:05 Azithromycin 500 Mg Tablet PO 500 mg Q24H MARC Administration Albuterol Sulfate 5 mg/ 0 mg 08/31/25 10:36 08/31/25 10:39 Albuterol/Ipratropium 3 ml INHALE 08/31/25 10:37 1 each ONCE ONE Administration Levalbuterol HCl 3.75 mg/ 0 mg 08/31/25 14:24 08/31/25 14:26 Ipratropium Hulett 0.5 mg INHALE 08/31/25 14:25 1 dose ONCE ONE Administration Guaifenesin/Dextromethorphan 1 tab 08/31/25 21:00 09/01/25 08:17 Guaifenesin Dm 600/30 1 Tab Tab.Er.12h PO 1 tab BID MARC Administration Sodium Chloride 1,000 mls @ 999 mls/hr 08/31/25 11:50 08/31/25 13:25 Ns IV 08/31/25 12:50 Infused .Q1H1M STA Infusion Ceftriaxone Sodium 1 gm/ 50 mls @ 100 mls/hr 08/31/25 11:50 08/31/25 12:47 Sodium Chloride IV 08/31/25 12:19 Infused ONCE ONE Infusion Azithromycin 500 mg/ Sodium 250 mls @ 125 mls/hr 08/31/25 11:50 08/31/25 17:52 Chloride IV 08/31/25 13:49 Infused ONCE ONE Infusion Lactated Ringer's 1,000 mls @ 100 mls/hr 08/31/25 15:30 09/01/25 11:07 Lr IVCONT Infused .Q10H MARC Infusion Levalbuterol HCl 2.5 mg 08/31/25 16:00 09/01/25 00:58 Levalbuterol Hcl 1.25 Mg/3 Ml Vial.Neb INHALE Not Given RQ4H MARC Loratadine 10 mg 08/31/25 16:00 09/01/25 08:17 Loratadine 10 Mg Tablet PO 10 mg DAILY MARC Administration Methylprednisolone Sodium Succinate 125 mg 08/31/25 11:50 08/31/25 12:15 Methylprednisolone Sod Succ 125 Mg/2 Ml Vial IVPUSH 08/31/25 11:51 125 mg ONCE ONE Administration Methylprednisolone Sodium Succinate 60 mg 08/31/25 23:00 09/01/25 10:50 Methylprednisolone Sod Succ 125 Mg/2 Ml Vial IVPUSH 60 mg Q12H MARC Administration Omeprazole 20 mg 08/31/25 16:00 09/01/25 05:40 Omeprazole 20 Mg Capsule.Dr PO 20 mg DAILY@0630 MARC Administration Sodium Chloride 3 ml 08/31/25 16:00 09/01/25 08:16 0.9 % Sodium Chloride Flush 3 Ml Syringe IVFLUSH Not Given QSHIFT [facility] Medical Decision Making Medical Decision Making [facility] Narrative: 34-year-old male with a history of asthma, sleep apnea, occurred, depression, chronic allergic rhinitis who presents emergency department for evaluation of feeling sick x5 days. Symptoms include persistent cough which is occasionally productive of thick white sputum with flecks of blood, subjective fever and chills with a documented fever at home 4 days prior, pleuritic chest pain, shortness of breath at rest and significant dyspnea on exertion, nausea and vomiting. Patient was started on doxycycline and tapering course of prednisone 4 days prior with no improvement. Patient has been using his albuterol nebulizer every 4 hours with only a proximally 1 hour of relief. Patient had significant dyspnea on exertion walking from the waiting room to the ED stretcher. Vital signs were unremarkable. Exam did reveal diminished breath sounds, diffuse wheezing and rhonchi and prolonged expiratory flow. 12:04 Differential diagnosis: ?Includes but is not limited to viral syndrome, COVID- 19, RSV, viral pneumonia, bacterial pneumonia, asthma exacerbation, anemia, electrolyte abnormalities Course: 12:04 COVID-19, RSV and influenza tests were negative. Chest x-ray is concerning for right middle lobe infiltrate/pneumonia. Given this finding I ordered laboratory CBC, CMP, lactic acid blood cultures x2, VBG, l magnesium, troponin, lipase, EKG, troponin. Patient was given albuterol 7.5 mg and ipratropium 0.5 mg as a nebulizer per bronchodilator protocol. I also ordered normal saline IV x1 L and Solu-Medrol 125 mg IV. Patient's community-acquired pneumonia was treated with ceftriaxone 1 g IV and azithromycin 500 mg IV. 14:27 My interpretation patient's laboratory evaluation is as follows: CBC was normal. Bicarb low 16. BUN elevated 22. AST and ALT elevated 57 and 67.. Venous pH revealed an elevated pH of 7.46, low CO2 of 28 low bicarb of 20. I did re-evaluate the patient, and continues to have wheezing with diffuse rhonchi. Patient was given a 2nd nebulizer of albuterol 7.5 mg. At this time, I am concerned that the patient has a significant asthma exacerbation triggered by his right middle lobe pneumonia. He has been using his nebulizer treatment every 4 hours at home with only minimal relief. I will discuss admission with the covering hospitalist for further treatment of his asthma exacerbation and pneumonia. Differential Diagnosis Differential Diagnoses: The differential diagnosis associated with the presentation includes (See above) Admission/Observation Consideration of admission/observation: Escalation of care including admission/observation considered (Yes) Lab Data 09/01/25 05:39 09/01/25 05:39 Labs: Lab Results 08/31/25 08/31/25 08/31/25 Range/Units 10:26 12:11 12:17 WBC 7.0 (4.8-10.8) X10*3/uL RBC 5.27 (4.60-5.80) X10*6/uL Hgb 14.8 (14.0-18.0) g/dl Hct 45.8 (42.0-52.0) % MCV 86.9 (80.0-98.0) fL MCH 28.1 (27.0-33.0) pg MCHC 32.3 (31.0-36.0) g/dl RDW 13.0 (11.0-16.0) % Plt Count 298 (160-400) X10*3/uL MPV 9.3 L (9.4-12.4) fL Immature Gran % (Auto) 0.7 H (0.0-0.4) % Neut % (Auto) 59.2 (45-73) % Lymph % (Auto) 29.4 (20-40) % Throckmorton % (Auto) 4.6 (2-11) % Eos % (Auto) 5.2 H (0-4) % Baso % (Auto) 0.9 (0-2) % Lymph # (Auto) 2.0 (1.2-4.9) X10*3/uL Throckmorton # (Auto) 0.3 (0.1-1.2) X10*3/uL Eos # (Auto) 0.4 (0.0-0.4) X10*3/uL Baso # (Auto) 0.1 (0.0-0.2) X10*3/uL Abs Immat Gran (auto) 0.05 H (0.00-0.03) X10*3/uL Absolute Neuts (auto) 4.1 (2.0-8.3) x10*3/uL Absolute Nucleated RBC 0.000 (0.0-0.012) X10*3/uL Nucleated RBC % (auto) 0.0 (0.0-0.2) /100WBC VBG pH 7.46 H (7.32-7.43) VBG pCO2 28 mmHg VBG pO2 60 mmHg VBG HCO3 20 L (22-26) mmol/L VBG O2 Saturation 89.0 % VBG Base Excess -1.8 mmol/L Sodium 141 (135-145) mmol/L Potassium 3.6 D (3.3-5.1) mmol/L Chloride 110 H (96-108) mmol/L Carbon Dioxide 16 L (22-29) mmol/L Anion Gap 19 (12-20) BUN 22 H (9-16) mg/dL Creatinine 0.91 (0.5-1.4) mg/dL Estim Creat Clear Calc 132.9 Estimated GFR > 60 Random Glucose 107 (60-115) mg/dL Lactic Acid 3.0 H* (0.5-2.0) mmol/L Lactic Acid F/U @ 2Hr (0.5-2.0) mmol/L Calcium 8.8 (8.4-10.2) mg/dL Magnesium 2.2 (1.6-2.6) mg/dL Total Bilirubin 0.4 (0.0-1.0) mg/dL AST 57 H (5-37) U/L ALT 65 H (0-40) U/L Alkaline Phosphatase 115 (39-117) U/L Troponin I High Sens < 2.7 (<3.5-35.0) ng/L Total Protein 8.2 H (6.5-8.0) g/dL Albumin 4.3 (3.5-5.0) g/dL Lipase 13 (8-78) U/L Influenza Type A (PCR) NEGATIVE (Negative) Influenza Type B (PCR) NEGATIVE (Negative) RSV RNA Qual (PCR) NEGATIVE (Negative) SARS-CoV-2 RNA (RT-PCR) NEGATIVE (Negative) S. pyogenes GrpA LINDA Negative (Negative) 08/31/25 Range/Units 14:55 WBC (4.8-10.8) X10*3/uL RBC (4.60-5.80) X10*6/uL Hgb (14.0-18.0) g/dl Hct (42.0-52.0) % MCV (80.0-98.0) fL MCH (27.0-33.0) pg MCHC (31.0-36.0) g/dl RDW (11.0-16.0) % Plt Count (160-400) X10*3/uL MPV (9.4-12.4) fL Immature Gran % (Auto) (0.0-0.4) % Neut % (Auto) (45-73) % Lymph % (Auto) (20-40) % Throckmorton % (Auto) (2-11) % Eos % (Auto) (0-4) % Baso % (Auto) (0-2) % Lymph # (Auto) (1.2-4.9) X10*3/uL Throckmorton # (Auto) (0.1-1.2) X10*3/uL Eos # (Auto) (0.0-0.4) X10*3/uL Baso # (Auto) (0.0-0.2) X10*3/uL Abs Immat Gran (auto) (0.00-0.03) X10*3/uL Absolute Neuts (auto) (2.0-8.3) x10*3/uL Absolute Nucleated RBC (0.0-0.012) X10*3/uL Nucleated RBC % (auto) (0.0-0.2) /100WBC VBG pH (7.32-7.43) VBG pCO2 mmHg VBG pO2 mmHg VBG HCO3 (22-26) mmol/L VBG O2 Saturation % VBG Base Excess mmol/L Sodium (135-145) mmol/L Potassium (3.3-5.1) mmol/L Chloride (96-108) mmol/L Carbon Dioxide (22-29) mmol/L Anion Gap (12-20) BUN (9-16) mg/dL Creatinine (0.5-1.4) mg/dL Estim Creat Clear Calc Estimated GFR Random Glucose (60-115) mg/dL Lactic Acid (0.5-2.0) mmol/L Lactic Acid F/U @ 2Hr 2.2 H* (0.5-2.0) mmol/L Calcium (8.4-10.2) mg/dL Magnesium (1.6-2.6) mg/dL Total Bilirubin (0.0-1.0) mg/dL AST (5-37) U/L ALT (0-40) U/L Alkaline Phosphatase (39-117) U/L Troponin I High Sens (<3.5-35.0) ng/L Total Protein (6.5-8.0) g/dL Albumin (3.5-5.0) g/dL Lipase (8-78) U/L Influenza Type A (PCR) (Negative) Influenza Type B (PCR) (Negative) RSV RNA Qual (PCR) (Negative) SARS-CoV-2 RNA (RT-PCR) (Negative) S. pyogenes GrpA LINDA (Negative) Radiology Impression Discussion of test interpretation with radiology: I have reviewed the radiologist's reading. Radiologist Impression: XR chest 1V IMPRESSION: Suspected right middle lobe opacity that could represent atelectasis or pneumonia. Electronically signed by: Fly Olson MD 08/31/2025 10:45 AM EST Independent Historian Clinical information obtained from an independent historian. History obtained from or confirmed by: Spouse and Parent Chronic Conditions Patient?s care impacted by: Other (Asthma) Discharge Plan Discharge Clinical Impression: Asthma Pneumonia Qualifiers: Pneumonia type: due to unspecified organism Laterality: right Lung location: m iddle lobe of lung Qualified Code(s): J18.9 - Pneumonia, unspecified organism Patient Disposition: Admitted As Inpatient Interventions: Admission Worksheet (ED) Last Done: 08/31/25 18:02 Discharge Date/Time: 08/31/25 18:40
[2025-08-31] MEDS: Albuterol Sulfate 5 MG, Albuterol/Iprat 2.5/0.5MG 3 ML 3 ML INHALE (10:39)
[2025-08-31 10:40] LABS: Strep A Nucleic Acid Negative (Negative)
[2025-08-31 11:19] LABS: Resp Syncy Virus RNA Qual PCR NEGATIVE (Negative); SARS COV2 PCR INHOUSE NEGATIVE (Negative)
--- NOTE | 2025-08-31 12:05 | ECG_ITS ---
Test Reason : dyspnea Blood Pressure : */* mmHG Vent. Rate : 100 BPM Atrial Rate : 100 BPM P-R Int : 134 ms QRS Dur : 94 ms QT Int : 346 ms P-R-T Axes : 52 31 33 degrees QTcB Int : 446 ms Normal sinus rhythm Normal ECG When compared with ECG of 08-Jun-2022 07:04, T wave amplitude has decreased in Anterior leads Referred By: Rah Mace Electronically Signed By: TK BARRY MD
[2025-08-31 12:17] LABS: MANUAL DIFF FLAG NO
[2025-08-31 12:21] LABS: VBG HCO3 20 mmol/L (22-26); VBG O2 % Saturation 89.0 %
[2025-08-31 12:24] LABS: Venous Blood Gas Refer to POC result
[2025-08-31 12:25] LABS: Hematocrit 45.8 % (42.0-52.0); Hemoglobin 14.8 g/dl (14.0-18.0); Imm Gran Abs Auto 0.05 X10*3/uL (0.00-0.03); Imm Gran Pct Auto 0.7 % (0.0-0.4); Lymphocytes Absolute Auto 2.0 X10*3/uL (1.2-4.9); Mean Corpuscular HGB Conc 32.3 g/dl (31.0-36.0); Mean Corpuscular Hemoglobin 28.1 pg (27.0-33.0); Mean Corpuscular Volume 86.9 fL (80.0-98.0); NRBC Abs Auto 0.000 X10*3/uL (0.0-0.012); NRBC Pct Auto 0.0 /100WBC (0.0-0.2); Platelet Count 298 X10*3/uL (160-400); Red Blood Count 5.27 X10*6/uL (4.60-5.80); White Blood Count 7.0 X10*3/uL (4.8-10.8)
[2025-08-31 13:07] LABS: Troponin-I High Sensitivity < 2.7 ng/L (<3.5-35.0)
[2025-08-31 14:16] LABS: Reflex Lactate? Lactic Acid Added
[2025-08-31 14:19] LABS: Alanine Aminotransferase 65 U/L (0-40); Albumin Level 4.3 g/dL (3.5-5.0); Alkaline Phosphatase 115 U/L (39-117); Anion Gap 19 (12-20); Aspartate Amino Transferase 57 U/L (5-37); Blood Urea Nitrogen 22 mg/dL (9-16); Calcium 8.8 mg/dL (8.4-10.2); Carbon Dioxide 16 mmol/L (22-29); Chloride 110 mmol/L (96-108); Creatinine Clr Calc Pharmacy 132.9; Estimated Glomerular Filt Rate > 60; Lipase 13 U/L (8-78); Magnesium 2.2 mg/dL (1.6-2.6); Potassium 3.6 mmol/L (3.3-5.1); Sodium 141 mmol/L (135-145); Total Protein 8.2 g/dL (6.5-8.0)
[2025-08-31] MEDS: levalbuterol HCL 3.75 MG, Ipratropium Bromide 0.5 MG INHALE (14:26)
--- NOTE | 2025-08-31 15:12 | PHA.MEDREC ---
Addendum entered by Annette Yoo RPh 08/31/25 15:27: Reviewed by [facility] Original Note: Pharmacy Consult ? Medication Reconciliation Pharmacy has completed the medication reconciliation. Patient confirmed his medications. Pt started a Doxycycline 100mg and Prednisone 10mg tab (Pt taking Prednisone 10mg; 60mg X3D, 50mg X3D, 40mg X3D, 30mg X3D, 20mg X3D and 10mg X3D); pt starting 50mg X3D taper dose of regimen today.
--- OUTSIDE RECORDS SUMMARY | 2025-08-31 15:26 | XMS_ITS | Encounter Summary ---
Author Organization [facility] Address [address] [place] [phone] Phone Care Team Providers Care Fatback Trimmer Name Role Phone Alhaji Elizabeth MD Primary Care Provider [phone] Encounter Details Date Type Department Care Team (Late st Contact Info) Description 01/14/2013 Documentation EM Family Medicine [address] [place], [place] [phone] Family Medicine, Physician [address] [place] [address] Social History Tobacco Use Types Packs/Day Years [...] on filedocumented in this encounter Care Teams Fatback Trimmer Relationship Specialty Start Date End Date Alhaji Elizabeth MD [address] [place] [phone] PCP - General 04/20/17 02/14/23 documented as of this encounter
--- OUTSIDE RECORDS SUMMARY | 2025-08-31 15:26 | XMS_ITS | Encounter Summary ---
Author Organization [facility] Address [address] [place] [address] Phone Care Team Providers Care Clinical Project Leader Name Role Phone Alhaji Elizabeth MD Primary Care Provider Encounter Details Date Type Department Care Team (Late st Contact Info) Description 03/12/2013 Documentation EM Family Medicine [address] [place], [place] [phone] Family Medicine, Physician [address] [place] [address] Social History Tobacco Use Types Packs/Day Years [...] on filedocumented in this encounter Care Teams Clinical Project Leader Relationship Specialty Start Date End Date Alhaji Elizabeth MD [address] [place] [phone] PCP - General 04/20/17 02/14/23 documented as of this encounter
--- OUTSIDE RECORDS SUMMARY | 2025-08-31 15:26 | XMS_ITS | Clinical Summary ---
Author Organization [facility] Address [address] [place] [address] Phone Care Team Providers Care Disease Education Specialist Name Role Phone Unavailable Primary Care Provider [...] of Migraines, No family history of *Sudden /ND under 55, No family history of Deafness, [...]
--- OUTSIDE RECORDS SUMMARY | 2025-08-31 15:26 | XMS_ITS | Encounter Summary ---
Author Organization [facility] Address [address] [place] [address] Phone Care Team Providers Care Wrecking Crane Engine Operator Name Role Phone Alhaji Elizabeth MD Primary Care Provider [phone] Encounter Details Date Type Department Care Team (Late st Contact Info) Description 01/14/2013 Documentation EM Family Medicine [address] [place], [place] [phone] Family Medicine, Physician [address] [place] [address] Social History Tobacco Use Types Packs/Day Years [...] on filedocumented in this encounter Care Teams Wrecking Crane Engine Operator Relationship Specialty Start Date End Date Alhaji Elizabeth MD [address] [place] [address] PCP - General 04/20/17 02/14/23 documented as of this encounter
--- OUTSIDE RECORDS SUMMARY | 2025-08-31 15:26 | XMS_ITS | Encounter Summary ---
Author Organization [facility] Address [address] [place] [address] Phone Care Team Providers Care Diagnostic Radiologic Technologist Name Role Phone Alhaji Elizabeth MD Primary Care Provider [phone] Encounter Details Date Type Department Care Team (Late st Contact Info) Description 2011 Documentation EM Family Medicine [address] [place], [place] [phone] Family Medicine, Physician [address] [place] [address] Social History Tobacco Use Types Packs/Day Years [...] on filedocumented in this encounter Care Teams Diagnostic Radiologic Technologist Relationship Specialty Start Date End Date Alhaji Elizabeth MD [address] [place] [address] PCP - General 04/20/17 02/14/23 documented as of this encounter
--- OUTSIDE RECORDS SUMMARY | 2025-08-31 15:26 | XMS_ITS | Encounter Summary ---
Author Organization [facility] Address [address] [place] [address] Phone Care Team Providers Care International Accounting Manager Name Role Phone Alhaji Elizabeth MD Primary Care Provider [phone] Encounter Details Date Type Department Care Team (Late st Contact Info) Description 12/13/2011 Documentation EM Family Medicine [address] [place], [place] [phone] Family Medicine, Physician [address] [place] [address] Social History Tobacco Use Types Packs/Day Years [...] on filedocumented in this encounter Care Teams International Accounting Manager Relationship Specialty Start Date End Date Alhaji Elizabeth MD [address] [place] [address] PCP - General 04/20/17 02/14/23 documented as of this encounter
--- OUTSIDE RECORDS SUMMARY | 2025-08-31 15:26 | XMS_ITS | Encounter Summary ---
Author Organization [facility] Address [address] [place] [address] Phone Care Team Providers Care Radio/Tv Technician Name Role Phone Alhaji Elizabeth MD Primary Care Provider [phone] Encounter Details Date Type Department Care Team (Late st Contact Info) Description 08/19/2014 Documentation EM Family Medicine [address] [place] [address] Family Medicine, Physician [address] [place], [place] 111691 Social History Tobacco Use Types Packs/Day Years [...] on filedocumented in this encounter Care Teams Radio/Tv Technician Relationship Specialty Start Date End Date Alhaji Elizabeth MD [address] [place] [address] [place] [address] PCP - General 04/20/17 02/14/23 documented as of this encounter
--- OUTSIDE RECORDS SUMMARY | 2025-08-31 15:26 | XMS_ITS | Encounter Summary ---
Author Organization [facility] Address [address] [place] [address] Phone Care Team Providers Care Deaf/Hard Of Hearing Specialist Name Role Phone Alhaji Elizabeth MD Primary Care Provider [phone] Encounter Details Date Type Department Care Team (Late st Contact Info) Description 04/11/2011 Documentation EM Family Medicine [address] [place], [place] [phone] Family Medicine, Physician [address] [place] [address] Social History Tobacco Use Types Packs/Day Years [...] on filedocumented in this encounter Care Teams Deaf/Hard Of Hearing Specialist Relationship Specialty Start Date End Date Alhaji Elizabeth MD [address] [place] [address] PCP - General 04/20/17 02/14/23 documented as of this encounter
--- OUTSIDE RECORDS SUMMARY | 2025-08-31 15:26 | XMS_ITS | Encounter Summary ---
Author Organization [facility] Address [address] [place] [address] Phone Care Team Providers Care Senior Product Consultant Name Role Phone Alhaji Elizabeth MD Primary Care Provider [phone] Encounter Details Date Type Department Care Team (Late st Contact Info) Description 01/28/2010 Documentation EM Family Medicine [address] [place], [place] [phone] Family Medicine, Physician [address] [place] [address] Social History Tobacco Use Types Packs/Day Years [...] filedocumented in this encounter Care Teams Senior Product Consultant Relationship Specialty Start Date End Date Alhaji Elizabeth MD [address] [place] [address] PCP - General 04/20/17 02/14/23 documented as of this encounter
--- OUTSIDE RECORDS SUMMARY | 2025-08-31 15:26 | XMS_ITS | Encounter Summary ---
Author Organization [facility] Address [address] [place] [address] Phone Care Team Providers Care Pellet Mill Operator Name Role Phone Alhaji Elizabeth MD Primary Care Provider [phone] Encounter Details Date Type Department Care Team (Late st Contact Info) Description 01/14/2013 Documentation EM Family Medicine [address] [place], [place] [phone] Family Medicine, Physician [address] [place] [address] Social History Tobacco Use Types Packs/Day Years [...] on filedocumented in this encounter Care Teams Pellet Mill Operator Relationship Specialty Start Date End Date Alhaji Elizabeth MD [address] [place] [address] PCP - General 04/20/17 02/14/23 documented as of this encounter
--- OUTSIDE RECORDS SUMMARY | 2025-08-31 15:26 | XMS_ITS | Encounter Summary ---
Author Organization [facility] Address [address] [place] [address] Phone Care Team Providers Care Historical Guide Name Role Phone Alhaji Elizabeth MD Primary Care Provider [phone] Encounter Details Date Type Department Care Team (Late st Contact Info) Description 04/26/2017 Conversion Encounter [facility] [address] [place] [address] Social History Tobacco Use Types Packs/Day Years [...] on filedocumented in this encounter Care Teams Historical Guide Relationship Specialty Start Date End Date Alhaji Elizabeth MD [address] [place] [address] PCP - General 04/20/17 02/14/23 documented as of this encounter
--- OUTSIDE RECORDS SUMMARY | 2025-08-31 15:26 | XMS_ITS | Encounter Summary ---
Author Organization [facility] Address [address] [place] [address] Phone Care Team Providers Care Cap Blocker Name Role Phone Alhaji Elizabeth MD Primary Care Provider [phone] Encounter Details Date Type Department Care Team (Late st Contact Info) Description 12/04/2011 Documentation EM Family Medicine [address] [place], [place] [phone] Family Medicine, Physician [address] [place] [address] Social History Tobacco Use Types Packs/Day Years [...] on filedocumented in this encounter Care Teams Cap Blocker Relationship Specialty Start Date End Date Alhaji Elizabeth MD [address] [place] [address] PCP - General 04/20/17 02/14/23 documented as of this encounter
--- OUTSIDE RECORDS SUMMARY | 2025-08-31 15:26 | XMS_ITS | Encounter Summary ---
Author Organization [facility] Address [address] [place] [address] Phone Care Team Providers Care Garment Steamer Name Role Phone Alhaij Elizabeth MD Primary Care Provider [phone] Encounter Details Date Type Department Care Team (Late st Contact Info) Description 10/01/2013 Documentation EM Family Medicine [address] [place], [place] [phone] Family Medicine, Physician [address] [place] [address] Social History Tobacco Use Types Packs/Day Years [...] filedocumented in this encounter Care Teams Garment Steamer Relationship Specialty Start Date End Date Alhaji Elizabeth MD [address] [place] [address] PCP - General 04/20/17 02/14/23 documented as of this encounter
--- OUTSIDE RECORDS SUMMARY | 2025-08-31 15:26 | XMS_ITS | Encounter Summary ---
Author Organization [facility] Address [address] [place] [address] Phone Care Team Providers Care Choker Setter Name Role Phone Alhaji Elizabeth MD Primary Care Provider [phone] Encounter Details Date Type Department Care Team (Late st Contact Info) Description 02/26/2014 Documentation EM Family Medicine [address] [place], [place] [phone] Family Medicine, Physician [address] [place] [address] Social History Tobacco Use Types Packs/Day Years [...] on filedocumented in this encounter Care Teams Choker Setter Relationship Specialty Start Date End Date Alhaji Elizabeth MD [address] [place] [address] PCP - General 04/20/17 02/14/23 documented as of this encounter
--- OUTSIDE RECORDS SUMMARY | 2025-08-31 15:26 | XMS_ITS | Encounter Summary ---
Author Organization [facility] Address [address] [place] [address] Phone Care Team Providers Care Web Page Designer Name Role Phone Alhaji Elizabeth MD Primary Care Provider [phone] Encounter Details Date Type Department Care Team (Late st Contact Info) Description 12/11/2012 Documentation EM Family Medicine [address] [place], [place] [phone] Family Medicine, Physician [address] [place] [address] Social History Tobacco Use Types Packs/Day Years [...] filedocumented in this encounter Care Teams Web Page Designer Relationship Specialty Start Date End Date Alhaji Elizabeth MD [address] [place] [address] PCP - General 04/20/17 02/14/23 documented as of this encounter
--- OUTSIDE RECORDS SUMMARY | 2025-08-31 15:26 | XMS_ITS | Encounter Summary ---
Author Organization [facility] Address [address] [place] [address] Phone Care Team Providers Care Storage Facility Housekeeper Name Role Phone Alhaji Elizabeth MD Primary Care Provider [phone] Encounter Details Date Type Department Care Team (Late st Contact Info) Description 06/17/2013 Documentation EM Family Medicine [address] [place], [place] [phone] Family Medicine, Physician [address] [place] [address] Social History Tobacco Use Types Packs/Day Years [...] on filedocumented in this encounter Care Teams Storage Facility Housekeeper Relationship Specialty Start Date End Date Alhaji Elizabeth MD [address] [place] [address] PCP - General 04/20/17 02/14/23 documented as of this encounter
--- OUTSIDE RECORDS SUMMARY | 2025-08-31 15:26 | XMS_ITS | Encounter Summary ---
Author Organization [facility] Address [address] [place] [address] Phone Care Team Providers Care Corporate Coordinator Name Role Phone Alhaji Elizabeth MD Primary Care Provider [phone] Encounter Details Date Type Department Care Team (Late st Contact Info) Description 03/09/2014 Documentation EM Family Medicine [address] [place], [place] [phone] Family Medicine, Physician [address] [place] [address] Social History Tobacco Use Types Packs/Day Years [...] filedocumented in this encounter Care Teams Corporate Coordinator Relationship Specialty Start Date End Date Alhaji Elizabeth MD [address] [place] [address] PCP - General 04/20/17 02/14/23 documented as of this encounter
--- OUTSIDE RECORDS SUMMARY | 2025-08-31 15:26 | XMS_ITS | Encounter Summary ---
Author Organization [facility] Address [address] [place] [address] Phone Care Team Providers Care Well Testing Operator Name Role Phone Alhaji Elizabeth MD Primary Care Provider [phone] Encounter Details Date Type Department Care Team (Late st Contact Info) Description 11/17/2010 Documentation EM Family Medicine [address] [place], [place] [phone] Family Medicine, Physician [address] [place] [address] Social History Tobacco Use Types Packs/Day Years [...] on filedocumented in this encounter Care Teams Well Testing Operator Relationship Specialty Start Date End Date Alhaji Elizabeth MD [address] [place] [address] PCP - General 04/20/17 02/14/23 documented as of this encounter
--- OUTSIDE RECORDS SUMMARY | 2025-08-31 15:26 | XMS_ITS | Encounter Summary ---
Author Organization [facility] Address [address] [place] [address] Phone Care Team Providers Care Restaurant Assistant Manager Name Role Phone Alhaji Elizabeth MD Primary Care Provider [phone] Encounter Details Date Type Department Care Team (Late st Contact Info) Description 02/14/2013 Documentation EM Family Medicine [address] [place], [place] [phone] Family Medicine, Physician [address] [place] [address] Social History Tobacco Use Types Packs/Day Years [...] on filedocumented in this encounter Care Teams Restaurant Assistant Manager Relationship Specialty Start Date End Date Alhaji Elizabeth MD [address] [place] [address] PCP - General 04/20/17 02/14/23 documented as of this encounter
--- OUTSIDE RECORDS SUMMARY | 2025-08-31 15:26 | XMS_ITS | Encounter Summary ---
Author Organization [facility] Address [address] [place] [address] Phone Care Team Providers Care Cosmetology Teacher Name Role Phone Alhaji Elizabeth MD Primary Care Provider [phone] Encounter Details Date Type Department Care Team (Late st Contact Info) Description 02/14/2013 Documentation EM Family Medicine [address] [place], [place] [phone] Family Medicine, Physician [address] [place] [address] Social History Tobacco Use Types Packs/Day Years [...] on filedocumented in this encounter Care Teams Cosmetology Teacher Relationship Specialty Start Date End Date Alhaji Elizabeth MD [address] [place] [address] PCP - General 04/20/17 02/14/23 documented as of this encounter
[2025-08-31 15:29] LABS: ~Lactic Acid-LAB USE ONLY 2.2 mmol/L (0.5-2.0)
--- NOTE | 2025-08-31 15:30 | P.HPHOSP_ITS ---
History of Present Illness Date of Service: 08/31/25 Chief Complaint: shortness 34-year-old male with a history of asthma, obstructive sleep apnea, depression, and chronic allergic rhinitis presents with a persistent cough productive of thick white, blood-tinged sputum. He reports subjective fevers to 101?F with chills, pleuritic chest pain, shortness of breath, and dyspnea on exertion. He contacted his waste reclaimer and was started on a prednisone taper and doxycycline four days ago without significant improvement. He has been using his nebulizer frequently. In the ED, he is tachycardic with ongoing wheezing. Chest X-ray is concerning for a right middle lobe infiltrate. He received albuterol 7.5 mg with ipratropium 0.5 mg x2 with partial improvement, but persistent wheezing. He was also treated with ceftriaxone 1 g IV, azithromycin 500 mg IV, and methylprednisolone (Solu-Medrol) 125 mg IV. Review of Systems 2 Review of Systems: Gen: no fever Resp: + sob, + cough CV: no chest, no AGUILAR, no leg edema GI: No n/v, no abd pain Neuro: No confusion Yes all other systems are reviewed and are negative [facility] Medical History Chronic allergic rhinitis Eczema Allergies Hx MRSA infection History of COVID-19 Asthma Insomnia Anxiety (~03/30/25) Depression GERD (gastroesophageal reflux disease) Sleep apnea with use of continuous positive airway pressure (CPAP) FHx: cholecystectomy Asthma exacerbation Family History Mother Asthma Thyroid condition Father Asthma Brother Asthma Sister No problems noted. Sister No problems noted. Sister No problems noted. Sister No problems noted. Surgical History Hx of cholecystectomy Social History Housing: House Are you a primary healthcare marketer to a significant other at home: No Do you presently have visiting nurse or other home services: No Alcohol intake: current Alcohol intake frequency: does not drink Patient Tobacco Use Status: Never used Tobacco Advance Directives: No Advance Directives Information Provided: No service: No Current occupational status: employed Cognitive needs: No Hearing needs: No Vision needs: No Meds Allergies Allergy/AdvReac Type Severity Reaction Status Date / Time hydrocodone (From VICODIN) Allergy Severe Swelling, Verified 08/31/25 10:09 Redness, Itching seafood Allergy Severe Swelling Verified 08/31/25 10:09 codeine (CODEINE) Allergy Intermediate ITCHY RASH Verified 08/31/25 10:09 vancomycin (VANCOMYCIN) Allergy Intermediate red man's Verified 08/31/25 10:09 syndrome (redness/swelling/itching) Active Medications: Current Medications Acetaminophen (Acetaminophen 325 Mg Tablet) 650 mg PO Q6H PRN PRN Reason: Pain, Mild 1-3,fever,headache Al Hydroxide/Mg Hydroxide (Magnesium Hydrox/Alum Hydrox 30 Ml Oral.Susp) 30 ml PO Q4H PRN PRN Reason: Heartburn Benzonatate (Benzonatate 100 Mg Capsule) 100 mg PO TID PRN PRN Reason: Cough Calcium Carbonate (Calcium Carbonate 750 Mg Tab.Chew) 750 mg PO Q4H PRN PRN Reason: Heartburn Lactated Ringer's (Lr) 1,000 mls @ 100 mls/hr IVCONT .Q10H [facility] Magnesium Hydroxide (Milk Of Magnesia 30 Ml Oral.Susp) 30 ml PO DAILY PRN PRN Reason: Constipation Melatonin (Melatonin 3 Mg Tablet) 6 mg PO BEDTIME PRN PRN Reason: Insomnia Polyethylene Glycol (Polyethylene Glycol 3350 17 Gm Powd.Pack) 17 gm PO DAILY PRN PRN Reason: Constipation Sodium Chloride (0.9 % Sodium Chloride Flush 3 Ml Syringe) 3 ml IVFLUSH QSHIFT [facility] Home Medications ?Medication ?Instructions ?Recorded ?Confirmed ?Last Taken ?Type fluticasone propionate 50 1 spray intranasal DAILY PRN 01/19/25 08/31/25 Unknown History mcg/actuation nasal Allergy Symptoms spray,suspension cetirizine 10 mg tablet 10 mg PO DAILY 07/27/2508/1108/30/25 History albuterol sulfate 90 mcg/actuation 2 puff inhalation Q 6H PRN 08/31/25 08/31/25 08/30/25 History aerosol inhaler (Ventolin HFA) Shortness Of Breath Or Wheezing omeprazole 20 mg capsule,delayed 20 mg PO DAILY@0630 1 11/01/24 08/31/25 08/30/25 History release prednisone 10 mg tablet See Rx Instructions PO DAILY 08/31/25 08/31/25 08/30/25 History Physical Exam 2 Vital Signs and Narrative: Vital Signs: Last Vital Signs Temp 98.2 F 08/31/25 11:34 Pulse 130 H 08/31/25 14:28 Resp 113 H 08/31/25 14:28 BP 128/75 08/31/25 11:34 Pulse Ox 91 L 08/31/25 11:34 O2 Del Method Room Air 08/31/25 11:34 BMI result Body Mass Index 45.4 Const: Other: General: Appears ill, in respiratory distress Cardiovascular: Tachycardic, regular rhythm Pulmonary: Tight air movement with diffuse wheezing bilaterally, no crackles Respiratory: Increased work of breathing Results Labs 08/31/25 12:11 08/31/25 12:11 Labs: Laboratory Results - last 24 hr 08/31/25 08/31/25 08/31/25 10:26 12:11 12:17 MCV 86.9 MCH 28.1 MCHC 32.3 RDW 13.0 Plt Count 298 MPV 9.3 L Immature Gran % (Auto) 0.7 H Neut % (Auto) 59.2 Lymph % (Auto) 29.4 Labette % (Auto) 4.6 Eos % (Auto) 5.2 H Baso % (Auto) 0.9 Lymph # (Auto) 2.0 Labette # (Auto) 0.3 Eos # (Auto) 0.4 Baso # (Auto) 0.1 Abs Immat Gran (auto) 0.05 H Absolute Neuts (auto) 4.1 Absolute Nucleated RBC 0.000 Nucleated RBC % (auto) 0.0 VBG pH 7.46 H VBG pCO2 28 VBG pO2 60 VBG HCO3 20 L VBG O2 Saturation 89.0 VBG Base Excess -1.8 Anion Gap 19 Estim Creat Clear Calc 132.9 Estimated GFR > 60 Random Glucose 107 Lactic Acid 3.0 H* Lactic Acid F/U @ 2Hr Calcium 8.8 Magnesium 2.2 Total Bilirubin 0.4 AST 57 H ALT 65 H Alkaline Phosphatase 115 Troponin I High Sens < 2.7 Total Protein 8.2 H Albumin 4.3 Lipase 13 Influenza Type A (PCR) NEGATIVE Influenza Type B (PCR) NEGATIVE RSV RNA Qual (PCR) NEGATIVE SARS-CoV-2 RNA (RT-PCR) NEGATIVE S. pyogenes GrpA LINDA Negative 08/31/25 14:55 MCV MCH MCHC RDW Plt Count MPV Immature Gran % (Auto) Neut % (Auto) Lymph % (Auto) Labette % (Auto) Eos % (Auto) Baso % (Auto) Lymph # (Auto) Labette # (Auto) Eos # (Auto) Baso # (Auto) Abs Immat Gran (auto) Absolute Neuts (auto) Absolute Nucleated RBC Nucleated RBC % (auto) VBG pH VBG pCO2 VBG pO2 VBG HCO3 VBG O2 Saturation VBG Base Excess Anion Gap Estim Creat Clear Calc Estimated GFR Random Glucose Lactic Acid Lactic Acid F/U @ 2Hr 2.2 H* Calcium Magnesium Total Bilirubin AST ALT Alkaline Phosphatase Troponin I High Sens Total Protein Albumin Lipase Influenza Type A (PCR) Influenza Type B (PCR) RSV RNA Qual (PCR) SARS-CoV-2 RNA (RT-PCR) S. pyogenes GrpA LINDA Imaging Radiologist's Impressions: Impressions Chest X-Ray 08/31/25 10:24 IMPRESSION: Suspected right middle lobe opacity that could represent atelectasis or pneumonia. Electronically signed by: Fly Olson MD 08/31/2025 10:45 AM EST Assessment and Plan (1) Asthma exacerbation: Status: Acute (2) CAP (community acquired pneumonia): Status: Acute Plan 34/m with moderate persistent asthma with acute e exacerbation Asthma exacerbation, moderate?severe Likely triggered by lower respiratory infection Continue systemic corticosteroids Scheduled bronchodilator (XOPENEX) therapy with albuterol ? ipratropium Monitor work of breathing, peak flows if available, and oxygen requirements Community-acquired pneumonia, RML Chest X-ray with right middle lobe infiltrate Continue ceftriaxone and azithromycin Follow clinical response and inflammatory markers as indicated Acute hypoxic respiratory symptoms (O2 sat 91) Tight air movement with wheezing and tachycardia Supplemental oxygen as needed to maintain adequate saturation Close respiratory monitoring tachycardia Likely multifactorial (beta-agonist use, infection, respiratory distress) Telemetry and reassessment with treatment response Acute Lactic acidosis d/t bronchodilators IVF DVT prophylaxis: Low risk Full code Quality Stroke Does the patient have a stroke diagnosis?: No VTE Prior VTE?: No VTE Risk Level:: Medical - low VTE Device Contraindication: Treatment Not Indicated VTE Drug Contraindication: Treatment Not Indicated
[2025-08-31] MEDS: Lactated Ringers 1,000 ML 100 ML IVCONT (16:07)
[2025-08-31 16:59] LABS: Reflex Lactate? 2 Y
[2025-08-31 17:48] LABS: ~Lactic Acid-LAB USE ONLY 4.6 mmol/L (0.5-2.0)
--- NOTE | 2025-08-31 17:50 | PC.NURSE ---
Dr. Arcos notified of lactic 4.6 has fluids running at 100cc/hr. States we will continue to monitor.
--- NOTE | 2025-08-31 19:00 | PC.NURSE ---
Patient arrived to unit from ED via wheelchair. Patient denies SOB, has unlabored breathing and talking in complete sentences. Patient arrived with LR infusing at 100ml/hr. Patient educated on low fall risk, call diane within reach.
--- NOTE | 2025-08-31 20:11 | PM.EVENT ---
Event Note Date of Service: 09/01/25 Event Note: 2000 report pt tachycardic on tele after albuterol and xopenx treatments. Pt is on tele. Pt states he often gets a fast heart rate with breathing treatments. Xopenezx added earlier, RT requesting the dose be havled. Orders updated. Pt also has DIMITRIS and in house CPAP ordered. Time Spent With Patient Time: Total time managing care of this patient today ____ minutes.
[2025-08-31] MEDS: guaiFENesin DM 600/30 1 TAB TAB.ER.12H PO (21:54)
[2025-08-31] MEDS: 0.9 % Sodium Chloride Flush 3 ML SYRINGE IVFLUSH (21:59)
[2025-09-01 00:52] VITALS: PULSE 93; RESP 13
[2025-09-01] MEDS: Lactated Ringers 1,000 ML 100 ML IVCONT (01:03)
[2025-09-01 01:20] VITALS: PULSE 109; RESP 12; O2SAT 96
[2025-09-01 04:00] VITALS: BP 130/76; PULSE 89; RESP 18; TEMP 36.3; O2SAT 92
[2025-09-01 06:28] LABS: MANUAL DIFF FLAG NO
[2025-09-01 06:33] LABS: Hematocrit 41.2 % (42.0-52.0); Hemoglobin 13.5 g/dl (14.0-18.0); Imm Gran Abs Auto 0.06 X10*3/uL (0.00-0.03); Imm Gran Pct Auto 0.6 % (0.0-0.4); Lymphocytes Absolute Auto 1.1 X10*3/uL (1.2-4.9); Mean Corpuscular HGB Conc 32.8 g/dl (31.0-36.0); Mean Corpuscular Hemoglobin 28.2 pg (27.0-33.0); Mean Corpuscular Volume 86.2 fL (80.0-98.0); NRBC Abs Auto 0.000 X10*3/uL (0.0-0.012); NRBC Pct Auto 0.0 /100WBC (0.0-0.2); Platelet Count 295 X10*3/uL (160-400); Red Blood Count 4.78 X10*6/uL (4.60-5.80); White Blood Count 10.5 X10*3/uL (4.8-10.8)
[2025-09-01 06:49] LABS: Anion Gap 11 (12-20); Blood Urea Nitrogen 11 mg/dL (9-16); Calcium 9.1 mg/dL (8.4-10.2); Carbon Dioxide 24 mmol/L (22-29); Chloride 112 mmol/L (96-108); Creatinine Clr Calc Pharmacy 172.2; Estimated Glomerular Filt Rate > 60; Potassium 4.3 mmol/L (3.3-5.1); Sodium 143 mmol/L (135-145)
[2025-09-01 07:39] VITALS: BP 136/86; PULSE 99; RESP 18; TEMP 36.3; O2SAT 93
[2025-09-01] MEDS: guaiFENesin DM 600/30 1 TAB TAB.ER.12H PO (08:17)
--- NOTE | 2025-09-01 09:03 | PM.DS ---
DS: Providers Provider Date of admission: 08/31/25 15:22 Date of discharge: 09/01/25 Primary care physician: NINI Carranza DS: Diagnosis Discharge Diagnosis (1) Asthma exacerbation: Status: Acute (2) CAP (community acquired pneumonia): Status: Acute DS: Summary Hospital Course Hospital Course: 34-year-old male with a history of asthma, obstructive sleep apnea, depression, and chronic allergic rhinitis presents with a persistent cough productive of thick white, blood-tinged sputum. He reports subjective fevers to 101?F with chills, pleuritic chest pain, shortness of breath, and dyspnea on exertion. He contacted his pastry wrapper and was started on a prednisone taper and doxycycline four days ago without significant improvement. He has been using his nebulizer frequently. In the ED, he is tachycardic with ongoing wheezing. Chest X-ray is concerning for a right middle lobe infiltrate. He received albuterol 7.5 mg with ipratropium 0.5 mg x2 with partial improvement, but persistent wheezing. He was also treated with ceftriaxone 1 g IV, azithromycin 500 mg IV, and methylprednisolone (Solu-Medrol) 125 mg IV. PROBLEM LIST Infective exacerbation of Asthma, moderate?severe Community acquired pneumonia of RML Asthma likely triggered by lower respiratory infection Chest X-ray with right middle lobe infiltrate Placed on systemic corticosteroids and antibiotics (Ceftriaxone and Azithromyin) Scheduled bronchodilator (XOPENEX) therapy with albuterol ? ipratropium Transition to cephalexin and azithromycin oral dosing x7 days total Transition to oral prednisone 60mg OD PO with slow taper Acute hypoxic respiratory symptoms (O2 sat 91) Tight air movement with wheezing and tachycardia on presentation Supplemental oxygen as needed to maintain adequate saturation Close respiratory monitoring Tachycardia Acute Lactic acidosis Likely multifactorial (beta-agonist use, infection, respiratory distress) with lactic acidosis likely due to albuterol treatments Telemetry and reassessment with treatment response Was given IVF Metabolic acidosis has resolved Status at Discharge Functional status at discharge: independent ambulation Overall status at discharge: patient is back to baseline Time Attestation Total time managing care of this patient today: 45 mintues. Discharge Coordination Time (in mins): 35 Quality: Safe Use of Opioids Does Pt have an Active Cancer Diagnosis on the Problem List?: No Quality: Stroke Does the patient have a stroke diagnosis?: No Physical Exam Exam: Exam: General: A&O x3, oriented to time place person and situation, comfortable, no pain Cardiac: S1, S2 auscultated with no S3/4, no MRG. Well perfused. Respiratory: Normal breath sounds auscultated throughout all lung zones, without wheezing, rales. Normal rate. GI/ : No abdominal pain on palpation, no masses or distentions. MSK: Normal ambulation without pain at bony prominences or musculature Neurological: Normal neurological examination on overview, without obvious CN II-XII abnormalities. Vital Signs: Vital Signs: Last Vital Signs Temp 97.4 F 09/01/25 07:39 Pulse 99 09/01/25 07:39 Resp 18 09/01/25 07:39 BP 136/86 09/01/25 07:39 Pulse Ox 93 09/01/25 07:39 O2 Del Method Room Air 09/01/25 07:39 BMI result Body Mass Index 45.1 DS: Data Data Completed and Pending Labs on day of discharge: Laboratory Results - last 24 hr 08/31/25 08/31/25 08/31/25 10:26 12:11 12:17 WBC 7.0 RBC 5.27 Hgb 14.8 Hct 45.8 MCV 86.9 MCH 28.1 MCHC 32.3 RDW 13.0 Plt Count 298 MPV 9.3 L Immature Gran % (Auto) 0.7 H Neut % (Auto) 59.2 Lymph % (Auto) 29.4 [place] % (Auto) 4.6 Eos % (Auto) 5.2 H Baso % (Auto) 0.9 Lymph # (Auto) 2.0 [place] # (Auto) 0.3 Eos # (Auto) 0.4 Baso # (Auto) 0.1 Abs Immat Gran (auto) 0.05 H Absolute Neuts (auto) 4.1 Absolute Nucleated RBC 0.000 Nucleated RBC % (auto) 0.0 VBG pH 7.46 H VBG pCO2 28 VBG pO2 60 VBG HCO3 20 L VBG O2 Saturation 89.0 VBG Base Excess -1.8 Sodium 141 Potassium 3.6 D Chloride 110 H Carbon Dioxide 16 L Anion Gap 19 BUN 22 H Creatinine 0.91 Estim Creat Clear Calc 132.9 Estimated GFR > 60 Random Glucose 107 Lactic Acid 3.0 H* Lactic Acid F/U @ 2Hr Lactic Acid F/U @ 4Hr Calcium 8.8 Magnesium 2.2 Total Bilirubin 0.4 AST 57 H ALT 65 H Alkaline Phosphatase 115 Troponin I High Sens < 2.7 Total Protein 8.2 H Albumin 4.3 Lipase 13 Influenza Type A (PCR) NEGATIVE Influenza Type B (PCR) NEGATIVE RSV RNA Qual (PCR) NEGATIVE SARS-CoV-2 RNA (RT-PCR) NEGATIVE S. pyogenes GrpA LINDA Negative 08/31/25 08/31/25 09/01/25 14:55 17:13 05:39 WBC 10.5 RBC 4.78 Hgb 13.5 L Hct 41.2 L MCV 86.2 MCH 28.2 MCHC 32.8 RDW 12.6 Plt Count 295 MPV 9.3 L Immature Gran % (Auto) 0.6 H Neut % (Auto) 86.3 H Lymph % (Auto) 10.8 L [place] % (Auto) 2.1 Eos % (Auto) 0.0 Baso % (Auto) 0.2 Lymph # (Auto) 1.1 L [place] # (Auto) 0.2 Eos # (Auto) 0.0 Baso # (Auto) 0.0 Abs Immat Gran (auto) 0.06 H Absolute Neuts (auto) 9.1 H Absolute Nucleated RBC 0.000 Nucleated RBC % (auto) 0.0 VBG pH VBG pCO2 VBG pO2 VBG HCO3 VBG O2 Saturation VBG Base Excess Sodium 143 Potassium 4.3 Chloride 112 H Carbon Dioxide 24 Anion Gap 11 L BUN 11 Creatinine 0.70 Estim Creat Clear Calc 172.2 Estimated GFR > 60 Random Glucose 138 H Lactic Acid Lactic Acid F/U @ 2Hr 2.2 H* Lactic Acid F/U @ 4Hr 4.6 H* Calcium 9.1 Magnesium Total Bilirubin AST ALT Alkaline Phosphatase Troponin I High Sens Total Protein Albumin Lipase Influenza Type A (PCR) Influenza Type B (PCR) RSV RNA Qual (PCR) SARS-CoV-2 RNA (RT-PCR) S. pyogenes GrpA LINDA Discharge Plan Discharge Anticipated Discharge Date/Time: 09/01/25 09:08 Patient Disposition: Home, Self-Care Discharge Diagnosis: Infective exacerbation of moderate persistent asthma 2/2 community-acquired pneumonia of right middle lobe Referrals: Erika Villareal PA [Primary Care Provider, Hospitalist] - 1 Week Discharge Medications: New cephalexin 750 mg capsule 750 mg PO BID Qty: 14 0RF prednisone 20 mg tablet 40 mg PO DAILY Qty: 20 0RF Rx Instructions: 60 mg Daily x3 days, 40 mg daily x3 days, 20 mg daily x3 days, 10 mg daily x4 days benzonatate 100 mg Capsule 100 mg PO TID PRN (Reason: Cough) 7 Days Qty: 21 0RF azithromycin 500 mg Tablet 500 mg PO Q24H 7 Days Qty: 7 0RF Mucus DM 30-600 mg Tablet Extended Release 12 Hr 1 tab PO BID 7 Days Qty: 14 0RF Continued Dupixent Pen 300 mg/2 mL pen injector See Rx Instructions subcut Q2W 28 Days Qty: 4 11RF Rx Instructions: loading dose: 600mg SC x 1, then 300mg SC every 2 weeks albuterol sulfate 2.5 mg /3 mL (0.083 %) solution for nebulization 2.5 mg inhalation Q4H PRN (Reason: shortness of breath or wheezing) 30 Days Qty: 180 11RF ibuprofen 800 mg tablet 800 mg PO Q8H PRN (Reason: pain) Qty: 14 0RF (DME) AeroEclipse II Nebulizer [facility] [place] Rx Instructions .ROUTE .MEDSUPPLY Qty: 1 0RF Rx Instructions: As directed prednisone 10 mg tablet See Rx Instructions PO DAILY Taper: Prednisone 50 daily for 3 Days and 0 Hour 40 daily for 3 Days and 0 Hour 30 daily for 3 Days and 0 Hour 20 daily for 3 Days and 0 Hour 10 daily for 3 Days Rx Instructions: PO daily; Take 6 tabs daily x 3 days, then 5 tabs x 3 days, then 4 tabs x 3 days, then 3 tabs x 3 days, then 2 tabs daily x 3 days, then 1 tab x 3 days to complete. omeprazole 20 mg capsule,delayed release(DR/EC) 20 mg PO DAILY@0630 albuterol sulfate [Ventolin HFA] 90 mcg/actuation HFA aerosol inhaler 2 puff inhalation Q6H PRN (Reason: Shortness Of Breath Or Wheezing) [place] Aerosphere 160-9-4.8 mcg/actuation HFA aerosol inhaler 2 inh inhalation BID 30 Days Qty: 10.7 0RF fluticasone propionate 50 mcg/actuation spray,suspension 1 spray intranasal DAILY PRN (Reason: Allergy Symptoms) cetirizine 10 mg tablet 10 mg PO DAILY epinephrine [EpiPen 2-Juan] 0.3 mg/0.3 mL auto-injector 0.3 mg IM Q10M PRN (Reason: anaphylaxis) 30 Days Qty: 2 6RF Rx Instructions: for 2 doses Discontinued doxycycline hyclate 100 mg capsule 100 mg PO BID 10 Days Qty: 20 0RF Discharge Orders: Discharge Order (Routine); Ordered 09/01/25 Ordered By: Romario Bales Diet: Advance to usual diet Activity on Discharge: As tolerated Stand Alone Forms: Patient Portal Discharge page Print Language: Sami Care Plan Goals: As above Health Concerns: As above Plan of Treatment: Continue antibiotics Continue prednisone taper Follow up with PCP within 1 week of discharge Follow up with pulmonology outpatient Assessment: Hemodynamically stable, with improvement in hypoxia. Back to clinical baseline
--- NOTE | 2025-09-01 11:30 | MHC.CM.PN ---
CM MET WITH PT AT BEDSIDE. PT LIVES WITH OTHERS AND IS FUNCTIONALLY INDEPENDENT. NO SERVCES. PT USES A C-PAP FOR SLEEP VIA RELIABLE. PT DECLINES COMPLETING A HCP AT THIS TIME. PCP JUAN TERRAZAS. DP: PT HAS BEEN MEDICALLY CLEARED FOR DC HOME, NO SERVICES. PT HAS OWN RIDE HOME.
== END 2025-09-01 11:14 | disposition home or self-care (01) | DRG 139 ==
LOC: HO.ED 14:35 → HO.EDOVER 15:28 → HO.S3 18:02
PROVIDERS: Physician Assistant; Admitting Provider Internal Medicine; Emergency Provider Emergency Medicine Emergency Medical Services; PCP Physician Assistant; Visit Provider Hospitalist
DX: J18.9 Pneumonia, unspecified organism (principal); J96.01 Acute respiratory failure with hypoxia; E87.21 Acute metabolic acidosis; R04.2 Hemoptysis; J45.41 Moderate persistent asthma with (acute) exacerbation; R00.0 Tachycardia, unspecified; G47.33 Obstructive sleep apnea (adult) (pediatric); Z20.822 Contact with and (suspected) exposure to COVID-19; Z79.899 Other long term (current) drug therapy
CPT/HCPCS: 36415; 71045; 80048; 80053; 82803; 83605; 83690; 83735; 84484; 85025; 87040; 87637; 87651; 93005; 94640; 94660; 99221; 99285; J0456; J0696; J2919; J7120

== ENCOUNTER → 2025-08-31 10:07 | Outpatient (BNV) | payer OTHER, SELFPAY | PROVIDERS: PCP Physician Assistant; Visit Provider Radiology Diagnostic Radiology | DX: R06.02 Shortness of breath (principal); R05.9 Cough, unspecified | CPT/HCPCS: 71045 ==

== ENCOUNTER → 2025-08-31 12:05 | Outpatient (BNV) | payer OTHER, SELFPAY | PROVIDERS: Admitting Provider Internal Medicine; Emergency Provider Emergency Medicine Emergency Medical Services; PCP Physician Assistant; Visit Provider Internal Medicine Cardiovascular Disease | DX: R06.00 Dyspnea, unspecified (principal) | CPT/HCPCS: 93010 ==